=== PATIENT | female | born 1955 | race Caucasian/White ===

== ENCOUNTER 2017-03-25 14:59 | Observation (INO) | payer MEDICARE, OTHER ==
[~2017-03-25] VITALS: Ht 167.6 cm; Wt 85.8 kg
[~2017-03-25 14:59] MED LIST: AZULFIDINE500 MG PO; BACLOFEN20 MG PO; BUTORPHANO10 MG/1 ML; CHLORDIAZEPO-A1 EACH PO; GLUCOPHAGE1000 MG PO; LOVASTATIN20 MG PO; NEXIUM40 MG PO; OXYBUTYNIN CHLO10 MG PO; PRINIVIL10 MG PO; REZYST250 MG PO; ROBAXIN-750750 MG PO; SARAFEM20 MG PO
[2017-03-25 15:36] LABS: BASOPHILS % 0.3 % (0.0-1.0); BILIRUBIN,URINE 1+ (NEGATIVE); COLOR,URINE AMBER (YELLOW); EOSINOPHILS % 0.1 % (0.0-6.0); HEMATOCRIT 37.9 % (34.2-44.1); HEMOGLOBIN 12.5 g/dL (12.0-16.0); KETONES,URINE TRACE (NEGATIVE); LEUKOCYTE ESTERASE ,URINE 2+ (NEGATIVE); LYMPHOCYTES # (AUTO) 1.9 (1.0-3.2); LYMPHOCYTES % 20.1 % (18.0-39.1); MEAN CORPUSCULAR HEMOGLOBIN 28.5 pg (28-32); MEAN CORPUSCULAR VOLUME 86.3 fL (81-99); MONOCYTES # (AUTO) 0.6 (0.2-0.8); MONOCYTES % 5.9 % (4.4-11.3); NEUTROPHILS # (AUTO) 7.1 (2.1-6.9); NEUTROPHILS % 73.1 % (38.7-80.0); PLATELET COUNT 282 x10e3/uL (140-360); RED BLOOD COUNT 4.39 x10e6/uL (3.6-5.1); RED CELL DISTRIBUTION WIDTH 17.6 % (11.7-14.4); URINE UROBILINOGEN 0.2 mg/dL (0.2 - 1)
[2017-03-25 15:39] LABS: CLARITY,URINE SL CLOUDY (CLEAR); NITRITE,URINE POSITIVE (NEGATIVE); PROTEIN,URINE DIPSTICK 2+ (NEGATIVE)
[2017-03-25 15:45] LABS: BACTERIA,URINE MANY /HPF; EPITHELIAL CELLS,URINE FEW /LPF; MUCUS,URINE MODERATE (RARE); WBC,URINE (MAN) 21-50 /HPF (0-5)
--- NOTE | 2017-03-25 15:45 | Diagnostic Imaging Report ---
PROCEDURE: A single AP view of the chest. COMPARISON: None. INDICATIONS: shortness of breath, nausea FINDINGS: Lines/tubes: None. Lungs: The lungs are well inflated and clear. There is no evidence of pneumonia or pulmonary edema. Pleura: There is no pleural effusion or pneumothorax. Heart and mediastinum: The heart and the mediastinum are unremarkable. Bones: No acute bony abnormality. IMPRESSION: 1. No acute cardiopulmonary abnormalities. Renny Santiago M.D. Dictated by: Renny Santiago M.D. on 03/25/2017 at 15:52 Electronically approved by: Renny Santiago M.D. on 03/25/2017 at 15:52
[2017-03-25] MEDS ORDERED: ONDANSETRON HCL INJ 2 MG/ML VIAL IV STA (15:49)
[2017-03-25] MEDS ORDERED: MORPHINE SULFATE 2 MG/ML SYR IV STA (15:49)
[2017-03-25 15:54] LABS: ALANINE AMINOTRANSFERASE 10 IU/L (0-55); ALBUMIN 4.7 g/dL (3.5-5.0); ALBUMIN/GLOBULIN RATIO 0.9 (0.8-2.0); ALKALINE PHOSPHATASE 88 IU/L (40-150); ANION GAP 19.2 mmol/L (8-16); BLOOD UREA NITROGEN 28 mg/dL (7-26); BUN/CREATININE RATIO 32 (6-25); CALCIUM 10.9 mg/dL (8.4-10.2); CARBON DIOXIDE 28 mmol/L (22-29); CHLORIDE 93 mmol/L (98-107); CREATINE KINASE 41 IU/L (29-168); CREATININE, SERUM 0.87 mg/dL (0.57-1.11); EST GLOMERULAR FILTRATION RATE > 60 ML/MIN (60-); GLUCOSE 226 mg/dL (74-118); POTASSIUM 4.2 mmol/L (3.5-5.1); SODIUM 136 mmol/L (136-145)
[2017-03-25] MEDS ORDERED: MEROPENEM 500MG 500 MG in SODIUM CHLORIDE 0.9% 50ML 50 ML IV STA (16:20)
[2017-03-25] MEDS ORDERED: IOPAMIDOL 370 MG/ML 200 ML INFUS..BTL INJ ONE (18:41)
[2017-03-25] MEDS ORDERED: SODIUM CHLORIDE 0.9% 50ML 50 ML ONE (18:41)
--- NOTE | 2017-03-25 18:47 | Diagnostic Imaging Report ---
PROCEDURE: CT ABDOMEN AND PELVIS WITH CONTRAST TECHNIQUE: The abdomen and pelvis were scanned utilizing a multidetector helical scanner from the diaphragm to the lesser trochanter after the IV administration of 100 cc of Isovue 370 and the oral administration of water. Coronal and sagittal multiplanar reformations were obtained. COMPARISON: Patients [facility], CT, CT ABDOMEN AND PELVIS WITH CONTRAST, 08/27/2009, 10:49. INDICATIONS: VOMITTING, ABDOMINAL PAIN, CROHNS DISEASE FINDINGS: LOWER THORAX: Stable 5-6 mm nodule in the lateral right lower lobe (series 2, image 1). Stable linear scarring in the medial right middle lobe (series 2, image 1). HEPATOBILIARY: Normal hepatic size and contour. No focal hepatic lesions. Common bile duct is mildly dilated, measuring approximately 9 mm at the stevo hepatis. No radiopaque intraluminal filling defects. Cholecystectomy clips. SPLEEN: No splenomegaly. PANCREAS: No focal masses or ductal dilatation. Normal parenchymal enhancement. No surrounding inflammatory changes, free fluid or fluid collections in the neck, body, or tail. ADRENALS: No adrenal nodules. KIDNEYS/URETERS: No hydronephrosis, stones, or solid mass lesions. PELVIC ORGANS/BLADDER: Bladder is decompressed, but grossly unremarkable. Uterus is not visualized. No adnexal masses. PERITONEUM / RETROPERITONEUM: No free air or fluid. LYMPH NODES: Mildly enlarged stevo hepatis and celiac axis nodes, as well as mildly prominent left retroperitoneal and gastrohepatic ligament nodes: * Stevo hepatis nodes measure 1.2 and 1.2 cm in short axis (series 2, images 22 and 24). * Enlarged portacaval lymph node measures 1.6 cm in short axis (series 2 image 27). * Enlarged celiac axis node measures 1.2 cm in short axis (series 2 image 23). * Borderline enlarged slick-caval node, which measures 1.0 cm in short axis (series 2, image 28). * Mildly prominent gastrohepatic ligament nodes, which measures 0.8-0.9 cm in short axis. No other retroperitoneal or any pelvic or inguinal adenopathy. No intra-abdominal lymph nodes. VESSELS: The celiac trunk, superior and inferior mesenteric, and bilateral renal arteries are patent. Portal, superior mesenteric, and splenic veins are patent. Mild atherosclerotic disease of the aorta. GI TRACT: Very mild soft tissue stranding surrounding the second portion of the duodenum (for example series 2, image 31-33), with mild thickening of the adjacent anterior pararenal fascia (series 2, image 39). No bowel dilation or evidence of obstruction. Stomach is grossly unremarkable. No surrounding stranding or pericolonic inflammatory changes. BONES AND SOFT TISSUES: No acute bony abnormalities. Vertebroplasty changes at L4 and L5. Degenerative disc changes L1-L2, and L4-L5/L5-S1. No lytic lesions. IMPRESSION: 1. very mild soft tissue stranding surrounding the second portion of the duodenum. This may reflect duodenitis. Alternatively, these may be reactive changes secondary to adjacent mild pancreatitis. Correlate with serum amylase and lipase. No evidence of pancreatic necrosis, focal lesion or ductal dilation. 2. The rest of the bowel is grossly unremarkable. 3. Stevo hepatis and celiac axis adenopathy, which may be reactive. 4. Stable 5-6 mm nodule in the right lower lobe since 2009, which is presumed benign. 5. Mild dilation of the common bile duct, likely reflect post cholecystectomy status. Renny Santiago M.D. Dictated by: Renny Santiago M.D. on 03/25/2017 at 18:54 Electronically approved by: Renny Santiago M.D. on 03/25/2017 at 18:54
[2017-03-25] MEDS ORDERED: D5.45%NS/KCL 20MEQ 1,000 ML IV SCH (18:56)
[2017-03-25] MEDS ORDERED: DIPHENOXYLATE/ATROPINE TAB PO PRN (19:00)
[2017-03-25] MEDS ORDERED: ONDANSETRON HCL INJ 2 MG/ML VIAL IV PRN (19:00)
[2017-03-25] MEDS ORDERED: DEXTROSE 50% SYRINGE 50 ML IV PRN (19:00)
[2017-03-25] MEDS ORDERED: MORPHINE SULFATE 5 MG/ML VIAL IV PRN (19:15)
[2017-03-25 20:33] VITALS: BP 130/70
[2017-03-25] MEDS: INSULIN REGULAR, HUMAN 100 UNIT/1 ML 3ML VIAL SQ SCH (21:00)
[2017-03-25 21:58] VITALS: BP 130/70
[2017-03-25] MEDS ORDERED: MEROPENEM 500MG 500 MG in SODIUM CHLORIDE 0.9% 50ML 50 ML IV SCH (22:00)
[2017-03-25] MEDS: WATER STERILE 10 ML VIAL INJ SCH (22:32)
[2017-03-25] MEDS: MEROPENEM 500 MG VIAL IV SCH (22:32)
[2017-03-26 00:25] VITALS: BP 125/67
[2017-03-26 05:20] VITALS: BP 143/74
[2017-03-26] MEDS: WATER STERILE 10 ML VIAL INJ SCH ×3 (06:01→22:44)
[2017-03-26] MEDS: MEROPENEM 500 MG VIAL IV SCH ×3 (06:01→22:44)
[2017-03-26 07:25] LABS: BASOPHILS % 0.5 % (0.0-1.0); EOSINOPHILS # (AUTO) 0.1 (0.0-0.4); EOSINOPHILS % 1.1 % (0.0-6.0); HEMOGLOBIN 9.6 g/dL (12.0-16.0); LYMPHOCYTES # (AUTO) 1.6 (1.0-3.2); LYMPHOCYTES % 19.6 % (18.0-39.1); MEAN CORPUSCULAR HEMOGLOBIN 28.5 pg (28-32); MONOCYTES # (AUTO) 0.6 (0.2-0.8); MONOCYTES % 7.8 % (4.4-11.3); NEUTROPHILS # (AUTO) 5.7 (2.1-6.9); NEUTROPHILS % 70.6 % (38.7-80.0); PLATELET COUNT 220 x10e3/uL (140-360); RED BLOOD COUNT 3.37 x10e6/uL (3.6-5.1); RED CELL DISTRIBUTION WIDTH 17.3 % (11.7-14.4)
[2017-03-26] MEDS: INSULIN REGULAR, HUMAN 100 UNIT/1 ML 3ML VIAL SQ SCH ×4 (07:30→21:00)
[2017-03-26 08:00] VITALS: BP 117/58
[2017-03-26 08:03] LABS: ANION GAP 15.1 mmol/L (8-16); BLOOD UREA NITROGEN 21 mg/dL (7-26); BUN/CREATININE RATIO 31 (6-25); CALCIUM 9.4 mg/dL (8.4-10.2); CARBON DIOXIDE 26 mmol/L (22-29); CHLORIDE 98 mmol/L (98-107); CREATININE, SERUM 0.68 mg/dL (0.57-1.11); EST GLOMERULAR FILTRATION RATE > 60 ML/MIN (60-); GLUCOSE 200 mg/dL (74-118); POTASSIUM 4.1 mmol/L (3.5-5.1); SODIUM 135 mmol/L (136-145)
[2017-03-26 11:44] VITALS: BP 126/71
[2017-03-26] MEDS ORDERED: SODIUM CHLORIDE 0.9% 1000ML 1,000 ML IV SCH (11:45)
[2017-03-26 12:02] LABS: MAGNESIUM 1.3 MG/DL (1.3-2.1)
[2017-03-26 12:30] LABS: FREE T4 (FREE THYROXINE) 1.06 ng/dL (0.8-1.8); THYROID STIMULATING HORMONE 1.678 uIU/mL (0.350-4.940)
[2017-03-26 12:31] LABS: B-TYPE NATRIURETIC PEPTIDE2 < 10.0 pg/mL (0-100)
[2017-03-26] MEDS: SULFASALAZINE 500 MG TAB PO SCH ×3 (13:00→21:00)
[2017-03-26] MEDS: [UNRECOGNIZED DRUG - OTHER] PO SCH ×2 (15:00→21:00)
[2017-03-26] MEDS: CHLORDIAZEPOXIDE PO SCH ×2 (15:00→21:00)
[2017-03-26] MEDS: METHOCARBAMOL 750 MG TAB PO SCH ×2 (15:00→21:00)
[2017-03-26] MEDS: BACLOFEN 10 MG TAB PO SCH ×2 (15:00→21:00)
[2017-03-26 16:44] VITALS: BP 122/65
[2017-03-26] MEDS: METFORMIN HCL 500 MG TAB PO SCH (17:00)
[2017-03-26 18:57] LABS: WBC,FECAL (FECAL LACTOFERRIN) NEGATIVE (NEGATIVE)
[2017-03-26] MEDS ORDERED: SIMVASTATIN 20 MG TAB PO SCH (21:00)
[2017-03-26 21:15] VITALS: BP 109/58
[2017-03-27] VITALS: BP 123/63
[2017-03-27 05:08] VITALS: BP 145/66
[2017-03-27] MEDS: WATER STERILE 10 ML VIAL INJ SCH ×2 (06:44→14:00)
[2017-03-27] MEDS: MEROPENEM 500 MG VIAL IV SCH ×2 (06:44→14:50)
[2017-03-27] MEDS ORDERED: PANTOPRAZOLE SOD 40 MG TABEC PO SCH (07:30)
[2017-03-27] MEDS: INSULIN REGULAR, HUMAN 100 UNIT/1 ML 3ML VIAL SQ SCH ×2 (07:30→11:30)
[2017-03-27 08:00] VITALS: BP 147/65
[2017-03-27] MEDS: METFORMIN HCL 500 MG TAB PO SCH (08:00)
[2017-03-27 08:04] LABS: FERRITIN 105.06 ng/mL (4.63-204.00)
[2017-03-27 08:06] LABS: FOLATE 3.8 ng/mL (7.0-15.4)
[2017-03-27] MEDS ORDERED: NON-FORMULARY MEDICATION (Lovastatin 20 MG) PO SCH (09:00)
[2017-03-27] MEDS: CHLORDIAZEPOXIDE PO SCH ×2 (09:00→15:00)
[2017-03-27] MEDS: BACLOFEN 10 MG TAB PO SCH ×2 (09:00→15:00)
[2017-03-27] MEDS: [UNRECOGNIZED DRUG - OTHER] PO SCH ×2 (09:00→15:00)
[2017-03-27] MEDS ORDERED: LISINOPRIL 10 MG TAB PO SCH (09:00)
[2017-03-27] MEDS: SULFASALAZINE 500 MG TAB PO SCH ×2 (09:00→13:00)
[2017-03-27] MEDS ORDERED: OXYBUTYNIN CHLORIDE XL 5 MG TAB PO SCH (09:00)
[2017-03-27] MEDS ORDERED: FLUOXETINE HCL 20 MG CAP PO SCH (09:00)
[2017-03-27] MEDS: METHOCARBAMOL 750 MG TAB PO SCH ×2 (09:00→15:00)
[2017-03-27 09:06] LABS: BASOPHILS # (AUTO) 0.1 (0.0-0.1); BASOPHILS % 0.6 % (0.0-1.0); EOSINOPHILS # (AUTO) 0.2 (0.0-0.4); EOSINOPHILS % 1.7 % (0.0-6.0); HEMATOCRIT 30.2 % (34.2-44.1); HEMOGLOBIN 9.6 g/dL (12.0-16.0); LYMPHOCYTES # (AUTO) 1.6 (1.0-3.2); LYMPHOCYTES % 18.7 % (18.0-39.1); MEAN CORPUSCULAR HGB CONC 31.8 g/dL (31-35); MEAN CORPUSCULAR VOLUME 91.2 fL (81-99); MONOCYTES # (AUTO) 0.6 (0.2-0.8); MONOCYTES % 6.8 % (4.4-11.3); NEUTROPHILS # (AUTO) 6.3 (2.1-6.9); NEUTROPHILS % 71.7 % (38.7-80.0); PLATELET COUNT 236 x10e3/uL (140-360); RED BLOOD COUNT 3.31 x10e6/uL (3.6-5.1); RED CELL DISTRIBUTION WIDTH 17.4 % (11.7-14.4)
[2017-03-27 12:05] LABS: C DIFFICILE TOXIN A&B AMP PROB NEGATIVE (NEGATIVE)
[2017-03-27] MEDS ORDERED: FERROUS SULFAT325 MG PO (13:21)
[2017-03-27] MEDS ORDERED: BACTRIM DS TAB1 EACH PO (13:21)
[2017-03-27] MEDS ORDERED: MULTI-VITAMIN1 EACH PO (13:21)
[2017-03-27] MEDS ORDERED: CIPRO500 MG PO (13:25)
--- NOTE | 2017-03-27 13:40 | Discharge Summary ---
ADMITTING DIAGNOSES 1. Acute gastroenteritis. 2. Recalcitrant nausea, vomiting and diarrhea. 3. Urinary tract infection. 4. History of Crohn disease. 5. History of hypertension. 6. History of type 2 diabetes. DISCHARGE DIAGNOSES 1. Acute gastroenteritis. 2. Recalcitrant nausea, vomiting and diarrhea. 3. Urinary tract infection. 4. History of Crohn disease. 5. History of hypertension. 6. History of type 2 diabetes. BRIEF HISTORY: Ms. Jimenez is a 61-year-old lady who comes in presenting with 24 hours of nausea, vomiting and diarrhea. She does have a history of Crohn disease, but does not feel that this is a Crohn's flare up. Her UA showed pyuria suggesting this was all due to a urinary tract infection. The urine culture came back with greater than 100,000 Klebsiella that was pansensitive. Her lab work showed only some mild iron deficiency anemia. She was feeling much better the following day, tolerating a regular diet with no nausea, vomiting or diarrhea. She was discharged home on p.o. cefuroxime for the urinary tract infection along with p.o. iron and vitamins for the anemia with instructions to resume the rest of her home meds as before. Resume a diabetic diet and to follow up with her PCP within 2 weeks. CEM MORGAN MD Job#: [id number] [place]
== END 2017-03-27 15:39 | disposition home or self-care (01) ==
LOC: ER 15:03 → MED/SURG3 19:43
PROVIDERS: ADMIT Internal Medicine; ATTEND Internal Medicine
DX: A09 Infectious gastroenteritis and colitis, unspecified (principal); N39.0 Urinary tract infection, site not specified; K50.90 Crohn's disease, unspecified, without complications; I10 Essential (primary) hypertension; E11.9 Type 2 diabetes mellitus without complications; B96.1 Klebsiella pneumoniae [K. pneumoniae] as the cause of diseases classified elsewhere; D50.9 Iron deficiency anemia, unspecified; K21.9 Gastro-esophageal reflux disease without esophagitis; M06.9 Rheumatoid arthritis, unspecified
CPT/HCPCS: 36415 ×3; 71010; 74177; 80048; 80053; 81001; 82270; 82550; 82553; 82607; 82728; 82746; 82948 ×3; 83036; 83540; 83630; 83735; 83880; 84439; 84443; 84466; 84484; 85025 ×3; 87045; 87086; 87177; 87186; 87493; 93005; 96376; 99284; G0378 ×3; J2185 ×3; J2270; J2405; J7030; Q9967

== ENCOUNTER 2017-05-25 16:56 | Inpatient (IN) | payer MEDICARE, OTHER ==
[~2017-05-25] VITALS: Ht 167.6 cm; Wt 85.7 kg
[~2017-05-25 16:56] MED LIST changes: +BACTRIM DS TAB1 EACH PO; +CIPRO500 MG PO; +FERROUS SULFAT325 MG PO; +MULTI-VITAMIN1 EACH PO
[2017-05-25] MEDS ORDERED: SODIUM CHLORIDE 0.9% 1000ML 1,000 ML IV STA (17:42)
[2017-05-25] MEDS ORDERED: PHENAZOPYRIDINE HCL 100 MG TAB PO ONE (17:45)
[2017-05-25] MEDS ORDERED: CIPROFLOXACIN 400 MG/D5W 200ML 200 ML IV NR (18:30)
[2017-05-25 19:04] LABS: BILIRUBIN,URINE NEGATIVE (NEGATIVE); KETONES,URINE NEGATIVE (NEGATIVE); LEUKOCYTE ESTERASE ,URINE 1+ (NEGATIVE); NITRITE,URINE NEGATIVE (NEGATIVE); URINE UROBILINOGEN 0.2 mg/dL (0.2 - 1)
[2017-05-25 19:06] LABS: CLARITY,URINE SL CLOUDY (CLEAR); COLOR,URINE YELLOW (YELLOW); PROTEIN,URINE DIPSTICK TRACE (NEGATIVE)
[2017-05-25 19:19] LABS: BACTERIA,URINE MANY /HPF; EPITHELIAL CELLS,URINE MODERATE /LPF
[2017-05-25 20:51] LABS: BASOPHILS # (AUTO) 0.1 (0.0-0.1); BASOPHILS % 0.6 % (0.0-1.0); EOSINOPHILS # (AUTO) 0.1 (0.0-0.4); HEMATOCRIT 35.7 % (34.2-44.1); HEMOGLOBIN 11.1 g/dL (12.0-16.0); LYMPHOCYTES # (AUTO) 2.4 (1.0-3.2); LYMPHOCYTES % 29.1 % (18.0-39.1); MEAN CORPUSCULAR HEMOGLOBIN 25.8 pg (28-32); MEAN CORPUSCULAR HGB CONC 31.1 g/dL (31-35); MEAN CORPUSCULAR VOLUME 82.8 fL (81-99); MONOCYTES # (AUTO) 0.6 (0.2-0.8); MONOCYTES % 6.8 % (4.4-11.3); NEUTROPHILS # (AUTO) 5.2 (2.1-6.9); NEUTROPHILS % 62.3 % (38.7-80.0); PLATELET COUNT 341 x10e3/uL (140-360); RED BLOOD COUNT 4.31 x10e6/uL (3.6-5.1); RED CELL DISTRIBUTION WIDTH 15.4 % (11.7-14.4)
[2017-05-25 21:09] LABS: ALANINE AMINOTRANSFERASE 10 IU/L (0-55); ALBUMIN 4.2 g/dL (3.5-5.0); ALBUMIN/GLOBULIN RATIO 0.9 (0.8-2.0); ALKALINE PHOSPHATASE 72 IU/L (40-150); ANION GAP 16.6 mmol/L (8-16); BLOOD UREA NITROGEN 14 mg/dL (7-26); BUN/CREATININE RATIO 19 (6-25); CALCIUM 10.6 mg/dL (8.4-10.2); CARBON DIOXIDE 27 mmol/L (22-29); CHLORIDE 99 mmol/L (98-107); CREATININE, SERUM 0.74 mg/dL (0.57-1.11); EST GLOMERULAR FILTRATION RATE > 60 ML/MIN (60-); GLUCOSE 116 mg/dL (74-118); POTASSIUM 3.6 mmol/L (3.5-5.1); SODIUM 139 mmol/L (136-145)
[2017-05-25] MEDS ORDERED: ONDANSETRON HCL INJ 2 MG/ML VIAL IV PRN (21:15)
[2017-05-25] MEDS ORDERED: MEROPENEM 1GM 100 ML IV SCH (21:15)
[2017-05-25] MEDS ORDERED: ACETAMINOPHEN 325 MG TAB PO PRN (21:15)
[2017-05-25] MEDS ORDERED: SODIUM CHLORIDE FLUSH 10 ML SYR INJ PRN (21:15)
[2017-05-25] MEDS ORDERED: SODIUM CHLORIDE 0.9% 1000ML 1,000 ML ONE (22:17)
[2017-05-25] MEDS ORDERED: SODIUM CHLORIDE 0.9% 50ML 50 ML ONE (22:17)
[2017-05-25] MEDS: MEROPENEM 1 GM VIAL IV SCH (22:19)
[2017-05-25] MEDS ORDERED: BUDESONIDE EC3 MG PO (22:27)
[2017-05-25] MEDS ORDERED: NORCO 10-325 T1 EACH PO (22:27)
[2017-05-25] MEDS ORDERED: LOVASTATIN40 MG PO (22:27)
[2017-05-25] MEDS ORDERED: PANTOPRAZOLE SO40 MG PO (22:27)
[2017-05-25] MEDS ORDERED: GABAPENTIN400 MG PO (22:27)
[2017-05-25] MEDS ORDERED: PROZAC20 MG PO (22:27)
[2017-05-25] MEDS ORDERED: MS CONTIN30 MG PO (22:27)
[2017-05-25] MEDS ORDERED: TIZANIDINE HCL4 MG PO (22:27)
[2017-05-25] MEDS ORDERED: PIOGLITAZONE HC45 MG PO (22:27)
[2017-05-25] MEDS ORDERED: HYDROCODONE/APAP 10MG-325MG TAB PO PRN (22:30)
[2017-05-25] MEDS ORDERED: TIZANIDINE HCL 4 MG TAB PO PRN (22:30)
[2017-05-26] VITALS (10 sets, daily range): BP systolic 90–140; BP diastolic 49–62
[2017-05-26] MEDS: MEROPENEM 1 GM VIAL IV SCH ×3 (06:13→22:00)
[2017-05-26] MEDS: PIOGLITAZONE HCL 45 MG TAB PO SCH (09:00)
[2017-05-26] MEDS: LISINOPRIL 10 MG TAB PO SCH (09:00)
[2017-05-26] MEDS ORDERED: SIMVASTATIN 20 MG TAB PO SCH (09:00)
[2017-05-26] MEDS ORDERED: DEXTROSE 50% SYRINGE 50 ML IV PRN (09:30)
[2017-05-26] MEDS: SULFASALAZINE 500 MG TAB PO SCH ×2 (09:43→17:48)
[2017-05-26] MEDS: MORPHINE SULFATE 30 MG TAB ER PO SCH ×2 (09:43→17:00)
[2017-05-26] MEDS: PANTOPRAZOLE SOD 40 MG TABEC PO SCH (09:43)
[2017-05-26] MEDS: BUDESONIDE 3 MG CAPCR PO SCH (09:43)
[2017-05-26] MEDS: FLUOXETINE HCL 20 MG CAP PO SCH (09:44)
[2017-05-26] MEDS ORDERED: DIATRIZOATE MEGL/DIATRIZOA SOD 30 ML BTL PO ONE (10:06)
--- NOTE | 2017-05-26 10:10 | History and Physical ---
PRIMARY CARE PROVIDER: Dr. Vanessa Mathis. AIRPORT RAMP ATTENDANT: Dr. Bg Easley. CHIEF COMPLAINT: Recurrent urinary tract infection with ESBL. HISTORY OF PRESENT ILLNESS: A 61-year-old female was told by Dr. Vanessa Mathis that the patient needed to go to emergency room for an ESBL E. coli infection with multiple resistant antibiotics. The patient is now on meropenem. She is stable otherwise. PAST MEDICAL HISTORY: Recurrent urinary tract infection, hypertension, hyperlipidemia, diabetes type 2, depression, and chronic pain. PAST SURGICAL HISTORY: Hysterectomy, knee surgery, urinary bladder suspension, and cholecystectomy. SOCIAL HISTORY: Patient does not smoke or use alcohol. No recreational drugs. ALLERGIES: BENADRYL, RANITIDINE, KEFLEX, CARBAMAZEPINE, AND PENICILLIN. HOME MEDICATIONS: List is reviewed. REVIEW OF SYSTEMS: Dysuria. Urinary increasing frequency. Odorous urine. No focal deficit. PHYSICAL EXAMINATION VITAL SIGNS: Temperature is 98, blood pressure 190/51, pulse rate 86, and respirations 18. GENERAL: The patient is not in acute distress. He is awake. HEENT: Normocephalic, atraumatic. NECK: Supple grossly. PULMONARY: Diminished breath sounds. CARDIOVASCULAR: S1 and S2. Regular rate and rhythm. ABDOMEN: Soft, unremarkable. EXTREMITIES: No gross cyanosis or edema. NEUROLOGIC: There is no gross focal deficit. LABORATORY: Sodium is 139, potassium 3.6, chloride 99, bicarb 27, BUN 14, creatinine 0.7, and glucose 160. WBC is 8.3, hemoglobin 11.1, hematocrit 35.7, and platelets is 341,000. Urinalysis with WBCs 6 to 10, many bacteria, 1+ leukocyte esterase. Microbiology is still pending. IMPRESSIONS 1. Recurrent urinary tract infection with multiresistant bacteria. 2. Multiple chronic baseline problems. PLAN: Continue with home medications with adjustment. Meropenem. Consultation with Dr. Bg Easley. Job#: [id number]
[2017-05-26] MEDS ORDERED: SODIUM CHLORIDE 0.9% 50ML 0 ML ONE (11:06)
[2017-05-26] MEDS ORDERED: IOPAMIDOL 370 MG/ML 200 ML INFUS..BTL INJ ONE (11:06)
[2017-05-26] MEDS: INSULIN LISPRO 100 UNIT/1 ML 3ML VIAL SQ SCH ×3 (11:30→20:41)
--- NOTE | 2017-05-26 15:11 | Consultation ---
DATE OF CONSULTATION: May 26, 2017 UROLOGY CONSULTATION REASON FOR CONSULTATION: Complicated urinary tract infections. HISTORY OF PRESENT ILLNESS: Alpa Jimenez is a 61-year-old woman with long-standing refractory urge and stress incontinence. The patient has had recurrent urinary tract infections. She was evaluated with a culture by her primary care physician and was found to have an E. coli that was resistant to most oral antibiotics. The patient subsequently reported to the emergency room with fevers, dysuria, and was admitted to the hospital for intravenous antibiotics. The patient has had at least 2 bladder suspensions in the past. She does not recall how they were done and if they were done by a urologist or a casing puller. The patient was being worked up before [place] by Dr. Kerr, urogynecologist in the region. The patient has improved since she has been hospitalized and on IV antibiotics. PAST MEDICAL AND SURGICAL HISTORY 1. Recurrent urinary tract infections. 2. Hypertension. 3. Hyperlipidemia. 4. Type 2 diabetes mellitus. 5. Depression. 6. Chronic pain. 7. Status post total abdominal hysterectomy/bilateral salpingo-oophorectomy. 8. Status post bilateral total knee arthroplasty. 9. Status post cholecystectomy. 10. Status post left elbow surgery. 11. Status post left thumb reconstruction. 12. Total of 7 knee surgeries. 13. Status post removal of neuromas from feet. ALLERGIES: BENADRYL, RANITIDINE, KEFLEX, CARBAMAZEPINE, AND PENICILLIN. CURRENT MEDICATIONS: Please refer to the MAR. SOCIAL HISTORY: The patient denies smoking, ethanol or drug use. 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 FAMILY HISTORY: Noncontributory to the urological problems. REVIEW OF SYSTEMS: As consistent with above history of present illness and past medical history, is otherwise negative for all other systems. PHYSICAL EXAMINATION GENERAL: A very pleasant 61-year-old woman lying in the bed in no apparent distress. VITAL SIGNS: She is currently afebrile. Her vital signs are currently stable. ABDOMEN: Soft, nondistended, nontender without costovertebral angle tenderness. Kidneys are not palpable, without hepatosplenomegaly. The patient is obese. For the remaining physical examination and systems, please refer to the admission history and physical on the chart. LABORATORY STUDIES: The patient's urine culture preliminarily is showing gram-negative bacilli. White blood cell count is 8260, hemoglobin 11.1, platelets 341,000. Patient's creatinine is normal at 0.74. Calcium is elevated at 10.6. Urinalysis is significant for pyuria and microhematuria with many bacteria and moderate epithelial cells consistent with a [id number] urinary specimen. CT scan of the abdomen and pelvis was attempted to be performed, but the patient got claustrophobic. It showed soft-tissue stranding around the 2nd portion of the duodenum which I defer to the primary care physician and dilatation of the common bile duct. The kidneys were unremarkable. ASSESSMENT 1. Recurrent complicated urinary tract infections. 2. Mixed-type urinary incontinence. 3. Obesity. 4. Anemia. 5. Hypercalcemia. 6. Microhematuria. PLAN 1. Defer the electrolyte and hematologic abnormalities to the primary physician. Will await the final urine culture and sensitivity. 2. The patient will need a urological evaluation including urodynamic studies, cystoscopic examinations, et cetera. 3. Suppression antibiotics will be considered. This may be difficult with the patient's multitude of antibiotic allergies. Thank you very much for involving us in the care of your patient. We will be happy to follow her along with you as well as an outpatient. Job#: [id number] EV cc:JOHNATHAN MORENO MD
[2017-05-26] MEDS: HYDROCODONE/APAP 10MG-325MG TAB PO PRN (17:35)
[2017-05-26] MEDS: GABAPENTIN 400 MG CAP PO SCH (20:41)
[2017-05-27] VITALS (7 sets, daily range): BP systolic 115–138; BP diastolic 57–66
[2017-05-27] MEDS: HYDROCODONE/APAP 10MG-325MG TAB PO PRN ×3 (00:09→15:50)
[2017-05-27] MEDS: MEROPENEM 1 GM VIAL IV SCH ×3 (05:21→21:34)
[2017-05-27] MEDS: INSULIN LISPRO 100 UNIT/1 ML 3ML VIAL SQ SCH ×4 (07:30→21:00)
[2017-05-27 07:36] LABS: BASOPHILS % 0.4 % (0.0-1.0); EOSINOPHILS # (AUTO) 0.1 (0.0-0.4); EOSINOPHILS % 1.5 % (0.0-6.0); HEMATOCRIT 29.1 % (34.2-44.1); LYMPHOCYTES # (AUTO) 1.4 (1.0-3.2); LYMPHOCYTES % 25.7 % (18.0-39.1); MEAN CORPUSCULAR HEMOGLOBIN 25.2 pg (28-32); MEAN CORPUSCULAR HGB CONC 30.9 g/dL (31-35); MEAN CORPUSCULAR VOLUME 81.5 fL (81-99); MONOCYTES # (AUTO) 0.5 (0.2-0.8); MONOCYTES % 8.4 % (4.4-11.3); NEUTROPHILS # (AUTO) 3.4 (2.1-6.9); NEUTROPHILS % 63.6 % (38.7-80.0); PLATELET COUNT 239 x10e3/uL (140-360); RED BLOOD COUNT 3.57 x10e6/uL (3.6-5.1); RED CELL DISTRIBUTION WIDTH 15.3 % (11.7-14.4)
[2017-05-27 07:48] LABS: ANION GAP 13.5 mmol/L (8-16); BLOOD UREA NITROGEN 11 mg/dL (7-26); BUN/CREATININE RATIO 20 (6-25); CALCIUM 9.7 mg/dL (8.4-10.2); CARBON DIOXIDE 31 mmol/L (22-29); CHLORIDE 100 mmol/L (98-107); CREATININE, SERUM 0.56 mg/dL (0.57-1.11); EST GLOMERULAR FILTRATION RATE > 60 ML/MIN (60-); GLUCOSE 156 mg/dL (74-118); POTASSIUM 3.5 mmol/L (3.5-5.1); SODIUM 141 mmol/L (136-145)
[2017-05-27] MEDS: PIOGLITAZONE HCL 45 MG TAB PO SCH (08:00)
[2017-05-27] MEDS: MORPHINE SULFATE 30 MG TAB ER PO SCH ×2 (09:00→17:00)
[2017-05-27] MEDS: BUDESONIDE 3 MG CAPCR PO SCH (09:30)
[2017-05-27] MEDS: FLUOXETINE HCL 20 MG CAP PO SCH (09:30)
[2017-05-27] MEDS: LISINOPRIL 10 MG TAB PO SCH (09:30)
[2017-05-27] MEDS: SULFASALAZINE 500 MG TAB PO SCH ×2 (09:30→17:25)
[2017-05-27] MEDS: PANTOPRAZOLE SOD 40 MG TABEC PO SCH (09:30)
[2017-05-27] MEDS: METFORMIN HCL 500 MG TAB PO SCH ×2 (09:48→17:25)
--- NOTE | 2017-05-27 13:55 | Diagnostic Imaging Report ---
PROCEDURE: CHEST XRAY LINE PLACEMENT COMPARISON: 03/25/2017. INDICATIONS: PICC LINE PLACEMENT FINDINGS: The lungs are well-inflated. No focal airspace consolidation, pleural effusion, or pneumothorax. Stable cardiomediastinal contour. No pulmonary edema. No acute osseous abnormalities. Interval placement of a left upper extremity PICC. The tip projects over the expected region of the low superior vena cava. CONCLUSION: Tip of left upper extremity PICC projects over the expected region of the low superior vena cava. Dictated by: Hemanth Goetz M.D. on 05/27/2017 at 14:05 Electronically approved by: Hemanth Goetz M.D. on 05/27/2017 at 14:05
[2017-05-27] MEDS ORDERED: METFORMIN HCL 500 MG TAB PO SCH (17:00)
[2017-05-27] MEDS: GABAPENTIN 400 MG CAP PO SCH (20:31)
[2017-05-27] MEDS ORDERED: SIMVASTATIN 40 MG TAB PO SCH (21:00)
[2017-05-28] VITALS: BP 139/68
[2017-05-28] MEDS: MEROPENEM 1 GM VIAL IV SCH (05:28)
[2017-05-28] MEDS: INSULIN LISPRO 100 UNIT/1 ML 3ML VIAL SQ SCH (07:30)
[2017-05-28] MEDS: SULFASALAZINE 500 MG TAB PO SCH (08:32)
[2017-05-28] MEDS: BUDESONIDE 3 MG CAPCR PO SCH (08:32)
[2017-05-28] MEDS: PIOGLITAZONE HCL 45 MG TAB PO SCH (08:32)
[2017-05-28] MEDS: MORPHINE SULFATE 30 MG TAB ER PO SCH (08:32)
[2017-05-28] MEDS: METFORMIN HCL 500 MG TAB PO SCH (08:32)
[2017-05-28] MEDS: LISINOPRIL 10 MG TAB PO SCH (08:33)
[2017-05-28] MEDS: PANTOPRAZOLE SOD 40 MG TABEC PO SCH (08:33)
[2017-05-28] MEDS: FLUOXETINE HCL 20 MG CAP PO SCH (08:33)
[2017-05-28 08:37] VITALS: BP 146/78
--- NOTE | 2017-05-28 11:53 | Discharge Summary ---
PRIMARY CARE PHYSICIAN: Dr. Vanessa Mathis. HOTEL MAINTENANCE TECHNICIAN: Dr. Bg Easley. FINAL DIAGNOSIS: Outpatient urine culture with multidrug-resistant Escherichia coli. Inpatient culture is Escherichia coli resistant to ampicillin, Bactrim, Levaquin, gentamicin, and Cipro along with multiple other medications, but sensitive to cephalosporin. HOSPITAL COURSE: Patient is a 62-year-old female with recurrent urinary tract infection, failed outpatient treatment. The patient basically on multiple medications in the past. She is allergic to CEPHALOSPORIN and PENICILLIN, now she is on meropenem. Arrangement has been made for the patient to receive meropenem. She had a left upper extremity PICC line in place. The patient will follow up with Dr. Bg Easley. She is stable. She will get meropenem 1 gram IV q.12 hours. The patient is otherwise stable. She will go home today, follow up with her family doctor within a week. The patient is otherwise stable. Job#: [id number] [facility]
[2017-05-28] MEDS ORDERED: MEROPENEM 1 GM VIAL IV SCH (21:00)
== END 2017-05-28 10:26 | disposition home health service (06) | DRG 690 ==
LOC: ER 16:56 → ERHOLD 22:35 → MED/SURG3 05-26 00:03
PROVIDERS: ADMIT Internal Medicine; ATTEND Internal Medicine
PROC: 02HV33Z Insertion of Infusion Device into Superior Vena Cava, Percutaneous Approach (ICD-10-PCS; principal; 2017-05-27)
DX: N39.0 Urinary tract infection, site not specified (principal); E83.52 Hypercalcemia; I10 Essential (primary) hypertension; B96.20 Unspecified Escherichia coli [E. coli] as the cause of diseases classified elsewhere; E11.9 Type 2 diabetes mellitus without complications; F32.9 Major depressive disorder, single episode, unspecified; Z16.24 Resistance to multiple antibiotics; Z16.12 Extended spectrum beta lactamase (ESBL) resistance; E66.9 Obesity, unspecified; Z68.30 Body mass index [BMI] 30.0-30.9, adult; D64.9 Anemia, unspecified; E78.5 Hyperlipidemia, unspecified; N39.46 Mixed incontinence; G89.29 Other chronic pain; Z88.1 Allergy status to other antibiotic agents; Z88.0 Allergy status to penicillin; Z88.8 Allergy status to other drugs, medicaments and biological substances
CPT/HCPCS: 36415; 36569; 71010; 80048; 80053; 81001; 82948; 83970; 84550; 85025; 87086; 87186; 99284; J2185; J7030; Q9967

== ENCOUNTER → 2017-07-01 | Day surgery (SDC) | payer MEDICARE, OTHER ==
[2017-06-29 15:50] LABS: ANION GAP 16.8 mmol/L (8-16); BLOOD UREA NITROGEN 12 mg/dL (7-26); BUN/CREATININE RATIO 17 (6-25); CALCIUM 9.9 mg/dL (8.4-10.2); CARBON DIOXIDE 29 mmol/L (22-29); CHLORIDE 97 mmol/L (98-107); CREATININE, SERUM 0.69 mg/dL (0.57-1.11); EST GLOMERULAR FILTRATION RATE > 60 ML/MIN (60-); GLUCOSE 130 mg/dL (74-118); POTASSIUM 3.8 mmol/L (3.5-5.1); SODIUM 139 mmol/L (136-145)
[~2017-07-01] MED LIST changes: +BUDESONIDE EC3 MG PO; +BUPIVACAINE HCL 0.5% 10ML MPF VIAL INJ ONE; +CLINDAMYCIN PHOS 900MG/ D5W 50 50 ML IV ONE; +DEXAMETHASONE SOD PHOS INJ 4 MG/ML VIAL ONE; +FENTANYL CITRATE/PF 100MCG/2 ML INJ ONE; +GABAPENTIN400 MG PO; +LEVOFLOXACIN 500MG/D5W 100ML 100 ML IV ONE; +LIDOCAINE 2% /EPINEPHRINE 20 ML SDV INJ ONE; +LIDOCAINE HCL 2% LOCAL INJ 5 ML SDV VIAL INJ ONE; +LISINOPRIL10 MG PO; +LOVASTATIN40 MG PO; +MIDAZOLAM HCL 2 MG/2 ML VIAL ONE; +MS CONTIN30 MG PO; +NORCO 10-325 T1 EACH PO; +ONDANSETRON HCL INJ 2 MG/ML VIAL ONE; +PANTOPRAZOLE SO40 MG PO; +PIOGLITAZONE HC45 MG PO; +PROPOFOL IV EMULSION 10 MG/ML 20 ML VIAL ONE; +PROZAC20 MG PO; +ROCURONIUM BROMIDE 10 MG/ML 5ML VIAL ONE; +SEVOFLURANE INHAL SOLN 250 ML PEN BTL ONE; +SUCCINYLCHOLINE 200 MG/10 ML SYR ONE; +TIZANIDINE HCL4 MG PO
--- OUTSIDE RECORDS SUMMARY | 2017-07-01 06:34 | XMS REPORT ---
Author Author [facility] Address Unknown Phone Unavailable Care Team Providers Care Circus Supervisor Name Role Phone JOHANNY RAJAN Unavailable Unavailable CLAIR BRYANT Unavailable Unavailable Problems This patient has no known problems. Allergies, Adverse Reactions, Alerts This patient has no known allergies or adverse reactions. Medications This patient has no known medications. Results Test Description Test Time Test Comments Text Results Atomic Results Result Comments CHEST XRAY LINE PLACEMENT [place] [address] Patient Name: MANPREET MADDOX MR #: [id number] : 1955 Age/Sex: 61/F Req #: [id number] [facility] Physician: JOHANNY RAJAN MD Ordered by: KAREN CHOUDHARY MD Report #: [id number] Location: [facility] Room/Bed: [facility] __ Procedure: [id number] DX/CHEST XRAY LINE PLACEMENT Exam Date: 05/27/17 Exam Time: 1335 REPORT STATUS: Signed PROCEDURE: CHEST XRAY LINE PLACEMENT COMPARISON: 03/25/2017. INDICATIONS: PICC LINE PLACEMENT FINDINGS: The lungs are well- inflated. No focal airspace consolidation, pleural effusion, or pneumothorax. Stable cardiomediastinal contour. No pulmonary edema. No acute osseous abnormalities. Interval placement of a left upper extremity PICC. The tip projects over the expected region of the low superior vena cava. CONCLUSION: Tip of left upper extremity PICC projects over the expected region of the low superior vena cava. Dictated by: Francesca Payne M.D. on 05/27/2017 at 14:05 Electronically approved by: Francesca Payne M.D. on 05/27/2017 at 14:05 Dictated By: FRANCESCA PAYNE MD 04 Transcribed By: OSCAR on 05/27/171404 COPY TO: KAREN CHOUDHARY MD CT ABDOMEN/PELVIS W [place] [address] Patient Name: MANPREET MADDOX MR #: [id number] : 1955 Age/Sex: 61/F Req #: [id number] Adm Physician: Ordered by: CLAIR BRYANT MD Report #: [id number] Location: ER Room/Bed: Procedure: [id number] CT/CT ABDOMEN/PELVIS W Exam Date: 03/25/17 Exam Time: 1730 REPORT STATUS: Signed PROCEDURE: CT ABDOMEN AND PELVIS WITH CONTRAST TECHNIQUE: The abdomen and pelvis were scanned utilizing a multidetector helical scanner from the diaphragm to the lesser trochanter after the IV administration of 100 cc of Isovue 370 and the oral administration of water. Coronal and sagittal multiplanar reformations were obtained. COMPARISON: [facility], CT, CT ABDOMEN AND PELVIS WITH CONTRAST, 08/27/2009, 10:49. INDICATIONS: VOMITTING, ABDOMINAL PAIN, CROHNS DISEASE FINDINGS: LOWER THORAX: Stable 5-6 mm nodule in the lateral right lower lobe (series 2, image 1). Stable linear scarring in the medial right middle lobe (series 2, image 1). HEPATOBILIARY: Normal hepatic size and contour. No focal hepatic lesions. Common bile duct is mildly dilated, measuring approximately 9 mm at the aide hepatis. No radiopaque intraluminal filling defects. Cholecystectomy clips. SPLEEN: No splenomegaly. PANCREAS: No focal masses or ductal dilatation. Normal parenchymal enhancement. No surrounding inflammatory changes, free fluid or fluid collections in the neck, body, or tail. ADRENALS: No adrenal nodules. KIDNEYS/URETERS: No hydronephrosis, stones, or solid mass lesions. PELVIC ORGANS/BLADDER: Bladder is decompressed, but grossly unremarkable. Uterus is not visualized. No adnexal masses. PERITONEUM / RETROPERITONEUM : No free air or fluid. LYMPH NODES: Mildly enlarged iade hepatis and celiac axis nodes, as well as mildly prominent left retroperitoneal and gastrohepatic ligament nodes: * Aide hepatis nodes measure 1.2 and 1.2 cm in short axis (series 2, images 22 and 24). * Enlarged portacaval lymph node measures 1.6 cm in short axis (series 2 image 27). * Enlarged celiac axis node measures 1.2 cm in short axis (series 2 image 23). * Borderline enlarged slick-caval node, which measures 1.0 cm in short axis (series 2, image 28). * Mildly prominent gastrohepatic ligament nodes, which measures 0.8 -0.9 cm in short axis. No other retroperitoneal or any pelvic or inguinal adenopathy. No intra-abdominal lymph nodes. VESSELS: The celiac trunk, superior and inferior mesenteric, and bilateral renal arteries are patent. Portal, superior mesenteric, and splenic veins are patent. Mild atherosclerotic disease of the aorta. GI TRACT: Very mild soft tissue stranding surrounding the second portion of the duodenum (for example series 2, image 31-33), with mild thickening of the adjacent anterior pararenal fascia (series 2, image 39). No bowel dilation or evidence of obstruction. Stomach is grossly unremarkable. No surrounding stranding or pericolonic inflammatory changes. BONES AND SOFT TISSUES: No acute bony abnormalities. Vertebroplasty changes at L4 and L5. Degenerative disc changes L1-L2, and L4- L5/L5-S1. No lytic lesions. IMPRESSION: 1. very mild soft tissue stranding surrounding the second portion of the duodenum. This may reflect duodenitis. Alternatively, these may be reactive changes secondary to adjacent mild pancreatitis. Correlate with serum amylase and lipase. No evidence of pancreatic necrosis, focal lesion or ductal dilation. 2. The rest of the bowel is grossly unremarkable. 3. Aide hepatis and celiac axis adenopathy, which may be reactive. 4. Stable 5-6 mm nodule in the right lower lobe since 2009, which is presumed benign. 5. Mild dilation of the common bile duct, likely reflect post cholecystectomy status. Ramez Santiago M.D. Dictated by: Ramez Santiago M.D. on 03/25/2017 at 18: 54 Electronically approved by: Ramez Santiago M.D. on 03/25/2017 at 18:54 Dictated By: RAMEZ SANTIAGO MD 53 Transcribed By: OSCAR on 03/25/171853 COPY TO: CLAIR BRYANT MD CHEST SINGLE (PORTABLE) [place] [address] Patient Name: MANPREET MADDOX MR #: [id number] : 1955 Age/Sex: 61/F Req #: [id number] Adm Physician: Ordered by: CLAIR BRYANT MD Report #: [id number] Location: ER Room/Bed: Procedure: [id number] DX/CHEST SINGLE (PORTABLE) Exam Date: 03/25/17 Exam Time: 1515 REPORT STATUS: Signed PROCEDURE: A single AP view of the chest. COMPARISON: None. INDICATIONS: shortness of breath, nausea FINDINGS: Lines/tubes: None. Lungs: The lungs are well inflated and clear. There is no evidence of pneumonia or pulmonary edema. Pleura: There is no pleural effusion or pneumothorax. Heart and mediastinum: The heart and the mediastinum are unremarkable. Bones: No acute bony abnormality. IMPRESSION: 1. No acute cardiopulmonary abnormalities. Ramez Santiago M.D. Dictated by: Ramez Santiago M.D. on 03/25/2017 at 15:52 Electronically approved by: Ramez Santiago M.D. on 03/25/2017 at 15:52 Dictated By: RAMEZ SANTIAGO MD 51 Transcribed By: OSCAR on 03/25/171551 COPY TO: CLAIR BRYANT MD
--- NOTE | 2017-08-23 06:23 | Operative Report ---
DATE OF PROCEDURE: July 01, 2017 PREOPERATIVE DIAGNOSIS: Refractory urge incontinence. POSTOPERATIVE DIAGNOSIS: Refractory urge incontinence. OPERATIONS PERFORMED 1. Complete InterStim system implantation with incision and implantation of tined quadripolar lead electrodes into the left foramen S3. 2. Fluoroscopic guidance for needle placement. 3. Subcutaneous implantation of sacral nerve neurostimulator. 4. Electronic analysis and complex programming. ANESTHESIA: General. COMPLICATIONS: None. CLINICAL SUMMARY: Alpa Jimenez is a 62-year-old woman with refractory urge incontinence. She has failed medications and behavioral therapy. She underwent percutaneous testing in the office with excellent response. She elected to proceed with InterStim complete system implantation. She understands the risks of bleeding, infection, injury to adjacent structures, need for additional procedures, and that she will not be able to undergo MRI testing. She understood all these risks and elected to proceed. OPERATIVE PROCEDURE IN DETAIL: Informed consent was verified. Alpa Jimenez was properly identified, and taken to the operating room and placed on the operating table in the prone position with all pressure points carefully well-padded. Pillows were placed on the lower abdomen to flatten the sacrum and under the shins to allow the toes to dangle freely. The patient's back and buttocks were prepared and draped in the usual sterile fashion. Local anesthesia with a combination of lidocaine and Marcaine both with epinephrine was utilized. Needle was then introduced into the left foramen S3. Depth of the needle was confirmed and adjusted fluoroscopically. Proper needle position was confirmed with observation of lifting of the perineum or "bellowing" and observation of plantar flexion of the great toe utilizing a test stimulator box. The needle stylette was then removed and directional guidewire was then placed and confirmed fluoroscopically. The foramen needle was then moved. An incision was made peripherally to the directional guidewire through the fascial layer. The dilator and introducer sheath were placed over the directional guidewire and directed into the foramen until the opaque marker of the dilator was seen midway through the sacrum. The dilator and obturator was then unlocked and removed, and the lead was then placed through the introducer sheath to the 1st white line. Position was checked fluoroscopically. The lead was further advanced until 3 electrodes were visible anterior to the sacrum. Each electrode was then tested for the same result as above. After satisfactory positioning was confirmed under continuous fluoroscopy, the introducer sheath was retracted thus deploying the lead tines into the parasacral tissue. Further incision was then made into the subcutaneous tissue posterior to the iliac crest on the left hand side, and a pocket was developed. The tunneling tool with the tube was then utilized to bring the lead to the subcutaneous pocket. The lead was then thoroughly cleansed of bodily fluids and dried thoroughly. Copious irrigation was performed of both pockets and all incisions. The lead was then inserted into the pulse generator header with the bands aligned and the blue tip clearly visible in the distal portion of the pulse generator header. The single set screw was tightened with the hex wrench. Pulse generator was then placed into the subcutaneous pocket. The programming head was then placed over the implanted neurostimulator. The impedance was verified to be in appropriate parameters for all leads. The patient's incisions were then approximated with absorbable suture in 2 layers. Mastisol, Steri-Strips and bio-occlusive dressings were applied. The patient was uneventfully reversed from anesthesia, and taken to the recovery room in stable condition. There were no complications to the procedure. The patient tolerated the procedure well. Sponge, needle and instrument counts were correct at the end of the procedure. Estimated blood loss was minimal. Utilizing the clinician mainframe programmer analyst, the patient was programmed to the lead of optimum sensation and given explicit instructions on utilizing the patient programming prior to discharge. Plans will be to follow the patient up on a regular basis checking the patient's impendence, as well as reprogramming her as needed. Job#: [id number] ASTRID cc: JOHNATHAN?
== END | disposition home or self-care (01) ==
LOC: OR 06:31
PROVIDERS: ATTEND Urology
DX: N39.46 Mixed incontinence (principal); N39.0 Urinary tract infection, site not specified; N32.81 Overactive bladder; R39.14 Feeling of incomplete bladder emptying; R35.1 Nocturia; N81.89 Other female genital prolapse; N81.6 Rectocele; R80.9 Proteinuria, unspecified; I10 Essential (primary) hypertension; E11.9 Type 2 diabetes mellitus without complications; D64.9 Anemia, unspecified; G47.33 Obstructive sleep apnea (adult) (pediatric); J45.909 Unspecified asthma, uncomplicated; G89.29 Other chronic pain; E66.01 Morbid (severe) obesity due to excess calories; Z88.0 Allergy status to penicillin; Z88.8 Allergy status to other drugs, medicaments and biological substances; Z01.810 Encounter for preprocedural cardiovascular examination; Z01.812 Encounter for preprocedural laboratory examination; Z68.32 Body mass index [BMI] 32.0-32.9, adult; Z87.891 Personal history of nicotine dependence
CPT/HCPCS: 36415 ×2; 64581; 64590; 76000; 80048; 82948; 93005; 95972; C1778; C1787; C1894; J1100; J1956; J2001 ×2; J2250; J2405; L8679; L8696

== ENCOUNTER → 2018-01-20 | Outpatient (CLI) | payer MEDICARE, OTHER ==
[~2018-01-20] MED LIST changes: -BUPIVACAINE HCL 0.5% 10ML MPF VIAL INJ ONE; -CLINDAMYCIN PHOS 900MG/ D5W 50 50 ML IV ONE; -DEXAMETHASONE SOD PHOS INJ 4 MG/ML VIAL ONE; -FENTANYL CITRATE/PF 100MCG/2 ML INJ ONE; -LEVOFLOXACIN 500MG/D5W 100ML 100 ML IV ONE; -LIDOCAINE 2% /EPINEPHRINE 20 ML SDV INJ ONE; -LIDOCAINE HCL 2% LOCAL INJ 5 ML SDV VIAL INJ ONE; -MIDAZOLAM HCL 2 MG/2 ML VIAL ONE; -ONDANSETRON HCL INJ 2 MG/ML VIAL ONE; -PROPOFOL IV EMULSION 10 MG/ML 20 ML VIAL ONE; -ROCURONIUM BROMIDE 10 MG/ML 5ML VIAL ONE; -SEVOFLURANE INHAL SOLN 250 ML PEN BTL ONE; -SUCCINYLCHOLINE 200 MG/10 ML SYR ONE
--- NOTE | 2018-01-20 13:37 | Diagnostic Imaging Report ---
Exam: AP pelvis and sacrum History: Stress incontinence Comparison: None. Findings: No acute fracture. Joint spaces maintained. Vertebral augmentation to L5. Bladder stimulator with lead tip left of midline. No discontinuity. Impression: Bladder stimulator with lead tip left of midline. Signed by: Dr. Jd Jesus M.D. on 01/20/2018 1:33 PM
== END ==
LOC: RAD 12:47
PROVIDERS: ATTEND Urology
DX: N39.3 Stress incontinence (female) (male) (principal)
CPT/HCPCS: 72170; 72220

== ENCOUNTER → 2018-06-16 | Outpatient (CLI) | payer MEDICARE, OTHER ==
--- NOTE | 2018-06-16 17:53 | Diagnostic Imaging Report ---
Exam: Sacral series; 2 views dated 06/16/2018 History: Pain Comparison: None available Findings: There is vertebroplasty cement within L4 and L5. S1 is a transitional vertebrae and partially lumbarized. Pain generator and lead overlies the sacrum. Bones are osteopenic. No obvious sacral strut fracture. Ovarian vein calcification is present. Impression: No acute bony abnormality. Signed by: Dr. Anthony Vásquez DO on 06/16/2018 5:49 PM
--- NOTE | 2018-06-16 17:56 | Diagnostic Imaging Report ---
Exam: Lumbosacral spine series; 3 views dated 06/16/2018 History: Pain Comparison: None available Findings: Bones are osteopenic. Vertebroplasty cement is present within L4 and L5 and S1 is partially lumbarized. Degenerative changes of the spine are present. No new compressions are seen. Impression: No acute bony abnormality. Signed by: Dr. Anthony Vásquez DO on 06/16/2018 5:52 PM
== END ==
LOC: RAD 12:11
PROVIDERS: ATTEND Urology
DX: M54.5 Low back pain (principal); M53.3 Sacrococcygeal disorders, not elsewhere classified; E66.9 Obesity, unspecified
CPT/HCPCS: 72100; 72220

== ENCOUNTER → 2018-08-05 | Outpatient (CLI) | payer OTHER, MEDICARE ==
--- NOTE | 2018-08-05 16:45 | Diagnostic Imaging Report ---
Radiographs of the sacrum and pelvis - HISTORY: Pain COMPARISON: None available. FINDINGS: Bones: No acute displaced fracture. Radiopaque material in 2 of the lower lumbar vertebral bodies. Surgical hardware in the right proximal femur. Osseous alignment is within normal limits. Joints: Scattered degenerative change. No osseous erosion. 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 Soft tissues: Metallic stimulator device and lead over the left sacrum. IMPRESSION: Scattered degenerative change. No osseous erosion. 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 Signed by: Dr. Saurabh Harrell M.D. on 08/05/2018 4:42 PM
== END ==
LOC: RAD 13:04
PROVIDERS: ATTEND Urology
DX: N39.46 Mixed incontinence (principal)
CPT/HCPCS: 72170; 72220

== ENCOUNTER → 2018-10-08 | Day surgery (SDC) | payer MEDICARE, OTHER ==
[2018-10-07 15:40] LABS: BASOPHILS % 0.4 % (0.0-1.0); EOSINOPHILS % 0.4 % (0.0-6.0); HEMATOCRIT 33.6 % (34.2-44.1); HEMOGLOBIN 11.1 g/dL (12.0-16.0); LYMPHOCYTES # (AUTO) 0.9 (1.0-3.2); LYMPHOCYTES % 16.6 % (18.0-39.1); MEAN CORPUSCULAR HEMOGLOBIN 27.3 pg (28-32); MEAN CORPUSCULAR VOLUME 82.8 fL (81-99); MONOCYTES # (AUTO) 0.5 (0.2-0.8); MONOCYTES % 8.1 % (4.4-11.3); NEUTROPHILS # (AUTO) 4.1 (2.1-6.9); NEUTROPHILS % 74.3 % (38.7-80.0); PLATELET COUNT 278 x10e3/uL (140-360); RED BLOOD COUNT 4.06 x10e6/uL (3.6-5.1); RED CELL DISTRIBUTION WIDTH 14.6 % (11.7-14.4)
[2018-10-07 16:03] LABS: ANION GAP 16.4 mmol/L (8-16); BLOOD UREA NITROGEN 10 mg/dL (7-26); BUN/CREATININE RATIO 14 (6-25); CALCIUM 10.2 mg/dL (8.4-10.2); CARBON DIOXIDE 24 mmol/L (22-29); CHLORIDE 100 mmol/L (98-107); CREATININE, SERUM 0.69 mg/dL (0.57-1.11); EST GLOMERULAR FILTRATION RATE > 60 ML/MIN (60-); GLUCOSE 154 mg/dL (74-118); POTASSIUM 4.4 mmol/L (3.5-5.1); SODIUM 136 mmol/L (136-145)
[~2018-10-08] MED LIST changes: +ACETAMINOPHEN 1000 MG/100 ML 100 ML IV ONE; +CLINDAMYCIN 600MG / 50ML 50 ML IV ONE; +DESFLURANE 240 ML BTL INH ONE; +DEXAMETHASONE SOD PHOS INJ 4 MG/ML VIAL ONE; +FENTANYL CITRATE/PF 100MCG/2 ML INJ ONE; +GENTAMICIN 80MG/NS 100 ML 200 ML IV ONE; +KETOROLAC TROMETHAMINE 30 MG/ML VIAL ONE; +LEVOFLOXACIN 500MG/D5W 100ML 100 ML IV ONE; +MACROBID 100 M100 MG PO; +METOCLOPRAMIDE HCL 10 MG/2ML VIAL ONE; +ONDANSETRON HCL INJ 2MG/ML 2ML 2 MG/ML VIAL ONE; +PROPOFOL IV EMULSION 10 MG/ML 20 ML VIAL ONE; +SUCCINYLCHOLINE 200 MG/10 ML SYR ONE
--- NOTE | 2018-10-08 08:18 | Diagnostic Imaging Report ---
EXAM: CHEST 2 VIEWS, PA and lateral DATE: 10/07/2018 Time stamp on exam: 3:17 PM INDICATION: Preoperative COMPARISON: None FINDINGS: LINES/TUBES: None LUNGS: No consolidations or edema. Focal opacity in the medial right lower lobe likely secondary to atelectasis. PLEURA: No effusions or pneumothorax. HEART AND MEDIASTINUM: Normal size and contour. BONES AND SOFT TISSUES: Mild degenerative changes of the midthoracic spine. Metallic anchor overlies the right humeral head. IMPRESSION: No acute thoracic abnormality. Signed by: Dr. Anthony Vásquez DO on 10/08/2018 8:14 AM
--- OUTSIDE RECORDS SUMMARY | 2018-10-08 09:54 | XMS REPORT | Continuity of Care Document ---
Author Author [facility] Interface Address Unknown Phone Unavailable Problems Problem Status Onset Date Classification Date Reported Comments Source N18.1 Active 07/15/2018 [facility] DX: R04.1=NONTOXIC SINGLE THYROID NODULE Active 08/05/2017 [facility] Nontoxic goiter, unspecified 07/28/2017 10/27/2017 [facility] E04.9 - NONTOXIC GOITER, UNSPECIFIED Active 07/17/2017 [facility] Urinary tract infection Active Problem 05/07/2018 Lionel Alejandro Inflammatory arthritis Active Problem 05/07/2018 Lionel Alejandro Non-pressure chronic ulcer of other part of right foot with unspecified severity Active Problem 05/07/2018 Lionel Alejandro Rheumatoid arthritis involving multiple sites, unspecified rheumatoid factor presence Active Problem 05/07/2018 Lionel Alejandro Crohn disease Active Problem 05/07/2018 Lionel Alejandro Encounter for long-term use of other high-risk medications Active Problem 05/07/2018 Lionel Alejandro Osteopenia of right thigh Active Problem 05/07/2018 Lionel Alejandro senior care use of opiate analgesic Active Diagnosis 06/18/2017 Lionel Alejandro Left leg swelling Active Problem 05/07/2018 Lionel Alejandro Primary osteoarthritis involving multiple joints Active Problem 05/07/2018 Lionel Alejandro Inflammatory Arthritis Active Diagnosis 05/01/2015 Lionel Alejandro Cough Active Problem 06/07/2014 Lionel Alejandro Pain in joint, lower leg Active Problem 06/07/2014 Lionel Alejandro Osteopenia Active Problem 03/14/2016 Lionel Alejandro Crohn's disease Active Problem 01/31/2017 Lionel Alejandro Long-term use of other medications - High Risk Active Problem 01/31/2017 Lionel Alejandro Diabetes with unspecified complication, type II or unspecified type, uncontrolled Active Problem 03/14/2016 Lionel Alejandro Rheumatoid arthritis Active Problem 02/15/2016 Lionel Alejandro Unspecified drug dependence Active Problem 01/31/2017 Lionel Alejandro Chronic pain syndrome Active Problem 03/12/2017 Lionel Alejandro Other ad terminal makeup operator drug therapy Active Problem 03/12/2017 Lionel Flavia Other bursitis of hip, right hip Active Problem 03/12/2017 Lionel Flavia Rheumatoid arthritis involving multiple sites with positive rheumatoid factor Active Problem 03/12/2017 Lionel Flavia Lumbar facet arthropathy Active Problem 03/12/2017 Lionel Hammer Pain in left shoulder Active Problem 03/12/2017 Lionel Flavia Spondylosis without myelopathy or radiculopathy, lumbosacral region Active Problem 03/12/2017 Lionel Flavia Subacromial bursitis Active Problem 03/12/2017 Lionel Hammer Pain in right shoulder Active Problem 03/12/2017 Lionel Alejandro Sprain of right rotator cuff capsule Active Problem 03/12/2017 Lionel Flavia Bursitis, Hip Active Problem 01/31/2017 Lionel Flavia Bursitis, Ischiogluteal Active Problem 01/31/2017 Lionel Flavia Chronic pain syndrome Active Problem 01/31/2017 Lionel Flavia Lumbosacral spondylosis without myelopathy Active Problem 01/31/2017 Lionel Alejandro Other psychoactive substance dependence, uncomplicated Active Problem 03/12/2017 Lionel Flavia Degeneration of lumbar or lumbosacral intervertebral disc Active Problem 01/31/2017 Lionel Alejandro Crohn's disease, unspecified, with other complication Active Problem 03/12/2017 Lionel Alejandro Closed compression fracture of third lumbar vertebra, sequela Active Problem 03/12/2017 Lionel Alejandro Closed compression fracture of fourth lumbar vertebra, sequela Active Problem 03/12/2017 Lionel Alejandro HEMORRHAGE FROM THROAT Active [facility] NONTOXIC SINGLE THYROID NODULE Active [facility] CHRONIC KIDNEY DISEASE, STAGE 1 Active [facility] Medications Medication Details Route Status Patient Instructions Ordering Provider Order Date Source Sulfasalazine 4 tablets Orally Active 500 MG Orally twice a day Estrellita 12/09/2017 Lionel Alejandro Medrol Dose Saulo as directed Orally Active 4mg Orally as directed Cl[place] 10/05/2017 Lionel Alejandro Stelara 90mg Subcutaneous Active 90 MG/ML Subcutaneous q 8 weeks Clifton 02/18/2017 Lionel Alejandro Stelara 520 mg Intravenous Active 130 MG/26ML Intravenous at week 0 then start SQ q8 weeks Clifton 02/18/2017 Lionel Alejandro Medrol Dose Saulo as directed Orally Active 4mg Orally once a day Justine 01/14/2017 Lionel Alejandro Tizanidine HCl 1 tablet as needed Orally Active 4 MG Orally BID [facility] 11/25/2016 Lionel Alejandro Macrobid 1 capsule with food Orally Active 100 MG Orally every 12 hrs [facility] 08/28/2016 Lionel Alejandro Leflunomide 1 tablet Orally Active 10 MG Orally Once a day [facility] 06/05/2016 Lionel Alejandro Sulfasalazine 3 tablets Orally Active 500 MG Orally twice a day [facility] 10/24/2015 Lionel Alejandro Sulfasalazine 4 tablets Orally Active 500 MG Orally twice a day [place] 10/24/2015 Lionel Alejandro Lidocaine 1 application to affected area as needed Mouth/Throat Active 2.5 % Mouth/Throat Four times a day [facility] 09/19/2015 Lionel Alejandro Magic Mouthwash 5ml swish and swallow Orally Active 30ml Benadryl 12.5mg + 60ml Maalox + 4gm Carafate Orally Three times a day [facility] 09/19/2015 Lionel Alejandro PredniSONE Unknown Orally Active 5 MG Orally Once a day [facility] 06/27/2015 Lionel Alejandro Folic Acid 2 tablet Orally Active 1 MG Orally Once a day [facility] 06/27/2015 Lionel Alejandro Simponi Aria as directed IV Active 2mg/kg IV HOLD due to infection [facility] 06/27/2015 Lionel Alejandro Tizanidine HCl 1 tablet as needed Orally Active 4 MG Orally Twice a day [facility] 12/04/2014 Lionel Alejandro Methotrexate as directed Orally Active 2.5 MG Orally take all 4 tabs once weekly, not to be taken in conjunction with MTX [place] 08/17/2014 Lionel Alejandro Enbrel 1 ml Subcutaneous Active 50 MG/ML Subcutaneous 1ml qweek [place] 02/13/2014 Lionel Alejandro Butorphanol Tartrate 1 ml as needed Nasally Active 10 MG/ML Nasally every 4 hrs [place] 11/28/2013 Lionel Alejandro Enbrel SureClick 1 ml Subcutaneous Active 50 MG/ML Subcutaneous every week Danielle 07/13/2013 Lionel Alejandro Metformin HCl 1 tablet with meals Orally Active 1000 MG Orally Twice a day [place] Lionel Alejandro Lisinopril 1 tablet Orally Active 20mg Orally Once a day Orem Lionel Alejandro Arthur 2 tablets Orally Active 10-325 MG Orally three times a day Orem Lionel Alejandro Morphine Sulfate 1 tablet as needed Orally Active 30 MG Orally tid Orem Lionel Alejandro Gabapentin 1 capsule Orally Active 400mg Orally bid Orem Lionel Alejandro Chlordiazepoxide-clidinium 1 capsule orally Active 5-2.5mg orally every 6 hours Orem Lionel Alejandro Budesonide as directed Orally Active 3 MG Orally Orem Lionel Alejandro Fluoxetine HCl 1 capsule in the morning Orally Active 40 MG Orally Once a day Orem Lionel Alejandro Lovastatin 1 tablet with a meal Orally Active Orally Once a day Orem Lionel Alejandro Lovastatin 1 tablet with a meal Orally Active Orally Once a day [place] Lionel Alejandro Fluoxetine HCl 1 capsule in the morning Orally Active 20 MG Orally Once a day [facility] Lionel Alejandro Gabapentin 1 capsule Orally Active 400 MG Orally once a day [place] Lionel Alejandro Lisinopril 1 tablet Orally Active 20 MG Orally Once a day [facility] Lionel Alejandro Morphine Sulfate 1 tablet as needed Orally Active 30 MG Orally BID [facility] Lionel Alejandro Actos 1 tablet Orally Active 45 MG Orally Once a day [facility] Lionel Alejandro Arthur 1 tablet as needed Orally Active 10-325 MG Orally QID [facility] Lionel Hammer Metformin HCl 1 tablet with meals Orally Active 1000 MG Orally Twice a day [facility] Lionel Alejandro Vitamin D 1 tablet Orally Active 1000 UNIT Orally Once a day [place] Lionel Alejandro Actos 1 tablet Orally Active 15 MG Orally Once a day [place] Lionel Hammer Tizanidine HCl 1 tablet as needed Orally Active 2 MG Orally once at bed time [place] Lionel Alejandro Calcium 1 tablet with meals Orally Active 500 MG Orally Twice a day [place] Lionel Alejandro Budesonide as directed Orally Active Orally three capsules in the morning [place] Lionel Alejandro Baclofen 1 tablet with food or milk Orally Active 20 MG Orally Three times a day [place] Lionel Hammer Lyrica 1 capsule Orally Active 100 MG Orally Twice a day [place] Lionelreyna Alejandro Sulfasalazine 4 tablets Orally Active 500 MG Orally twice a day Orem Lionelreyna Alejandro Macrobid 1 capsule with food Orally Active 100 MG Orally every 12 hrs Orem Lionelreyna Alejandro Tizanidine HCl 1 tablet as needed Orally Active 4 MG Orally Twice a day Orem Lionelreyna Alejandro Chlordiazepoxide-Amitriptyline 1 tablet Orally Active 10-25 MG Orally Once a day Flavia Alejandro Humulin N as directed Subcutaneous Active 70/30 Subcutaneous Estrellita Lionel Alejandro Nexium 1 capsule Orally Active 40 MG Orally Once a day Flavia Alejandro Sulfazine 2 tablet Orally Active 500 MG Orally four times a day Flavia Alejandro Methocarbamol 1 tablet Orally Active 750 MG Orally tid Flavia Alejandro Citalopram Hydrobromide 1 tab Orally Active 40 mg Orally Once a day Danielle Lionel Alejandro Budesonide ER Unknown Orally Active 3 MG Orally Alejandro Lionel Alejandro Chlordiazepoxide-clidinium 1 capsule orally Active 5-2.5mg orally every 6 hours Estrellita Lionel Alejandro ReZyst IM Unknown Orally Active Orally Alejandro Lionel Alejandro Oxybutynin Chloride ER 1 tablet Orally Active 10 MG Orally once a day Estrellita Lionel Alejandro Cranberry Plus Vitamin C Unknown Orally Active 4200-20-3 MG-MG-UNIT Orally Flavia Alejandro Methotrexate 6 tabs once a week NA Active 2.5 Estrellita Lionel Alejandro Folic Acid 1 tablet Orally No Longer Active 325mg Orally Once a day Estrellita Lionel Alejandro Butorphanol Tartrate 1 ml as needed Nasally Active 10 MG/ML Nasally every 4 hrs Pieterpaola Alejandro Bactrim DS 1 tablet Orally Active 800-160 MG Orally Twice a day [facility] Lionel Alejandro Ranitidine 75 1 tablet as needed Orally Active 75 MG Orally Twice a day Vinod Alejandro Macrobid 1 capsule with food Orally Active 100 MG Orally every 12 hrs Estrellita Lionel Alejandro Lovastatin 1 tablet with a meal Orally Active 10 MG Orally Once a day Justine Lionel Alejandro Hydrocodone-Acetaminophen 1 tablet as needed Orally Active 7.5- 325 MG Orally TID # 60 Justine Lionel Alejandro Tizanidine HCl 1 tablet as needed Orally Active 4 MG Orally BID Justine Lionel Alejandro Gabapentin 1 capsule Orally Active 400 MG Orally at bedtime Justine Lionel Alejandro levoquin as directed NA Active Justine Lionel Alejandro Gabapentin 1 capsule Orally Active 400 MG Orally at bedtime Justine Lionel Alejandro Gabapentin TAKE ONE CAPSULE BY MOUTH EVERY NIGHT AT BEDTIME NA Active 400 Justine Lionel Alejandro Lovastatin 1 tablet with a meal Orally Active 10 MG Orally Once a day [facility] Lionel Alejandro Budesonide 3 tablets NA Active - in the morning Justine Lionel Alejandro Hydrocodone-Acetaminophen 1 tablet as needed Orally Active 7.5- 325 MG Orally TID # 60 Justinehubert Alejandro Budesonide 3 tablets NA Active - in the morning Justine Alejandro Allergies, Adverse Reactions, Alerts Substance Category Reaction Severity Reaction type Status Date Reported Comments Source penicillin Adverse Reaction hives Adverse Reaction Active 01/06/2018 Lionel Alejandro Benadryl Adverse Reaction hives Adverse Reaction Active 01/06/2018 Lionel Alejandro Cimzia Adverse Reaction infections Adverse Reaction Active 01/06/2018 Lionel Alejandro Arava Adverse Reaction mouth/tongue ulcers Adverse Reaction Active 01/06/2018 Lionel Alejandro methotrexate Adverse Reaction mouth ulcer Adverse Reaction Active 01/06/2018 Lionel Alejandro zantac Adverse Reaction Info Not Available Adverse Reaction Active 01/06/2018 Lionel Alejandro Humira Adverse Reaction Info Not Available Adverse Reaction Active 01/06/2018 Lionel Alejandro Keflex Assertion Drug allergy Active [facility] Tegretol Assertion Drug allergy Active [facility] penicillins Assertion Drug allergy Active [facility] Benadryl, Topical Assertion Drug allergy Active [facility] Zantac Assertion Drug allergy Active [facility] Immunizations Immunization Date Given Site Status Last Updated Comments Source Depomedrol 11/17/2013 completed Lionel Alejandro Toradol 11/17/2013 completed Lionel Alejandro Results Order Name Results Value Reference Range Date Interpretation Comments Source Chest wo contrast CT Chest wo contrast CT EXAM: CT CHEST WITHOUT CONTRAST DATE: 08/12/2018 13:38 CDT INDICATION: - R05 Cough COMPARISON: Chest x-ray 08/24/2007 TECHNIQUE: Volumetric CT of the chest is acquired without contrast. Axial, coronal and sagittal images are provided. MIP images are provided. IV contrast: None. DLP: 433 mGy-cm FINDINGS: Lines, tubes and hardware: The thyroid is heterogeneous, with calcification within the left lobe. Lower neck: The visible portions or the lower neck and thyroid are unremarkable. Axilla: Clear. Airway: Patent. Lungs and pleura: Centrilobular groundglass nodules are seen within the left lower lobe, measuring up to 9 mm. There is a 3 mm solid nodule (series 2 image 128 and a 2 mm solid nodule (series 2 image 112) in the right lower lobe. There is a calcified granuloma of the right upper lobe. Mediastinum, seferino and intrathoracic lymph nodes: There are a few subcentimeter mediastinal lymph nodes. No adenopathy is identified. Heart, pericardium and great vessels: Heart size is within normal limits. There is a large amount of epicardial fat. Upper abdomen: Unremarkable. Bones: No acute abnormality. Age-related degenerative findings. Soft tissues: Normal. IMPRESSION: 1. Groundglass nodules of the left lower lobe likely represent changes of infection or inflammation. Follow-up CT in 3 months is recommended following adequate treatment to exclude minimally invasive adenocarcinoma. 2. Solid pulmonary nodules in the right lower lobe measuring up to 3 mm are nonspecific, but can be followed in [address] if patient is considered high-risk for lung cancer. 08/12/2018 - - This report was dictated by a [employer]/Fellow/Physician Apartment Leasing Specialist. I have personally reviewed the images as well as the interpretation and agree with the findings. Read by: Jd Gutierres MD Resident/Fellow/Physician Apartment Leasing Specialist: Jd Gutierres MD Dictated Date/time: 08/12/18 14:14 Electronically Signed by: Ye Brooks MD 08/12/18 14:47 FINAL REPORT [facility] Retroperitoneal Complete US Retroperitoneal Complete US Clinical Indication: - ckd Comparison: None TECHNIQUE: Multiple longitudinal and transverse real time sonographic images of the kidneys and urinary bladder are obtained. FINDINGS: KIDNEY: The right kidney measures 11.9 x 4.2 x 6.1 cm. The left kidney measures 12.3 x 6.2 x 4.9 cm. The kidneys are normal in size, shape, contour, and position. The cortices are normal in thickness and the corticomedullary differentiation is maintained. There is mild pelviectasis of the right kidney. BLADDER: Scanning through the pelvis reveals the bladder to be partially distended with anechoic urine. AORTA AND IVC: The visualized portions appear unremarkable. The common iliac arteries are not well visualized due to overlying bowel gas. ASCITES: No ascites noted. IMPRESSION: 1. Mild pelviectasis of the right kidney. 2. Unremarkable left kidney. SL: [id number] 07/21/2018 - - Read by: Salas Knutson MD Dictated Date/time: 07/21/18 15:17 Electronically Signed by: Salas Knutson MD 07/21/18 15:17 FINAL REPORT [facility] Bladder US Bladder US Patient Name: MANPREET MADDOX : 1955; Age: 63 years Female MR: [id number] Study: Bladder US 07/21/2018 13:11 CDT Clinical Indication: - ckd. Incontinence COMPARISON: None FINDINGS: The prevoid bladder volume is 286 mL. The post void bladder volume is 28 mL. The bladder is filled with anechoic urine. IMPRESSION: Normal bladder ultrasound. SL: [id number] 07/21/2018 - - Read by: Saul Mckenzie MD Dictated Date/time: 07/21/18 14:44 Electronically Signed by: Saul Mckenzie MD 07/21/18 14:47 FINAL REPORT [facility] Thyroid biopsy w guidance US Thyroid biopsy w guidance US FNA of left thyroid mass CLINICAL HISTORY: 62-year-old female with partially calcified inferior left thyroid lobe mass. TECHNIQUE: After obtaining informed consent and explaining the risks and benefits of the procedure to the patient, the patient was placed on the ultrasound table in a supine position. [Patient is not on any blood thinners] Patient's questions were answered. TIME OUT was performed prior to initiating the procedure, confirming patient's name, date of and type/site of procedure. The overlying area was cleaned with Chloro-prep and anesthetized with 1% Lidocaine. Using ultrasound guidance, a 25 gauge needle was placed into the mass in the left lobe of the thyroid gland. 5 separate passes were made. The obtained material was placed on glass slides and additional material placed in Cytolyte solution and sent to cytology for further analysis. The patient tolerated procedure well and no immediate complications were noted. SL: [id number] 08/17/2017 - - Read by: Bhupendra Davidson MD Dictated Date/time: 08/17/17 10:57 Electronically Signed by: Bhupendra Davidson MD 08/17/17 10:58 FINAL REPORT [facility] Thyroid US Thyroid US EXAM: Ultrasound thyroid HISTORY: Nontoxic goiter COMPARISON: None TECHNIQUE: Sonographic evaluation of the thyroid gland is performed FINDINGS: Right thyroid lobe measures 4.8 x 1.6 x 1.8 cm and the left lobe 4.5 x 1.8 x 1.9 cm. The isthmus measures 0.4 cm. Several ill-defined heterogeneous hypoechoic nodules scattered in the right and left thyroid lobes and isthmus with the largest nodule in the right lobe measuring 1.1 cm containing several punctate echogenic foci. An ill-defined, irregular heterogeneous nodule measuring approximately 2.2 cm with internal calcifications is present in the lower left lobe. IMPRESSION: 1. 2.2 cm heterogeneous nodule lower left thyroid lobe, TI-RADS 5, highly suspicious. FNA is advised. 2. Follow-up ultrasound in 12 months for the remaining thyroid nodules. SL: [id number] 07/21/2017 - - Read by: Toño Jacobs MD Dictated Date/time: 07/21/17 12:46 Electronically Signed by: Toño Jacobs MD 07/21/17 12:57 FINAL REPORT [facility] Vital Signs Vital Sign Value Date Comments Source Weight 197.8 01/06/2018 Lionel Alejandro Height 67 01/06/2018 Lionel Alejandro Temperature Oral (F) 98.3 F 01/06/2018 Lionel Alejandro Heart Rate 82 01/06/2018 Lionel Alejandro Diastolic (mm Hg) 80 01/06/2018 Lionel Alejandro Systolic (mm Hg) 180 01/06/2018 Lionel Alejandro Weight 199.6 10/05/2017 Lionel Alejandro Height 67 10/05/2017 Lionel Alejandro Temperature Oral (F) 96.6 F 10/05/2017 Lionel Alejandro Heart Rate 88 10/05/2017 Lionel Alejandro Diastolic (mm Hg) 64 10/05/2017 Lionel Alejandro Systolic (mm Hg) 128 10/05/2017 Lionel Alejandro Weight 206 06/15/2017 Lionel Alejandro Height 67 06/15/2017 Lionel Alejandro Temperature Oral (F) 98.3 F 06/15/2017 Lionel Alejandro Heart Rate 72 06/15/2017 Lionel Alejandro Diastolic (mm Hg) 64 06/15/2017 Lionel Alejandro Systolic (mm Hg) 132 06/15/2017 Lionel Alejandro Weight 200 05/12/2017 Lionel Alejandro Height 67 05/12/2017 Lionel Alejandro Temperature Oral (F) 98.3 F 05/12/2017 Lionel Alejandro Heart Rate 82 05/12/2017 Lionel Alejandro Diastolic (mm Hg) 60 05/12/2017 Lionel Alejandro Systolic (mm Hg) 142 05/12/2017 Lionel Alejandro Weight 201.5 02/23/2017 Lionel Alejandro Height 67 02/23/2017 Lionel Alejandro Temperature Oral (F) 98.1 F 02/23/2017 Lionel Alejandro Heart Rate 96 02/23/2017 Lionel Alejandro Diastolic (mm Hg) 50 02/23/2017 Lionel Alejandro Systolic (mm Hg) 162 02/23/2017 Lionel Alejandro Weight 203 02/10/2017 Lionel Alejandro Height 67 02/10/2017 Lionel Alejandro Temperature Oral (F) 98.2 F 02/10/2017 Lionel Alejandro Heart Rate 88 02/10/2017 Lionel Alejandro Diastolic (mm Hg) 62 02/10/2017 Lionel Alejandro Systolic (mm Hg) 140 02/10/2017 Lionel Alejandro Weight 202.2 01/23/2017 Lionel Alejandro Height 67 01/23/2017 Lionel Alejandro Temperature Oral (F) 99.0 F 01/23/2017 Lionel Alejandro Heart Rate 80 01/23/2017 Lionel Alejandro Diastolic (mm Hg) 58 01/23/2017 Lionel Alejandro Systolic (mm Hg) 126 01/23/2017 Lionel Alejandro Weight 195.7 09/26/2016 Lionel Alejandro Height 67 09/26/2016 Lionel Alejandro Temperature Oral (F) 98.2 F 09/26/2016 Lionel Alejandro Heart Rate 76 09/26/2016 Lionel Alejandro Diastolic (mm Hg) 68 09/26/2016 Lionel Alejandro Systolic (mm Hg) 122 09/26/2016 Lionel Alejandro Weight 195.7 09/26/2016 Lionel Alejandro Height 67 09/26/2016 Lionel Alejandro Temperature Oral (F) 98.3 F 09/26/2016 Lionel Alejandro Heart Rate 80 09/26/2016 Lionel Alejandro Diastolic (mm Hg) 68 09/26/2016 Lionel Alejandro Systolic (mm Hg) 122 09/26/2016 Lionel Alejandro Weight 192 08/28/2016 Lionel Alejandro Height 68 08/28/2016 Lionel Alejandro Temperature Oral (F) 97.8 F 08/28/2016 Lionel Alejandro Heart Rate 100 08/28/2016 Lionel Alejandro Diastolic (mm Hg) 58 08/28/2016 Lionel Alejandro Systolic (mm Hg) 120 08/28/2016 Lionel Alejandro Weight 197.1 06/05/2016 Lionel Alejandro Height 68 06/05/2016 Lionel Alejandro Temperature Oral (F) 98.8 F 06/05/2016 Lionel Alejandro Heart Rate 96 06/05/2016 Lionel Alejandro Diastolic (mm Hg) 58 06/05/2016 Lionel Alejandro Systolic (mm Hg) 130 06/05/2016 Lionel Alejandro Weight 203.8 02/13/2016 Lionel Alejandro Height 67 02/13/2016 Lionel Alejandro Temperature Oral (F) 97.0 F 02/13/2016 Lionel Alejandro Heart Rate 70 02/13/2016 Lionel Alejandro Diastolic (mm Hg) 70 02/13/2016 Lionel Alejandro Systolic (mm Hg) 128 02/13/2016 Lionel Alejandro Weight 209 12/13/2015 Lionel Alejandro Height 67 12/13/2015 Lionel Alejandro Temperature Oral (F) 99.0 F 12/13/2015 Lionel Alejandro Heart Rate 78 12/13/2015 Lionel Alejandro Diastolic (mm Hg) 58 12/13/2015 Lionel Alejandro Systolic (mm Hg) 122 12/13/2015 Lionel Alejandro Weight 209 10/24/2015 Lionel Alejandro Height 67 10/24/2015 Lionel Alejandro Temperature Oral (F) 98.5 F 10/24/2015 Lionel Alejandro Heart Rate 80 10/24/2015 Lionel Alejandro Diastolic (mm Hg) 70 10/24/2015 Lionel Alejandro Systolic (mm Hg) 126 10/24/2015 Lionel Alejandro Weight 203 09/19/2015 Lionel Alejandro Height 67 09/19/2015 Lionel Alejandro Temperature Oral (F) 97.2 F 09/19/2015 Lionel Alejandro Heart Rate 82 09/19/2015 Lionel Alejandro Diastolic (mm Hg) 78 09/19/2015 Lionel Alejandro Systolic (mm Hg) 118 09/19/2015 Lionel Alejandro Diastolic (mm Hg) 69 08/29/2015 Lionel Alejandro Systolic (mm Hg) 128 08/29/2015 Lionel Alejandro Weight 200 08/29/2015 Lionel Alejandro Temperature Oral (F) 98.2 F 08/29/2015 Lionel Alejandro Heart Rate 92 08/29/2015 Lionel Alejandro Weight 197 06/27/2015 Lionel Alejandro Height 67 06/27/2015 Lionel Alejandro Temperature Oral (F) 98.4 F 06/27/2015 Lionel Alejandro Heart Rate 79 06/27/2015 Lionel Alejandro Diastolic (mm Hg) 74 06/27/2015 Lionel Alejandro Systolic (mm Hg) 118 06/27/2015 Lionel Alejandro Weight 196 02/21/2014 Lionel Alejandro Height 67.5 02/21/2014 Lionel Alejandro Temperature Oral (F) 98.7 F 02/21/2014 Lionel Alejandro Heart Rate 80 02/21/2014 Lionel Alejandro Diastolic (mm Hg) 72 02/21/2014 Lionel Alejandro Systolic (mm Hg) 136 02/21/2014 Lionel Alejandro Weight 207 11/17/2013 Lionel Alejandro Height 67.5 11/17/2013 Lionel Alejandro Temperature Oral (F) 98.7 F 11/17/2013 Lionel Alejandro Heart Rate 100 11/17/2013 Lionel Alejandro Diastolic (mm Hg) 60 11/17/2013 Lionel Alejandro Systolic (mm Hg) 150 11/17/2013 Lionel Alejandro Weight 210 09/12/2013 Lionel Alejandro Height 67.5 09/12/2013 Lionel Alejandro Temperature Oral (F) 97.9 F 09/12/2013 Lionel Alejandro Heart Rate 84 09/12/2013 Lionel Alejandro Diastolic (mm Hg) 64 09/12/2013 Lionel Alejandro Systolic (mm Hg) 124 09/12/2013 Lionel Alejandro Encounters Location Location Details Encounter Type Encounter Number Reason For Visit Attending Provider ADM Date DC Date Status Source Grzegorz Alejandro MD 2M F/U [id number] 09/12/2013 09/12/2013 Lionel Alejandro MD 2M F/U [id number] 09/12/2013 09/12/2013 Lionel Alejandro MD 2M F/U [id number] 09/12/2013 09/12/2013 Lionel Alejandro MD 2M F/U azf558y9-[id number]-7o69-3j6x399r709e 09/12/2013 09/12/2013 Lionel Alejandro MD 2M F/U [id number] 09/12/2013 09/12/2013 Lionel Alejandro MD 2M F/U 3z4kn5n8-s887-99c1-v3e3-qg25993r9h42 09/12/2013 09/12/2013 Lionel Alejandro MD 2M F/U [id number]-0y09-b3g5-1f8205p9qr57 09/12/2013 09/12/2013 Lionel Alejandro MD 2M F/U 2var60v6-4554-3ki9-52er-41h2cag94s7b 09/12/2013 09/12/2013 Lionel Alejandro MD 2M F/U [id number]-7846-42q2-g38013zfn925 09/12/2013 09/12/2013 Lionel Alejandro MD 2M F/U [id number]-hv5q-62pv172095qo 09/12/2013 09/12/2013 Lionel Alejandro MD 2M F/U 2gx83l49-6rcx-2885-27i6-t82y9g661d35 09/12/2013 09/12/2013 Lionel Alejandro MD 2M F/U [id number] 09/12/2013 09/12/2013 Lionel Alejandro MD 2M F/U [id number]-i1dqlo94k088 09/12/2013 09/12/2013 Lionel Alejandro MD 2M F/U bd430c5q-16d4-9bn8-0140-5438k02z4l95 09/12/2013 09/12/2013 Lionel Alejandro MD 2M F/U 37g512z6-p25r-7420-352v-d44u4uwy8y74 09/12/2013 09/12/2013 Lionel Alejandro MD 2M F/U 540xi110-6566-7837-ix32-y2817oi03zf2 09/12/2013 09/12/2013 Lionel Alejandro MD 2M F/U f3fs537w-f497-2p5p-5a45-3g4e75f54no3 09/12/2013 09/12/2013 Lionel Alejandro MD 2M F/U 6109m175-645y-581v-t869-vk2w5p52g8ca 09/12/2013 09/12/2013 Lionel Alejandro MD 2M F/U 128n04b7-3g44-843d-9u66-67444t585z81 09/12/2013 09/12/2013 Lionel Alejandro MD 2M F/U 73118y4q-33r9-4733-332n-xf2v5cid6028 09/12/2013 09/12/2013 Lionel Alejandro MD 2M F/U 57386g5u-2385-24cs-t312-gf1yn8u3jbnl 09/12/2013 09/12/2013 Lionel Alejandro MD 2M F/U 06c5i1gq-d4t4-0712-0824-3ysq3i8p5516 09/12/2013 09/12/2013 Lionel Alejandro MD 2M F/U tqv64pdm-593k-5d18-evee-i5a7rz58u82m 09/12/2013 09/12/2013 Lionel Alejandro MD 2M F/U o3c99l7s-368p-7o3t-299k-k1dyhf5d25c6 09/12/2013 09/12/2013 Lionel Alejandro MD 2M F/U 44d6uv56-10f2-87he-jw14-a4r354yle58u 09/12/2013 09/12/2013 Lionel Alejandro MD 2M F/U tk2p9657-85wf-30f7-k87a-46624347466d 09/12/2013 09/12/2013 Lionel Alejandro MD 2M F/U iae18sq0-632p-413f-c933-8643qn3556v8 09/12/2013 09/12/2013 Lionel Alejandro MD 2M F/U 5026tq4i-63e8-122a-r1cr-89fznk4ja3am 09/12/2013 09/12/2013 Lionel Alejandro MD 2M F/U 963980m3-t894-3s0p-m52d-79287708556o 09/12/2013 09/12/2013 Lionel Alejandro MD 2M F/U 1ef827m4-6qc0-68tg-bt11-9a068659115r 09/12/2013 09/12/2013 Lionel Alejandro MD enbrel teaching b72f0k82-b610-0381-ac71-48o38l19w9d4 09/29/2013 09/29/2013 Lionel Alejandro MD enbrel teaching 859fp305-600v-751q-o47r-0914d9x5i138 09/29/2013 09/29/2013 Lionel Alejandro MD enbrel teaching xjlb02z8-5763-11wg-z1t2-10007039801h 09/29/2013 09/29/2013 Lionel Alejandro MD enbrel teaching 26p04t57-131w-85o4-7x79-6ge68g6m027t 09/29/2013 09/29/2013 Lionel Alejandro MD enbrel teaching ct7a4r07-1e5e-9f99-x103-5wq6f0rv1xe0 09/29/2013 09/29/2013 Lionel Alejandro MD enb[employer] teaching [id number]-5134-5300-83l810128r3j 09/29/2013 09/29/2013 Lionel Alejandro MD enbrel teaching 8768e299-09q8-5075-774s-3wk23i9n1jt1 09/29/2013 09/29/2013 Lionel Alejandro MD enbrel teaching r1y000b9-2695-9ih4-o48f-2v3edm5wa7i0 09/29/2013 09/29/2013 Lionel Alejandro MD enbrel teaching 91e80qxw-599e-2382-c037-23hh2nc4s757 09/29/2013 09/29/2013 Lionel Alejandro MD enbrel teaching 839g1r4m-6l80-2755-1985-38ge7xo0jki6 09/29/2013 09/29/2013 Lionel Alejandro MD enbrel teaching l5n4eb2l-q755-8555-q99g-25sqc2b1wz05 09/29/2013 09/29/2013 Lionel Alejandro MD enbrel teaching 249j9o54-5162-878v-0140-771a5m1c39c7 09/29/2013 09/29/2013 Lionel Alejandro MD enbrel teaching e8ti59he-wiv6-473p-i447-uw2h4x23d100 09/29/2013 09/29/2013 Lionel Alejandro MD enbrel teaching 3bj08286-867t-2in5-ly85-7583z17k987y 09/29/2013 09/29/2013 Lionel Alejandro MD enbrel teaching 8783g8fp-555y-5hw7-8f11-zdyxv63vd824 09/29/2013 09/29/2013 Lionel Alejandro MD enbrel teaching 3jyv2041-6r0h-46e0-xy2f-303955u62g8o 09/29/2013 09/29/2013 Lionel Alejandro MD enbrel teaching qwl6z774-8re8-9i14-5865-a2r8p6tj8t7s 09/29/2013 09/29/2013 Lionel Alejandro MD enbrel teaching 87c621w2-3e54-64r3-l9h1-t9fbemr760u5 09/29/2013 09/29/2013 Lionel Alejandro MD enbrel teaching [id number] 09/29/2013 09/29/2013 Lionel Alejandro MD enbrel teaching [id number]-4syq-8zcm-t766271ms1m8 09/29/2013 09/29/2013 Lionel Alejandro MD enbrel teaching [id number]-d3n28s209go3 09/29/2013 09/29/2013 Lionel Alejandro MD enbrel teaching k76a4795-t340-6153-5aq9-5dk6ge2n1gf5 09/29/2013 09/29/2013 Lionel Alejandro MD enbrel teaching ir046d58-7a3l-4655-u3u0-62l52qa75l94 09/29/2013 09/29/2013 Lionel Alejandro MD enbrel teaching d6hac8mi-6q16-7513-rgn3-570811961l0v 09/29/2013 09/29/2013 Lionel Alejandro MD enbrel teaching hjd66536-3288-9n5v-odw4-32s313u78226 09/29/2013 09/29/2013 Lionel Alejandro MD enbrel teaching 6xqe92ss-7486-242c-06ug-63962y40db95 09/29/2013 09/29/2013 Lionel Alejandro MD enbrel teaching bz93uet3-7zn5-5937-m855-488d2u7s1d78 09/29/2013 09/29/2013 Lionel Alejandro MD enbrel teaching 2h38045t-3o9e-0d7l-6g99-914997982u07 09/29/2013 09/29/2013 Lionel Alejandro MD enbrel teaching 20c0117k-309i-6k86-1285-24pp03fsq0tv 09/29/2013 09/29/2013 Lionel Alejandro MD enbrel teaching 474kt8q4-9065-5a14-b859-35gm49x9f3ja 09/29/2013 09/29/2013 Lionel Alejandro MD ReFill request [id number]-9ewl-l241zdcklpy5 09/30/2013 09/30/2013 Lionel Alejandro MD ReFill request [id number] 09/30/2013 09/30/2013 Lionel Alejandro MD ReFill request [id number]-28s4-eyin-20hi7k678568 09/30/2013 09/30/2013 Lionel Alejandro MD ReFill request [id number]-bc8cbmp2kkf0 09/30/2013 09/30/2013 Lionel Alejandro MD ReFill request [id number] 09/30/2013 09/30/2013 Lionel Alejandro MD ReFill request [id number]-[id number]-8g6qvmz94cf4 09/30/2013 09/30/2013 Lionel Alejandro MD ReFill request [id number]-o70y-737go7y40q30 09/30/2013 09/30/2013 Lioenl Alejandro MD ReFill request [id number]-[id number] 09/30/2013 09/30/2013 Lionel Alejandro MD ReFill request [id number] 09/30/2013 09/30/2013 Lionel Alejandro MD ReFill request [id number]-5js8al12j9p5 09/30/2013 09/30/2013 Lionel Alejandro MD ReFill request [id number]-v50o-5an08ink30v3 09/30/2013 09/30/2013 Lionel Alejandro MD ReFill request [id number]-o366-4zq62w17a147 09/30/2013 09/30/2013 Lionel Alejandro MD ReFill request [id number]-q8uh-42u3-50fx-tz915ko1279t 09/30/2013 09/30/2013 Lionel Alejandro MD ReFill request [id number]-[id number]-qg88t76680xb 09/30/2013 09/30/2013 Lionel Alejandro MD ReFill request [id number] 09/30/2013 09/30/2013 Lionel Alejandro MD ReFill request [id number]-2x34-mv59g071n3fk 09/30/2013 09/30/2013 Lionel Alejandro MD ReFill request [id number] 09/30/2013 09/30/2013 Lionel Alejandro MD ReFill request [id number] 09/30/2013 09/30/2013 Lionel Alejandro MD ReFill request [id number] 09/30/2013 09/30/2013 Lionel Alejandro MD ReFill request [id number]-[id number] 09/30/2013 09/30/2013 Lionel Alejandro MD ReFill request [id number]-iom2-zbt1g7raktj2 09/30/2013 09/30/2013 Lionel Alejandro MD ReFill request [id number]-[id number] 09/30/2013 09/30/2013 Lionel Alejandro MD ReFill request [id number] 09/30/2013 09/30/2013 Lionel Alejandro MD ReFill request [id number] 09/30/2013 09/30/2013 Lionel Alejandro MD ReFill request [id number] 09/30/2013 09/30/2013 Lionel Alejandro MD ReFill request [id number] 09/30/2013 09/30/2013 Lionel Alejandro MD ReFill request [id number] 09/30/2013 09/30/2013 Lionel Alejandro MD ReFill request [id number] 09/30/2013 09/30/2013 Lionel Alejandro MD Office Visit 9t6s0z23-8c43-12v1-e2t5-1418j48u1153 11/09/2013 11/09/2013 Lionel Alejandro MD Office Visit 723m8680-54c0-2951-y9ua-n37pwi8j909y 11/09/2013 11/09/2013 Lionel Alejandro MD Office Visit [id number]-e239-5f3a-2i60-5g5oxi019j16 11/09/2013 11/09/2013 Lionel Alejandro MD Office Visit [id number]-0m29-0272-e47k-56079010ybl7 11/09/2013 11/09/2013 Lionel Alejandro MD Office Visit 55wklb58-bc12-72bm-cbwt-81196z280t9i 11/09/2013 11/09/2013 Lionel Alejandro MD Office Visit w94bzdao-8vc6-02tf-t29c-v98708q2mu71 11/09/2013 11/09/2013 Lionel Alejandro MD Office Visit [id number]-4i3k-0743-u7g9-0786e64exnp6 11/09/2013 11/09/2013 Lionel Alejandro MD Office Visit i843a2sn-q734-0g6e-g8z6-9965he3ef490 11/09/2013 11/09/2013 Lionel Alejandro MD Office Visit 9wnc3m47-vs2h-18vw-jhng-44427s9b3923 11/09/2013 11/09/2013 Lionel Alejandro MD Office Visit 95id5h4n-8u82-8bgf-67uf-2594m748c7q1 11/09/2013 11/09/2013 Lionel Alejandro MD Office Visit [id number]l01 11/09/2013 11/09/2013 Lionel Alejandro MD Office Visit [id number]-joi2-1f59-9yb8-p93prsz73b6s 11/09/2013 11/09/2013 Lionel Alejandro MD Office Visit 2xd2014i-2e06-332h-i2wv-i7q0q5cet409 11/09/2013 11/09/2013 Lionel Alejandro MD Office Visit x24w7833-x776-1t1g-9zd2-x19vw9w1f29p 11/09/2013 11/09/2013 Lionel Alejandro MD Office Visit [id number]-39ji-8k19-46r445g8h778 11/09/2013 11/09/2013 Lionel Alejandro MD Office Visit [id number]24d938e13r2 11/09/2013 11/09/2013 Lionel Alejandro MD Office Visit [id number]-60l2-91u0-83q1-31v54656vxuf 11/09/2013 11/09/2013 Lionel Alejandro MD Office Visit [id number]-4rm3-53f0-g424-1r3767ntc2c6 11/09/2013 11/09/2013 Lionel Alejandro MD Office Visit j22b6pc9-0s2b-5jd9-o930-z625nv5d2uzp 11/09/2013 11/09/2013 Lionel Alejandro MD Office Visit [id number]-1855-4i135x2a1204 11/09/2013 11/09/2013 Lionel Alejandro MD Office Visit [id number]-ge6v-6236-8840-qf499fyqf1rg 11/09/2013 11/09/2013 Lionel Alejandro MD Office Visit [id number]-604325485k09 11/09/2013 11/09/2013 Lionel Alejandro MD Office Visit 5526i52g-rl2t-95nu-5021-7twe47kca980 11/09/2013 11/09/2013 Lionel Alejandro MD Office Visit o1864r24-52xa-23g9-d688-4w9kg26l6hr1 11/09/2013 11/09/2013 Lionel Alejandro MD Office Visit [id number]-b6s9444zx3jh 11/09/2013 11/09/2013 Lionel Alejandro MD Office Visit 1p1w1wo6-zp66-8n0v-4a5o-ds29ifq89ea3 11/09/2013 11/09/2013 Lionel Alejandro MD Office Visit ybi3313h-1c2k-3x60-bnz3-f1au0y146el2 11/09/2013 11/09/2013 Lionel Alejandro MD F/U 2yzh8258-vvkq-7gm5-9576-9lj0t250711y 11/17/2013 11/17/2013 Lionel Alejandro MD F/U 9t694252-4rou-19bm-as26-z74rxva5s397 11/17/2013 11/17/2013 Lionel Alejandro MD F/U a310mx2t-2jox-7916-l879-en6a18400wbb 11/17/2013 11/17/2013 Lionel Alejandro MD F/U a67ji0a1-z98o-5lba-rlj7-62b7nt00l5t3 11/17/2013 11/17/2013 Lionel Alejandro MD F/U 2yyv3h2k-net8-6339-6f3j-kbo9216fibql 11/17/2013 11/17/2013 Lionel Alejandro MD F/U 94ak01a6-051q-44kf-24s1-f8sht11bc65g 11/17/2013 11/17/2013 Lionel Alejandro MD F/U ej8v7p40-3o22-3r77-1tdi-p933177a6j20 11/17/2013 11/17/2013 Lionel Alejandro MD F/U znx69233-28i0-2839-r23s-uqt180a60876 11/17/2013 11/17/2013 Lionel Alejandro MD F/U 5c5umehw-1394-4h78-o207-u649379zp99o 11/17/2013 11/17/2013 Lionel Alejandro MD F/U 1n6k744y-q939-8696-4584-s8d4uln8x343 11/17/2013 11/17/2013 Lionel Alejandro MD F/U j7l220cx-9u2k-9944-8811-w250s33130cz 11/17/2013 11/17/2013 Lionel Alejandro MD F/U 52dp663d-2lq4-957y-ho64-028ek980i6y0 11/17/2013 11/17/2013 Lionel Alejandro MD F/U dk8ii636-21y5-75s0-p924-0e5871419110 11/17/2013 11/17/2013 Lionel Alejandro MD F/U 5i79g2mv-nnl4-43k3-418g-5g05t3052500 11/17/2013 11/17/2013 Lionel Alejandro MD F/U g8rp3eg6-t107-334p-6826-01g3i8e301a0 11/17/2013 11/17/2013 Lionel Alejandro MD F/U 2a2x5356-765g-9215-i9y2-0xk077b91420 11/17/2013 11/17/2013 Lionel Alejandro MD F/U 14852e8s-9916-401c-rmm6-73380862ju15 11/17/2013 11/17/2013 Lionel Alejandro MD [facility] Patient Report [id number]-w0fr92x94q86 11/18/2013 11/18/2013 Lionel Alejandro MD [facility] Patient Report [id number] 11/18/2013 11/18/2013 Lionel Alejandro MD [facility] Patient Report [id number] 11/18/2013 11/18/2013 Lionel Alejandro MD [facility] Patient Report [id number] 11/18/2013 11/18/2013 Lionel Alejandro MD [facility] Patient Report [id number]-[id number]-gq38b027t27r 11/18/2013 11/18/2013 Lionel Alejandro MD [facility] Patient Report [id number]-03a5-7kji688eu4y4 11/18/2013 11/18/2013 Lionel Alejandro MD [facility] Patient Report [id number]-ve5v-9n3s-6r5m-5872452i8356 11/18/2013 11/18/2013 Lionel Alejandro MD [facility] Patient Report [id number]-v45v-08g9-17r0-2c3527f43228 11/18/2013 11/18/2013 Lionel Alejandro MD [facility] Patient Report fbq3i3d4-7w9b-9w31-5i59-96uq83em24i8 11/18/2013 11/18/2013 Lionel Alejandro MD [facility] Patient Report [id number]-e0bg-r0ls2odu7754 11/18/2013 11/18/2013 Lionel Alejandro MD [facility] Patient Report [id number] 11/18/2013 11/18/2013 Lionel Alejandro MD [facility] Patient Report [id number] 11/18/2013 11/18/2013 Lionel Alejandro MD [facility] Patient Report [id number] 11/18/2013 11/18/2013 Lionel Alejandro MD [facility] Patient Report [id number]-iw5my1rkq962 11/18/2013 11/18/2013 Lionel Alejandro MD [facility] Patient Report [id number]-701846mml72l 11/18/2013 11/18/2013 Lionel Alejandro MD [facility] Patient Report [id number] 11/18/2013 11/18/2013 Lionel Alejandro MD [facility] Patient Report [id number]-bz7529qs390c 11/18/2013 11/18/2013 Lionel Alejandro MD [facility] Patient Report [id number]-1lc1-hc66-57g9iw7h0ql1 11/18/2013 11/18/2013 Lionel Alejandro MD [facility] Patient Report [id number]-aiiext60aazz 11/18/2013 11/18/2013 Lionel Alejandro MD [facility] Patient Report [id number] 11/18/2013 11/18/2013 Lionel Alejandro MD [facility] Patient Report [id number] 11/18/2013 11/18/2013 Lionel Alejandro MD [facility] Patient Report [id number]-p5b9-66fzsubmg2to 11/18/2013 11/18/2013 Lionel Alejandro MD [facility] Patient Report [id number]-w4b5f9z0x80z 11/18/2013 11/18/2013 Lionel Alejandro MD [facility] Patient Report [id number] 11/18/2013 11/18/2013 Lionel Alejandro MD [facility] Patient Report [id number] 11/18/2013 11/18/2013 Lionel Alejandro MD [facility] Patient Report [id number] 11/18/2013 11/18/2013 Lionel Alejandro MD medication [id number]-[id number] 11/25/2013 11/25/2013 Lionel Alejandro MD medication 73a967y8-g3h1-56b7-626m-b3y18909vq96 11/25/2013 11/25/2013 Lionel Alejandro MD medication 22uyy87v-t528-390f-k620-337331570w50 11/25/2013 11/25/2013 Lionel Alejandro MD medication n07mp72y-003d-17k9-f463-rq517c020dt3 11/25/2013 11/25/2013 Lionel Alejandro MD medication [id number]-zi54-873v21k63x16 11/25/2013 11/25/2013 Lionel Alejandro MD medication [id number]-48a89zis5312 11/25/2013 11/25/2013 Lionel Alejandro MD medication new5257o-z1d8-187d-te0w-4pso8z616604 11/25/2013 11/25/2013 Lionel Alejandro MD medication [id number] 11/25/2013 11/25/2013 Lionel Alejandro MD medication [id number]-12lh-i69s-3f63rkdp416f 11/25/2013 11/25/2013 Lionel Alejandro MD medication 2c28t0t3-nim0-22s6-r90b-p5915n7c3948 11/25/2013 11/25/2013 Lionel Alejandro MD medication f63l6495-5432-92eu-l57u-40uc00oy79l7 11/25/2013 11/25/2013 Lionel Alejandro MD medication [id number]-550h6k167pte 11/25/2013 11/25/2013 Lionel Alejandro MD medication tp67yxf9-86y9-1kwk-2nbm-7614h55788e6 11/25/2013 11/25/2013 Lionel Alejandro MD medication j27m28u4-2wbl-[id number]-a1z2p37sw399 11/25/2013 11/25/2013 Lionel Alejandro MD medication 2qmft6pn-0504-5644-loe5-2sew8219j794 11/25/2013 11/25/2013 Lionel Alejandro MD medication [id number]-cc8q-e5jf1iw2m2mr 11/25/2013 11/25/2013 Lionel Alejandro MD medication 3fnezb16-mv6i-1377-7le0-59hb82l18hj8 11/25/2013 11/25/2013 Lionel Alejandro MD medication i4z29stl-29x5-5s6v-efy5-2750g2amu518 11/25/2013 11/25/2013 Lionel Alejandro MD medication [id number]-1865-6122-t0aj0wd8g932 11/25/2013 11/25/2013 Lionel Alejandro MD medication [id number]-zg80-c31k1217060b 11/25/2013 11/25/2013 Lionel Alejandro MD medication i7k9s87f-whjp-6908-4s1j-87c2l023g469 11/25/2013 11/25/2013 Lionel Alejandro MD medication gv4xuq44-m4i7-64c3-l807-r117y3p5223o 11/25/2013 11/25/2013 Lionel Alejandro MD medication [id number]-n582hb1x6es1 11/25/2013 11/25/2013 Lionel Alejandro MD medication 10jt2g98-v55u-3zyb-73xq-i9025dy7517s 11/25/2013 11/25/2013 Lionel Alejandro MD medication [id number]-szzcrp273884 11/25/2013 11/25/2013 Lionel Alejandro MD medication [id number]-738s-74o5-5949-59u1yo836l8n 11/25/2013 11/25/2013 Lionel Alejandro MD refills [id number]-[id number] 02/13/2014 02/13/2014 Lionel Alejandro MD refills [id number]-1i0k0mz0752e 02/13/2014 02/13/2014 Lionel Alejandro MD refills [id number] 02/13/2014 02/13/2014 Lionel Alejandro MD refills [id number] 02/13/2014 02/13/2014 Lionel Alejandro MD refills [id number]-79xg-n6l2-u34j8a42323y 02/13/2014 02/13/2014 Lionel Alejandro MD refills [id number]-dux3dd8281l4 02/13/2014 02/13/2014 Lionel Alejandro MD refills [id number]-72x591nh4iv6 02/13/2014 02/13/2014 Lionel Alejandro MD refills [id number]-vkkr-1h1b-s1vt-35070i0u12ag 02/13/2014 02/13/2014 Lionel Alejandro MD refills [id number]-[id number] 02/13/2014 02/13/2014 Lionel Alejandro MD refills [id number] 02/13/2014 02/13/2014 Lionel Alejandro MD refills 9ib70cqm-[id number]-cx9m-3d9h10n4bo3p 02/13/2014 02/13/2014 Lionel Alejandro MD refills [id number] 02/13/2014 02/13/2014 Lionel Alejandro MD refills [id number]-m4pp-517a-000m-8529s528ql28 02/13/2014 02/13/2014 Lionel Alejandro MD refills [id number]-78e5-xmqw-0ck219r2k3y1 02/13/2014 02/13/2014 Lionel Alejandro MD refills [id number]-a67v73tw5f44 02/13/2014 02/13/2014 Lionel Alejandro MD refills 0h78faf7-6t15-0t5d-t45z-wk524lw0pwfc 02/13/2014 02/13/2014 Lionel Alejandro MD refills [id number]-57qrkp7ctkq6 02/13/2014 02/13/2014 Lionel Alejandro MD refills vdtw7has-199p-9j6y-1x9i-h184347d54tb 02/13/2014 02/13/2014 Lionel Alejandro MD refills [id number]-t201-5519tbf95795 02/13/2014 02/13/2014 Lionel Alejandro MD refills [id number]-i7p55960n5nz 02/13/2014 02/13/2014 Lionel Alejandro MD refills [id number]-s4g3-057e-tpzo-5a35h25092m3 02/13/2014 02/13/2014 Lionel Alejandro MD refills o71s1vna-d2za-5ait-47zy-2is80ia38v0i 02/13/2014 02/13/2014 Lionel Alejandro MD refills [id number] 02/13/2014 02/13/2014 Lionel Alejandro MD refills ozerl5o9-0479-67h7-d0gm-koc769y71h5h 02/13/2014 02/13/2014 Lionel Alejandro MD [facility] f/u [id number]-[id number] 02/21/2014 02/21/2014 Lionel Alejandro MD [facility] f/u [id number]-q57f-549n-r1e8-vpzb416e0n19 02/21/2014 02/21/2014 Lionel Alejandro MD [facility] f/u [id number]-[id number]-4493e0n115h4 02/21/2014 02/21/2014 Lionel Alejandro MD [facility] f/u [id number] 02/21/2014 02/21/2014 Lionel Alejandro MD [facility] f/u [id number]-2473-1pqs-b03y-h4ldaq88u6b4 02/21/2014 02/21/2014 Lionel Alejandro MD [facility] f/u [id number]-vg9o-38ohn8g9q061 02/21/2014 02/21/2014 Lionel Alejandro MD [facility] f/u [id number]-1em9-8qy228a2g2jf 02/21/2014 02/21/2014 Lionel Alejandro MD [facility] f/u kms856fw-0d52-4115-uk39-gwl7p850n9a0 02/21/2014 02/21/2014 Lionel Alejandro MD [facility] f/u [id number]-1749-z8b3-k31v255r6jv3 02/21/2014 02/21/2014 Lionel Alejandro MD [facility] f/u t6c8t0us-[id number]-[id number] 02/21/2014 02/21/2014 Lionel Alejandro MD [facility] f/u 494ap21b-so78-94h6-a17j-q3o171n27d42 02/21/2014 02/21/2014 Lionel Alejandro MD [facility] f/u 7zm4du5i-85xy-06vr-954a-[id number] 02/21/2014 02/21/2014 Lionel Alejandro MD [facility] f/u [id number]-w948-94t63d2n5696 02/21/2014 02/21/2014 Lionel Alejandro MD [facility] f/u [id number]-22x7-17x23xmv8vjr 02/21/2014 02/21/2014 Lionel Alejandro MD [facility] f/u [id number]-[id number]-085h-q16437454s03 02/21/2014 02/21/2014 Lionel Alejandro MD [facility] f/u [id number] 02/21/2014 02/21/2014 Lionel Alejandro MD [facility] f/u [id number]-4o09-s738x93t92i8 02/21/2014 02/21/2014 Lionel Alejandro MD 2mth f/u [id number]-stf8a9g5z000 02/21/2014 02/21/2014 Lionel Alejandro MD RX Request-- Enbrel [id number]-[id number] 05/09/2014 05/09/2014 Lionel Alejandro MD RX Request-- Enbrel [id number]-vg4e-93rm-ewu5-52lgpz3jh02t 05/09/2014 05/09/2014 Linoel Alejandro MD RX Request-- Enbrel vn97t23q-go56-3r8y-h090-234974vu7dy4 05/09/2014 05/09/2014 Lionel Alejandro MD RX Request-- Enbrel [id number]-6041-m2bl-[id number] 05/09/2014 05/09/2014 Lionel Alejandro MD RX Request-- Enbrel fr78hh5j-[id number]-b9v7g55m3019 05/09/2014 05/09/2014 Lionel Alejandro MD RX Request-- Enbrel [id number]-24s7-o66t-hz6k5u23af72 05/09/2014 05/09/2014 Lionel Alejandro MD RX Request-- Enbrel 3p5r82u3-691r-4706-04gn-9aq905r5fr8z 05/09/2014 05/09/2014 Lionel Alejandro MD RX Request-- Enbrel [id number]-4767-ai45-7jy3h4339e9b 05/09/2014 05/09/2014 Lionel Alejandro MD RX Request-- Enbrel js853sol-3x35-7z7q-88al-f596wpb38f47 05/09/2014 05/09/2014 Lionel Alejandro MD RX Request-- Enbrel ab6zi7q7-61r3-194h-sl16-9k1dp71972v2 05/09/2014 05/09/2014 Lionel Alejandro MD RX Request-- Enbrel [id number]-[id number] 05/09/2014 05/09/2014 Lionel Alejandro MD RX Request-- Enbrel [id number]-33zc-649j-c66820l8n3db 05/09/2014 05/09/2014 Lionel Alejandro MD RX Request-- Enbrel [id number]-[id number] 05/09/2014 05/09/2014 Lionel Alejandro MD RX Request-- Enbrel j463xj6t-0f2q-0kd9-51ua-284w0363eljm 05/09/2014 05/09/2014 Lionel Alejandro MD RX Request-- Enbrel [id number] 05/09/2014 05/09/2014 Lionel Alejandro MD RX Request-- Enbrel c7t4loos-6k2s-2stv-[id number] 05/09/2014 05/09/2014 Lionel Alejandro MD RX Request-- Enbrel trov6c96-w0s6-8tn1-[id number] 05/09/2014 05/09/2014 Lionel Alejandro MD RX Request-- Enbrel [id number]-o83a-w9ft847d308m 05/09/2014 05/09/2014 Lionel Alejandro MD RX Request-- Enbrel [id number] 05/09/2014 05/09/2014 Lionel Alejandro MD RX Request-- Enbrel [id number]-[id number]-[id number] 05/09/2014 05/09/2014 Lionel Alejandro MD RX Request-- Enbrel [id number]-w60p-044s18o6710f 05/09/2014 05/09/2014 Lionel Alejandro MD RX Request-- Enbrel f89la6t5-8yvs-1372-h89c-9hz270ytt3k8 05/09/2014 05/09/2014 Lionel Alejandro MD RX Request-- Enbrel [id number]-ia38-ef09yvk0f37e 05/09/2014 05/09/2014 Lionel Alejandro MD Refill [id number]-[id number] 05/25/2014 05/25/2014 Lionel Alejandro MD Refill [id number]-y268-[id number] 05/25/2014 05/25/2014 Lionel Alejandro MD Refill [id number] 05/25/2014 05/25/2014 Lionel Alejandro MD Refill [id number]-[id number] 05/25/2014 05/25/2014 Lionel Alejandro MD Refill [id number]-6od9-7525-87q9as8p0u99 05/25/2014 05/25/2014 Lionel Alejandro MD Refill o2ilo4e3-1425-94n0-q8ng-x010b5l0a3t3 05/25/2014 05/25/2014 Lionel Alejandro MD Refill [id number] 05/25/2014 05/25/2014 Lionel Alejandro MD Refill [id number]-[id number] 05/25/2014 05/25/2014 Lionel Alejandro MD Refill [id number]-[id number]-[id number] 05/25/2014 05/25/2014 Lionel Alejandro MD Refill [id number]-7774-060a-226jf08ct3lx 05/25/2014 05/25/2014 Lionel Alejandro MD Refill [id number]-i56c-411l-021b-h34f893191p6 05/25/2014 05/25/2014 Lionel Alejandro MD Refill 55gt29xq-n0l9-59a6-i069-930836q905k3 05/25/2014 05/25/2014 Lionel Alejandro MD Refill [id number]-180g-rso921900m65 05/25/2014 05/25/2014 Lionel Alejandro MD Refill 0n1d4zg3-pw91-8p42-546k-q358q8q4b234 05/25/2014 05/25/2014 Lionel Alejandro MD Refill l6hz0182-7nq3-8118-s690-w49k8505n62s 05/25/2014 05/25/2014 Lionel Alejandro MD Refill 85r2q26q-y5k2-8z90-8sp6-jqi531t819y1 05/25/2014 05/25/2014 Lionel Alejandro MD Refill [id number]e36 05/25/2014 05/25/2014 Lionel Alejandro MD Refill [id number]-918p-098l-357s-i08633zex5ip 05/25/2014 05/25/2014 Lionel Alejandro MD Refill 4114z8o2-1714-7129-9q54-1zco6y0d9act 05/25/2014 05/25/2014 Lionel Alejandro MD Refill 10814ebu-o70v-0sm7-vz60-g539qo5g5cve 05/25/2014 05/25/2014 Lionel Alejandro MD Refill [id number]-911k-7m93-z5r3-ihi0t1i5x800 05/25/2014 05/25/2014 Lionel Alejandro MD Refill 9rd0q308-8z03-87vx-q632-4zn5f570kqee 05/25/2014 05/25/2014 Lionel Alejandro MD DEXA 7e1d3qvq-xe24-3482-81h6-99u33ri72286 05/25/2014 05/25/2014 Lionel Alejandro MD DEXA 3a3j5n1x-i873-48xd-a645-a160hzd6dog0 05/25/2014 05/25/2014 Lionel Alejandro MD DEXA [id number]-sb37-05xd-lif2-38343nzkmp72 05/25/2014 05/25/2014 Lionel Alejandro MD DEXA u7gc7x3c-44b8-79c5-h233-oh0m07o93bk1 05/25/2014 05/25/2014 Lionel Alejandro MD DEXA p1a038dl-t352-1368-7f1b-k8f1kkj4836k 05/25/2014 05/25/2014 Lionel Alejandro MD DEXA e3412t94-9432-3l4n-3690-3c0955389al9 05/25/2014 05/25/2014 Lionel Alejandro MD DEXA 045asgb5-5735-138z-x100-ld0y37j1f4vt 05/25/2014 05/25/2014 Lionel Alejandro MD DEXA 9p54586f-k0c2-872r-gaq8-7930ew35047h 05/25/2014 05/25/2014 Lionel Alejandro MD DEXA t54s66qs-8246-1b63-2hy9-75gcva16t93f 05/25/2014 05/25/2014 Lionel Alejandro MD DEXA o85u6mok-03q5-3668-a686-e95ax54y6941 05/25/2014 05/25/2014 Lionel Alejandro MD DEXA 5o737pt7-9no4-4773-t849-y8803dyc1303 05/25/2014 05/25/2014 Lionel Alejandro MD DEXA x56k29yv-9g57-989p-f957-3bevr4107972 05/25/2014 05/25/2014 Lionel Alejandro MD DEXA y3i46872-5jcf-9929-9m1y-11oee0299xt4 05/25/2014 05/25/2014 Lionel Alejandro MD DEXA t8kd6338-2800-72w0-as9k-982m73cv03r7 05/25/2014 05/25/2014 Lionel Alejandro MD DEXA 5058mb35-98a0-624n-93yb-b8950331856n 05/25/2014 05/25/2014 Lionel Alejandro MD DEXA 3st28395-n7k6-5939-g83g-1dg0tfo53719 05/25/2014 05/25/2014 Lionel Alejandro MD DEXA 82a2hjb6-e056-1908-4818-9h98tl7ukd94 05/25/2014 05/25/2014 Lionel Alejandro MD DEXA zm12k7i7-329q-4vwy-304f-62isb732923q 05/25/2014 05/25/2014 Lionel Alejandro MD DEXA 06u74w27-f07x-7be6-0894-p9o62q99n9k7 05/25/2014 05/25/2014 Lionel Alejandro MD DEXA zquqh302-o8qv-8i0a-0035-3597586w1t0c 05/25/2014 05/25/2014 Lionel Alejandro MD DEXA oy715hf5-27q8-0d24-k4kh-k7618vjg5pp5 05/25/2014 05/25/2014 Lionel Alejandro MD DEXA 62919468-z896-4538-f973-73ceu6r877v1 05/25/2014 05/25/2014 Lionel Alejandro MD F/U iw7nw09z-991f-23e4-yl8v-b8nz25l61x18 05/30/2014 05/30/2014 Lionel Alejandro MD F/U 59r68h85-74bq-172k-pl35-0nco9213oof6 05/30/2014 05/30/2014 Lionel Alejandro MD F/U 2ar94kp3-ha8m-498p-g116-955272195ou5 05/30/2014 05/30/2014 Lionel Alejandro MD F/U 2es2966e-j6zs-7928-5a4x-5c4790528ne3 05/30/2014 05/30/2014 Lionel Alejandro MD F/U r62n295z-8645-44eh-u91h-ovlm108t48v2 05/30/2014 05/30/2014 Lionel Alejandro MD F/U ztdf79mv-c706-549p-m524-0i863vkvhe8q 05/30/2014 05/30/2014 Lionel Alejandro MD F/U o6qoeu6k-n887-41ca-a472-bhfv1r5b0376 05/30/2014 05/30/2014 Lionel Alejandro MD F/U dr2i179f-yew1-65as-q89x-193356m9bu82 05/30/2014 05/30/2014 Lionel Alejandro MD F/U 1b744mim-j886-4f14-7m8h-w4r43600f638 05/30/2014 05/30/2014 Lionel Alejandro MD F/U lybq873d-g990-94b0-4043-3048415z98r3 05/30/2014 05/30/2014 Lionel Alejandro MD F/U 0456u503-1z1g-2r4t-w8b7-h6u67s94zh73 05/30/2014 05/30/2014 Lionel Alejandro MD F/U 69056ql7-33vo-729t-s528-116p755q5642 05/30/2014 05/30/2014 Lionel Alejandro MD F/U 713fn848-9215-507k-6774-89313329l4xi 05/30/2014 05/30/2014 Lionel Alejandro MD F/U o09h1430-xv4i-6a41-ow98-3o2q5p80d9t9 05/30/2014 05/30/2014 Lionel Alejandro MD F/U 2r5uh431-0021-9147-4258-03m9d56ih444 05/30/2014 05/30/2014 Lionel Alejandro MD F/U 487746i5-3039-013r-c52s-0r97a497zz34 05/30/2014 05/30/2014 Lionel Alejandro MD F/U ugc729u7-mn40-6s3c-bd20-u5hu60gt5nyl 05/30/2014 05/30/2014 Lionel Alejandro MD F/U 1ga75rj5-7kzs-75ji-rl9w-18g207pg290k 05/30/2014 05/30/2014 Lionel Alejandro MD F/U 36vo6cr8-c48p-8k40-t724-952m8gm4nrhn 05/30/2014 05/30/2014 Lionel Alejandro MD Switching rx 92x426f5-gl75-2010-3o2w-775s4t3j42a1 06/05/2014 06/05/2014 Lionel Alejandro MD Switching rx 65zn8usl-rw39-875g-623c-60epe2768jbz 06/05/2014 06/05/2014 Lionel Alejandro MD Switching rx 7y0y1w46-m53k-067s-u4di-805d491g7o8l 06/05/2014 06/05/2014 Lionel Alejandro MD Switching rx 5t647jq3-c9lf-7t92-ql80-9b4108u2u0uc 06/05/2014 06/05/2014 Lionel Alejandro MD Switching rx 7s050945-5li8-8222-yy8z-4154u85krbj7 06/05/2014 06/05/2014 Lionel Alejandro MD Switching rx 68090v73-zxtv-78xn-427j-9dffd169307w 06/05/2014 06/05/2014 Lionel Alejandro MD Switching rx 1u33qea6-98fm-157e-w98x-58h1l764828p 06/05/2014 06/05/2014 Lionel Alejandro MD Switching rx 2nk863gc-l3u2-3bo8-pz0c-0476x5b37743 06/05/2014 06/05/2014 Lionel Alejandro MD Switching rx 16h27n9w-hpso-0bck-q011-a405427w0990 06/05/2014 06/05/2014 Lionel Alejandro MD Switching rx 600iu8r4-eshi-5562-7e25-1445o367q146 06/05/2014 06/05/2014 Lionel Alejandro MD Switching rx 59u3ui09-k78q-8j2h-03j9-25827q991k21 06/05/2014 06/05/2014 Lionel Alejandro MD Switching rx d6ht8658-f158-15r9-1nkx-glo8n58536g2 06/05/2014 06/05/2014 Lionel Alejandro MD Switching rx 2q751l66-0xv0-2q34-nay3-0814w1sl78hx 06/05/2014 06/05/2014 Lionel Alejandro MD Switching rx 27i822g8-lk5m-3863-c330-w5m3x39p79g2 06/05/2014 06/05/2014 Lionel Alejandro MD Switching rx b130a655-5pb3-44tr-97lg-465047s201tl 06/05/2014 06/05/2014 Lionel Alejandro MD Switching rx 2c83230g-zy86-80ep-7809-aap07h2150g1 06/05/2014 06/05/2014 Lionel Alejandro MD Switching rx q06iq543-3r9d-96cq-8ind-67m16375o5k5 06/05/2014 06/05/2014 Lionel Alejandro MD Switching rx f2hrz123-7wa7-4o49-3tc4-696eef0nx132 06/05/2014 06/05/2014 Lionel Alejandro MD Switching rx 8643b51y-a6g3-1595-t710-r11xv745f7w1 06/05/2014 06/05/2014 Lionel Alejandro MD Switching rx 1x69p881-025c-842n-731n-28265kmlctf2 06/05/2014 06/05/2014 Lionel Alejandro MD RX REFILL b25x55t3-34je-880s-5395-6928q822241i 07/20/2014 07/20/2014 Lionel Alejandro MD RX REFILL b25u7t04-5d1k-3v3e-e7kp-d34ce84yf7j3 07/20/2014 07/20/2014 Lionel Alejandro MD RX REFILL 296h3t93-9yib-706y-o06k-g7w3f2l53652 07/20/2014 07/20/2014 Lionel Alejandro MD RX REFILL w358z432-184b-9622-0486-7947lc9ct051 07/20/2014 07/20/2014 Lionel Alejandro MD RX REFILL b470047w-48an-6v96-8tg8-9e5i23kq6096 07/20/2014 07/20/2014 Lionel Alejandro MD RX REFILL 80qqo32d-5i76-300f-80b1-xu32oojrj7p9 07/20/2014 07/20/2014 Lionel Alejandro MD RX REFILL 158t8js1-p9i6-9198-p1y9-975242a14x09 07/20/2014 07/20/2014 Lionel Alejandro MD RX REFILL 767l4d21-u749-7l3b-306n-5z0yq6pbigg7 07/20/2014 07/20/2014 Lionel lAejandro MD RX REFILL j1ps8ix9-rwc9-6729-b9g0-tlq5cp4i1196 07/20/2014 07/20/2014 Lionel Alejandro MD RX REFILL 8069p21x-cs44-917j-700y-4kc46594ha74 07/20/2014 07/20/2014 Lionel Alejandro MD RX REFILL 8us1nj92-517r-0274-3pji-0d04a2908qh6 07/20/2014 07/20/2014 Lionel Alejandro MD RX REFILL 64474uc4-2n88-9z89-3q12-9om8r92t6d9v 07/20/2014 07/20/2014 Lionel Alejandro MD RX REFILL 92qepk6j-1x07-10uz-4x8c-660m1331r358 07/20/2014 07/20/2014 Lionel Alejandro MD RX REFILL 74665675-5534-7097-9710-9pm8b3ge2403 07/20/2014 07/20/2014 Lionel Alejandro MD RX REFILL 9xc59p45-002a-2ar3-j76h-20c7p9hg7532 07/20/2014 07/20/2014 Lionel Alejandro MD RX REFILL 196yymvq-21m7-9o1i49j3-8r8m-zy98-872xs0919s59 07/20/2014 07/20/2014 Lionel Alejandro MD RX REFILL p39i9z47-s422-52y9-r13c-3073b2u6b6ed 07/20/2014 07/20/2014 Lionel Alejandro MD RX REFILL grh8t526-27x6-3772-6yj3-3h89jep7c4qz 07/20/2014 07/20/2014 Lionel Alejandro MD Infusion 6c5n9fps-94c0-9q83-0587-57l2f5v8258l 07/20/2014 07/20/2014 Lionel Alejandro MD Infusion 3us8x3t2-4792-4rp9-14g8-eq28n8m31593 07/20/2014 07/20/2014 Lionel Alejandro MD Infusion 2o1v2i74-b297-5q0s-6yg5-1dda965a3729 07/20/2014 07/20/2014 Lionel Alejandro MD Infusion nhv2pa6w-85uo-28q8-8736-jnv6110d7224 07/20/2014 07/20/2014 Lionel Alejandro MD Infusion 0j0pus6i-h0qp-3w3n-6s11-g287q7458r7z 07/20/2014 07/20/2014 Lionel Alejandro MD Infusion 088dcjks-91ba-9s7u4c0i-c0s6-e429d574z5hz 07/20/2014 07/20/2014 Lionel Alejandro MD Infusion 403kv5zy-n27f-9go7-9bi5-0n8y3kx7n6c5 07/20/2014 07/20/2014 Lionel Alejandro MD Infusion 45593oa1-5833-35u4-e57a-x2269b759404 07/20/2014 07/20/2014 Lionel Alejandro MD Infusion r0k25c41-9393-5215-433t-j80528rs1871 07/20/2014 07/20/2014 Lionel Alejandro MD Infusion a08c7doj-255m-1m5r-n111-k0dv2018jw5d 07/20/2014 07/20/2014 Lionel Alejandro MD Infusion xn77r7on-614u-3428-p5e5-hy3bjn41i5a7 07/20/2014 07/20/2014 Lionel Alejandro MD Infusion n85m5d14-597g-9407-ys02-72b773951151 07/20/2014 07/20/2014 Lionel Alejandro MD Infusion 08o5960c-4b0w-27x9-d4ap-6x44868dp249 07/20/2014 07/20/2014 Lionel Alejandro MD Infusion 3730x45i-9w4l-49j9-289q-lb1f28jz0643 07/20/2014 07/20/2014 Lionel Alejandro MD Infusion l9yij111-4s3f-5tm3-520m-7e1dee10712r 07/20/2014 07/20/2014 Lionel Alejandro MD Infusion uy307bnp-9709-8z33-t259-ppwb14iau45e 07/20/2014 07/20/2014 Lionel Alejandro MD Infusion jm8v9y7d-iok9-96k0-uz06-x359635l1450 07/20/2014 07/20/2014 Lionel Alejandro MD Infusion k1z6l170-978x-8l03-56x0-kq21v0683xbn 07/20/2014 07/20/2014 Lionel Alejandro MD Infusion vikn3qe1-m05k-9p4a-o3q7-9918w528u507 07/20/2014 07/20/2014 Lionel Alejandro MD RX REFILL m9519r69-91l1-61ep-im2j-d57h06450281 08/17/2014 08/17/2014 Lionel Alejandro MD RX REFILL 72t3fzy2-98d1-394o-03j8-8dw7991ml11v 08/17/2014 08/17/2014 Lionel Alejandro MD RX REFILL 3036uk2u-p505-7433-j10z-9z79e0rg2lk0 08/17/2014 08/17/2014 Lionel Alejandro MD RX REFILL t2d4249q-eln7-82z4-hi34-58r0oto26794 08/17/2014 08/17/2014 Lionel Alejandro MD RX REFILL 91k5f53y-2e48-3336-5y00-u81s829v3394 08/17/2014 08/17/2014 Lionel Alejandro MD RX REFILL 7k3jc45a-zm2v-669k-6845-r081x2r1cu77 08/17/2014 08/17/2014 Lionel Alejandro MD RX REFILL 5o223e4u-q7g5-9086-k87i-026639tny6t0 08/17/2014 08/17/2014 Lionel Alejandro MD RX REFILL 0n316516-jhj7-3tc5-519o-6p359s650236 08/17/2014 08/17/2014 Lionel Alejandro MD RX REFILL 052971n5-0949-535h-9570-m6nedy8s03dm 08/17/2014 08/17/2014 Lionel Alejandro MD RX REFILL gw44e0sq-q5x1-45z5-52ih-7t86dcdgu3uh 08/17/2014 08/17/2014 Lionel Alejandro MD RX REFILL 16c7e0u4-0a2e-0810-282d-4mg9dbu1ne5i 08/17/2014 08/17/2014 Lionel Alejandro MD RX REFILL 0k8a622h-29g8-0g22-n029-88z3pvb93323 08/17/2014 08/17/2014 Lionel Alejandro MD RX REFILL xe237q73-40sw-3r48-1n0z-te34hfb773sw 08/17/2014 08/17/2014 Lionel Alejandro MD RX REFILL n30q1793-fd22-83i2-u9t1-733q40883554 08/17/2014 08/17/2014 Lionel Alejandro MD RX REFILL i3ye86a3-8k6f-6z03-5392-49256n4711rm 08/17/2014 08/17/2014 Lionel Alejandro MD RX REFILL 7mmzb56h-p76a-423e-y16s-byvnv52g156o 08/17/2014 08/17/2014 Lionel Alejandro MD RX REFILL 0441zp71-g505-8m70-jv33-807899jh5l4w 08/17/2014 08/17/2014 Lionel Alejandro MD RX REFILL y0p395c3-9yx7-9nn2-nl9f-pe76f7281fq2 08/17/2014 08/17/2014 Lionel Alejandro MD depomedrol injection 8a5hq255-n20j-9i73-c41x-yb0410wllk78 09/14/2014 09/14/2014 Lionel Alejandro MD depomedrol injection 086fv330-283a-6cyg-4689-c667494yqq50 09/14/2014 09/14/2014 Lionel Alejandro MD depomedrol injection 94196wa0-mcu2-4r39-p646-7xuhqy884f3k 09/14/2014 09/14/2014 Lionel Alejandro MD depomedrol injection 9914p399-4n89-218f-pty9-l7085450156e 09/14/2014 09/14/2014 Lionel Alejandro MD depomedrol injection 4mgc7h6c-4s79-3zmf-25r4-503zxd6039p5 09/14/2014 09/14/2014 Lionel Alejandro MD depomedrol injection x6638979-r905-2981-l700-i805497p2y1j 09/14/2014 09/14/2014 Lionel Alejandro MD depomedrol injection 54u492fs-i88l-1424-4oi2-69q65r2z5186 09/14/2014 09/14/2014 Lionel Alejandro MD depomedrol injection dg2ifh44-ub2s-9774-398g-4u438jo6mrz8 09/14/2014 09/14/2014 Lionel Alejandro MD depomedrol injection g9423149-bt19-7i8x-nxe8-btlte988i1h0 09/14/2014 09/14/2014 Lionel Alejandro MD depomedrol injection 75wt511v-bz30-18e3-64j0-ijso75g18v48 09/14/2014 09/14/2014 Lionel Alejandro MD depomedrol injection m3a2b443-e30n-8007-u7r7-29851270y4z8 09/14/2014 09/14/2014 Lionel Alejandro MD depomedrol injection 3a497994-r4e5-95x4-wx34-4sp54j4z9265 09/14/2014 09/14/2014 Lionel Alejandro MD depomedrol injection 902p463q-v6tg-9a0z-880t-ba26fut7268x 09/14/2014 09/14/2014 Lionel Alejandro MD depomedrol injection 31e7g577-01z4-4333-4718-8tl4519n036c 09/14/2014 09/14/2014 Lionel Alejandro MD depomedrol injection 1iul4f64-2b6z-6912-6k31-v9122lp3bw04 09/14/2014 09/14/2014 Lionel Alejandro MD depomedrol injection al1ot72s-p489-5uh5-32c5-4j42o7o37m9y 09/14/2014 09/14/2014 Lionel Alejandro MD depomedrol injection 00ik8279-1x87-2498-hn50-0531772dj402 09/14/2014 09/14/2014 Lionel Alejandro MD depomedrol injection fl73b311-ro6n-6o40-afs6-8v69qibpa4x4 09/14/2014 09/14/2014 Lionel Alejandro MD depomedrol injection 24oe15l6-f351-7743-928d-o882m12552ne 09/14/2014 09/14/2014 Lionel lAejandro MD RX Request-- MTX wvdk314i-8p23-716k-gtc8-73d012k38qks 11/14/2014 11/14/2014 Lionel Alejandro MD RX Request-- MTX tb4214rt-507x-3376-4n07-690i2rurcxmk 11/14/2014 11/14/2014 Lionel Alejandro MD RX Request-- MTX x7a523z7-8972-4609-039a-jmned81hr2rl 11/14/2014 11/14/2014 Lionel Alejandro MD RX Request-- MTX i4y0261y-9fs4-877q-n646-41m6fwa1wl03 11/14/2014 11/14/2014 Lionel Alejandro MD RX Request-- MTX 84o03b70-4ags-8297-6516-bc2tt1567622 11/14/2014 11/14/2014 Lionel Alejandro MD RX Request-- MTX n10cc2cd-8z17-8687-hght-iw99s7a42h6i 11/14/2014 11/14/2014 Lionel Alejandro MD RX Request-- MTX 3sv9t39r-8c3l-9jtn-td47-b3x94b42407t 11/14/2014 11/14/2014 Lionel Alejandro MD RX Request-- MTX 1h8a49kd-357f-86ci-s54s-5kt76x8o55r6 11/14/2014 11/14/2014 Lionel Alejandro MD RX Request-- MTX y0951mh7-o833-7961-1g2m-x35v075887kz 11/14/2014 11/14/2014 Lionel Alejandro MD RX Request-- MTX 42460t5t-moj4-9m02-ql94-1h54e3910y19 11/14/2014 11/14/2014 Lionel Alejandro MD RX Request-- MTX 1401945l-zs9f-3oic-77bd-lzp5e86m6146 11/14/2014 11/14/2014 Lionel Alejandro MD RX Request-- MTX jcmk97r9-4df2-6h6t-7w7w-q1jan03vvve4 11/14/2014 11/14/2014 Lionel Alejandro MD RX Request-- MTX 802yzu30-7etk-43i7-18me-y2l24tr48ef8 11/14/2014 11/14/2014 Lionel Alejandro MD RX Request-- MTX 9a0505qx-u161-121z-leg0-8xal2x12gc6b 11/14/2014 11/14/2014 Lionel Alejandro MD RX Request-- MTX k9hym04h-rh82-8166-9l09-jfdi9c702512 11/14/2014 11/14/2014 Lionel Alejandro MD RX Request-- MTX 2t1wo52s-1slc-95lx-7ebh-5299i5r6k35u 11/14/2014 11/14/2014 Lionel Alejandro MD RX Request-- MTX p6845x96-xl17-53su-l1v5-0736dgtvy5i4 11/14/2014 11/14/2014 Lionel Alejandro MD RX Request-- MTX 8692qrqu-2w48-79o65j27-74h0-gy00-6eh5k8wmlw78 11/14/2014 11/14/2014 Lionel Alejandro MD RX Request-- MTX 15722i0m-8464-94lm-1b92-2p72zswz9k37 11/14/2014 11/14/2014 Lionel Alejandro MD RX Request-- Tizanidine 00ghd704-d5t2-8278-2472-l4bdj5ie371j 12/04/2014 12/04/2014 Lionel Alejandro MD RX Request-- Tizanidine 65d59x8b-8t51-40mr-e7a5-1ns666j23462 12/04/2014 12/04/2014 Lionel Alejandro MD RX Request-- Tizanidine a2563q85-jx81-5543-93k3-w44bx43817cc 12/04/2014 12/04/2014 Lionel Alejandro MD RX Request-- Tizanidine h131x28n-i61q-5061-6fgp-96x8312ek9i0 12/04/2014 12/04/2014 Lionel Alejandro MD RX Request-- Tizanidine s18n7606-63lb-2a23-1r15-57s83g4t439q 12/04/2014 12/04/2014 Lionel Aljeandro MD RX Request-- Tizanidine 54s94u5n-84f4-795z-7354-1808yx1xt83t 12/04/2014 12/04/2014 Lionel Alejandro MD RX Request-- Tizanidine y3943301-7825-279l-i13n-lvt62k44f3f9 12/04/2014 12/04/2014 Lionel Alejandro MD RX Request-- Tizanidine a04770c4-fx30-02ox-83l7-4gh6yc7842v3 12/04/2014 12/04/2014 Lionel Alejandro MD RX Request-- Tizanidine c0993bpv-467o-47l1-168c-y520m9252a80 12/04/2014 12/04/2014 Lionel Alejandro MD RX Request-- Tizanidine 70n5jd2i-1njk-3i89-d1m4-1610w43f48l1 12/04/2014 12/04/2014 Lionel Alejandro MD RX Request-- Tizanidine 8h30s792-amf3-72dx-d8y4-l10ejj359cro 12/04/2014 12/04/2014 Lionel Alejandro MD RX Request-- Tizanidine 0j288z8f-9ene-8601-988o-m1505075n5q9 12/04/2014 12/04/2014 Lionel Alejandro MD RX Request-- Tizanidine 9u3v234s-0413-1n5o-e5ev-r9f4810t7lt5 12/04/2014 12/04/2014 Lionel Alejandro MD RX Request-- Tizanidine [id number] 12/04/2014 12/04/2014 Lionel Alejandro MD RX Request-- Tizanidine [id number] 12/04/2014 12/04/2014 Lionel Alejandro MD RX Request-- Tizanidine [id number] 12/04/2014 12/04/2014 Lionel Alejandro MD RX Request-- Tizanidine [id number] 12/04/2014 12/04/2014 Lionel Alejandro MD RX Request-- Tizanidine [id number] 12/04/2014 12/04/2014 Lionel Alejandro MD [place] [address] DAY[address] humira [id number] 06/27/2015 06/27/2015 Lionel Alejandro MD [place] 465 DAYAN vs humira [id number] 06/27/2015 06/27/2015 Lionel Alejandro MD abb[place] 465 DAYAN vs humira [id number] 06/27/2015 06/27/2015 Lionel Alejandro MD abb[place] 465 DAYAN vs humira [id number] 06/27/2015 06/27/2015 Lionel Alejandro MD abb[place] 465 DAYAN vs humira [id number] 06/27/2015 06/27/2015 Lionel Alejandro MD abb[place] 465 DAYAN vs humira [id number] 06/27/2015 06/27/2015 Lionel Alejandro MD [place] 465 DAYAN vs humira [id number] 06/27/2015 06/27/2015 Lionel Alejandro MD abbvie 465 DAYAN vs humira [id number] 06/27/2015 06/27/2015 Lionel Alejandro MD abb[place] 465 DAYAN vs humira [id number] 06/27/2015 06/27/2015 Lionel Alejandro MD abbvie 465 DAYAN vs humira [id number] 06/27/2015 06/27/2015 Lionel Alejandro MD abbvie 465 DAYAN vs humira [id number] 06/27/2015 06/27/2015 Lionel Alejandro MD abbvie 465 DAYAN vs humira [id number] 06/27/2015 06/27/2015 Lionel Alejandro MD abbvie 465 DAYAN vs humira [id number] 06/27/2015 06/27/2015 Lionel Alejandro MD abb[place] 465 DAYAN vs humira [id number] 06/27/2015 06/27/2015 Lionel Alejandro MD abbvie 465 DAYAN vs humira [id number] 06/27/2015 06/27/2015 Lionel Alejandro MD abbvie 465 DAYAN vs humira [id number] 06/27/2015 06/27/2015 Lionel Alejandro MD follow up / labs [id number] 06/27/2015 06/27/2015 Lionel Alejandro MD follow up / labs [id number] 06/27/2015 06/27/2015 Lionel Alejandro MD follow up / labs [id number]-[id number] 06/27/2015 06/27/2015 Lionel Alejandro MD follow up / labs [id number] 06/27/2015 06/27/2015 Lionel Alejandro MD follow up / labs [id number] 06/27/2015 06/27/2015 Lionel Alejandro MD follow up / labs [id number] 06/27/2015 06/27/2015 Lionel Alejandro MD follow up / labs [id number] 06/27/2015 06/27/2015 Lionel Alejandro MD follow up / labs [id number] 06/27/2015 06/27/2015 Lionel Alejandro MD follow up / labs [id number] 06/27/2015 06/27/2015 Lionel Alejandro MD follow up / labs [id number] 06/27/2015 06/27/2015 Lionel Alejandro MD follow up / labs [id number] 06/27/2015 06/27/2015 Lionel Alejandro MD follow up / labs [id number] 06/27/2015 06/27/2015 Lionel Alejandro MD follow up / labs [id number] 06/27/2015 06/27/2015 Lionel Alejandro MD follow up / labs [id number] 06/27/2015 06/27/2015 Lionel Alejandro MD follow up / labs [id number] 06/27/2015 06/27/2015 Lionel Alejandro MD Unknown [id number] 08/29/2015 08/29/2015 Lionel Alejandro MD Unknown [id number] 08/29/2015 08/29/2015 Lionel Alejandro MD Unknown [id number] 08/29/2015 08/29/2015 Lionel Alejandro MD Unknown [id number] 08/29/2015 08/29/2015 Lionel Alejandro MD Unknown [id number] 08/29/2015 08/29/2015 Lionel Alejandro MD Unknown [id number] 08/29/2015 08/29/2015 Lionel Alejandro MD Unknown [id number] 08/29/2015 08/29/2015 Lionel Alejandro MD Unknown [id number] 08/29/2015 08/29/2015 Lionel Alejandro MD Unknown [id number] 08/29/2015 08/29/2015 Lionel Alejandro MD Unknown [id number] 08/29/2015 08/29/2015 Lionel Alejandro MD Unknown [id number] 08/29/2015 08/29/2015 Lionel Alejandro MD Unknown [id number] 08/29/2015 08/29/2015 Lionel Alejandro MD Unknown [id number] 08/29/2015 08/29/2015 Lionel Alejandro MD possible allergic reaction to simponi [id number] 09/19/2015 09/19/2015 Lionel Alejandro MD possible allergic reaction to simponi [id number] 09/19/2015 09/19/2015 Lionel Alejandro MD possible allergic reaction to simponi [id number] 09/19/2015 09/19/2015 Lionel Alejandro MD possible allergic reaction to simponi [id number]-[id number] 09/19/2015 09/19/2015 Lionel Alejandro MD possible allergic reaction to simponi [id number] 09/19/2015 09/19/2015 Lionel Alejandro MD possible allergic reaction to simponi [id number] 09/19/2015 09/19/2015 Lionel Alejandro MD possible allergic reaction to simponi [id number] 09/19/2015 09/19/2015 Lionel Alejandro MD possible allergic reaction to simponi [id number]-[id number] 09/19/2015 09/19/2015 Lionel Alejandro MD possible allergic reaction to simponi [id number]-[id number] 09/19/2015 09/19/2015 Lionel Alejandro MD possible allergic reaction to simponi 430bzs26-m7s5-91bs-[id number] 09/19/2015 09/19/2015 Lionel Alejandro MD possible allergic reaction to simponi [id number] 09/19/2015 09/19/2015 Lionel Alejandro MD LIDOCAINE [id number] 09/19/2015 09/19/2015 Lionel Alejandro MD LIDOCAINE [id number] 09/19/2015 09/19/2015 Lionel Alejandro MD LIDOCAINE [id number] 09/19/2015 09/19/2015 Lionel Alejandro MD LIDOCAINE [id number] 09/19/2015 09/19/2015 Lionel Alejandro MD LIDOCAINE [id number] 09/19/2015 09/19/2015 Lionel Alejandro MD LIDOCAINE [id number] 09/19/2015 09/19/2015 Lionel Alejandro MD LIDOCAINE [id number] 09/19/2015 09/19/2015 Lionel Alejandro MD LIDOCAINE [id number] 09/19/2015 09/19/2015 Lionel Alejandro MD LIDOCAINE [id number] 09/19/2015 09/19/2015 Lionel Alejandro MD LIDOCAINE [id number] 09/19/2015 09/19/2015 Lionel Alejandro MD LIDOCAINE [id number] 09/19/2015 09/19/2015 Lionel Alejandro MD LIDOCAINE [id number]-[id number] 09/19/2015 09/19/2015 Lionel Alejandro MD uti infection [id number] 10/04/2015 10/04/2015 Lionel Alejandro MD uti infection [id number]-[id number] 10/04/2015 10/04/2015 Lionel Alejandro MD uti infection [id number] 10/04/2015 10/04/2015 Lionel Alejandro MD uti infection [id number] 10/04/2015 10/04/2015 Lionel Alejandro MD uti infection [id number] 10/04/2015 10/04/2015 Lionel Alejandro MD uti infection [id number] 10/04/2015 10/04/2015 Lionel Alejandro MD uti infection [id number] 10/04/2015 10/04/2015 Lionel Alejandro MD uti infection [id number] 10/04/2015 10/04/2015 Lionel Alejandro MD uti infection [id number] 10/04/2015 10/04/2015 Lionel Alejandro MD uti infection [id number] 10/04/2015 10/04/2015 Lionel Alejandro MD Unknown [id number] 10/24/2015 10/24/2015 Lionel Alejandro MD Unknown [id number] 10/24/2015 10/24/2015 Lionel Alejandro MD Unknown [id number] 10/24/2015 10/24/2015 Lionel Alejandro MD Unknown [id number] 10/24/2015 10/24/2015 Lionel Alejandro MD Unknown [id number] 10/24/2015 10/24/2015 Lionel Alejandro MD Unknown [id number] 10/24/2015 10/24/2015 Lionel Alejandro MD Unknown [id number] 10/24/2015 10/24/2015 Lionel Alejandro MD Unknown [id number] 10/24/2015 10/24/2015 Lionel Alejandro MD Unknown [id number] 10/24/2015 10/24/2015 Lionel Alejandro MD Unknown [id number] 12/05/2015 12/05/2015 Lionel Alejandro MD Unknown [id number] 12/05/2015 12/05/2015 Lionel Alejandro MD Unknown [id number] 12/05/2015 12/05/2015 Lionel Alejandro MD Unknown [id number] 12/05/2015 12/05/2015 Lionel Alejandro MD Unknown [id number] 12/05/2015 12/05/2015 Lionel Alejandro MD Unknown [id number] 12/05/2015 12/05/2015 Lionel Alejandro MD Unknown [id number] 12/05/2015 12/05/2015 Lionel Alejandro MD Unknown [id number] 12/05/2015 12/05/2015 Lionel Alejandro MD 6 WK FU [id number] 12/13/2015 12/13/2015 Lionel Alejandro MD 6 WK FU [id number] 12/13/2015 12/13/2015 Lionel Alejandro MD 6 WK FU [id number] 12/13/2015 12/13/2015 Lionel Alejandro MD 6 WK FU [id number] 12/13/2015 12/13/2015 Lionel Alejandro MD 6 WK FU [id number] 12/13/2015 12/13/2015 Lionel Alejandro MD 6 WK FU [id number] 12/13/2015 12/13/2015 Lionel Alejandro MD Follow up [id number] 02/13/2016 02/13/2016 Lionel Alejandro MD Unknown [id number] 02/13/2016 02/13/2016 Lionel Alejandro MD Unknown [id number] 02/13/2016 02/13/2016 Lionel Alejandro MD Unknown [id number] 02/13/2016 02/13/2016 Lionel Alejandro MD Follow up [id number] 02/13/2016 02/13/2016 Lionel Alejandro MD Follow up [id number] 02/13/2016 02/13/2016 Lionel Alejandro MD schedule appt [id number] 02/13/2016 02/13/2016 Lionel Alejandro MD schedule appt [id number] 02/13/2016 02/13/2016 Lionel Alejandro MD schedule appt [id number] 02/13/2016 02/13/2016 Lionel Alejandro MD Unknown [id number] 02/13/2016 02/13/2016 Lionel Alejandro MD Unknown [id number] 02/13/2016 02/13/2016 Lionel Alejandro MD schedule appt [id number] 02/13/2016 02/13/2016 Lionel Alejandro MD schedule appt [id number] 02/13/2016 02/13/2016 Lionel Alejandro MD Unknown [id number] 02/21/2016 02/21/2016 Lionel Alejandro MD Unknown [id number] 02/21/2016 02/21/2016 Lionel Alejandro MD Follow up [id number] 06/05/2016 06/05/2016 Lionel Alejandro [facility] Outpatient Imaging [facility] Services [id number] Vanessa Mathis 07/21/2017 07/22/2017 [facility] Outpatient [id number] Vanessa Mathis 08/17/2017 08/18/2017 [facility] Outpatient [id number] Stiven Trejo 07/21/2018 07/22/2018 [facility] [id number] Vanessa Mathis 08/12/2018 08/13/2018 [facility] Procedures Procedure Code Date Perfomer Comments Source
--- OUTSIDE RECORDS SUMMARY | 2018-10-08 09:55 | XMS REPORT ---
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
--- OUTSIDE RECORDS SUMMARY | 2018-10-08 09:55 | XMS REPORT ---
Author Author Grzegorz Alejandro [facility] eClinicalWorks Address Unknown Phone Unavailable Care Team Providers Care Trading Floor Operator Name Role Phone Grzegorz Alejandro CP Unavailable Allergies, Adverse Reactions, Alerts Substance Reaction Event Type penicillin hives Drug Allergy Keflex hives Drug Allergy Tegretol tingling Drug Allergy Benadryl hives Drug Allergy methotrexate mouth ulcer Non Drug Allergy zantac Info Not Available Non Drug Allergy Humira Info Not Available Non Drug Allergy Arava mouth/tongue ulcers Non Drug Allergy Problems Problem Type Condition Code Onset Dates Condition Status Assessment Osteopenia of right thigh M85.851 Active Assessment Rheumatoid arthritis involving multiple sites, unspecified rheumatoid factor presence M06.9 Active Assessment Encounter for long-term (current) use of other high-risk medications Z79.899 Active Problem 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 Problem Urinary tract infection N39.0 Active Problem Osteopenia of right thigh M85.851 Active Problem Encounter for long-term (current) use of other high-risk medications Z79.899 Active Problem Rheumatoid arthritis involving multiple sites, unspecified rheumatoid factor presence M06.9 Active Problem Inflammatory arthritis M19.90 Active Problem Crohn disease K50.90 Active Medications Medication Code System Code Instructions Start Date End Date Status Dosage Morphine Sulfate [facility] [address]-44 30 MG Orally BID Active 1 tablet as needed Metformin HCl [facility] [address]-31 1000 MG Orally Twice a day Active 1 tablet with meals Vitamin D [facility] [address]-90 1000 UNIT Orally Once a day Active 1 tablet Lisinopril [facility] [address]-28 Orally Once a day Active 1 tablet [place] [facility] [address]-30 10-325 MG Orally three times a day Active 2 tablets Lovastatin [facility] [address]-00 Orally Once a day Active 1 tablet with a meal Sulfasalazine [facility] [address]-76 500 MG Orally twice a day October 24, 2015 Active 4 tablets Actos [facility] [address]-02 15 MG Orally Once a day Active 1 tablet Tizanidine HCl [facility] [address]-70 2 MG Orally once at bed time Active 1 tablet as needed Calcium [facility] [address]-77 500 MG Orally Twice a day Active 1 tablet with meals Fluoxetine HCl [facility] [address]-60 20 MG Orally Once a day Active 1 capsule in the morning Gabapentin [facility] [address]-38 400 MG Orally once a day Active 1 capsule Budesonide [facility] [address]-02 Orally three capsules in the morning Active as directed Vital Signs Date/Time: Feb 10, 2017 BMI 31.79 Index Weight 203 lbs Height 67 in Temperature 98.2 F Cardiac Monitoring Heart Rate 88 /min Blood Pressure Diastolic 62 mm Hg Blood Pressure Systolic 140 mm Hg Results No Known Results Summary Purpose eClinicalWorks Submission
--- OUTSIDE RECORDS SUMMARY | 2018-10-08 09:55 | XMS REPORT ---
Author Author Grzegorz Alejandro [facility] eClinicalWorks Address Unknown Phone Unavailable Care Team Providers Care Subeditor Name Role Phone Grzegorz Alejandro CP Unavailable Allergies, Adverse Reactions, Alerts Substance Reaction Event Type penicillin hives Drug Allergy Keflex hives Drug Allergy Tegretol tingling Drug Allergy Benadryl hives Drug Allergy Cimzia infections Non Drug Allergy Arava mouth/tongue ulcers Non Drug Allergy methotrexate mouth ulcer Non Drug Allergy zantac Info Not Available Non Drug Allergy Humira Info Not Available Non Drug Allergy Problems Problem Type Condition Code Onset Dates Condition Status Assessment Rheumatoid arthritis involving multiple sites, unspecified rheumatoid factor presence M06.9 Active Problem Crohn disease K50.90 Active Problem Rheumatoid arthritis involving multiple sites, unspecified rheumatoid factor presence M06.9 Active Assessment Encounter for long-term (current) use of other high-risk medications Z79.899 Active Assessment Primary osteoarthritis involving multiple joints M15.0 Active Problem Left leg swelling M79.89 Active Problem Osteopenia of right thigh M85.851 Active Problem Primary osteoarthritis involving multiple joints M15.0 Active Problem Encounter for long-term (current) use of other high-risk medications Z79.899 Active Problem Inflammatory arthritis M19.90 Active Problem 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 Problem Urinary tract infection N39.0 Active Medications Medication Code System Code Instructions Start Date End Date Status Dosage Chlordiazepoxide-clidinium NDC 0 5-2.5mg orally every 6 hours Active 1 capsule Sulfasalazine NDC 74436689211 500 MG Orally twice a day Active 4 tablets Metformin HCl NDC 75375162986 1000 MG Orally Twice a day Active 1 tablet with meals Medrol Dose Saulo NDC 88795714382 4mg Orally as directed October 05, 2017 October 11, 2017 Active as directed Budesonide NDC 77532405806 3 MG Orally Active as directed Fluoxetine HCl ND 82359358353 40 MG Orally Once a day Active 1 capsule in the morning Macrobid NDC 11906984453 100 MG Orally every 12 hrs Active 1 capsule with food Lisinopril [facility] 64907256162 20mg Orally Once a day Active 1 tablet Tizanidine HCl [facility] 66775484461 4 MG Orally Twice a day Active 1 tablet as needed Gabapentin [facility] 21961822425 400mg Orally bid Active 1 capsule Lovastatin [facility] 95371456017 Orally Once a day Active 1 tablet with a meal Morphine Sulfate [facility] 12221340014 30 MG Orally BID Active 1 tablet as needed [place] [facility] 24793926814 10-325 MG Orally three times a day Active 2 tablets Vital Signs Date/Time: October 05, 2017 BMI 31.26 Index Weight 199.6 lbs Height 67 in Temperature 96.6 F Cardiac Monitoring Heart Rate 88 /min Blood Pressure Diastolic 64 mm Hg Blood Pressure Systolic 128 mm Hg Results Name Result Date Reference Range Unit Abnormality Flag C-REACTIVE PROTEIN ----C-REACTIVE PROTEIN 32.9 [id number] <8.0 mg/L H CBC (INCLUDES DIFF/PLT) ----MCHC 31.4 49686417 32.0-36.0 g/dL L ----MCH 26.4 35172666 27.0-33.0 pg L ----PLATELET COUNT 300 38944046 140-400 Thousand/uL N ----RDW 15.4 73266545 11.0-15.0 % H ----BASOPHILS 0.4 92880516 % N ----ABSOLUTE NEUTROPHILS 4650 74424913 3237-8423 cells/uL N ----ABSOLUTE LYMPHOCYTES 1474 99416913 850-3900 cells/uL N ----MPV 9.9 07047405 7.5-12.5 fL N ----ABSOLUTE BASOPHILS 27 71957041 0-200 cells/uL N ----HEMATOCRIT 27.7 12718347 35.0-45.0 % L ----NEUTROPHILS 69.4 55364037 % N ----MCV 84.2 49507669 80.0-100.0 fL N ----RED BLOOD CELL COUNT 3.29 61227772 3.80-5.10 Million/uL L ----ABSOLUTE MONOCYTES 469 47987927 200-950 cells/uL N ----ABSOLUTE EOSINOPHILS 80 56943465 15-500 cells/uL N ----HEMOGLOBIN 8.7 20171005 11.7-15.5 g/dL L ----EOSINOPHILS 1.2 17331673 % N ----WHITE BLOOD CELL COUNT 6.7 20171005 3.8-10.8 Thousand/uL N ----LYMPHOCYTES 22.0 88036344 % N ----MONOCYTES 7.0 78298126 % N Summary Purpose eClinicalWorks Submission
--- OUTSIDE RECORDS SUMMARY | 2018-10-08 09:55 | XMS REPORT ---
Author Grzegorz Cochran Organization eClinicalWorks Address Unknown Phone Unavailable Care Team Providers Care Cardiology Teacher Name Role Phone Grzegorz Alejandro CP Unavailable Allergies No Known Allergies Problems Problem Type Condition Code Onset Dates Condition Status Problem Crohn disease K50.90 Active Problem Rheumatoid arthritis involving multiple sites, unspecified rheumatoid factor presence M06.9 Active Problem Left leg swelling M79.89 Active Problem Osteopenia of right thigh M85.851 Active Problem Primary osteoarthritis involving multiple joints M15.0 Active Problem Encounter for long-term (current) use of other high-risk medications Z79.899 Active Problem Inflammatory arthritis M19.90 Active Problem 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
--- OUTSIDE RECORDS SUMMARY | 2018-10-08 09:55 | XMS REPORT ---
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
--- OUTSIDE RECORDS SUMMARY | 2018-10-08 09:55 | XMS REPORT ---
Author Author Rashmi Haro [facility] eClinicalWorks Address Unknown Phone Unavailable Care Team Providers Care Research Anthropologist Name Role Phone Rashmi Haro CP Unavailable Allergies No Known Allergies Problems [...] Instructions Start Date End Date Status Dosage Sulfasalazine [facility] 23264604371 500 MG Orally twice a day Dec 09, 2017 Active 4 tablets Results No Known Results Summary Purpose eClinicalWorks Submission
--- OUTSIDE RECORDS SUMMARY | 2018-10-08 09:55 | XMS REPORT ---
Author Author Rashmi Haro [facility] eClinicalWorks Address Unknown Phone Unavailable Care Team Providers Care Freight Claim Investigator Name Role Phone Rashmi Haro Unavailable Allergies, Adverse Reactions, Alerts Substance Reaction Event Type penicillin hives Drug Allergy Keflex hives Drug Allergy Tegretol tingling Drug Allergy Benadryl hives Drug Allergy methotrexate mouth ulcer Non Drug Allergy zantac Info Not Available Non Drug Allergy Humira Info Not Available Non Drug Allergy Problems Problem Type Condition Code Onset Dates Condition Status Assessment Encounter for long-term (current) use of other high-risk medications Z79.899 Active Problem Urinary tract infection N39.0 Active Problem Inflammatory arthritis M19.90 Active Problem 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 Problem Rheumatoid arthritis involving multiple sites, unspecified rheumatoid factor presence M06.9 Active Assessment Rheumatoid arthritis involving multiple sites, unspecified rheumatoid factor presence M06.9 Active Problem Crohn disease K50.90 Active Problem Encounter for long-term (current) use of other high-risk medications Z79.899 Active Medications Medication Code System Code Instructions Start Date End Date Status Dosage Lovastatin [facility] [address]-69 Orally Once a day Active 1 tablet with a meal Fluoxetine HCl [facility] [address]-24 20 MG Orally Once a day Active 1 capsule in the morning Gabapentin [facility] [address]-12 300 MG Orally Three times a day Active 1 capsule Chlordiazepoxide-clidinium [facility] 0 5-2.5mg orally every 6 hours Active 1 capsule Sulfasalazine [facility] [address]-95 500 MG Orally twice a day October 24, 2015 Active 3 tablets Lisinopril [facility] [address]-89 Orally Once a day Active 1 tablet Morphine Sulfate [facility] [address]-20 30 MG Orally BID Active 1 tablet as needed Actos [facility] [address]-70 45 MG Orally Once a day Active 1 tablet [place] [facility] [address]-08 10-325 MG Orally three times a day Active 2 tablets Metformin HCl [facility] [address]-82 1000 MG Orally Twice a day Active 1 tablet with meals Vital Signs Date/Time: September 26, 2016 BMI 30.65 Index Weight 195.7 lbs Height 67 in Temperature 98.3 F Cardiac Monitoring Heart Rate 80 /min Blood Pressure Diastolic 68 mm Hg Blood Pressure Systolic 122 mm Hg Results Name Result Date Reference Range Unit Abnormality Flag COMPREHENSIVE METABOLIC PANEL W/EGFR ----CALCIUM 9.4 [id number] 8.6-10.4 mg/dL N ----CARBON DIOXIDE 25 20160926 20-31 mmol/L N ----ALT 8 20160926 6-29 U/L N ----CREATININE 0.53 20160926 0.50-0.99 mg/dL N ----AST 14 20160926 10-35 U/L N ----eGFR NON-AFR. MOLDOVAN 101 20160926 > OR=60 mL/min/1.73m2 N ----ALKALINE PHOSPHATASE 75 20160926 33-130 U/L N ----eGFR 117 20160926 > OR=60 mL/min/1.73m2 N ----BILIRUBIN, TOTAL 0.4 20160926 0.2-1.2 mg/dL N ----BUN/CREATININE RATIO NOT APPLICABLE 20160926 6-22 (calc) ----ALBUMIN/GLOBULIN RATIO 1.3 20160926 1.0-2.5 (calc) N ----SODIUM 138 20160926 135-146 mmol/L N ----GLOBULIN 3.1 20160926 1.9-3.7 g/dL (calc) N ----POTASSIUM 4.5 20160926 3.5-5.3 mmol/L N ----GLUCOSE 186 20160926 65-99 mg/dL H ----CHLORIDE 100 20160926 98-110 mmol/L N ----ALBUMIN 3.9 70685851 3.6-5.1 g/dL N ----UREA NITROGEN (BUN) 19 20160926 7-25 mg/dL N ----PROTEIN, TOTAL 7.0 59950343 6.1-8.1 g/dL N SED RATE BY MODIFIED WESTERGREN ----SED RATE BY LEONIDES HANSON 33 20160926 < OR=30 mm/h H C-REACTIVE PROTEIN ----C-REACTIVE PROTEIN 1.11 98358362 <0.80 mg/dL H CBC (INCLUDES DIFF/PLT) ----MCHC 32.7 20160926 32.0-36.0 g/dL N ----MCH 26.8 85496386 27.0-33.0 pg L ----PLATELET COUNT 260 20160926 140-400 Thousand/uL N ----RDW 17.1 69570751 11.0-15.0 % H ----BASOPHILS 0.2 96468681 % N ----ABSOLUTE NEUTROPHILS 6290 04373530 2373-8217 cells/uL N ----ABSOLUTE LYMPHOCYTES 1709 27653989 850-3900 cells/uL N ----MPV 8.2 79304502 7.5-12.5 fL N ----ABSOLUTE BASOPHILS 17 34951298 0-200 cells/uL N ----HEMATOCRIT 33.2 47637313 35.0-45.0 % L ----NEUTROPHILS 74.0 62449797 % N ----MCV 81.8 34701823 80.0-100.0 fL N ----RED BLOOD CELL COUNT 4.06 22700859 3.80-5.10 Million/uL N ----ABSOLUTE MONOCYTES 349 88504807 200-950 cells/uL N ----ABSOLUTE EOSINOPHILS 136 69549821 15-500 cells/uL N ----HEMOGLOBIN 10.9 63450760 11.7-15.5 g/dL L ----EOSINOPHILS 1.6 67692095 % N ----WHITE BLOOD CELL COUNT 8.5 97311830 3.8-10.8 Thousand/uL N ----LYMPHOCYTES 20.1 32382228 % N ----MONOCYTES 4.1 34702596 % N Summary Purpose eClinicalWorks Submission
--- OUTSIDE RECORDS SUMMARY | 2018-10-08 09:55 | XMS REPORT ---
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
--- OUTSIDE RECORDS SUMMARY | 2018-10-08 09:55 | XMS REPORT ---
Author Author Grzegorz Alejandro [facility] eClinicalWorks Address Unknown Phone Unavailable Care Team Providers Care Washroom Attendant Name Role Phone Grzegorz Alejandro CP Unavailable [...] Condition Code Onset Dates Condition Status Assessment Left leg swelling M79.89 Active Problem Rheumatoid arthritis involving multiple sites, unspecified rheumatoid factor presence M06.9 Active Assessment Rheumatoid arthritis involving multiple sites, unspecified rheumatoid factor presence M06.9 Active Assessment Encounter for long-term (current) use of other high-risk medications Z79.899 Active Problem Osteopenia of right thigh M85.851 Active Problem 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 Problem Left leg swelling M79.89 Active Problem Crohn disease K50.90 Active Problem Encounter for long-term (current) use of other high-risk medications Z79.899 Active Problem Urinary tract infection N39.0 Active Problem Inflammatory arthritis M19.90 Active Medications Medication Code System Code Instructions Start Date End Date Status Dosage Sulfasalazine ND 57062117351 500 MG Orally twice a day October 24, 2015 Active 3 tablets Gabapentin NDC 08957387457 300 MG Orally Three times a day Active 1 capsule Fluoxetine HCl NDC 64250421230 20 MG Orally Once a day Active 1 capsule in the morning Lovastatin NDC 45784296099 Orally Once a day Active 1 tablet with a meal Chlordiazepoxide-clidinium NDC 0 5-2.5mg orally every 6 hours Active 1 capsule Morphine Sulfate ND 89347604421 30 MG Orally BID Active 1 tablet as needed Metformin HCl ND 75108997074 1000 MG Orally Twice a day Active 1 tablet with meals Lisinopril [facility] 48851135833 Orally Once a day Active 1 tablet Tizanidine HCl [facility] 86765903126 4 MG Orally Twice a day Dec 04, 2014 Active 1 tablet as needed [place] [facility] 37601883888 10-325 MG Orally three times a day Active 2 tablets Vital Signs Date/Time: May 12, 2017 BMI 31.32 Index Weight 200 lbs Height 67 in Temperature 98.3 F Cardiac Monitoring Heart Rate 82 /min Blood Pressure Diastolic 60 mm Hg Blood Pressure Systolic 142 mm Hg Results No Known Results Summary Purpose eClinicalWorks Submission
--- OUTSIDE RECORDS SUMMARY | 2018-10-08 09:55 | XMS REPORT ---
Author Grzegorz Cochran Organization eClinicalWorks Address Unknown Phone Unavailable Care Team Providers Care Senior Research Executive Name Role Phone Grzegorz Alejandro CP Unavailable [...]
--- OUTSIDE RECORDS SUMMARY | 2018-10-08 09:55 | XMS REPORT ---
Author Author Grzegorz Alejandro Organization eClinicalWorks Address Unknown Phone Unavailable Care Team Providers Care Flight Purser Name Role Phone Grzegorz Alejandro CP Unavailable [...]
--- OUTSIDE RECORDS SUMMARY | 2018-10-08 09:55 | XMS REPORT ---
Author Author Grzegorz Alejandro Organization eClinicalWorks Address Unknown Phone Unavailable Care Team Providers Care Dye Jig Operator Name Role Phone Grzegorz Alejandro CP [...] Instructions Start Date End Date Status Dosage Stelara FORMERLY NAMED [facility] [address]-36 90 MG/ML Subcutaneous q 8 weeks Feb 18, 2017 [place] 90[place] [address]-63 130 MG/26ML Intravenous at week 0 then start SQ q8 weeks Feb 18, 2017 Mar 20, 2017 Active 520 mg Results No Known Results Summary Purpose eClinicalWorks Submission
--- OUTSIDE RECORDS SUMMARY | 2018-10-08 09:55 | XMS REPORT ---
Author Author Tamara Brock [facility] eClinicalWorks Address Unknown Phone Unavailable Care Team Providers Care Hydraulic And Plumbing Installer Name Role Phone Tamara Brock Unavailable Allergies, Adverse Reactions, Alerts Substance Reaction [...] Instructions Start Date End Date Status Dosage Fluoxetine HCl ND 98817169077 40 MG Orally Once a day Active 1 capsule in the morning Budesonide ND 32880923835 3 MG Orally Active as directed Lisinopril ND 46128642249 20mg Orally Once a day Active 1 tablet [place] ND 13789177117 10-325 MG Orally three times a day Active 2 tablets Lovastatin ND 74105746374 Orally Once a day Active 1 tablet with a meal Chlordiazepoxide-clidinium NDC 0 5-2.5mg orally every 6 hours Active 1 capsule Morphine Sulfate ND 20975654970 30 MG Orally tid Active 1 tablet as needed Sulfasalazine [facility] 89885974694 500 MG Orally twice a day Active 4 tablets Gabapentin ND 42834797422 400mg Orally bid Active 1 capsule Metformin HCl [facility] 32087133715 1000 MG Orally Twice a day Active 1 tablet with meals Ranitidine 75 NDC 0 75 MG Orally Twice a day Active 1 tablet as needed Macrobid [facility] 84730305476 100 MG Orally every 12 hrs Active 1 capsule with food Tizanidine HCl [facility] 33286490928 4 MG Orally Twice a day Active 1 tablet as needed Vital Signs Date/Time: Jan 06, 2018 BMI 30.98 Index Weight 197.8 lbs Height 67 in Temperature 98.3 F Cardiac Monitoring Heart Rate 82 /min Blood Pressure Diastolic 80 mm Hg Blood Pressure Systolic 180 mm Hg Results No Known Results Summary Purpose eClinicalWorks Submission
--- OUTSIDE RECORDS SUMMARY | 2018-10-08 09:55 | XMS REPORT ---
Author Author Ross Sahu Organization [employer] Address Unknown Phone Unavailable Care Team Providers Care Back Up Machine Operator Name Role Phone Luis Alberto Jettjanak CP Unavailable Allergies, Adverse Reactions, Alerts Substance [...] unspecified rheumatoid factor presence M06.9 Active Problem Rheumatoid arthritis involving multiple sites, unspecified rheumatoid factor presence M06.9 Active Assessment intermediate (current) use of opiate analgesic Z79.891 Active Assessment Osteopenia of right thigh M85.851 Active Assessment Encounter for long-term (current) use [...] Instructions Start Date End Date Status Dosage Metformin HCl ND 65654112367 1000 MG Orally Twice a day Active 1 tablet with meals Lisinopril ND 81348243932 Orally Once a day Active 1 tablet [place] ND 70250316064 10-325 MG Orally three times a day Active 2 tablets Morphine Sulfate ND 01191649334 30 MG Orally BID Active 1 tablet as needed Tizanidine HCl ND 67552299165 4 MG Orally Twice a day Dec 04, 2014 Active 1 tablet as needed Gabapentin ND 68895226874 300 MG Orally Three times a day Active 1 capsule Chlordiazepoxide-clidinium NDC 0 5-2.5mg orally every 6 hours Active 1 capsule Sulfasalazine [facility] 80863310299 500 MG Orally twice a day October 24, 2015 Active 3 tablets Budesonide [facility] 47079904400 3 MG Orally Active as directed Fluoxetine HCl [facility] 61519360085 40 MG Orally Once a day Active 1 capsule in the morning Lovastatin [facility] 34337550759 Orally Once a day Active 1 tablet with a meal Vital Signs Date/Time: Jun 15, 2017 BMI 32.26 Index Weight 206 lbs Height 67 in Temperature 98.3 F Cardiac Monitoring Heart Rate 72 /min Blood Pressure Diastolic 64 mm Hg Blood Pressure Systolic 132 mm Hg Results No Known Results Summary Purpose eClinicalWorks Submission
--- OUTSIDE RECORDS SUMMARY | 2018-10-08 09:55 | XMS REPORT ---
Author Author Grzegorz Alejandro Organization [employer] Address Unknown Phone Unavailable Care Team Providers Care Shelf Filler Name Role Phone Grzegorz Alejandro CP Unavailable [...]
--- OUTSIDE RECORDS SUMMARY | 2018-10-08 09:55 | XMS REPORT ---
Author Author Grzegorz Alejandro Organization [employer] Address Unknown Phone Unavailable Care Team Providers Care Land Leasing Information Clerk Name Role Phone Grzegorz Alejandro CP Unavailable [...]
--- OUTSIDE RECORDS SUMMARY | 2018-10-08 09:56 | XMS REPORT ---
Author Author Rashmi Haro [facility] eClinicalWorks Address Unknown Phone Unavailable Care Team Providers Care Oil Spot Washer Name Role Phone Rashmi Haro Unavailable Allergies, Adverse Reactions, Alerts Substance Reaction Event Type penicillin hives Drug Allergy Keflex hives Drug Allergy Tegretol tingling Drug Allergy Benadryl hives Drug Allergy zantac Info Not Available Non Drug Allergy Humira Info Not Available Non Drug Allergy Encounters Encounter Location Date Office Visit Grzegorz Alejandro MD November 09, 2013 [place] Patient Report Grzegorz Alejandro MD November 18, 2013 medication Grzegorz Alejandro MD November 25, 2013 refills Grzegorz Alejandro MD Feb 13, 2014 2M F/U Grzegorz Alejandro MD September 12, 2013 enbrel teaching Grzegorz Alejandro MD September 29, 2013 ReFill request Grzegorz Alejandro MD September 30, 2013 DEXA Grzegorz Alejandro MD May 25, 2014 abbvie 465 DAYAN vs vivi Alejandro MD Jun 27, 2015 F/U Grzegorz Alejandro MD November 17, 2013 RX Request-- Enbrel Grzegorz Alejandro MD May 09, 2014 Refill Grzegorz Alejandro MD May 25, 2014 RX REFILL Grzegorz Alejandro MD July 20, 2014 RX REFILL Grzegorz Alejandro MD August 17, 2014 RX Request-- MTX Grzegorz Alejandro MD November 14, 2014 RX Request-- Tizanidine Grzegorz Alejandro MD Dec 04, 2014 follow up / labs Grzegorz Alejandro MD Jun 27, 2015 Infusion Grzegorz Alejandro MD July 20, 2014 depomedrol injection Grzegorz Alejandro MD September 14, 2014 Switching rx Grzegorz Alejandro MD Jun 05, 2014 3M F/U Grzegorz Alejandro MD May 30, 2014 2mth f/u Grzegorz Alejandro MD Feb 21, 2014 Problems Problem Type Condition ICD-9 Code Onset Dates Condition Status Assessment Crohn disease K50.90 Active Problem Crohn's disease 555.9 Active Assessment Inflammatory arthritis M19.90 Active Assessment Encounter for long-term (current) use of other high-risk medications Z79.899 Active Problem Crohn disease K50.90 Active Problem Encounter for long-term (current) use of other high-risk medications Z79.899 Active Problem Inflammatory arthritis M19.90 Active Problem Diabetes with unspecified complication, type II or unspecified type, uncontrolled 250.92 Active Problem Osteopenia 733.90 Active Problem Rheumatoid arthritis 714.0 Active Problem Long-term (current) use of other medications - High Risk V58.69 Active Medications Medication Code System Code Instructions Start Date End Date Status Dosage Fluoxetine HCl [facility] [address]-10 20 MG Orally Once a day Active 1 capsule in the morning PredniSONE [facility] [address]-54 5 MG Orally Once a day Jun 27, 2015 October 25, 2015 Active Unknown Folic Acid [facility] [address]-86 1 MG Orally Once a day Jun 27, 2015 October 25, 2015 Active 1 tablet Simponi Aria Unknown 0 2mg/kg IV Jun 27, 2015 Active as directed Oxybutynin Chloride ER [facility] [address]-41 10 MG Orally once a day Active 1 tablet Humulin N [facility] [address]-25 70/30 Subcutaneous Active as directed Lovastatin [facility] [address]-47 Orally Once a day Active 1 tablet with a meal Methotrexate [facility] 11679272662 2.5 Active 6 tabs once a week [place] [facility] [address]-33 10-325 MG Orally three times a day Active 2 tablets Folic Acid [facility] [address]-15 325mg Orally Once a day Inactive 1 tablet Lisinopril [facility] [address]-92 Orally Once a day Active 1 tablet Chlordiazepoxide-clidinium Unknown 0 5-2.5mg orally every 6 hours Active 1 capsule Metformin HCl [facility] [address]-04 1000 MG Orally Twice a day Active 1 tablet with meals Social History Social History Element Qualifiers Date Reported Tobacco Use: . Are you a:: former smoker , How long has it been since you last smoked?: > 10 years Jun 27, 2015 Caffeine: yes. frequency:, 2 cups a day Jun 27, 2015 Exercise: no. Jun 27, 2015 Alcohol: no. Jun 27, 2015 Vital Signs Date/Time: Jun 27, 2015 Weight 197 lbs Height 67 in Temperature 98.4 F Cardiac Monitoring Heart Rate 79 /min Blood Pressure Diastolic 74 mm Hg Blood Pressure Systolic 118 mm Hg Summary Purpose eClinicalWorks Submission
--- OUTSIDE RECORDS SUMMARY | 2018-10-08 09:56 | XMS REPORT ---
Author Grzegorz Cochran [facility] eClinicalWorks Address Unknown Phone Unavailable Care Team Providers Care Automation Controls Expert Name Role Phone Grzegorz Alejandro Unavailable Encounters Encounter Location Date Office Visit Grzegorz Alejandro MD November 09, 2013 [place] Patient Report Grzegorz Alejandro MD November 18, 2013 medication Grzegorz Alejandro MD November 25, 2013 2M F/U Grzegorz Alejandro MD September 12, 2013 enbrel teaching Grzegorz Alejandro MD September 29, 2013 ReFill request Grzegorz Alejandro MD September 30, 2013 Problems Problem Type Condition ICD-9 Code Onset Dates Condition Status Problem Inflammatory Arthritis 714.0 Active Problem Cough 786.2 Active Problem Pain in joint, lower leg 719.46 Active Problem Osteopenia 733.90 Active Problem Crohn's disease 555.9 Active Problem Long-term (current) use of other medications - High Risk V58.69 Active Problem Diabetes with unspecified complication, type II or unspecified type, uncontrolled 250.92 Active Social History Social History Element Qualifiers Date Reported Tobacco Use: . Are you a:: former smoker , How long has it been since you last smoked?: > 10 years November 17, 2013 Caffeine: yes. frequency:, 1-5 November 17, 2013 Exercise: no. November 17, 2013 Alcohol: no. November 17, 2013 Summary Purpose eClinicalWorks Submission
--- OUTSIDE RECORDS SUMMARY | 2018-10-08 09:56 | XMS REPORT ---
Author Grzegorz Cochran [employer] Address Unknown Phone Unavailable Care Team Providers Care Animal Nurse Name Role Phone Grzegorz Alejandro CP Unavailable Encounters Encounter Location Date Office Visit Grzegorz Alejandro MD November 09, 2013 [place] Patient Report Grzegorz Alejandro MD November 18, 2013 medication Grzegorz Alejandro MD November 25, 2013 refills Grzegorz Alejandro MD Feb 13, 2014 2M F/U Grzegorz Alejandro MD September 12, 2013 enbrel teaching Grzegorz Alejandro MD September 29, 2013 ReFill request Grzegorz Alejandro MD September 30, 2013 DEXA Grzegorz Alejandro MD May 25, 2014 RX Request-- Enbrel Grzegorz Alejandro MD May 09, 2014 Refill Grzegorz Alejandro MD May 25, 2014 RX Request-- MTX Grzegorz Alejandro MD November 14, 2014 Infusion Grzegorz Alejandro MD July 20, 2014 depomedrol injection Grzegorz Alejandro MD September 14, 2014 Switching rx Grzegorz Alejandro MD Jun 05, 2014 3M F/U Grzegorz Alejandro MD May 30, 2014 Problems Problem Type Condition ICD-9 Code Onset Dates Condition Status Problem Long-term (current) use of other medications - High Risk V58.69 Active Problem Diabetes with unspecified complication, type II or unspecified type, uncontrolled 250.92 Active Problem Rheumatoid arthritis 714.0 Active Assessment Rheumatoid arthritis 714.0 Active Problem Osteopenia 733.90 Active Problem Crohn's disease 555.9 Active Medications Medication Code System Code Instructions Start Date End Date Status Dosage Methotrexate [facility] [address]-04 2.5 MG Orally take all 4 tabs once weekly, not to be taken in conjunction with MTX August 17, 2014 Active as directed Social History Social History Element Qualifiers Date Reported Tobacco Use: . Are you a:: former smoker , How long has it been since you last smoked?: > 10 years August 17, 2014 Caffeine: yes. frequency:, 2 cups a day August 17, 2014 Exercise: no. August 17, 2014 Alcohol: no. August 17, 2014 Summary Purpose eClinicalWorks Submission
--- OUTSIDE RECORDS SUMMARY | 2018-10-08 09:56 | XMS REPORT ---
Author Grzegorz Cochran [facility] eClinicalWorks Address Unknown Phone Unavailable Care Team Providers Care Combat Control Manager Name Role Phone Grzegorz Alejandro CP Unavailable Encounters Encounter Location Date Office Visit Grzegorz Alejandro MD November 09, 2013 [place] Patient Report Grzegorz Alejandro MD November 18, [...] II or unspecified type, uncontrolled 250.92 Active Medications Medication Code System Code Instructions Start Date End Date Status Dosage Enbrel [facility] [address]-92 50 MG/ML Subcutaneous 1ml qweek Feb 13, 2014 Mar 15, 2014 Active 1 ml Social History Social History Element Qualifiers Date Reported Tobacco Use: . Are you a:: former smoker , How long has it been since you last smoked?: > 10 years Feb 10, 2014 Caffeine: yes. frequency:, 1-5 Feb 10, 2014 Exercise: no. Feb 10, 2014 Alcohol: no. Feb 10, 2014 Summary Purpose eClinicalWorks Submission
--- OUTSIDE RECORDS SUMMARY | 2018-10-08 09:56 | XMS REPORT ---
Author Author Grzegorz Alejandro [facility] eClinicalWorks Address Unknown Phone Unavailable Care Team Providers Care Milieu Technician Name Role Phone Grzegorz Alejandro CP Unavailable Encounters Encounter Location Date Office Visit Grzegorz Alejandro MD November 09, 2013 [place] Patient Report Grzegorz Alejandro MD November 18, 2013 medication Grzegorz Alejandro MD November 25, 2013 refills Grzegorz Alejandro MD Feb 13, 2014 2M F/U Grzegorz Alejandro MD September 12, 2013 enbrel teaching Grzegorz Alejandro MD September 29, 2013 ReFill request Grzegorz Alejandro MD September 30, 2013 RX Request-- Enbrel Grzegorz Alejandro MD May 09, 2014 Problems Problem Type Condition ICD-9 Code [...] Date End Date Status Dosage Enbrel [facility] [address]-95 50 MG/ML Subcutaneous 1ml qweek Feb 13, 2014 November 05, 2014 Active 1 ml Social History Social History Element Qualifiers Date Reported Tobacco Use: . Are you a:: former smoker , How long has it been since you last smoked?: > 10 years Feb 21, 2014 Caffeine: yes. frequency:, 2 cups a day Feb 21, 2014 Exercise: no. Feb 21, 2014 Alcohol: no. Feb 21, 2014 Summary Purpose eClinicalWorks Submission
--- OUTSIDE RECORDS SUMMARY | 2018-10-08 09:56 | XMS REPORT ---
Author Author Rashmi Haro [facility] eClinicalWorks Address Unknown Phone Unavailable Care Team Providers Care Underground Roof Bolter Name Role Phone Rashmi Haro Unavailable Allergies, Adverse Reactions, Alerts Substance Reaction Event Type penicillin hives Drug Allergy Keflex hives Drug Allergy Tegretol tingling Drug Allergy Benadryl hives Drug Allergy zantac Info Not Available Non Drug Allergy Humira Info Not Available Non Drug Allergy Encounters Encounter Location Date DEXA Grzegorz Alejandro MD May 25, 2014 RX REFILL Grzegorz Alejandro MD July 20, 2014 RX REFILL Grzegorz Alejandro MD August 17, 2014 RX Request-- MTX Grzegorz Alejandro MD November 14, 2014 RX Request-- Tizanidine Grzegorz Alejandro MD Dec 04, 2014 Infusion Grzegorz Alejandro MD July 20, 2014 depomedrol injection Grzegorz Alejandro MD September 14, 2014 Switching rx Grzegorz Alejandro MD Jun 05, 2014 3M F/U Grzegorz Alejandro MD May 30, 2014 2mth f/u Grzegorz Alejandro MD Feb 21, 2014 Office Visit Grzegorz Alejandro MD November 09, 2013 [place] Patient Report Grzegorz Alejandro MD November 18, 2013 medication Grzegorz Alejandro MD November 25, 2013 refills Grzegorz Alejandro MD Feb 13, 2014 2M F/U Grzegorz Alejandro MD September 12, 2013 enbrel teaching Grzgeorz Alejandro MD September 29, 2013 ReFill request Grzegorz Alejandro MD September 30, 2013 abbvie 465 DAYAN vs vivi Aeljandro MD Jun 27, 2015 F/U Grzegorz Alejandro MD November 17, 2013 RX Request-- Enbrel Grzegorz Alejandro MD May 09, 2014 Refill Grzegorz Alejandro MD May 25, 2014 follow up / labs Grzegorz Alejandro MD Jun 27, 2015 Unknown Grzegorz Alejandro MD August 29, 2015 LIDOCAINE Grzegorz Alejandro MD September 19, 2015 possible allergic reaction to simponi Grzegorz Alejandro MD September 19, 2015 Problems Problem Type Condition ICD-9 Code Onset Dates Condition Status Assessment Encounter for long-term (current) use of other high-risk medications Z79.899 Active Problem Crohn's disease 555.9 Active Assessment Inflammatory arthritis M19.90 Active Problem Crohn disease K50.90 Active Problem [...] Date End Date Status Dosage Metformin HCl [facility] [address]-83 1000 MG Orally Twice a day Active 1 tablet with meals PredniSONE [facility] [address]-38 5 MG Orally Once a day Jun 27, 2015 October 25, 2015 Active Unknown Fluoxetine HCl [facility] [address]-29 20 MG Orally Once a day Active 1 capsule in the morning Simponi Aria Unknown 0 2mg/kg IV Jun 27, 2015 Active as directed Lovastatin [facility] [address]-36 Orally Once a day Active 1 tablet with a meal [place] [facility] [address]-68 10-325 MG Orally three times a day Active 2 tablets Methotrexate [facility] 42227730215 2.5 Active 6 tabs once a week Oxybutynin Chloride ER [facility] [address]-03 10 MG Orally once a day Active 1 tablet Folic Acid [facility] [address]-04 1 MG Orally Once a day Jun 27, 2015 Active 2 tablet Humulin N [facility] [address]-84 70/30 Subcutaneous Active as directed Lidocaine [facility] [address]-65 2.5 % Mouth/Throat Four times a day September 19, 2015 Active 1 application to affected area as needed Lisinopril [facility] [address]-18 Orally Once a day Active 1 tablet Magic Mouthwash Unknown 0 30ml Benadryl 12.5mg + 60ml Maalox + 4gm Carafate Orally Three times a day September 19, 2015 October 09, 2015 Active 5ml swish and swallow Chlordiazepoxide-clidinium Unknown 0 5-2.5mg orally every 6 hours Active 1 capsule Social History Social History Element Qualifiers Date Reported Tobacco Use: . Are you a:: former smoker , How long has it been since you last smoked?: > 10 years September 19, 2015 Caffeine: yes. frequency:, 2 cups a day September 19, 2015 Exercise: no. September 19, 2015 Alcohol: no. September 19, 2015 Vital Signs Date/Time: September 19, 2015 Weight 203 lbs Height 67 in Temperature 97.2 F Cardiac Monitoring Heart Rate 82 /min Blood Pressure Diastolic 78 mm Hg Blood Pressure Systolic 118 mm Hg Summary Purpose eClinicalWorks Submission
--- OUTSIDE RECORDS SUMMARY | 2018-10-08 09:56 | XMS REPORT ---
Author Grzegorz Cochran [facility] eClinicalWorks Address Unknown Phone Unavailable Care Team Providers Care Cooler Supervisor Name Role Phone Grzegorz Alejandro Unavailable Encounters Encounter Location Date Office Visit Grzegorz Alejandro MD November 09, 2013 [place] Patient Report Grzegorz Alejandro MD November 18, 2013 medication Grzegroz Alejandro MD November 25, 2013 2M F/U [...] Instructions Start Date End Date Status Dosage Butorphanol Tartrate [facility] [address]-74 10 MG/ML Nasally every 4 hrs November 28, 2013 Feb 26, 2014 Active 1 ml as needed Social History Social History Element Qualifiers Date Reported Tobacco Use: . Are you a:: former smoker , How long has it been since you last smoked?: > 10 years November 17, 2013 Caffeine: yes. frequency:, 1-5 November 17, 2013 Exercise: no. November 17, 2013 Alcohol: no. November 17, 2013 Summary Purpose eClinicalWorks Submission
--- OUTSIDE RECORDS SUMMARY | 2018-10-08 09:56 | XMS REPORT ---
Author Grzegorz Cochran [facility] eClinicalWorks Address Unknown Phone Unavailable Care Team Providers Care Digital Product Specialist Name Role Phone Grzegorz Alejandro Unavailable Encounters Encounter Location Date Office Visit Grzegorz Alejandro MD November 09, 2013 2M F/U Grzegorz Alejandro MD September [...] you last smoked?: > 10 years September 12, 2013 Caffeine: yes. frequency:, 1-5 September 12, 2013 Exercise: no. September 12, 2013 Alcohol: no. September 12, 2013 Summary Purpose eClinicalWorks Submission
--- OUTSIDE RECORDS SUMMARY | 2018-10-08 09:56 | XMS REPORT ---
Author Author Tova Stapleton [facility] eClinicalWorks Address Unknown Phone Unavailable Care Team Providers Care Interlacer Name Role Phone Tova Stapleton Unavailable Allergies, Adverse Reactions, Alerts Substance Reaction Event Type penicillin hives Drug Allergy Keflex hives Drug Allergy Tegretol tingling Drug Allergy Benadryl hives Drug Allergy zantac Info Not Available Non Drug Allergy Humira Info Not Available Non Drug Allergy Encounters Encounter Location Date Office Visit Grzegorz Alejandro MD November 09, 2013 [place] Patient Report Grzegorz Alejandro MD November 18, [...] ICD-9 Code Onset Dates Condition Status Assessment Unspecified drug dependence 304.90 Active Problem Diabetes with unspecified complication, type II or unspecified type, uncontrolled 250.92 Active Problem Osteopenia 733.90 Active Problem Long-term (current) use of other medications - High Risk V58.69 Active Assessment Long-term (current) use of other medications - High Risk V58.69 Active Assessment Inflammatory Arthritis 714.0 Active Problem Crohn's disease 555.9 Active Assessment Crohn's disease 555.9 Active Medications Medication Code System Code Instructions Start Date End Date Status Dosage Methocarbamol [facility] [address]-11 750 MG Orally twice a day Active 1 tablet Butorphanol Tartrate [facility] [address]-68 10 MG/ML Nasally every 4 hrs Active 1 ml as needed Sulfazine [facility] [address]-06 500 MG Orally twice a day Active 2 tablet Metformin HCl [facility] [address]-51 1000 MG Orally Twice a day Active 1 tablet with meals Oxybutynin Chloride ER [facility] [address]-51 10 MG Orally once a day Active 1 tablet Baclofen [facility] [address]-99 20 MG Orally twice a day Active 1 tablet with food or milk Enbrel [facility] [address]-98 50 MG/ML Subcutaneous 1ml qweek Feb 13, 2014 Active 1 ml Lisinopril [facility] [address]-95 Orally Once a day Active 1 tablet Lovastatin [facility] [address]-70 Orally Once a day Active 1 tablet with a meal Humulin N [facility] [address]-68 50 units Subcutaneous Active as directed Fluoxetine HCl [facility] [address]-34 20 MG Orally Once a day Active 1 capsule in the morning Chlordiazepoxide-clidinium Unknown 0 5-2.5mg orally every 6 hours Active 1 capsule Social History Social History Element Qualifiers Date Reported Tobacco Use: . Are you a:: former smoker , How long has it been since you last smoked?: > 10 years August 17, 2014 Caffeine: yes. frequency:, 2 cups a day August 17, 2014 Exercise: no. August 17, 2014 Alcohol: no. August 17, 2014 Vital Signs Date/Time: Feb 21, 2014 Weight 196 lbs Height 67.5 in Temperature 98.7 F Cardiac Monitoring Heart Rate 80 /min Blood Pressure Diastolic 72 mm Hg Blood Pressure Systolic 136 mm Hg Summary Purpose eClinicalWorks Submission
--- OUTSIDE RECORDS SUMMARY | 2018-10-08 09:56 | XMS REPORT ---
Author Author Grzegorz Alejandro eClinicalWorks Address Unknown Phone Unavailable Care Team Providers Care Wet Inspector Optical Glass Name Role Phone Grzegorz Alejandro CP Unavailable Encounters Encounter Location Date Office Visit Grzegorz Alejandro MD November 09, 2013 [place] Patient Report Grzegorz Alejandro MD November 18, 2013 medication Grzegorz Alejandro MD November 25, 2013 refills Grzegorz Alejandro MD Feb 13, 2014 2M F/U Grzegorz Alejandro MD September 12, 2013 Switching rx Grzegorz Alejandro MD Jun 05, 2014 enbrel teaching Grzegorz Alejandro MD September 29, 2013 ReFill request Grzegorz Alejandro MD September 30, 2013 DEXA Grzegorz Alejandro MD May 25, 2014 RX Request-- Enbrel Grzegorz Alejandro MD May 09, 2014 Refill Grzegorz Alejandro MD May 25, 2014 Problems Problem Type Condition ICD-9 Code [...] since you last smoked?: > 10 years May 30, 2014 Caffeine: yes. frequency:, 2 cups a day May 30, 2014 Exercise: no. May 30, 2014 Alcohol: no. May 30, 2014 Summary Purpose eClinicalWorks Submission
--- OUTSIDE RECORDS SUMMARY | 2018-10-08 09:56 | XMS REPORT ---
Author Author Rashmi Haro [facility] eClinicalWorks Address Unknown Phone Unavailable Care Team Providers Care Furniture Inspector Name Role Phone Rashmi Haro Unavailable Allergies, Adverse Reactions, Alerts Substance Reaction Event Type penicillin hives Drug Allergy Keflex hives Drug Allergy Tegretol tingling Drug Allergy Benadryl hives Drug Allergy zantac Info Not Available Non Drug Allergy Humira Info Not Available Non Drug Allergy Encounters Encounter Location Date Office Visit Grzegorz Alejandro MD November 09, 2013 [place] Patient Report Grzegorz Alejandro MD November 18, [...] Date End Date Status Dosage Fluoxetine HCl [facility] [place] [address]-76 20 MG Orally Once a day Active 1 capsule in the morning PredniSONE [facility] [place] [address]-12 5 MG Orally Once a day Jun 27, 2015 October 25, 2015 Active Unknown Folic Acid [facility] [place] [address]-25 1 MG Orally Once a day Jun 27, 2015 October 25, 2015 Active 1 tablet Simponi Aria Unknown 0 2mg/kg IV Jun 27, 2015 Active as directed Oxybutynin Chloride ER [facility] [place] [address]-85 10 MG Orally once a day Active 1 tablet Humulin N [facility] [place] [address]-52 70/30 Subcutaneous Active as directed Lovastatin [facility] [place] [address]-35 Orally Once a day Active 1 tablet with a meal Methotrexate [facility] [place] 23816963013 2.5 Active 6 tabs once a week [place] [facility] [place] [address]-21 10-325 MG Orally three times a day Active 2 tablets Folic Acid [facility] [place] [address]-17 325mg Orally Once a day Inactive 1 tablet Lisinopril [facility] [place] [address]-30 Orally Once a day Active 1 tablet Chlordiazepoxide-clidinium Unknown 0 5-2.5mg orally every 6 hours Active 1 capsule Metformin HCl [facility] [place] [address]-57 1000 MG Orally Twice a day Active [...]
--- OUTSIDE RECORDS SUMMARY | 2018-10-08 09:56 | XMS REPORT ---
Author Author Grzegorz Alejandro eClinicalWorks Address Unknown Phone Unavailable Care Team Providers Care Tire Technician Name Role Phone Grzegorz Alejandro CP Unavailable Allergies, Adverse Reactions, Alerts Substance Reaction Event Type penicillin hives Drug Allergy Keflex hives Drug Allergy Tegretol tingling Drug Allergy Benadryl hives Drug Allergy Humira Info Not Available Non Drug Allergy Encounters Encounter Location Date Office Visit Grzegorz Alejandro MD November 09, 2013 [place] Patient Report Grzegorz Alejandro MD November 18, 2013 medication Grzegozr Alejandro MD November 25, 2013 refills Grzegorz Alejandro MD Feb 13, 2014 2M F/U Grzegorz Alejandro MD September 12, 2013 enbrel teaching Grzegorz Alejandro MD September 29, 2013 ReFill request Grzegorz Alejandro MD September 30, 2013 DEXA Grzegorz Alejandro MD May 25, 2014 F/U Grzegorz Alejandro MD November 17, 2013 RX Request-- Enpradeepl Grzegorz Alejandro MD May 09, 2014 Refill [...] ICD-9 Code Onset Dates Condition Status Problem Diabetes with unspecified complication, type II [...] Start Date End Date Status Dosage Methocarbamol [facility] [address]-80 750 MG Orally tid Active 1 tablet Metformin HCl [facility] [address]-23 1000 MG Orally Twice a day Active 1 tablet with meals Baclofen [facility] [address]-78 20 MG Orally Three times a day Active 1 tablet with food or milk Lisinopril [facility] [address]-72 Orally Once a day Active 1 tablet Budesonide ER [facility] [address]-42 3 MG Orally Active Unknown Chlordiazepoxide-clidinium Unknown 0 5-2.5mg orally every 6 hours Active 1 capsule [place] [facility] [address]-27 10-325 MG Orally three times a day Active 2 tablets Lyrica [facility] [address]-49 100 MG Orally Twice a day Active 1 capsule Humulin N [facility] [address]-46 50 units Subcutaneous Active as directed Nexium [facility] [address]-53 40 MG Orally Once a day Active 1 capsule ReZyst IM [facility] [address]-70 Orally Active Unknown Fluoxetine HCl [facility] [address]-67 20 MG Orally Once a day Active 1 capsule in the morning Sulfazine [facility] [address]-67 500 MG Orally four times a day Active 2 tablet Chlordiazepoxide-Amitriptyline [facility] [address]-22 10-25 MG Orally Once a day Active 1 tablet Oxybutynin Chloride ER [facility] [address]-56 10 MG Orally Active Unknown Cranberry Plus Vitamin C [facility] [address] 4200-20-3 MG-MG-UNIT Orally Active Unknown Lovastatin [facility] [address]-06 Orally Once a day Active 1 tablet with a meal Social History Social History Element Qualifiers Date Reported Tobacco Use: . Are you a:: former smoker , How long has it been since you last smoked?: > 10 years August 17, 2014 Caffeine: yes. frequency:, 2 cups a day August 17, 2014 Exercise: no. August 17, 2014 Alcohol: no. August 17, 2014 Vital Signs Date/Time: November 17, 2013 Weight 207 lbs Height 67.5 in Temperature 98.7 F Cardiac Monitoring Heart Rate 100 /min Blood Pressure Diastolic 60 mm Hg Blood Pressure Systolic 150 mm Hg Immunizations Vaccine Administration Date Depomedrol November 17, 2013 Toradol November 17, 2013 Toradol November 17, 2013 Summary Purpose eClinicalWorks Submission
--- OUTSIDE RECORDS SUMMARY | 2018-10-08 09:56 | XMS REPORT ---
Author Author Rashmi Haro [facility] eClinicalWorks Address Unknown Phone Unavailable Care Team Providers Care Clinical Education Academic Coordinator Name Role Phone Rashmi Haro Unavailable Allergies, Adverse Reactions, Alerts Substance Reaction Event Type penicillin hives Drug Allergy Keflex hives Drug Allergy Tegretol tingling Drug Allergy Benadryl hives Drug Allergy zantac Info Not Available Non Drug Allergy Humira Info Not Available Non Drug Allergy Encounters Encounter Location Date Office Visit Grzegorz Alejandro MD November 09, 2013 [place] Patient Report Grzegorz Alejandro MD November 18, 2013 medication Grzegorz Alejandro MD November 25, 2013 refills Grzegorz Alejandro MD Feb 13, 2014 2M F/U Grzegorz Alejandro MD September 12, 2013 enbrel teaching Grzegorz Alejandro MD September 29, 2013 ReFill request Grzegorz Alejandro MD September 30, 2013 DEXA Grzegorz Alejandro MD May 25, 2014 abbvie 465 DAYAN vs leonardira Grzegorz Alejandro MD Jun 27, 2015 F/U Grzegorz [...] Infusion Grzegorz Alejandro MD July 20, 2014 Unknown Grzegorz Alejandro MD August 29, 2015 depomedrol injection Grzegorz Alejandro MD September 14, [...] Instructions Start Date End Date Status Dosage Folic Acid [facility] [address]-20 1 MG Orally Once a day Jun 27, 2015 October 25, 2015 Active 1 tablet [place] [facility] [address]-08 10-325 MG Orally three times a day Active 2 tablets Metformin HCl [facility] [address]-03 1000 MG Orally Twice a day Active 1 tablet with meals Lisinopril [facility] [address]-55 Orally Once a day Active 1 tablet Chlordiazepoxide-clidinium Unknown 0 5-2.5mg orally every 6 hours Active 1 capsule Methotrexate [facility] 92939976690 2.5 Active 6 tabs once a week Simponi Aria Unknown 0 2mg/kg IV Jun 27, 2015 Active as directed Humulin N [facility] [address]-90 70/30 Subcutaneous Active as directed Fluoxetine HCl [facility] [address]-45 20 MG Orally Once a day Active 1 capsule in the morning Lovastatin [facility] [address]-62 Orally Once a day Active 1 tablet with a meal Oxybutynin Chloride ER [facility] [address]-97 10 MG Orally once a day Active 1 tablet PredniSONE [facility] [address]-09 5 MG Orally Once a day Jun 27, 2015 October 25, 2015 Active Unknown Social History Social History Element Qualifiers Date Reported Tobacco Use: . Are you a:: former smoker , How long has it been since you last smoked?: > 10 years August 29, 2015 Caffeine: yes. frequency:, 2 cups a day August 29, 2015 Exercise: no. August 29, 2015 Alcohol: no. August 29, 2015 Vital Signs Date/Time: August 29, 2015 Blood Pressure Diastolic 69 mm Hg Blood Pressure Systolic 128 mm Hg Weight 200 lbs Temperature 98.2 F Cardiac Monitoring Heart Rate 92 /min Summary Purpose eClinicalWorks Submission
--- OUTSIDE RECORDS SUMMARY | 2018-10-08 09:56 | XMS REPORT ---
Author Grzegorz Cochran [facility] eClinicalWorks Address Unknown Phone Unavailable Care Team Providers Care Clothespin Machine Operator Name Role Phone Grzegorz Alejandro Unavailable Encounters Encounter Location Date Office Visit Grzegorz Alejandro MD November 09, 2013 [place] Patient Report Grzegorz Alejandro MD November 18, [...] Date End Date Status Dosage Enbrel [facility] [address]-52 50 MG/ML Subcutaneous 1ml qweek Feb 13, [...]
--- OUTSIDE RECORDS SUMMARY | 2018-10-08 09:56 | XMS REPORT ---
Author Grzegorz Cochran [facility] eClinicalWorks Address Unknown Phone Unavailable Care Team Providers Care Computer Networking Instructor Name Role Phone Grzegorz Alejandro Unavailable Encounters Encounter Location Date 2M F/U Grzegorz Alejandro MD September 12, [...] Instructions Start Date End Date Status Dosage [place] [facility] [address]-31 10-325 MG Orally three times a day Active 2 tablets Baclofen [facility] [address]-44 20 MG Orally Three times a day Active 1 tablet with food or milk Lyrica [facility] [address]-47 100 MG Orally Twice a day Active 1 capsule Social History Social History Element Qualifiers Date Reported Tobacco Use: . Are you a:: former smoker , How long has it been since you last smoked?: > 10 years September 12, 2013 Caffeine: yes. frequency:, 1-5 September 12, 2013 Exercise: no. September 12, 2013 Alcohol: no. September 12, 2013 Summary Purpose eClinicalWorks Submission
--- OUTSIDE RECORDS SUMMARY | 2018-10-08 09:56 | XMS REPORT ---
Author Author Chaparro Danielle [facility] eClinicalWorks Address Unknown Phone Unavailable Care Team Providers Care Maintenance Trainer Name Role Phone Chaparro Danielle Unavailable Allergies, Adverse Reactions, Alerts Substance Reaction Event Type penicillin hives Drug Allergy Keflex hives Drug Allergy Tegretol tingling Drug Allergy Benadryl hives Drug Allergy Humira Info Not Available Non Drug Allergy Encounters Encounter Location Date 2M F/U Grzegorz Alejandro MD September 12, 2013 enbrel teaching Grzegorz Alejandro MD September 29, 2013 Problems Problem Type Condition ICD-9 Code Onset Dates Condition Status Assessment Inflammatory Arthritis 714.0 Active Assessment Crohn's disease 555.9 Active Problem Inflammatory Arthritis 714.0 Active Problem Cough 786.2 Active Problem Pain in joint, lower leg 719.46 Active Problem Osteopenia 733.90 Active Problem Crohn's disease 555.9 Active Problem Long-term (current) use of other medications - High Risk V58.69 Active Problem Diabetes with unspecified complication, type II or unspecified type, uncontrolled 250.92 Active Medications Medication Code System Code Instructions Start Date End Date Status Dosage Lyrica [facility] [address]-15 100 MG Orally Twice a day Active 1 capsule [address]ast[address] [facility] [address]-09 Orally Once a day Active 1 tablet with a meal Chlordiazepoxide-Amitriptyline [facility] [address]-30 10-25 MG Orally Once a day Active 1 tablet Humulin N [facility] [address]-91 50 units Subcutaneous Active as directed Nexium [facility] [address]-01 40 MG Orally Once a day Active [address] [facility] [address]-58 500 MG Orally four times a day Active 2 tablet Lis[address]opril [facility] [address]-53 Orally Once a day Active 1 tablet Methocarbamol [facility] [address]-96 750 MG Orally every 4 hrs Active 1 tablet Enbrel SureClick [facility] [address]-29 50 MG/ML Subcutaneous every week July 13, 2013 October 11, 2013 Active 1 ml Metformin HCl [facility] [address]-88 1000 MG Orally Twice a day Active 1 tablet with meals Citalopram Hydrobromide [facility] [address]-61 40 mg Orally Once a day Active [address] tab [place] [facility] [address]-99 10-325 MG Orally three times a day Active [address]en [facility] [address]-20 20 MG Orally Three times a day Active 1/2 tablet with food or milk Budesonide ER [facility] [address]-64 3 MG Orally Active Unknown Social History Social History Element Qualifiers Date Reported Tobacco Use: . Are you a:: former smoker , How long has it been since you last smoked?: > 10 years September 12, 2013 Caffeine: yes. frequency:, 1-5 September 12, 2013 Exercise: no. September 12, 2013 Alcohol: no. September 12, 2013 Vital Signs Date/Time: September 12, 2013 Weight 210 lbs Height 67.5 in Temperature 97.9 F Cardiac Monitoring Heart Rate 84 /min Blood Pressure Diastolic 64 mm Hg Blood Pressure Systolic 124 mm Hg Summary Purpose eClinicalWorks Submission
--- OUTSIDE RECORDS SUMMARY | 2018-10-08 09:56 | XMS REPORT ---
Author Author Rashmi Haro [facility] eClinicalWorks Address Unknown Phone Unavailable Care Team Providers Care Test Fixture Assembler Name Role Phone Rashmi Haro Unavailable Encounters Encounter Location Date Office Visit Grzegorz Alejandro MD November 09, 2013 [place] Patient Report Grzegorz Alejandro MD November 18, 2013 medication Grzegorz Alejandro MD November 25, 2013 refills Grzegorz Alejandro MD Feb 13, 2014 2M F/U Grzegorz Alejandro MD September 12, 2013 enbrel teaching Grzegorz Alejandro MD September 29, 2013 ReFill request Grzegorz Alejandro MD September 30, 2013 DEXA Grzegorz Alejandro MD May 25, 2014 abbvie 465 DAYAN vs humira Grzegorz Alejandro MD Jun 27, 2015 F/U [...] injection Grzegorz Alejandro MD September 14, 2014 LIDOCAINE Grzegorz Alejandro MD September 19, 2015 Switching rx Grzegorz Alejandro MD Jun 05, 2014 3M F/U Grzegorz Alejandro MD May 30, 2014 2mth f/u Grzegorz Alejandro MD Feb 21, 2014 Problems Problem Type Condition ICD-9 Code Onset Dates Condition Status Problem Crohn's disease 555.9 Active Problem Crohn disease K50.90 Active Problem [...] Instructions Start Date End Date Status Dosage Lidocaine [facility] [address]-47 2.0 % Mouth/Throat Four times a day September 19, 2015 Active 1 application apply to mouth 4-5x a day prn Social History Social History Element Qualifiers Date Reported Tobacco Use: . Are you a:: former smoker , How long has it been since you last smoked?: > 10 years September 19, 2015 Caffeine: yes. frequency:, 2 cups a day September 19, 2015 Exercise: no. September 19, 2015 Alcohol: no. September 19, 2015 Summary Purpose eClinicalWorks Submission
--- OUTSIDE RECORDS SUMMARY | 2018-10-08 09:56 | XMS REPORT ---
Author Grzegorz Cochran eClinicalWorks Address Unknown Phone Unavailable Care Team Providers Care Skiver Heel Tap Name Role Phone Grzegorz Alejandro CP Unavailable Encounters Encounter Location Date Office Visit Grzegorz Alejandro MD November 09, 2013 [place] Patient Report Grzegorz Alejandro MD November 18, [...]
--- OUTSIDE RECORDS SUMMARY | 2018-10-08 09:56 | XMS REPORT ---
Author Author Grzegorz Alejandro eClinicalWorks Address Unknown Phone Unavailable Care Team Providers Care Industrial Machinery Mechanic Name Role Phone Grzegorz Alejandro CP Unavailable Encounters Encounter Location Date Office Visit Grzegorz Alejandro MD November 09, 2013 [place] Patient Report Grzegorz Alejandro MD November 18, [...] other medications - High Risk V58.69 Active Social History Social History Element Qualifiers Date Reported Tobacco Use: . Are you a:: former smoker , How long has it been since you last smoked?: > 10 years Jun 27, 2015 Caffeine: yes. frequency:, 2 cups a day Jun 27, 2015 Exercise: no. Jun 27, 2015 Alcohol: no. Jun 27, 2015 Summary Purpose eClinicalWorks Submission
--- OUTSIDE RECORDS SUMMARY | 2018-10-08 09:56 | XMS REPORT ---
Author Grzegorz Cochran [facility] eClinicalWorks Address Unknown Phone Unavailable Care Team Providers Care Explosive Operator Bomb Name Role Phone Grzegorz Alejandro Unavailable Encounters [...]
--- OUTSIDE RECORDS SUMMARY | 2018-10-08 09:56 | XMS REPORT ---
Author Author Grzegorz Alejandro eClinicalWorks Address Unknown Phone Unavailable Care Team Providers Care Manager Occupational Name Role Phone Grzegorz Alejandro CP Unavailable Encounters Encounter Location Date DEXA Grzegorz Alejandro [...] Visit Grzegorz Alejandro MD November 09, 2013 [place] Patient Report Grzegorz Alejandro MD November 18, 2013 medication Grzegorz Alejandro MD November 25, 2013 refills Grzegorz Alejandro MD Feb 13, 2014 2M F/U Grzegorz Alejandro MD September 12, 2013 enbrel teaching Grzegorz Alejandro MD September 29, 2013 ReFill request Grzegorz Alejandro MD September 30, 2013 abbvie 465 DAYAN vs humira Grzegorz Alejandro MD Jun 27, 2015 F/U Grzegorz Alejandro MD November 17, 2013 RX Request-- Enbrel Grzegorz Alejandro MD May 09, 2014 Refill Grzegorz Alejandro MD May 25, 2014 uti infection Grzegorz Alejandro MD October 04, 2015 follow up / labs Grzegorz Alejandro MD [...]
--- OUTSIDE RECORDS SUMMARY | 2018-10-08 09:57 | XMS REPORT | Summary of Care ---
Author Author [facility] Organization [facility] Address Unknown Phone Unavailable Encounter HQ Jamilr_nallely(FIN) [id number] Date(s): 08/17/17 - 08/17/17 [facility] [address] [place] [address]- Discharge Disposition: Home or Self Care Attending Physician: Vanessa Mathis MD Referring Physician: Vanessa Mathis MD Vital Signs No data available for this section Problem List No data available for this section Allergies, Adverse Reactions, Alerts Substance Reaction Severity Status penicillins Active Benadryl, Topical Active Keflex Active Zantac Active Tegretol Active Medications No data available for this section Results No data available for this section Immunizations No data available for this section Procedures No data available for this section Social History Social History Type Response Assessment and Plan No data available for this section
--- OUTSIDE RECORDS SUMMARY | 2018-10-08 09:57 | XMS REPORT ---
Author Author Rashmi Haro [facility] eClinicalWorks Address Unknown Phone Unavailable Care Team Providers Care Testing Consultant Name Role Phone Rashmi Haro Unavailable Allergies, Adverse Reactions, Alerts Substance Reaction Event Type penicillin hives Drug Allergy Keflex hives Drug Allergy Tegretol tingling Drug Allergy Benadryl hives Drug Allergy zantac Info Not Available Non Drug Allergy Humira Info Not Available Non Drug Allergy Encounters Encounter Location Date DEXA Grzegorz Alejandro MD May 25, 2014 Follow up Grzegorz Alejandro MD Feb 13, 2016 Unknown Grzegorz Alejandro MD Feb 13, 2016 schedule appt Grzegorz Alejandro MD Feb 13, 2016 RX REFILL Grzegorz Alejandro MD July 20, [...] Visit Grzegorz Alejandro MD November 09, 2013 [place] Patient Report Grzegorz Alejandro MD November 18, [...] infection Grzegorz Alejandro MD October 04, 2015 Unknown Grzegorz Alejandro MD Dec 05, 2015 Unknown Grzegorz Alejandro MD October 24, 2015 6 WK FU Grzegorz Alejandro MD Dec 13, 2015 follow up / labs Grzegorz Alejandro MD Jun 27, 2015 Unknown Grzegorz Alejandro MD August 29, 2015 LIDOCAINE Grzegorz Alejandro MD September 19, 2015 possible allergic reaction to simponi Grzegorz Alejandro MD September 19, 2015 Problems Problem Type Condition ICD-9 Code Onset Dates Condition Status Problem Crohn's disease 555.9 Active Problem Diabetes with unspecified complication, type II or unspecified type, uncontrolled 250.92 Active Problem Osteopenia 733.90 Active Problem Urinary tract infection N39.0 Active Problem Inflammatory arthritis M19.90 Active Problem 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 Problem Rheumatoid arthritis involving multiple sites, unspecified rheumatoid factor presence M06.9 Active Problem Long-term (current) use of other medications - High Risk V58.69 Active Problem Crohn disease K50.90 Active Problem Encounter for long-term (current) use of other high-risk medications Z79.899 Active Assessment 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 [address]-44 500 MG Orally 3 tabs bid October 24, 2015 Active Unknown [address] [facility] [address]-40 70/30 Subcutaneous Active as directed Fluoxetine HCl [facility] [address]-64 20 MG Orally Once a day Active 1 capsule in the morning Lisinopril [facility] [address]-35 Orally Once a day Active [address] [facility] [address]-58 1000 MG Orally Twice a day Active 1 tablet with meals [place] [facility] [address]-94 10-325 MG Orally three times a day Active 2 tablets Simponi Aria Unknown 0 2mg/kg IV HOLD due to infection Jun 27, 2015 Active as directed Chlordiazepoxide-clidinium Unknown 0 5-2.5mg orally every 6 hours Active [address] [facility] [address]-62 Orally Once a day Active 1 tablet with a meal Social History Social History Element Qualifiers Date Reported Tobacco Use: . Are you a:: former smoker , How long has it been since you last smoked?: > 10 years Feb 13, 2016 Caffeine: yes. frequency:, 2 cups a day Feb 13, 2016 Exercise: no. Feb 13, 2016 Alcohol: no. Feb 13, 2016 Vital Signs Date/Time: Feb 13, 2016 Weight 203.8 lbs Height 67 in Temperature 97.0 F Cardiac Monitoring Heart Rate 70 /min Blood Pressure Diastolic 70 mm Hg Blood Pressure Systolic 128 mm Hg Results COMPREHENSIVE METABOLIC PANEL W/EGFR CALCIUM(-8.6-10.4 mg/dL) 9.9 CARBON DIOXIDE(-20-31 mmol/L) 26 ALT(-6-29 U/L) 11 CREATININE(-0.50-0.99 mg/dL) 0.58 AST(-10-35 U/L) 19 eGFR NON-AFR. SERBIAN(-> OR=60 mL/min/1.73m2) 99 ALKALINE PHOSPHATASE(-33-130 U/L) 63 eGFR (-> OR=60 mL/min/1.73m2) 114 BILIRUBIN, TOTAL(-0.2-1.2 mg/dL) 0.6 BUN/CREATININE RATIO(-6-22 (calc)) NOT APPLICABLE ALBUMIN/GLOBULIN RATIO(-1.0-2.5 (calc)) 1.4 SODIUM(-135-146 mmol/L) 137 GLOBULIN(-1.9-3.7 g/dL (calc)) 3.0 POTASSIUM(-3.5-5.3 mmol/L) 4.3 GLUCOSE(-65-99 mg/dL) 167 CHLORIDE(-98-110 mmol/L) 100 ALBUMIN(-3.6-5.1 g/dL) 4.2 UREA NITROGEN (BUN)(-7-25 mg/dL) 11 PROTEIN, TOTAL(-6.1-8.1 g/dL) 7.2 SED RATE BY MODIFIED WESTERGREN SED RATE BY MODIFIED WESTERGREN(-< OR=30 mm/h) 28 C-REACTIVE PROTEIN C-REACTIVE PROTEIN(-<0.80 mg/dL) 0.76 CBC (INCLUDES DIFF/PLT) MCHC(-32.0-36.0 g/dL) 33.2 MCH(-27.0-33.0 pg) 26.1 PLATELET COUNT(-140-400 Thousand/uL) 240 RDW(-11.0-15.0 %) 17.4 BASOPHILS(- %) 0.2 ABSOLUTE NEUTROPHILS(-3763-8370 cells/uL) 5093 ABSOLUTE LYMPHOCYTES(-850-3900 cells/uL) 2018 MPV(-7.5-11.5 fL) 8.3 ABSOLUTE BASOPHILS(-0-200 cells/uL) 15 HEMATOCRIT(-35.0-45.0 %) 34.1 NEUTROPHILS(- %) 67.9 MCV(-80.0-100.0 fL) 78.7 RED BLOOD CELL COUNT(-3.80-5.10 Million/uL) 4.33 ABSOLUTE MONOCYTES(-200-950 cells/uL) 300 ABSOLUTE EOSINOPHILS(-15-500 cells/uL) 75 HEMOGLOBIN(-11.7-15.5 g/dL) 11.3 EOSINOPHILS(- %) 1.0 WHITE BLOOD CELL COUNT(-3.8-10.8 Thousand/uL) 7.5 LYMPHOCYTES(- %) 26.9 MONOCYTES(- %) 4.0 Summary Purpose eClinicalWorks Submission
--- OUTSIDE RECORDS SUMMARY | 2018-10-08 09:57 | XMS REPORT ---
Author Author Grzegorz Alejandro eClinicalWorks Address Unknown Phone Unavailable Care Team Providers Care Authorization Rep Name Role Phone Grzegorz Alejandro CP Unavailable [...] Visit Grzegorz Alejandro MD November 09, 2013 [place] Patient Report Grzegorz Alejandro MD November 18, [...] October 04, 2015 Unknown Grzegorz Alejandro MD October 24, 2015 Unknown Grzegorz Alejandro MD Dec 05, 2015 follow up / labs Grzegorz Alejandro [...] unspecified severity L97.519 Active Problem Rheumatoid arthritis 714.0 Active Problem Long-term (current) use of other medications - High Risk V58.69 Active Problem Crohn disease K50.90 Active Problem Encounter for long-term (current) use of other high-risk medications Z79.899 Active Social History Social History Element Qualifiers Date Reported Tobacco Use: . Are you a:: former smoker , How long has it been since you last smoked?: > 10 years October 24, 2015 Caffeine: yes. frequency:, 2 cups a day October 24, 2015 Exercise: no. October 24, 2015 Alcohol: no. October 24, 2015 Summary Purpose eClinicalWorks Submission
--- OUTSIDE RECORDS SUMMARY | 2018-10-08 09:57 | XMS REPORT ---
Author Author Sander Fletcher Organization eClinicalWorks Address Unknown Phone Unavailable Care Team Providers Care Biometrician Name Role Phone Sander Fletcher Unavailable Allergies, Adverse Reactions, Alerts Substance Reaction Event Type penicillin hives Drug Allergy Zantac stomach upset Drug Allergy Tegretol shaky Drug Allergy Keflex hives Drug Allergy Humira hives Drug Allergy Benadryl hives Drug Allergy Problems Problem Type Condition Code Onset Dates Condition Status Assessment Lumbar facet arthropathy M12.88 Active Assessment Pain in right shoulder M25.511 Active Assessment Subacromial bursitis M75.50 Active Problem Other psychoactive substance dependence, uncomplicated F19.20 Active Assessment Pain in left shoulder M25.512 Active Problem Crohn's disease, unspecified, with other complication K50.918 Active Assessment Other longterm (current) drug therapy Z79.899 Active Problem Chronic pain syndrome G89.4 Active Problem Other longterm (current) drug therapy Z79.899 Active Problem Other bursitis of hip, right hip M70.71 Active Problem 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 Active Problem Pain in left shoulder M25.512 Active Assessment Chronic pain syndrome G89.4 Active Assessment 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 Active Problem Lumbar facet arthropathy M12.88 Active Assessment Spondylosis without myelopathy or radiculopathy, lumbosacral region M47.817 Active Problem Subacromial bursitis M75.50 Active Problem Pain in right shoulder M25.511 Active Problem Sprain of right rotator cuff capsule S43.421A Active Problem Spondylosis without myelopathy or radiculopathy, lumbosacral region M47.817 Active Problem Bursitis, Hip 726.5 Active Problem Bursitis, Ischiogluteal 726.5 Active Problem Long-term (current) use of other medications - High Risk V58.69 Active Problem Chronic pain syndrome 338.4 Active Problem Crohn's disease 555.9 Active Problem Unspecified drug dependence 304.90 Active Problem Lumbosacral spondylosis without myelopathy 721.3 Active Problem Degeneration of lumbar or lumbosacral intervertebral disc 722.52 Active Medications Medication Code System Code Instructions Start Date End Date Status Dosage Lovastatin [facility] [address]-71 10 MG Orally Once a day Active 1 tablet with a meal Fluoxetine HCl [facility] [address]-58 20 MG Orally Once a day Active 1 capsule in the morning Tizanidine HCl [facility] [address]-64 4 MG Orally every 8 hrs Active 1 tablet as needed Morphine Sulfate [facility] [address]-74 30 MG Orally BID Active 1 tablet as needed Hydrocodone-Acetaminophen [facility] [address]-00 7.5-325 MG Orally TID # 60 Active 1 tablet as needed Metformin HCl [facility] [address]-40 1000 MG Orally Twice a day Active 1 tablet with meals Lisinopril [facility] [address]-41 20 MG Orally Once a day Active 1 tablet [place] [facility] [address]-31 10-325 MG Orally QID Active 1 tablet as needed Tizanidine HCl [facility] [address]-79 4 MG Orally BID November 25, 2016 Active 1 tablet as needed levoquin ND 0 Active as directed Gabapentin [facility] [address]-58 400 MG Orally at bedtime Active 1 capsule Chlordiazepoxide-clidinium NDC 0 5-2.5mg orally every 6 hours Active 1 capsule Vital Signs Date/Time: September 26, 2016 BMI 30.65 Index Weight 195.7 lbs Height 67 in Temperature 98.2 F Cardiac Monitoring Heart Rate 76 /min Blood Pressure Diastolic 68 mm Hg Blood Pressure Systolic 122 mm Hg Results No Known Results Summary Purpose eClinicalWorks Submission
--- OUTSIDE RECORDS SUMMARY | 2018-10-08 09:57 | XMS REPORT ---
Author Author Rashmi Haro [facility] eClinicalWorks Address Unknown Phone Unavailable Care Team Providers Care Retort Load Expediter Name Role Phone Rashmi Haro Unavailable Encounters Encounter Location Date DEXA Grzegorz Alejandro MD May 25, 2014 Unknown Grzegorz Alejandro MD Feb 13, 2016 [...] Visit Grzegorz Alejandro MD November 09, 2013 [place] Patient Report Grzegorz Alejandro MD November 18, [...] 13, 2016 Alcohol: no. Feb 13, 2016 Summary Purpose eClinicalWorks Submission
--- OUTSIDE RECORDS SUMMARY | 2018-10-08 09:57 | XMS REPORT ---
Author Author Rashmi Haro [facility] eClinicalWorks Address Unknown Phone Unavailable Care Team Providers Care Police Sergeant Name Role Phone Rashmi Haro Unavailable Allergies, [...] Visit Grzegorz Alejandro MD November 09, 2013 [place] Patient Report Grzegorz Alejandro MD November 18, [...] Unknown Grzegorz Alejandro MD October 24, 2015 follow up / labs Grzegorz Alejandro [...] Active Assessment Crohn disease K50.90 Active Assessment Urinary tract infection N39.0 Active Assessment Inflammatory arthritis M19.90 Active Medications Medication Code System Code Instructions Start Date End Date Status Dosage Lovastatin [facility] [address]-34 Orally Once a day Active 1 tablet with a meal PredniSONE [facility] [address]-99 5 MG Orally Once a day Jun 27, 2015 October 25, 2015 Active Unknown [place] [facility] [address]-24 10-325 MG Orally three times a day Active 2 tablets Lidocaine [facility] [address]-85 2.5 % Mouth/Throat Four times a day September 19, 2015 Active 1 application to affected area as needed Lisinopril [facility] [address]-30 Orally Once a day Active 1 tablet Folic Acid [facility] [address]-99 1 MG Orally Once a day Jun 27, 2015 Active 2 tablet Sulfasalazine [facility] [address]-09 500 MG Orally 1 tab tid October 24, 2015 Feb 21, 2016 Active 1 tablet Oxybutynin Chloride [facility] [address]-32 10 MG Orally once a day Active 1 tablet Chlordiazepoxide-clidinium Unknown 0 5-2.5mg orally every 6 hours Active 1 capsule Fluoxetine [facility] [address]-52 20 MG Orally Once a day Active 1 capsule in the morning Simponi Aria Unknown 0 2mg/kg IV HOLD due to infection Jun 27, 2015 Dec 13, 2015 Inactive as directed Metformin HCl [facility] [address]-03 1000 MG Orally Twice a day Active 1 tablet with meals Humulin N [facility] [address]-01 70/30 Subcutaneous Active as directed Social History Social History Element Qualifiers Date Reported Tobacco Use: . Are you a:: former smoker , How long has it been since you last smoked?: > 10 years Dec 13, 2015 Caffeine: yes. frequency:, 2 cups a day Dec 13, 2015 Exercise: no. Dec 13, 2015 Alcohol: no. Dec 13, 2015 Vital Signs Date/Time: October 24, 2015 Weight 209 lbs Height 67 in Temperature 98.5 F Cardiac Monitoring Heart Rate 80 /min Blood Pressure Diastolic 70 mm Hg Blood Pressure Systolic 126 mm Hg Summary Purpose eClinicalWorks Submission
--- OUTSIDE RECORDS SUMMARY | 2018-10-08 09:57 | XMS REPORT ---
Author Author Rashmi Haro [facility] eClinicalWorks Address Unknown Phone Unavailable Care Team Providers Care Construction Economist Name Role Phone Rashmi Haro Unavailable Allergies, [...] REFILL Grzegorz Alejandro MD August 17, 2014 Unknown Grzegorz Alejandro MD Feb 21, 2016 RX Request-- MTX Grzegorz Alejandro MD November 14, 2014 Follow up Grzegorz Alejandro MD Jun 05, 2016 RX Request-- Tizanidine Grzegorz Alejandro MD Dec 04, 2014 Infusion Grzegorz Alejandro MD July 20, 2014 depomedrol injection Grzegorz Alejandro MD September 14, 2014 Switching rx Grzegorz Alejandro MD Jun 05, 2014 3M F/U Grzegorz Alejandro MD May 30, 2014 2mth f/u Grzegorz Alejandro MD Feb 21, 2014 Office Visit Grzegorz Alejandro MD November 09, 2013 [place] Patient Report Grzegorz Alejandro MD November 18, [...] Z79.899 Active Assessment Crohn disease K50.90 Active Problem Urinary tract infection N39.0 Active Problem Inflammatory arthritis M19.90 Active Problem 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 [address]-70 30 MG Orally BID Active 1 tablet as needed Leflunomide [facility] [address]-51 10 MG Orally Once a day Jun 05, 2016 July 05, 2016 Active [address] [facility] [address]-27 Orally Once a day Active 1 tablet with a meal Lisinopril [facility] [address]-47 Orally Once a day Active 1 tablet Chlordiazepoxide-clidinium Unknown 0 5-2.5mg orally every 6 hours Active [address] [facility] [address]-11 100 MG Orally every 12 hrs Active 1 capsule with food Gabapentin [facility] [address]-22 300 MG Orally Three times a day Active [address] [facility] [address]-33 20 MG Orally Once a day Active 1 capsule in the morning Humulin N [facility] [address]-82 70/30 Subcutaneous Active as directed Metformin HCl [facility] [address]-34 1000 MG Orally Twice a day Active 1 tablet with meals [place] [facility] [address]-66 10-325 MG Orally three times a day Active [address] [facility] [address]-14 500 MG Orally twice a day October 24, 2015 Active 3 tablets Social History Social History Element Qualifiers Date Reported Tobacco Use: . Are you a:: former smoker , How long has it been since you last smoked?: > 10 years Jun 05, 2016 Caffeine: yes. frequency:, 2 cups a day Jun 05, 2016 Exercise: no. Jun 05, 2016 Alcohol: no. Jun 05, 2016 Vital Signs Date/Time: Jun 05, 2016 Weight 197.1 lbs Height 68 in Temperature 98.8 F Cardiac Monitoring Heart Rate 96 /min Blood Pressure Diastolic 58 mm Hg Blood Pressure Systolic 130 mm Hg Summary Purpose eClinicalWorks Submission
--- OUTSIDE RECORDS SUMMARY | 2018-10-08 09:57 | XMS REPORT | Summary of Care ---
Author Author [facility] Address Unknown Phone Unavailable Encounter HQ Jamilr_nallely(FIN) [id number] Date(s): 08/12/18 - 08/12/18 [facility] Outpatient [facility] [address] [facility], [address] [place] [phone] Discharge Disposition: Home or Self Care Attending [...]
--- OUTSIDE RECORDS SUMMARY | 2018-10-08 09:57 | XMS REPORT ---
Author Author Grzegorz Alejandro eClinicalWorks Address Unknown Phone Unavailable Care Team Providers Care Capacity Planner Name Role Phone Grzegorz Alejandro CP Unavailable [...] Visit Grzegorz Alejandro MD November 09, [address] [place] Patient Report Grzegorz Alejandro MD November 18, [...]
--- OUTSIDE RECORDS SUMMARY | 2018-10-08 09:57 | XMS REPORT ---
Author Author Sander Fletcher Organization eClinicalWorks Address Unknown Phone Unavailable Care Team Providers Care Industrial Truck Operator Name Role Phone Sander Fletcher CP Unavailable Allergies No Known Allergies Problems Problem Type Condition Code Onset Dates Condition Status Problem Other long term care social worker (current) drug therapy Z79.899 Active Problem Other bursitis of hip, right hip M70.71 Active Problem Subacromial bursitis M75.50 Active Problem Closed compression fracture of third lumbar vertebra, sequela S32.030S Active Problem Lumbar facet arthropathy M12.88 Active Problem Closed compression fracture of fourth lumbar vertebra, sequela S32.040S Active Problem Sprain of right rotator cuff capsule S43.421A Active Problem Spondylosis without myelopathy or radiculopathy, lumbosacral region M47.817 Active Problem 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 Active Problem Pain in left shoulder M25.512 Active Problem Pain in right shoulder M25.511 Active Problem Crohn's disease, unspecified, with other complication K50.918 Active Assessment Closed compression fracture of fourth lumbar vertebra, sequela S32.040S Active Problem Other psychoactive substance dependence, uncomplicated F19.20 Active Assessment Closed compression fracture of third lumbar vertebra, sequela S32.030S Active Problem Chronic pain syndrome G89.4 Active Medications Medication Code System Code Instructions Start Date End Date Status Dosage Lisinopril ND 81386817378 20 MG Orally Once a day Active 1 tablet Gabapentin ND 57907630712 400 MG Orally at bedtime Active 1 capsule Gabapentin [facility] 09100428379 400 Active TAKE ONE CAPSULE BY MOUTH EVERY NIGHT AT BEDTIME Morphine Sulfate ND 26291798350 30 MG Orally BID Active 1 tablet as needed Metformin HCl ND 26713383781 1000 MG Orally Twice a day Active 1 tablet with meals Tizanidine HCl ND 95874104519 4 MG Orally BID Active 1 tablet as needed [place]ant [facility] 83697931234 10-325 MG Orally QID Active 1 tablet as needed Lovastatin ND 42518656051 10 MG Orally Once a day Active 1 tablet with a meal Fluoxetine HCl ND 83255880642 20 MG Orally Once a day Active 1 capsule in the morning Tizanidine HCl ND 77377022229 4 MG Orally every 8 hrs Active 1 tablet as needed Budesonide ND 75161379017 - in the morning Active 3 tablets Hydrocodone-Acetaminophen ND 02846502522 7.5-325 MG Orally TID # 60 Active 1 tablet as needed Chlordiazepoxide-clidinium NDC 0 5-2.5mg orally every 6 hours Active 1 capsule Results No Known Results Summary Purpose eClinicalWorks Submission
--- OUTSIDE RECORDS SUMMARY | 2018-10-08 09:57 | XMS REPORT ---
Author Author Grzegorz Alejandro eClinicalWorks Address Unknown Phone Unavailable Care Team Providers Care Capacity Analyst Name Role Phone Grzegorz Alejandro CP [...] Visit Grzegorz Alejandro MD November 09, 2013 [place] Patient Report Grzegorz Alejandro MD November 18, [...] 13, 2015 follow up / labs Grzegorz lAejandro MD Jun 27, 2015 Unknown Grzegorz Alejandro [...]
--- OUTSIDE RECORDS SUMMARY | 2018-10-08 09:57 | XMS REPORT ---
Author Author Rashmi Haro [facility] eClinicalWorks Address Unknown Phone Unavailable Care Team Providers Care Receiver Name Role Phone Rashmi Haro Unavailable Allergies, [...] Visit Grzegorz Alejandro MD November 09, 2013 [place] Patient Report Grzegorz Alejandro MD November 18, [...] Start Date End Date Status Dosage Lovastatin [facility] [address]-77 Orally Once a day Active 1 tablet with a meal Folic Acid [facility] [address]-36 1 MG Orally Once a day Jun 27, 2015 Active 2 tablet [place] [facility] [address]-87 10-325 MG Orally three times a day Active 2 tablets Lidocaine [facility] [address]-15 2.5 % Mouth/Throat Four times a day September 19, 2015 Active 1 application to affected area as needed Lisinopril [facility] [address]-51 Orally Once a day Active 1 tablet Sulfasalazine [facility] [address]-70 500 MG Orally 1 tab tid October 24, 2015 Feb 21, 2016 Active 1 tablet PredniSONE [facility] [address]-48 5 MG Orally Once a day Jun 27, 2015 October 25, 2015 Active Unknown Oxybutynin Chloride ER [facility] [address]-41 10 MG Orally once a day Active 1 tablet Chlordiazepoxide-clidinium Unknown 0 5-2.5mg orally every 6 hours Active 1 capsule Fluoxetine HCl [facility] [address]-24 20 MG Orally Once a day Active 1 capsule in the morning Simponi Aria Unknown 0 2mg/kg IV HOLD due to infection Jun 27, 2015 Active as directed Metformin HCl [facility] [address]-49 1000 MG Orally Twice a day Active 1 tablet with meals Humulin N [facility] [address]-25 70/30 Subcutaneous Active as directed Social History Social History Element Qualifiers Date Reported Tobacco Use: . Are you a:: former smoker , How long has it been since you last smoked?: > 10 years October 24, 2015 Caffeine: yes. frequency:, 2 cups a day October 24, 2015 Exercise: no. October 24, 2015 Alcohol: no. October 24, 2015 Vital Signs Date/Time: October 24, 2015 Weight 209 lbs Height 67 in Temperature 98.5 F Cardiac Monitoring Heart Rate 80 /min Blood Pressure Diastolic 70 mm Hg Blood Pressure Systolic 126 mm Hg Summary Purpose eClinicalWorks Submission
--- OUTSIDE RECORDS SUMMARY | 2018-10-08 09:57 | XMS REPORT | Summary of Care ---
Author Author [facility] Organization [facility] Address Unknown Phone Unavailable Encounter HQ Encntr_nallely(FIN) [id number] Date(s): 07/21/18 - 07/21/18 [facility] [address] [place] [address] Discharge Disposition: Home or Self Care Attending Physician: Stiven Trejo MD Referring Physician: Stiven Trejo MD Vital Signs No data available for [...]
--- OUTSIDE RECORDS SUMMARY | 2018-10-08 09:57 | XMS REPORT | Summary of Care ---
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
--- OUTSIDE RECORDS SUMMARY | 2018-10-08 09:57 | XMS REPORT ---
Author Author Sander Fletcher Organization [employer] Address Unknown Phone Unavailable Care Team Providers Care Metal Off Bearer Name Role Phone Sander Fletcher CP Unavailable Allergies No Known Allergies Problems Problem Type Condition Code Onset Dates Condition Status Problem Chronic pain syndrome G89.4 Active Problem Other marine oil terminal superintendent (current) drug therapy Z79.899 Active Problem Other bursitis of hip, right hip M70.71 Active Problem 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 Active Problem Pain in left shoulder M25.512 Active Problem Lumbar facet arthropathy M12.88 Active Problem Subacromial bursitis M75.50 Active Problem [...] Lumbosacral spondylosis without myelopathy 721.3 Active Problem Other psychoactive substance dependence, uncomplicated F19.20 Active Problem Degeneration of lumbar or lumbosacral intervertebral disc 722.52 Active Problem Crohn's disease, unspecified, with other complication K50.918 Active Medications No Known Medications Results No Known Results Summary Purpose eClinicalWorks Submission
--- OUTSIDE RECORDS SUMMARY | 2018-10-08 09:57 | XMS REPORT ---
Author Author Rashmi Haro [facility] eClinicalWorks Address Unknown Phone Unavailable Care Team Providers Care Pr Internship Name Role Phone Rashmi Haro Unavailable Allergies, [...] Visit Grzegorz Alejandro MD November 09, 2013 [place] Patient Report Grzegorz Alejandro MD November 18, [...] of other high-risk medications Z79.899 Active Assessment Encounter for long-term (current) use of other high-risk medications Z79.899 Active Assessment Crohn disease K50.90 Active Assessment Inflammatory arthritis M19.90 Active Medications Medication Code System Code Instructions Start Date End Date Status Dosage Bactrim DS [facility] [address]-32 800-160 MG Orally Twice a day Active 1 tablet Lidocaine [facility] [address]-97 2.5 % Mouth/Throat Four times a day September 19, 2015 Active 1 application to affected area as needed Fluoxetine HCl [facility] [address]-86 20 MG Orally Once a day Active 1 capsule in the morning [place] [facility] [address]-55 10-325 MG Orally three times a day Active 2 tablets Sulfasalazine [facility] [address]-22 500 MG Orally 3 tabs bid October 24, 2015 Active Unknown Simponi Aria Unknown 0 2mg/kg IV HOLD due to infection Jun 27, 2015 Active as directed Folic Acid [facility] [address]-29 1 MG Orally Once a day Jun 27, 2015 Active 2 tablet Lisinopril [facility] [address]-39 Orally Once a day Active 1 tablet Lovastatin [facility] [address]-95 Orally Once a day Active 1 tablet with a meal Humulin N [facility] [address]-19 70/30 Subcutaneous Active as directed Chlordiazepoxide-clidinium Unknown 0 5-2.5mg orally every 6 hours Active 1 capsule Metformin HCl [facility] [address]-44 1000 MG Orally Twice a day Active 1 tablet with meals Oxybutynin Chloride ER [facility] [address]-07 10 MG Orally once a day Active 1 tablet Social History Social History Element Qualifiers Date Reported Tobacco Use: . Are you a:: former smoker , How long has it been since you last smoked?: > 10 years Dec 13, 2015 Caffeine: yes. frequency:, 2 cups a day Dec 13, 2015 Exercise: no. Dec 13, 2015 Alcohol: no. Dec 13, 2015 Vital Signs Date/Time: Dec 13, 2015 Weight 209 lbs Height 67 in Temperature 99.0 F Cardiac Monitoring Heart Rate 78 /min Blood Pressure Diastolic 58 mm Hg Blood Pressure Systolic 122 mm Hg Summary Purpose eClinicalWorks Submission
--- OUTSIDE RECORDS SUMMARY | 2018-10-08 09:57 | XMS REPORT ---
Author Author Sander Fletcher [facility] eClinicalWorks Address Unknown Phone Unavailable Care Team Providers Care Warehouse Sorter Name Role Phone Sander Fletcher Unavailable Allergies No Known Allergies Problems Problem Type Condition Code Onset Dates Condition Status Problem Chronic pain syndrome G89.4 Active Problem Other intermodal dispatcher (current) drug therapy Z79.899 Active Problem Other bursitis of hip, right hip M70.71 Active Problem 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 Active Assessment Lumbar facet arthropathy M12.88 Active Problem Pain in left shoulder M25.512 [...] unspecified, with other complication K50.918 Active Medications Medication Code System Code Instructions Start Date End Date Status Dosage Lisinopril [facility] [address]-06 20 MG Orally Once a day Active 1 tablet Lovastatin [facility] [address]-73 10 MG Orally Once a day Active 1 tablet with a meal [place] [facility] [address]-42 10-325 MG Orally QID Active 1 tablet as needed Tizanidine HCl [facility] [address]-48 4 MG Orally BID November 25, 2016 Active 1 tablet as needed Hydrocodone-Acetaminophen [facility] [address]-98 7.5-325 MG Orally TID # 60 Active 1 tablet as needed Tizanidine HCl [facility] [address]-22 4 MG Orally every 8 hrs Active 1 tablet as needed Fluoxetine HCl [facility] [address]-34 20 MG Orally Once a day Active 1 capsule in the morning Gabapentin [facility] [address]-79 400 MG Orally at bedtime Active 1 capsule Morphine Sulfate [facility] [address]-67 30 MG Orally BID Active 1 tablet as needed levoquin NDC 0 Active as directed Metformin HCl [facility] [address]-98 1000 MG Orally Twice a day Active 1 tablet with meals Chlordiazepoxide-clidinium NDC 0 5-2.5mg orally every 6 hours Active 1 capsule Results No Known Results Summary Purpose eClinicalWorks Submission
--- OUTSIDE RECORDS SUMMARY | 2018-10-08 09:58 | XMS REPORT ---
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 therapy Z79.899 Active Problem Chronic pain syndrome G89.4 Active Problem Other skilled nursing (current) drug therapy Z79.899 Active Problem Other [...] Instructions Start Date End Date Status Dosage Hydrocodone-Acetaminophen [facility] [address]-23 7.5-325 MG Orally TID # 60 Active 1 tablet as needed Gabapentin [facility] 54890613620 400 Active TAKE ONE CAPSULE BY MOUTH EVERY NIGHT AT BEDTIME Metformin HCl [facility] [address]-57 1000 MG Orally Twice a day Active 1 tablet with meals Tizanidine HCl [facility] [address]-61 4 MG Orally every 8 hrs Active 1 tablet as needed Gabapentin [facility] [address]-25 400 MG Orally at bedtime Active 1 capsule Morphine Sulfate [facility] [address]-16 30 MG Orally BID Active 1 tablet as needed Budesonide [facility] [address]-43 - in the morning Active 3 tablets Chlordiazepoxide-clidinium [facility] 0 5-2.5mg orally every 6 hours Active 1 capsule Fluoxetine HCl [facility] [address]-47 20 MG Orally Once a day Active 1 capsule in the morning Lisinopril [facility] [address]-33 20 MG Orally Once a day Active 1 tablet [place] [facility] [address]-21 10-325 MG Orally QID Active 1 tablet as needed Tizanidine HCl [facility] [address]-50 4 MG Orally BID Active 1 tablet as needed Lovastatin [facility] [address]-10 10 MG Orally Once a day Active 1 tablet with a meal Vital Signs Date/Time: Jan 23, 2017 BMI 31.67 Index Weight 202.2 lbs Height 67 in Temperature 99.0 F Cardiac Monitoring Heart Rate 80 /min Blood Pressure Diastolic 58 mm Hg Blood Pressure Systolic 126 mm Hg Results No Known Results Summary Purpose eClinicalWorks Submission
--- OUTSIDE RECORDS SUMMARY | 2018-10-08 09:58 | XMS REPORT ---
Author Author Sander Fletcher Organization [employer]ClinicalWorks Address Unknown Phone Unavailable Care Team Providers Care Ribbon Sweatband Operator Name Role Phone Sander Fletcher CP Unavailable Allergies No Known Allergies Problems Problem Type Condition Code Onset Dates Condition Status Problem Chronic pain syndrome G89.4 Active Problem Other manager portable (current) drug therapy Z79.899 Active Problem Other [...]
--- OUTSIDE RECORDS SUMMARY | 2018-10-08 09:58 | XMS REPORT ---
Author Author Sander Fletcher [facility] eClinicalWorks Address Unknown Phone Unavailable Care Team Providers Care General Agent Name Role Phone Sander Fletcher Unavailable Allergies No Known Allergies Problems Problem Type Condition Code Onset Dates Condition Status Assessment Other bursitis of hip, right hip M70.71 Active Assessment Chronic pain syndrome G89.4 Active Assessment Pain in right shoulder M25.511 Active Assessment Other long-term (current) drug therapy Z79.899 Active Assessment Subacromial bursitis M75.50 Active Assessment Spondylosis without myelopathy or radiculopathy, lumbosacral region M47.817 Active Assessment Crohn's disease 555.9 Active Assessment Unspecified drug dependence 304.90 Active Assessment Degeneration of lumbar or lumbosacral intervertebral disc 722.52 Active Problem Other psychoactive substance dependence, uncomplicated F19.20 Active Assessment Long-term (current) use of other medications - High Risk V58.69 Active Problem Crohn's disease, unspecified, with other complication K50.918 Active Assessment Chronic pain syndrome 338.4 Active Problem Chronic pain syndrome G89.4 Active Problem Other ferry terminal agent (current) drug therapy Z79.899 Active Problem Other bursitis of hip, right hip M70.71 Active Problem 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5 Active Assessment Crohn's disease, unspecified, with other complication K50.918 Active Problem Bursitis, Ischiogluteal 726.5 Active Assessment 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 Active Problem Long-term (current) use of other medications - High Risk V58.69 Active Assessment Sprain of right rotator cuff capsule S43.421A Active Problem Chronic pain syndrome 338.4 Active Assessment Lumbar facet arthropathy M12.88 Active Problem Crohn's disease 555.9 Active Assessment Pain in left shoulder M25.512 Active Problem Unspecified drug dependence 304.90 Active Problem Lumbosacral spondylosis without myelopathy 721.3 Active Problem Degeneration of lumbar or lumbosacral intervertebral disc 722.52 Active Medications Medication Code System Code Instructions Start Date End Date Status Dosage Medrol Dose [facility] [id number] 4mg Orally once a day Jan 14, 2017 Jan 20, 2017 Active as directed Results No Known Results Summary Purpose eClinicalWorks Submission
--- OUTSIDE RECORDS SUMMARY | 2018-10-08 09:58 | XMS REPORT ---
Author Author Sander Fletcher Organization eClinicalWorks Address Unknown Phone Unavailable Care Team Providers Care Hair Cutter Name Role Phone Sander Fletcher Unavailable Allergies, Adverse Reactions, Alerts Substance Reaction Event Type penicillin hives Drug Allergy Zantac stomach upset Drug Allergy Tegretol shaky Drug Allergy Keflex hives Drug Allergy Humira hives Drug Allergy Benadryl hives Drug Allergy Problems Problem Type Condition Code Onset Dates Condition Status Problem Other middle or intermediate school principal (current) drug therapy Z79.899 Active Problem Subacromial bursitis M75.50 Active Problem Pain in right shoulder M25.511 Active Problem Closed compression fracture of third lumbar vertebra, sequela S32.030S Active Assessment Pain in left shoulder M25.512 Active Problem Lumbar facet arthropathy M12.88 Active Assessment Subacromial bursitis M75.50 Active Assessment Pain in right shoulder M25.511 Active Problem Closed compression fracture of fourth lumbar vertebra, sequela S32.040S Active Problem Sprain of right rotator cuff capsule S43.421A Active Problem Spondylosis without myelopathy or radiculopathy, lumbosacral region M47.817 Active Problem 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 Active Problem Pain in left shoulder M25.512 Active Assessment 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 Active Assessment Chronic pain syndrome G89.4 Active Assessment Other middle or intermediate school principal (current) drug therapy Z79.899 Active Assessment Spondylosis without myelopathy or radiculopathy, lumbosacral region M47.817 Active Problem Other psychoactive substance dependence, uncomplicated F19.20 Active Problem Crohn's disease, unspecified, with other complication K50.918 Active Assessment Closed compression fracture of fourth lumbar vertebra, sequela S32.040S Active Problem Chronic pain syndrome G89.4 Active Assessment Lumbar facet arthropathy M12.88 Active Assessment Closed compression fracture of third lumbar vertebra, sequela S32.030S Active Problem Other bursitis of hip, right hip M70.71 Active Medications Medication Code System Code Instructions Start Date End Date Status Dosage Metformin HCl [facility] [address]-72 1000 MG Orally Twice a day Active 1 tablet with meals [place] [facility] [address]-62 10-325 MG Orally QID Active 1 tablet as needed Fluoxetine HCl [facility] [address]-68 20 MG Orally Once a day Active 1 capsule in the morning Budesonide [facility] [address]-91 - in the morning Active 3 tablets Hydrocodone-Acetaminophen [facility] [address]-82 7.5-325 MG Orally TID # 60 Active 1 tablet as needed Tizanidine HCl [facility] [address]-87 4 MG Orally BID Active 1 tablet as needed Morphine Sulfate [facility] [address]-10 30 MG Orally BID Active 1 tablet as needed Gabapentin [facility] 29310069159 400 Active TAKE ONE CAPSULE BY MOUTH EVERY NIGHT AT BEDTIME Tizanidine HCl [facility] [address]-09 4 MG Orally every 8 hrs Active 1 tablet as needed Chlordiazepoxide-clidinium [facility] 0 5-2.5mg orally every 6 hours Active 1 capsule Gabapentin [facility] [address]-87 400 MG Orally at bedtime Active 1 capsule [address] [facility] [address]-83 20 MG Orally Once a day Active 1 tablet Lovastatin [facility] [address]-79 10 MG Orally Once a day Active 1 tablet with a meal Vital Signs Date/Time: Feb 23, 2017 BMI 31.56 Index Weight 201.5 lbs Height 67 in Temperature 98.1 F Cardiac Monitoring Heart Rate 96 /min Blood Pressure Diastolic 50 mm Hg Blood Pressure Systolic 162 mm Hg Results No Known Results Summary Purpose eClinicalWorks Submission
--- OUTSIDE RECORDS SUMMARY | 2018-10-08 09:58 | XMS REPORT ---
Author Author Sander Fletcher Organization eClinicalWorks Address Unknown Phone Unavailable Care Team Providers Care City Controller Name Role Phone Sander Fletcher CP Unavailable Allergies No Known Allergies Problems Problem Type Condition Code Onset Dates Condition Status Problem Chronic pain syndrome G89.4 Active Problem Other intermediate card tender (current) drug therapy Z79.899 Active Problem Other bursitis of hip, right hip M70.71 Active Problem 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 Active Assessment Lumbar facet arthropathy M12.88 Active Problem Pain in left shoulder M25.512 Active Assessment Spondylosis without myelopathy or radiculopathy, lumbosacral region M47.817 Active Problem Lumbar facet arthropathy M12.88 Active [...]
--- OUTSIDE RECORDS SUMMARY | 2018-10-08 09:58 | XMS REPORT ---
Author Author Sander Fletcher Organization eClinicalWorks Address Unknown Phone Unavailable Care Team Providers Care Loading Manager Name Role Phone Sander Fletcher CP Unavailable Allergies No Known Allergies Problems Problem Type Condition Code Onset Dates Condition Status Problem Chronic pain syndrome G89.4 Active Problem Other java development manager (current) drug therapy Z79.899 Active Problem Other [...]
[2018-10-08 13:30] VITALS: BP 110/60
--- NOTE | 2018-11-15 05:38 | Operative Report ---
DATE OF PROCEDURE: 10/08/2018 SURGEON: Bg Easley MD PREOPERATIVE DIAGNOSIS: Refractory urge incontinence with migration of InterStim lead. POSTOPERATIVE DIAGNOSIS: Refractory urge incontinence with migration of InterStim lead. OPERATION PERFORMED: 1. Incision and implantation of tined quadripolar lead electrodes into the right foramen S3. 2. Removal of tined quadripolar lead electrodes from the left foramen S3. 3. Fluoroscopic guidance for needle placement. 4. Revision of InterStim neurostimulator pulse generator on the left hand side. 5. Electronic analysis and complex programming. ANESTHESIA: General. COMPLICATIONS: None. CLINICAL SUMMARY: Alpa Jimenez is a 63-year-old woman, who underwent InterStim implantation on July 01, 2017, for refractory urge incontinence. The device was working rather well; however, the patient had a fall. As a result of this fall, her generator did not seem to work properly. Films revealed that the patient's lead has migrated in an anterior fashion. The patient was brought to the operating room to revise her system. She is aware of the risks of bleeding, infection, injury to adjacent structures, need for additional procedures, and elected to proceed. OPERATIVE PROCEDURE IN DETAIL: Informed consent verified. Alpa Jimenez was properly identified, taken to the operating room, where anesthesia was uneventfully begun. She was then carefully and gently repositioned in a prone position with all pressure points carefully well padded. Pillows were placed to properly position her lower back and buttocks. The patient's back and buttocks were prepared and draped in usual sterile fashion. A needle was then placed with fluoroscopic and anatomical guidance into the right foramen S3. Needle position was verified fluoroscopically and with direct observation of the lifting of the perineum or "bellowing" and direct observation of plantar flexion of the great toe utilizing the test stimulator. Once proper positioning was determined, the needle stylet was removed and directional guidewire was then placed and confirmed fluoroscopically. The foramen needle was then removed. An incision was then made peripherally to the directional guide. The dilator and introducer sheath were then placed over the directional guide and directed into the foramen until the opaque markers of the dilator was seen midway through the sacrum. The dilator obturator was unlocked and removed and the new lead was then placed through the introducer sheath to the first white line. The position was checked fluoroscopically. The lead was then further introduced until 3 electrodes were visible anterior to the sacrum. Each electrode was then tested for the similar findings as noted above and after satisfactory positioning was confirmed under continuous fluoroscopy, the introducer sheath was retracted, thus deploying the lead tines into the parasacral tissue. An incision was then made overlying the existing lead, that it has now migrated on the left hand side. We isolated the lead and then progressively pulled on it gently as we advanced the hemostat as we grabbed closer and closer to the foramen. The lead, however, would not budge and the actual wires get loose from the contact. Therefore, the lead contacts were left in place, but the wire was removed. Further incision was then made overlying the neurostimulator. The neurostimulator was explanted. The single setscrew was opened and the old lead was thus removed. We then revised the pocket in order to better position the neurostimulator, so it was sewed in an appropriate position. It would not be mobile to the same degree. The tunneling tool was then utilized to bring the new lead to the pocket site. The lead was then cleansed of bodily fluid with sterile water and dried thoroughly. After thoroughly irrigating the newly revised pocket and verifying hemostasis, the existing generator was then attached to the new lead with the blue tip clearly visible in the distal portion of the pulse generator header. The single set screw was then tightened with a hex wrench. The pulse generator was then placed into the revised subcutaneous pocket. The programming head was then placed over the newly implanted existing neurostimulator. The impedance was verified to be in the appropriate parameters. After thoroughly irrigating both lead incisions, all 3 incisions were approximated in 2 layers utilizing absorbable suture and incorporating subcuticular closure of the skin level. Mastisol, Steri-Strips, and Bioclusive dressings were applied, and the patient was uneventfully reversed from anesthesia and taken to recovery room in stable condition. There no complications to the procedure. The patient tolerated the procedure well. Sponge and needle counts were correct x2 at the end of the case. Estimated blood loss was minimal. Utilizing the clinician business programmer, the patient was programmed to the lead of optimum sensation and given explicit instructions on utilizing her revised neurostimulator. We will of course follow the patient up in the office and on an ongoing basis. Bg MD BETH Easley /[id number]
== END | disposition home or self-care (01) ==
LOC: OR 09:06
PROVIDERS: ATTEND Urology
DX: T85.121A Displacement of implanted electronic neurostimulator of peripheral nerve electrode (lead), initial encounter (principal); Y83.8 Other surgical procedures as the cause of abnormal reaction of the patient, or of later complication, without mention of misadventure at the time of the procedure; N39.41 Urge incontinence; N39.0 Urinary tract infection, site not specified; I10 Essential (primary) hypertension; E11.9 Type 2 diabetes mellitus without complications; M06.9 Rheumatoid arthritis, unspecified; K21.9 Gastro-esophageal reflux disease without esophagitis; K58.9 Irritable bowel syndrome, unspecified; F32.9 Major depressive disorder, single episode, unspecified; Z01.810 Encounter for preprocedural cardiovascular examination; Z01.812 Encounter for preprocedural laboratory examination; Z01.818 Encounter for other preprocedural examination; Z79.84 Long term (current) use of oral hypoglycemic drugs; Z87.891 Personal history of nicotine dependence
CPT/HCPCS: 36415 ×2; 64585; 64595; 71046; 76000; 80048; 82948; 85025; 93005; 95972; C1778; C1894; J0131; J1100; J1580; J1885; J1956; J2405; J2704; J2765; J3010

== ENCOUNTER 2020-01-28 13:12 | Emergency (ER) | payer MEDICARE, OTHER ==
[~2020-01-28] VITALS: Ht 167.6 cm; Wt 85.7 kg
[~2020-01-28 13:12] MED LIST changes: -ACETAMINOPHEN 1000 MG/100 ML 100 ML IV ONE; -CLINDAMYCIN 600MG / 50ML 50 ML IV ONE; -DESFLURANE 240 ML BTL INH ONE; -DEXAMETHASONE SOD PHOS INJ 4 MG/ML VIAL ONE; -FENTANYL CITRATE/PF 100MCG/2 ML INJ ONE; -GENTAMICIN 80MG/NS 100 ML 200 ML IV ONE; -KETOROLAC TROMETHAMINE 30 MG/ML VIAL ONE; -LEVOFLOXACIN 500MG/D5W 100ML 100 ML IV ONE; -METOCLOPRAMIDE HCL 10 MG/2ML VIAL ONE; -ONDANSETRON HCL INJ 2MG/ML 2ML 2 MG/ML VIAL ONE; -PROPOFOL IV EMULSION 10 MG/ML 20 ML VIAL ONE; -SUCCINYLCHOLINE 200 MG/10 ML SYR ONE
[2020-01-28] MEDS ORDERED: ONDANSETRON HCL INJ 2MG/ML 2ML 2 MG/ML VIAL IV STA (13:33)
[2020-01-28] MEDS ORDERED: HYDROMORPHONE 1MG/1ML INJ IV STA (13:33)
[2020-01-28] MEDS ORDERED: SODIUM CHLORIDE 0.9% 1000ML 1,000 ML IV STA (13:33)
[2020-01-28 14:24] LABS: BASOPHILS % 0.4 % (0.0-1.0); EOSINOPHILS # (AUTO) 0.1 (0.0-0.4); EOSINOPHILS % 0.8 % (0.0-6.0); HEMATOCRIT 36.1 % (34.2-44.1); HEMOGLOBIN 11.4 g/dL (12.0-16.0); LYMPHOCYTES # (AUTO) 1.2 (1.0-3.2); LYMPHOCYTES % 13.9 % (18.0-39.1); MEAN CORPUSCULAR HEMOGLOBIN 25.4 pg (28-32); MEAN CORPUSCULAR HGB CONC 31.6 g/dL (31-35); MEAN CORPUSCULAR VOLUME 80.6 fL (81-99); MONOCYTES # (AUTO) 0.4 (0.2-0.8); MONOCYTES % 4.2 % (4.4-11.3); NEUTROPHILS # (AUTO) 6.7 (2.1-6.9); NEUTROPHILS % 80.2 % (38.7-80.0); PLATELET COUNT 316 x10e3/uL (140-360); RED BLOOD COUNT 4.48 x10e6/uL (3.6-5.1); RED CELL DISTRIBUTION WIDTH 15.5 % (11.7-14.4)
[2020-01-28 14:37] LABS: BILIRUBIN,URINE SMALL (NEGATIVE); CLARITY,URINE HAZY (CLEAR); COLOR,URINE YELLOW (YELLOW); KETONES,URINE 1+ (NEGATIVE); LEUKOCYTE ESTERASE ,URINE NEGATIVE (NEGATIVE); NITRITE,URINE NEGATIVE (NEGATIVE); PROTEIN,URINE DIPSTICK 1+ (NEGATIVE); URINE UROBILINOGEN 0.2 mg/dL (0.2 - 1)
[2020-01-28 14:41] LABS: INR 0.99; PROTHROMBIN TIME 13.6 seconds (11.9-14.5)
[2020-01-28 14:42] LABS: PARTIAL THROMBOPLASTIN TIME 32.7 seconds (23.8-35.5)
[2020-01-28 14:43] LABS: BACTERIA,URINE FEW /HPF; EPITHELIAL CELLS,URINE FEW /LPF
[2020-01-28 14:46] LABS: ALANINE AMINOTRANSFERASE 18 IU/L (0-55); ALBUMIN 4.4 g/dL (3.5-5.0); ALBUMIN/GLOBULIN RATIO 1.2 (0.8-2.0); ALKALINE PHOSPHATASE 95 IU/L (40-150); ANION GAP 16.4 mmol/L (8-16); BLOOD UREA NITROGEN 15 mg/dL (7-26); BUN/CREATININE RATIO 18 (6-25); CALCIUM 9.7 mg/dL (8.4-10.2); CARBON DIOXIDE 27 mmol/L (22-29); CHLORIDE 96 mmol/L (98-107); CREATINE KINASE 95 IU/L (29-168); CREATININE, SERUM 0.83 mg/dL (0.57-1.11); EST GLOMERULAR FILTRATION RATE > 60 ML/MIN (60-); GLUCOSE 301 mg/dL (74-118); POTASSIUM 4.4 mmol/L (3.5-5.1); SODIUM 135 mmol/L (136-145)
--- NOTE | 2020-01-28 14:56 | Diagnostic Imaging Report ---
EXAMINATION: CHEST SINGLE (PORTABLE) INDICATION: RIGHT FLANK PAIN COMPARISON: Chest radiograph 10/07/2018. FINDINGS: TUBES and LINES: None. LUNGS: Lungs are well inflated. There is no evidence of pneumonia or pulmonary edema. Minimal dependent bibasilar opacities, likely atelectasis. PLEURA: No pleural effusion or pneumothorax. HEART AND MEDIASTINUM: The cardiomediastinal silhouette is unremarkable. BONES AND SOFT TISSUES: No acute osseous lesion. Soft tissues are unremarkable. UPPER ABDOMEN: No free air under the diaphragm. IMPRESSION: No acute thoracic abnormality. Signed by: Dr. Brittani Marinelli MD on 01/28/2020 2:53 PM
--- NOTE | 2020-01-28 15:07 | Diagnostic Imaging Report ---
EXAM: CT Abdomen and Pelvis without contrast INDICATION: Right flank pain. COMPARISON: None. TECHNIQUE: Abdomen and pelvis were scanned utilizing a multidetector helical scanner from the lung base to the pubic symphysis without administration of IV contrast. Coronal and sagittal reformations were obtained. Renal stone protocol was performed. IV CONTRAST: None. ORAL CONTRAST: Water COMPLICATIONS: None RADIATION DOSE: Total DLP: 727 mGy*cm Estimated effective dose: (DLP x 0.015 x size factor) mSv CTDIvol has been reviewed. It is below the limits set by the Radiation Protocol Committee (RPC). FINDINGS: LOWER THORAX: Unremarkable HEPATOBILIARY: No evidence of focal lesion. There is intra- and extra- hepatic biliary dilation likely post cholecystectomy reservoir effect. GALLBLADDER: Status post cholecystectomy. SPLEEN: No splenomegaly. PANCREAS: No focal masses or ductal dilatation. ADRENALS: No adrenal nodules KIDNEYS/URETERS: No evidence of hydronephrosis, solid mass, or stone. GI TRACT: No evidence of wall thickening or distension. Appendix is normal. Scattered sigmoid colonic diverticulosis without evidence of diverticulosis. PELVIC ORGANS/BLADDER: The bladder is decompressed with mild wall thickening. Ratliff catheter within the bladder. Status post hysterectomy. LYMPH NODES: No lymphadenopathy. VESSELS: There is mild atherosclerotic disease in the aorta and major arterial branches. PERITONEUM / RETROPERITONEUM: There is stranding with trace amount of free fluid within the mesenteric fat. No free air. BONES AND SOFT TISSUES: Mild compression deformities at L4 and L5 with vertebral augmentation changes. Small amount of weeks cement into the anterior right aspect of the spinal canal at L5. No acute osseous abnormality. Partially seen right proximal femoral fixation hardware. Left flank subcutaneous stimulator with sacral stimulator leads. Fat-containing umbilical hernia without evidence of inflammatory changes. Surgical scar in the lower anterior abdomen. Small bilateral fat containing inguinal hernias. CONCLUSION: Inflammatory changes in the mesentery without bowel wall thickening. 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 No evidence of lymphadenopathy. Recommend clinical correlation. No evidence of nephrolithiasis. Vertebral augmentation changes with small amount of leak cement in the anterior right aspect of the spinal canal at L5. Signed by: Dr. Brittani Marinelli MD on 01/28/2020 3:04 PM
--- NOTE | 2020-01-28 16:14 | Emergency Department Note ---
History of Present Illnes History of Present Illness Chief Complaint: Genitourinary History of Present Illness This is a 64 year old female PATIENT IN FROM HOME WITH COMPLAINTS OF RIGHT FLANK PAIN STARTING 2 DAYS AGO, URINARY FREQ WHICH IS IMPROVING ON LEVAQUIN; STATES THAT SHE HAS BEEN ON ABX FOR A UTI SINCE THURSDAY. ALSO WITH COMPLAINTS OF A RASH ON HER BUTTOCKS AND GROIN. PATIENT ALERT AND ORIENTED, RESP EVEN AND NONLABORED, APPEARS IN NO DISTRESS, WHEELCHAIR BOUND AT HOME, RATES PAIN 5/10. Historian: Patient Arrival Mode: Car Email Marketing Coordinator Required: No Onset (how long ago): day(s) (2) Location: right flank Quality: PAIN Radiation: Reports non-radiation Severity: severe Onset quality: gradual Timing of current episode: constant Chronicity: recurrent Context: Denies recent illness Relieving factors: none Exacerbating factors: none Associated symptoms: Reports denies other symptoms Past Medical/Family History Physician Review I have reviewed the patient's past medical and family history. Any updates have been documented here. 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 VERTIGO Past Surgical History: Knee Replacement Other Surgery: KNEE REPLACEMENT BILATERAL BLADDER SUSPENSION BLADDER STIMULATOR Social History Smoking Cessation: Unknown if ever smoked Alcohol Use: None Any Illegal Drug Use: No TB Exposure/Symptoms: No Physically hurt or threatened: No Family History Family history of heart diseas: No Other Any Pre-Existing Lines (PICC,: No Review of Systems Review of Systems Constitutional: Reports no symptoms EENTM: Reports no symptoms Cardiovascular: Reports no symptoms Respiratory: Reports no symptoms Gastrointestinal: Reports no symptoms Genitourinary: Reports as per HPI, Reports frequency Musculoskeletal: Reports as per HPI Integumentary: Reports no symptoms Neurological: Reports no symptoms Psychological: Reports no symptoms Endocrine: Reports no symptoms Hematological/Lymphatic: Reports no symptoms Physical Exam Related Data Allergies: Coded Allergies: Penicillins (Verified Allergy, Mild, RED RASH, 01/28/20) carbamazepine (Verified Allergy, Mild, SHAKING, 01/28/20) cephalexin (Verified Allergy, Mild, RED RASH, 01/28/20) diphenhydramine (Verified Allergy, Mild, RED RASH, 01/28/20) ranitidine (Verified Allergy, Mild, MAKES STOMACH WORSE, 01/28/20) Triage Vital Signs Vital Signs Date Time Temp Pulse Resp B/P (MAP) Pulse Ox O2 Delivery O2 Flow Rate FiO2 01/28/20 13:19 99.0 109 20 134/65 98 Room Air Vital signs reviewed: Yes Physical Exam CONSTITUTIONAL Constitutional: Present well-developed, Present well-nourished HENT HENT: Present normocephalic, Present atraumatic, Present oropharynx clear/moist, Present nose normal HENT L/R: Present left ext ear normal, Present right ext ear normal EYES Eyes: Reports PERRL, Reports conjunctivae normal NECK Neck: Present ROM normal PULMONARY Pulmonary: Present effort normal, Present breath sounds normal CARDIOVASCULAR Cardiovascular: Present regular rhythm, Present heart sounds normal, Present capillary refill normal, Present normal rate GASTROINTESTINAL Abdominal: Present soft, Present nontender, Present bowel sounds normal, Present right CVA tenderness GENITOURINARY Genitourinary: Present exam deferred SKIN Skin: Present warm, Present dry MUSCULOSKELETAL Musculoskeletal: Present ROM normal NEUROLOGICAL Neurological: Present alert, Present oriented x 3, Present no gross motor or sensory deficits PSYCHOLOGICAL Psychological: Present mood/affect normal, Present judgement normal Results Laboratory Result Diagram: 01/28/20 1344 01/28/20 1344 Laboratory Laboratory Tests Test 01/28/20 13:44 White Blood Count 8.39 x10e3/uL (4.8-10.8) Red Blood Count 4.48 x10e6/uL (3.6-5.1) Hemoglobin 11.4 g/dL (12.0-16.0) Hematocrit 36.1 % (34.2-44.1) Mean Corpuscular Volume 80.6 fL (81-99) Mean Corpuscular Hemoglobin 25.4 pg (28-32) Mean Corpuscular Hemoglobin Concent 31.6 g/dL (31-35) Red Cell Distribution Width 15.5 % (11.7-14.4) Platelet Count 316 x10e3/uL (140-360) Neutrophils (%) (Auto) 80.2 % (38.7-80.0) Lymphocytes (%) (Auto) 13.9 % (18.0-39.1) Monocytes (%) (Auto) 4.2 % (4.4-11.3) Eosinophils (%) (Auto) 0.8 % (0.0-6.0) Basophils (%) (Auto) 0.4 % (0.0-1.0) Neutrophils # (Auto) 6.7 (2.1-6.9) Lymphocytes # (Auto) 1.2 (1.0-3.2) Monocytes # (Auto) 0.4 (0.2-0.8) Eosinophils # (Auto) 0.1 (0.0-0.4) Basophils # (Auto) 0.0 (0.0-0.1) Absolute Immature Granulocyte (auto 0.04 x10e3/uL (0-0.1) Prothrombin Time 13.6 seconds (11.9-14.5) Prothromb Time International Ratio 0.99 Activated Partial Thromboplast Time 32.7 seconds (23.8-35.5) Urine Color Yellow (YELLOW) Urine Clarity Hazy (CLEAR) Urine pH 5.5 (5 - 7) Urine Specific [place] 1.025 (1.010-1.025) Urine Protein 1+ (NEGATIVE) Urine Glucose (UA) 3+ (NEGATIVE) Urine Ketones 1+ (NEGATIVE) Urine Blood Large (NEGATIVE) Urine Nitrite Negative (NEGATIVE) Urine Bilirubin Small (NEGATIVE) Urine Urobilinogen 0.2 mg/dL (0.2 - 1) Urine Leukocyte Esterase Negative (NEGATIVE) Urine RBC 6-10 /HPF (0-5) Urine WBC 11-20 /HPF (0-5) Urine Epithelial Cells Few /LPF (NONE) Urine Bacteria Few /HPF (NONE) Sodium Level 135 mmol/L (136-145) Potassium Level 4.4 mmol/L (3.5-5.1) Chloride Level 96 mmol/L (98-107) Carbon Dioxide Level 27 mmol/L (22-29) Anion Gap 16.4 mmol/L (8-16) Blood Urea Nitrogen 15 mg/dL (7-26) Creatinine 0.83 mg/dL (0.57-1.11) Estimat Glomerular Filtration Rate > 60 ML/MIN (60-) BUN/Creatinine Ratio 18 (6-25) Glucose Level 301 mg/dL (74-118) Calcium Level 9.7 mg/dL (8.4-10.2) Total Bilirubin 0.9 mg/dL (0.2-1.2) Aspartate Amino Transf (AST/SGOT) 20 IU/L (5-34) Alanine Aminotransferase (ALT/SGPT) 18 IU/L (0-55) Alkaline Phosphatase 95 IU/L (40-150) Creatine Kinase 95 IU/L (29-168) Creatine Kinase MB 1.50 ng/mL (0-5.0) Troponin I 0.017 ng/mL (0-0.300) Total Protein 8.0 g/dL (6.5-8.1) Albumin 4.4 g/dL (3.5-5.0) Globulin 3.6 g/dL (2.3-3.5) Albumin/Globulin Ratio 1.2 (0.8-2.0) Lab results reviewed: Yes Imaging Imaging results reviewed: Yes Assessment & Plan Medical Decision Making MDM FLANK PAIN, URINARY FREQ - CBC, CHEM, UA/CX, BLOOD CX'S, CT ABD/PELVIS - EVAL UTI/PYELO, KIDNEY STONE, RENAL INSUFF, ELECTROLYTE ABNL Reassessment Reassessment DC HOME, ADD MACROBID 100 BID X 10 DAYS, CONTINUE LEVAQUIN FULL COURSE, F/U PCP AND DR CHOUDHARY Assessment & Plan Final Impression: (1) UTI (urinary tract infection) Depart Disposition: HOME, SELF-CARE Last Vital Signs Date Time Temp Pulse Resp B/P (MAP) Pulse Ox O2 Delivery O2 Flow Rate FiO2 01/28/20 15:47 98.7 107 13 116/83 99 Room Air Home Meds Reported Medications Tizanidine Hcl (TIZANIDINE HCL) 4 Mg Tablet, 4 PO BID, TAB 10/07/18 Gabapentin (GABAPENTIN) 400 Mg Capsule, 400 MG PO BID, #30 CAP 10/07/18 Sulfamethoxazole/Trimethoprim (BACTRIM DS TABLET) 1 Each Tablet, 800 MG PO BID, #60 TAB 10/07/18 Nitrofurantoin Monohyd/M-Cryst (MACROBID 100 MG CAPSULE) 100 Mg Capsule, 100 MG PO BID 10/07/18 Lisinopril (LISINOPRIL) 10 Mg Tablet, 5 MG PO DAILY, #30 TAB 06/30/17 Pioglitazone Hcl (PIOGLITAZONE HCL) 45 Mg Tablet, 45 MG PO DAILY, #30 TAB 05/25/17 Hydrocodone Bit/Acetaminophen (NORCO 10-325 TABLET) 1 Each Tablet, 1 TAB PO Q6HR PRN for PAIN 05/25/17 Morphine Sulfate (MS CONTIN) 30 Mg Tablet.er, 30 MG PO TID 05/25/17 Fluoxetine Hcl (PROZAC) 20 Mg Capsule, 40 MG PO DAILY, #30 TAB 05/25/17 Metformin Hcl (GLUCOPHAGE) 1,000 Mg Tablet, 1000 MG PO BIDAC 12/09/13 Medications in the ED Hydromorphone HCl 1 mg ONCE STAT IV Last administered on 01/28/20at 13:56; Admin Dose 1 MG; Start 01/28/20 at 13:33; Stop 01/28/20 at 13:42; Status DC Ondansetron HCl 4 mg ONCE STAT IV Last administered on 01/28/20at 13:59; Admin Dose 4 MG; Start 01/28/20 at 13:33; Stop 01/28/20 at 13:42; Status DC Sodium Chloride 1,000 ml @ 0 mls/hr Q0M STAT IV Last administered on 01/28/20at 13:59; Admin Dose 999 MLS/HR; Start 01/28/20 at 13:33; Stop 01/28/20 at 13:39; Status DC TOMAS SUTTON MD Jan 28, 2020 16:14
[2020-01-28 16:31] VITALS: BP 116/63
--- OUTSIDE RECORDS SUMMARY | 2020-01-29 16:41 | XMS REPORT | Continuity of Care Document ---
Author Author [employer] Information N[place]to Address Unknown Phone Unavailable Care Team Providers Care [employer] Press Set Up Operator Name Role Phone [employer] Unavailable Un available Problems Problem Status Onset Date Classification Date Reported Comments Source N18.1 Active 07/15/2018 [facility] DX: R04.1=NONTOXIC SINGLE THYROID NODULE Active 08/05/2017 [facility] Nontoxic goiter, unspecified 07/28/2017 10/27/2017 [facility] E04.9 - NONTOXIC GOITER, UNSPECIFIED Active 07/17/2017 [facility] Lumbar facet arthropathy Active Problem 03/12/2017 Lionel Hammer Pain in right shoulder Active Problem 03/12/2017 Lionel Alejandro Subacromial bursitis Active Problem 03/12/2017 Lionel Hammer Other psychoactive substance dependence, uncomplicated Active Problem 03/12/2017 Lionel Alejandro Pain in left shoulder Active Problem 03/12/2017 Lionel Alejandro Crohn's disease, unspecified, with other complication Active Problem 03/12/2017 Lionel Alejandro 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 Active Problem 01/2017 Lionel Alejandro Chronic pain syndrome Active Problem 03/12/2017 Lionel Hammer Other bursitis of hip, right hip Active Problem 01/2017 Lionel Alejandro Rheumatoid arthritis involving multiple sites with positive rheumatoid factor Active Problem 03/12/2017 Lionel Hammer Spondylosis without myelopathy or radicu lopathy, lumbosacral region Active Prob nishant 03/12/2017 Lionel Alejandro Sprain of right rotator cuff capsule Active Problem 01/2017 Lionel Alejandro Bursitis, Hip Active Problem 01/31/2017 Lionel Alejandro Bursitis, Ischiogluteal Active Problem 01/31/2017 Lionel Alejandro Long-term (current) use of other medicat ions - High Risk Active Prob nishant 01/31/2017 Lionel Hammer Chronic pain syndrome Active Problem 01/31/2017 Lionel Hammer Crohn's disease Active Problem 01/31/2017 Lionel Alejandro Unspecified drug dependence Ac tive Problem Lionel Alejandro Lumbosacral spondylosis without myelopathy Active Problem 01/31/2017 Lionel Alejandro Degeneration of lumbar or lumbosacral in tervertebral disc Active Prob nishant 01/31/2017 Lionel Hammer Closed compression fracture of third lum bar vertebra, sequela Active Prob nishant 03/12/2017 Lionel Hammer Closed compression fracture of fourth sharon mbar vertebra, sequela Active Prob nishant 03/12/2017 Lionel Flavia Urinary tract infection Active Problem 01/26/2019 Lionel Flavia Inflammatory arthritis Active Problem 01/26/2019 Lionel Flavia Non-pressure chronic ulcer of other part of right foot with unspecified severity Active Problem 01/26/2019 Lionel Alejandro Rheumatoid arthritis involving multiple sites, unspecified rheumatoid factor presence Active Problem 01/26/2019 Lionel Alejandro Crohn disease Active Problem 01/26/2019 Lionel Alejandro Encounter for long-term (current) use of other high-risk medications Active Prob nishant 01/26/2019 Lionel Alejandro Left leg swelling Active Problem 01/26/2019 Lionel Alejandro Osteopenia of right thigh Acti ve Problem Lionel Alejandro Primary osteoarthritis involving multiple joints Active Problem 01/26/2019 Lionel Alejandro 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 Active Diagnosis 06/18/2017 Lionel Alejandro Inflammatory Arthritis Active Diagnosis 05/01/2015 Lionel Alejandro Cough Active Problem 06/07/2014 Lionel Alejandro Pain in joint, lower leg Active Problem 06/07/2014 Lionel Alejandro Osteopenia Active Problem 03/14/2016 Lionel Alejandro Diabetes with unspecified complication, type II or unspecified type, uncontrolled Active Problem 03/14/2016 Lionel Alejandro Rheumatoid arthritis Active Problem 02/15/2016 Lionel Alejandro HEMORRHAGE FROM THROAT Active [facility] NONTOXIC SINGLE THYROID NODULE Active [facility] CHRONIC KIDNEY DISEASE, STAGE 1 Active [facility] Medications Medication Details Route Status Patient Instructions Ordering Provider Order Date Source Sulfasalazine 4 tablets Orally Active 500 MG Orally twice a d ay Brock 10/13/2018 Lionel Alejandro Sulfasalazine 4 tablets Orally Active 500 MG Orally twice a d ay Estrellita 12/09/2017 Lionel Alejandro Medrol Dose Saluo as directed Orally Active 4mg Orally as directed Flavia 10/05/2017 Lionel Alejandro Stelara 90mg Subcutaneous Active 90 MG/ML Subcutaneous q 8 weeks Colo 02/18/2017 Lionel Alejandro Stelara 520 mg Intravenous Active 130 MG/26ML Intravenous at week 0 then start SQ q8 weeks Colo 02/18/2017 Lionel Alejandro Medrol Dose Saulo as directed Orally Active 4mg Orally once a day [facility] 01/14/2017 Lionel Alejandro Tizanidine HCl 1 tablet as nee ded Orally Active 4 MG Orally BID [facility] 11/25/2016 Lionel Alejandro Macrobid 1 capsule with food Orally Active 100 MG Orally every 12 hrs [facility] 08/28/2016 Lionel Alejandro Leflunomide 1 tablet Orally Active 10 MG Orally Once a day [facility] 06/05/2016 Lionel Alejandro Sulfasalazine 4 tablets Orally Active 500 MG Orally twice a d [facility] 10/24/2015 Lionel Alejandro Sulfasalazine 3 tablets Orally Active 500 MG Orally twice a d [facility] 10/24/2015 Lionel Alejandro Lidocaine 1 application to aff ected area as needed Mouth/Throat Active 2.5 % Mouth/Throat Four times a day [facility] 09/19/2015 Lionel Alejandro Magic Mouthwash 5ml swish and swallow Orally Active 30ml Benadryl 12.5mg + 60ml Maalox + 4gm Carafate Orally Three times a day [facility] 09/19/2015 Lionel Alejandro PredniSONE Unknown Orally Active 5 MG Orally Once a day [facility] 06/27/2015 Lionel Alejandro Folic Acid 2 tablet Orally Active 1 MG Orally Once a day [facility] 06/27/2015 Lionel Alejandro Simponi Aria as directed IV Active 2mg/kg IV HOLD due to infection [facility] 06/27/2015 Lionel Alejandro Tizanidine HCl 1 tablet as nee ded Orally Active 4 MG Orally Twice a day [facility] 12/04/2014 Lionel Alejandro Methotrexate as directed Orally Active 2.5 MG Orally take all 4 tabs once weekly, not to be taken in conjunction with MTX Colo 08/17/2014 Lionel Alejandro Enbrel 1 ml Subcutaneous Active 50 MG/ML Subcutaneous 1 ml qweek [place] 02/13/2014 Lionel Alejandro Butorphanol Tartrate 1 ml as n eeded Nasally Active 10 MG/ML Nasally every 4 hrs [facility] 11/28/2013 Lionel Alejandro Enbrel SureClick 1 ml Subcutaneous Active 50 MG/ML Subcutaneous every week Danielle 07/13/2013 Lionelreyna Alejandro Lovastatin 1 tablet with a meal Orally Active 10 MG Orally Once a day [facility] Lionelreyna Alejandro Fluoxetine HCl 1 capsule in th e morning Orally Active 20 MG Orally Once a day [facility] Lionel Alejandro Tizanidine HCl 1 tablet as nee ded Orally Active 4 MG Orally BID [facility] Lionelreyna Alejandro Morphine Sulfate 1 tablet as n eeded Orally Active 30 MG Orally BID [facility] Lionel Alejandro Hydrocodone-Acetaminophen 1 ta blet as needed Orally Active 7.5- 325 MG Orally TID # 60 [facility] Lionel Alejandro Metformin HCl 1 tablet with me als Orally Active 1000 MG Orally Twice a day [facility] Lionelreyna Alejandro Lisinopril 1 tablet Orally Active 20 MG Orally Once a day [facility] Wild Alejandro [place] 1 tablet as needed Orally Active 10-325 MG Orally QID [facility] Lionel Alejandro levoquin as directed NA Active [place] Lionel Alejandro Gabapentin 1 capsule Orally Active 400 MG Orally at bedtim e [facility] Lionel Alejandro Chlordiazepoxide-clidinium 1 c apsule orally Active 5-2.5mg orally every 6 hours Brockmakenzie Alejandro Lisinopril 1 tablet Orally Active 20mg Orally Once a day [facility] martínez Alejandro Gabapentin 1 capsule Orally Active 400 MG Orally at bedtim e [facility] Lionel Alejandro Gabapentin TAKE ONE CAPSULE BY MOUTH EVERY NIGHT AT BEDTIME NA Active 400 [facility] Lionel Alejandro Morphine Sulfate 1 tablet as n eeded Orally Active 30 MG Orally tid Brock Lionel Alejandro Metformin HCl 1 tablet with me als Orally Active 1000 MG Orally Twice a day Vinod Alejandro Tizanidine HCl 1 tablet as nee ded Orally Active 4 MG Orally Twice a day Vinod Alejandro [place] 2 tablets Orally Active 10-325 MG Orally three times a day Brock Lionel Alejandro Lovastatin 1 tablet with a meal Orally Active 10 MG Orally Once a day [facility] Lionel Alejandro Fluoxetine HCl 1 capsule in th e morning Orally Active 40 MG Orally Once a day Vinod Alejandro Budesonide 3 tablets NA Active - in the morning [facility] Wild Alejandro Hydrocodone-Acetaminophen 1 ta blet as needed Orally Active 7.5- 325 MG Orally TID # 60 [facility] Lionel Alejandro Budesonide 3 tablets NA Active - in the morning Justine Wild Alejandro Vitamin D 1 tablet Orally Active 1000 UNIT Orally Once a day Flavia Alejandro Lovastatin 1 tablet with a meal Orally Active Orally Once a day Flavia Alejandro Actos 1 tablet Orally Active 15 MG Orally Once a day Flavia Alejandro Tizanidine HCl 1 tablet as nee ded Orally Active 2 MG Orally once at bed time Flavia Alejandro Calcium 1 tablet with meals Orally Active 500 MG Orally Twice a day Flavia Alejandro Gabapentin 1 capsule Orally Active 400 MG Orally once a da y Flavia Alejandro Budesonide as directed Orally Active Orally three capsules i n the morning Flavia Alejandro Actos 1 tablet Orally Active 45 MG Orally Once a day Estrellita Wild Alejandro Gabapentin 1 capsule Orally Active 400mg Orally bid Brock Ger Alejandro Budesonide as directed Orally Active 3 MG Orally Brock [facility] martínez Alejandro Lovastatin 1 tablet with a meal Orally Active Orally Once a day Vinod Alejandro Sulfasalazine 4 tablets Orally Active 500 MG Orally twice a d ay iVnod Alejandro Macrobid 1 capsule with food Orally Active 100 MG Orally every 12 hrs Vinod Alejandro Baclofen 1 tablet with food or milk Orally Active 20 MG Orally Three times a day Flavia Alejandro Lyrica 1 capsule Orally Active 100 MG Orally Twice a d ay Flavia Alejandro Ranitidine 75 1 tablet as need ed Orally Active 75 MG Orally Twice a day Vinod Alejandro Chlordiazepoxide-Amitriptyline 1 tablet Orally Active 10-25 MG Orally Once a day Flavia Alejandro Humulin N as directed Subcutaneous Active 70/30 Subcutaneous Estrellita Lionel Alejandro Nexium 1 capsule Orally Active 40 MG Orally Once a day Flavia Alejandro Sulfazine 2 tablet Orally Active 500 MG Orally four time s a day Flavia Alejandro Methocarbamol 1 tablet Orally Active 750 MG Orally tid Flavia Alejandro Citalopram Hydrobromide 1 tab Orally Active 40 mg Orally Once a day Lolis Alejandro Budesonide ER Unknown Orally Active 3 MG Orally Flavia Alejandro Butorphanol Tartrate 1 ml as n eeded Nasally Active 10 MG/ML Nasally every 4 hrs Pieter Lionelreyna Alejandro Oxybutynin Chloride ER 1 tablet Orally Active 10 MG Orally once a day Estrellita Lionel Hammer Chlordiazepoxide-clidinium 1 c apsule orally Active 5-2.5mg orally every 6 hours Estrellita Lionel Hammer Methotrexate 6 tabs once a week NA Active 2.5 Estrellita Wild Alejandro Folic Acid 1 tablet Orally No Longer Active 325mg Orally Once a day Estrellita Lionel Alejandro ReZyst IM Unknown Orally Active Orally Alejandro Lionel Alejandro Cranberry Plus Vitamin C Unkno wn Orally Active 4200-20-3 MG-MG-UNIT Orally Alejandro Lionel Alejandro Bactrim DS 1 tablet Orally Active 800-160 MG Orally Twice a day Estrellita Lionel Alejandro Macrobid 1 capsule with food Orally Active 100 MG Orally every 12 hrs Estrellita Lionel Alejandro Allergies, Adverse Reactions, Alerts Substance Category Reaction Severity Reaction type Status Date Reported Comments Source penicillin Adverse Reaction hives Adverse Reaction Active 01/06/2018 Lionel Alejandro Humira Adverse Reaction Info Not Available Adverse Reaction Active 01/06/2018 Lionel Alejandro Benadryl Adverse Reaction hives Adverse Reaction Active 01/06/2018 Lionel Hammer methotrexate Adverse Reaction mouth ulcer Adverse Reaction Active 01/06/2018 Lionel Alejandro zantac Adverse Reaction Info Not Available Adverse Reaction Active 01/06/2018 Lionel Hammer Arava Adverse Reaction mouth/tongue ulcers Adverse Reaction Active 01/06/2018 Lionel Alejandro Cimzia Adverse Reaction infections Adverse Reaction Active 01/06/2018 Lionel Alejandro Zantac Assertion Drug allergy Active [facility] Tegretol Assertion Drug allergy Active [facility] Keflex Assertion Drug allergy Active [facility] penicillins Assertion Drug allergy Active [facility] Benadryl, Topical Assertion Drug allergy Active [facility] Immunizations Immunization Date Given Site Status Last Updated Comments Source Depomedrol 11/17/2013 completed Lionel Alejandro Toradol 11/17/2013 completed Lionel Alejandro Results No Data Provided for This Section Pathology Reports No Data Provided for This Section Diagnostic Reports Report Value Date Source Chest wo contrast CT EXAM: CT CHEST [...] IMPRESSION: 1. Groundglass nodules of the left lowe r lobe likely represent changes of infection or inflammation. Follow-up CT in 3 months is recommended following adequate treatment to exclude minimally invasive adenocarcinoma. 2. Solid pulmonary nodules in the right lower lobe measuring up to 3 mm are nonspecific, but can be followed in [address] if patient is considered high-risk for lung cancer. 08/12/2018 [facility] Complete US Cl inical Indication: - ckd Comparison: None TECHNIQUE: Multiple [...] IMPRESSION: 1. Mild pelviectasis of the right kidne y. 2. Unremarkable left kidney. SL: [id number] 07/21/2018 [facility] Bladder US Patient Name: MANPREET MADDOX : 1955; Age: 63 years Female MR: [id number] Study: Bladder US 07/21/2018 13:11 CDT Clinical Indication: - ckd. Incontinence COMPARISON: None FINDINGS: The prevoid bladder volume is 286 mL. The post void bladder volume is 28 mL. The bladder is filled with anechoic urine. IMPRESSION: Normal bladder ultrasound. SL: [id number] 07/21/2018 [facility] Thyroid biopsy w guidance US F NA of left thyroid mass CLINICAL HISTORY: 62-year-old [...] and no immediate complications were noted. SL: [id number] 08/17/2017 [facility] Thyroid US EXAM: Ultrasound yroid HISTORY: Nontoxic goiter COMPARISON: None TECHNIQUE: Sonographic [...] IMPRESSION: 1. 2.2 cm heterogeneous nodule lower lef t thyroid lobe, TI-RADS 5, highly suspicious. FNA is advised. 2. Follow-up ultrasound in 12 months for the remaining thyroid nodules. SL: [id number] 07/21/2017 [facility] Consultation Notes No Data Provided for This Section Discharge Summaries No Data Provided for This Section History and Physicals No Data Provided for This Section Vital Signs Vital Sign Value Date Comments Source Weight 197.8 01/06/2018 Lionel Alejandro Height 67 0 01/06/2018 Lionel Alejandro Temperature Oral (F) 98.3 F 01/06/2018 Lionel Alejandro Heart Rate 82 01/06/2018 Lionel Alejandro Diastolic (mm Hg) 80 01/06/2018 Lionel Alejandro Systolic (mm Hg) 180 01/06/2018 Lionel Alejandro Weight 199.6 10/05/2017 Lionel Alejandro Height 67 0 10/05/2017 Lionel Alejandro Temperature Oral (F) 96.6 F 10/05/2017 Lionel Alejandro Heart Rate 88 10/05/2017 Lionel Alejandro Diastolic (mm Hg) 64 10/05/2017 Lionel Alejandro Systolic (mm Hg) 128 10/05/2017 Lionel Alejandro Weight 206 06/15/2017 Lionel Alejandro Height 67 0 06/15/2017 Lionel Alejandro Temperature Oral (F) 98.3 F 06/15/2017 Lionel Alejandro Heart Rate 72 06/15/2017 Lionel Alejandro Diastolic (mm Hg) 64 06/15/2017 Lionel Alejandro Systolic (mm Hg) 132 06/15/2017 Lionel Alejandro Weight 200 05/12/2017 Lionel Alejandro Height 67 0 05/12/2017 Lionel Alejandro Temperature Oral (F) 98.3 F 05/12/2017 Lionel Alejandro Heart Rate 82 05/12/2017 Lionel Alejandro Diastolic (mm Hg) 60 05/12/2017 Lionel Alejandro Systolic (mm Hg) 142 05/12/2017 Lionel Alejandro Weight 201.5 02/23/2017 Lionel Alejandro Height 67 1 Lionel Alejandro Temperature Oral (F) 98.1 F 02/23/2017 Lionel Alejandro Heart Rate 96 02/23/2017 Lionel Alejandro Diastolic (mm Hg) 50 02/23/2017 Lionel Alejandro Systolic (mm Hg) 162 02/23/2017 Lionel Alejandro Weight 203 02/10/2017 Lionel Alejandro Height 67 1 Lionel Alejandro Temperature Oral (F) 98.2 F 02/10/2017 Lionel Alejandro Heart Rate 88 02/10/2017 Lionel Alejandro Diastolic (mm Hg) 62 02/10/2017 Lionel Alejandro Systolic (mm Hg) 140 02/10/2017 Lionel Alejandro Weight 202.2 01/23/2017 Lionel Alejandro Height 67 0 01/23/2017 Lionel Alejandro Temperature Oral (F) 99.0 F 01/23/2017 Lionel Alejandro Heart Rate 80 01/23/2017 Lionel Alejandro Diastolic (mm Hg) 58 01/23/2017 Lionel Alejandro Systolic (mm Hg) 126 01/23/2017 Lionel Alejandro Weight 195.7 09/26/2016 Lionel Alejandro Height 67 0 09/26/2016 Lionel Alejandro Temperature Oral (F) 98.2 F 09/26/2016 Lionel Alejandro Heart Rate 76 09/26/2016 Lionel Alejandro Diastolic (mm Hg) 68 09/26/2016 Lionel Alejandro Systolic (mm Hg) 122 09/26/2016 Lionel Alejandro Weight 195.7 09/26/2016 Lionel Alejandro Height 67 0 09/26/2016 Lionel Alejandro Temperature Oral (F) 98.3 F 09/26/2016 Lionel Alejandro Heart Rate 80 09/26/2016 Lionel Alejandro Diastolic (mm Hg) 68 09/26/2016 Lionel Alejandro Systolic (mm Hg) 122 09/26/2016 Lionel Alejandro Weight 192 08/28/2016 Lionel Alejandro Height 68 0 08/28/2016 Lionel Alejandro Temperature Oral (F) 97.8 F 08/28/2016 Lionel Alejandro Heart Rate 100 08/28/2016 Lionel Alejandro Diastolic (mm Hg) 58 08/28/2016 Lionel Alejandro Systolic (mm Hg) 120 08/28/2016 Lionel Alejandro Weight 197.1 06/05/2016 Lionel Alejandro Height 68 0 06/05/2016 Lionel Alejandro Temperature Oral (F) 98.8 F 06/05/2016 Lionel Alejandro Heart Rate 96 06/05/2016 Lionel Alejandro Diastolic (mm Hg) 58 06/05/2016 Lionel Alejandro Systolic (mm Hg) 130 06/05/2016 Lionel Alejandro Weight 203.8 02/13/2016 Lionel Alejandro Height 67 1 Lionel Alejandro Temperature Oral (F) 97.0 F 02/13/2016 Lionel Alejandro Heart Rate 70 02/13/2016 Lionel Alejandro Diastolic (mm Hg) 70 02/13/2016 Lionel Alejandor Systolic (mm Hg) 128 02/13/2016 Lionel Alejandro Weight 209 12/13/2015 Lionel Alejandro Height 67 0 12/13/2015 Lionel Alejandro Temperature Oral (F) 99.0 F 12/13/2015 Lionel Alejandro Heart Rate 78 12/13/2015 Lionel Alejnadro Diastolic (mm Hg) 58 12/13/2015 Lionel Alejandro Systolic (mm Hg) 122 12/13/2015 Lionel Alejandro Weight 209 10/24/2015 Lionel Alejandro Height 67 0 10/24/2015 Lionel Alejandro Temperature Oral (F) 98.5 F 10/24/2015 Lionel Aleajndro Heart Rate 80 10/24/2015 Lionel Alejandro Diastolic (mm Hg) 70 10/24/2015 Lionel Alejandro Systolic (mm Hg) 126 10/24/2015 Lionel Alejandro Weight 203 09/19/2015 Lionel Alejandro Height 67 0 09/19/2015 Lionel Alejandro Temperature Oral (F) 97.2 [...] Weight 197 06/27/2015 Lionel Alejandro Height 67 0 06/27/2015 Lionel Alejandro Temperature Oral (F) 98.4 F 06/27/2015 Ilonel Alejandro Heart Rate 79 06/27/2015 Lionel Alejandro [...] Status Source Grzegorz Alejandro MD 2M F/U [id number] 09/13/19 14 09/12/2013 Lionel Alejandro MD 2M F/U [id number] 09/13/19 14 09/12/2013 Lionel Alejandro MD 2M F/U [id number] 09/13/19 14 09/12/2013 Lionel Alejandro MD 2M F/U [id number] 09/13/19 14 09/12/2013 Lionel Alejandro MD 2M F/U [id number] 09/13/19 14 09/12/2013 Lionel Alejandro MD 2M F/U [id number] 09/13/19 14 09/12/2013 Lionel Alejandro MD 2M F/U [id number] 09/13/19 14 09/12/2013 Lionel Alejandro MD 2M F/U [id number] 09/13/19 14 09/12/2013 Lionel Alejandro MD 2M F/U [id number] 09/13/19 14 09/12/2013 Lionel Alejandro MD 2M F/U [id number] 09/13/19 14 09/12/2013 Lionel Alejandro MD 2M F/U [id number] 09/13/19 14 09/12/2013 Lionel Alejandro MD 2M F/U [id number] 09/13/19 14 09/12/2013 Lionel Alejandro MD 2M F/U [id number] 09/13/19 14 09/12/2013 Lionel Alejandro MD 2M F/U [id number] 09/13/19 14 09/12/2013 Lionel Alejandro MD 2M F/U [id number] 09/13/19 14 09/12/2013 Lionel Alejandro MD 2M F/U [id number] 09/13/19 14 09/12/2013 Lionel Alejandro MD 2M F/U [id number] 09/13/19 14 09/12/2013 Lionel Alejandro MD 2M F/U [id number] 09/13/19 14 09/12/2013 Lionel Alejandro MD 2M F/U [id number] 09/13/19 14 09/12/2013 Lionel Alejandro MD 2M F/U [id number] 09/13/19 14 09/12/2013 Lionel Alejandro MD 2M F/U [id number] 09/13/19 14 09/12/2013 Lionel Alejandro MD 2M F/U [id number] 09/13/19 14 09/12/2013 Lionel Alejandro MD 2M F/U [id number] 09/13/19 14 09/12/2013 Lionel Alejandro MD 2M F/U [id number] 09/13/19 14 09/12/2013 Lionel Alejandro MD 2M F/U [id number] 09/13/19 14 09/12/2013 Lionel Alejandro MD 2M F/U [id number] 09/13/19 14 09/12/2013 Lionel Alejandro MD 2M F/U [id number] 09/13/19 14 09/12/2013 Lionel Alejandro MD 2M F/U [id number] 09/13/19 14 09/12/2013 Lionel Alejandro MD 2M F/U [id number] 09/13/19 14 09/12/2013 Lionel Alejandro MD 2M F/U [id number] 09/13/19 14 09/12/2013 Lionel Alejandro MD enbrel teaching [id number] 09/30/19 14 09/29/2013 Lionel Alejandro MD enbrel teaching [id number] 09/30/19 14 09/29/2013 Lionel Alejandro MD enbrel teaching [id number] 09/30/19 14 09/29/2013 Lionel Alejandro MD enbrel teaching [id number] 09/30/19 14 09/29/2013 Lionel Alejandro MD enbrel teaching [id number] 09/30/19 14 09/29/2013 Lionel Alejandro MD enbrel teaching [id number] 09/30/19 14 09/29/2013 Lionel Alejandro MD enbrel teaching [id number] 09/30/19 14 09/29/2013 Lionel Alejandro MD enbrel teaching [id number] 09/30/19 14 09/29/2013 Lionel Alejandro MD enbrel teaching [id number] 09/30/19 14 09/29/2013 Lionel Alejandro MD enbrel teaching [id number] 09/30/19 14 09/29/2013 Lionel Alejandro MD enbrel teaching [id number] 09/30/19 14 09/29/2013 Lionel Alejandro MD enbrel teaching [id number] 09/30/19 14 09/29/2013 Lionel Alejandro MD enbrel teaching [id number] 09/30/19 14 09/29/2013 Lionel Alejandro MD enbrel teaching [id number] 09/30/19 14 09/29/2013 Lionel Alejandro MD enbrel teaching [id number] 09/30/19 14 09/29/2013 Lionel Alejandro MD enbrel teaching [id number] 09/30/19 14 09/29/2013 Lionel Alejandro MD enbrel teaching [id number] 09/30/19 14 09/29/2013 Lionel Alejandro MD enbrel teaching [id number] 09/30/19 14 09/29/2013 Lionel Alejandro MD enbrel teaching [id number] 09/30/19 14 09/29/2013 Lionel Alejandro MD enbrel teaching [id number] 09/30/19 14 09/29/2013 Lionel Alejandro MD enbrel teaching [id number] 09/30/19 14 09/29/2013 Lionel Alejandro MD enbrel teaching [id number] 09/30/19 14 09/29/2013 Lionel Alejandro MD enbrel teaching [id number] 09/30/19 14 09/29/2013 Lionel Alejandro MD enbrel teaching [id number]-[id number] 09/30/19 14 09/29/2013 Lionel Alejandro MD enbrel teaching [id number] 09/30/19 14 09/29/2013 Lionel Alejandro MD enbrel teaching [id number] 09/30/19 14 09/29/2013 Lionel Alejandro MD enbrel teaching [id number] 09/30/19 14 09/29/2013 Lionel Alejandro MD enbrel teaching [id number]-[id number] 09/30/19 14 09/29/2013 Lionel Alejandro MD enbrel teaching [id number] 09/30/19 14 09/29/2013 Lionel Alejandro MD enbrel teaching [id number] 09/30/19 14 09/29/2013 Lionel Alejandro MD ReFill request [id number] 10/01/19 14 09/30/2013 Lionel Alejandro MD ReFill request [id number]-a112eyuerne1 10/01/19 14 09/30/2013 Lionel Alejandro MD ReFill request [id number] 10/01/19 14 09/30/2013 Lionel Alejandro MD ReFill request [id number] 10/01/19 14 09/30/2013 Lionel Alejandro MD ReFill request [id number]-[id number] 10/01/19 14 09/30/2013 Lionel Alejandro MD ReFill request [id number] 10/01/19 14 09/30/2013 Lionel Alejandro MD ReFill request [id number] 10/01/19 14 09/30/2013 Lionel Alejandro MD ReFill request [id number]-[id number] 10/01/19 14 09/30/2013 Lionel Alejandro MD ReFill request [id number] 10/01/19 14 09/30/2013 Lionel Alejandro MD ReFill request [id number] 10/01/19 14 09/30/2013 Lionel Alejandro MD ReFill request [id number] 10/01/19 14 09/30/2013 Lionel Alejandro MD ReFill request [id number] 10/01/19 14 09/30/2013 Lionel Alejandro MD ReFill request [id number]-t94r-156vc5g74v17 10/01/19 14 09/30/2013 Lionel Alejandro MD ReFill request [id number]-[id number] 10/01/19 14 09/30/2013 Lionel Alejandro MD ReFill request [id number]-[id number] 10/01/19 14 09/30/2013 Lionel Alejandro MD ReFill request [id number] 10/01/19 14 09/30/2013 Lionel Alejandro MD ReFill request [id number] 10/01/19 14 09/30/2013 Lionel Alejandro MD ReFill request [id number] 10/01/19 14 09/30/2013 Lionel Alejandro MD ReFill request [id number]-[id number] 10/01/19 14 09/30/2013 Lionel Alejandro MD ReFill request [id number] 10/01/19 14 09/30/2013 Lionel Alejandro MD ReFill request [id number] 10/01/19 14 09/30/2013 Lionel Alejandro MD ReFill request [id number]-[id number] 10/01/19 14 09/30/2013 Lionel Alejandro MD ReFill request [id number] 10/01/19 14 09/30/2013 Lionel Alejandro MD ReFill request [id number]-qq2o-[id number] 10/01/19 14 09/30/2013 Lionel Alejandro MD ReFill request [id number] 10/01/19 14 09/30/2013 Lionel Alejandro MD ReFill request [id number] 10/01/19 14 09/30/2013 Lionel Alejandro MD ReFill request [id number] 10/01/19 14 09/30/2013 Lionel Alejandro MD ReFill request [id number] 10/01/19 14 09/30/2013 Lionel Alejandro MD Office Visit [id number] 11/10/19 14 11/09/2013 Lionel Alejandro MD Office Visit [id number]-lfoh-20170w895i1s 11/10/19 14 11/09/2013 Lionel Alejandro MD Office Visit [id number] 11/10/19 14 11/09/2013 Lionel Alejandro MD Office Visit [id number]-w7jo-h97qxv8c015t 11/10/19 14 11/09/2013 Lionel Alejandro MD Office Visit [id number] 11/10/19 14 11/09/2013 Lionel Alejandro MD Office Visit [id number] 11/10/19 14 11/09/2013 Lionel Alejandro MD Office Visit [id number] 11/10/19 14 11/09/2013 Lionel Alejandro MD Office Visit [id number]-0xd1-w89lx6o3u97r 11/10/19 14 11/09/2013 Lionel Alejandro MD Office Visit [id number]-89nu-lmrj-[id number] 11/10/19 14 11/09/2013 Lionel Alejandro MD Office Visit 06gw2i1m-1p44-0ymn-41by-0399d053c6h8 11/10/19 14 11/09/2013 Lionel Alejandro MD Office Visit [id number]-[id number]-t4n2-0927wi4lx737 11/10/19 14 11/09/2013 Lionel Alejandro MD Office Visit q56ubwlt-9sj7-24ez-q58g-k19506z7fq17 11/10/19 14 11/09/2013 Lionel Alejandro MD Office Visit [id number]-c8xr-s5k2w0grr025 11/10/19 14 11/09/2013 Lionel Alejandro MD Office Visit [id number]-o89kkcs91r3p 11/10/19 14 11/09/2013 Lionel Alejandro MD Office Visit [id number] 11/10/19 14 11/09/2013 Lionel Alejandro MD Office Visit [id number] 11/10/19 14 11/09/2013 Lionel Alejandro MD Office Visit [id number] 11/10/19 14 11/09/2013 Lionel Alejandro MD Office Visit [id number]-8py2-o072-c242pd3k8ztc 11/10/19 14 11/09/2013 Lionel Alejandro MD Office Visit [id number]-q137-4l5162ops8i0 11/10/19 14 11/09/2013 Lionel Alejandro MD Office Visit [id number] 11/10/19 14 11/09/2013 Lionel Alejandro MD Office Visit [id number]-xd458tnpt8zj 11/10/19 14 11/09/2013 Lionel Alejandro MD Office Visit [id number] 11/10/19 14 11/09/2013 Lionel Alejandro MD Office Visit [id number]-v8h3243pz4nc 11/10/19 14 11/09/2013 Lionel Alejandro MD Office Visit [id number] 11/10/19 14 11/09/2013 Lionel Alejandro MD Office Visit [id number]-19ga-[id number] 11/10/19 14 11/09/2013 Lionel Alejandro MD Office Visit [id number]-gk96-2h4t-0h5l-up70asl61wi9 11/10/19 14 11/09/2013 Lionel Alejandro MD Office Visit [id number]-9v26-yjl4-t4ho9h620qe7 11/10/19 14 11/09/2013 Lionel Alejandro MD F/U [id number]-fh49-t13vqoq4z998 11/17/2013 11/17/2013 Lionel Alejandro MD F/U 92ua08n8-016v-76or-02x8-r2zhf35kc81y 11/17/2013 11/17/2013 Lionel Alejandro MD F/U [id number]-[id number]-a256-t500121xd95b 11/17/2013 11/17/2013 Lionel Alejandro MD F/U p60bn5y1-t34y-3sya-pvq0-23n4ri04c0j8 11/17/2013 11/17/2013 Lionel Alejandro MD F/U 1yao1h7s-isn0-3053-1o5x-kyj2524ntquo 11/17/2013 11/17/2013 Lionel Alejandro MD F/U [id number]-9224-y996-yx9e91628ddo 11/17/2013 11/17/2013 Lionel Alejandro MD F/U [id number]-fogy-2tj4-3833-4jf6j024079l 11/17/2013 11/17/2013 Lionel Alejandro MD F/U [id number]-b16z-enm469x15709 11/17/2013 11/17/2013 Lionel Alejandro MD F/U [id number]-k198048m4x43 11/17/2013 11/17/2013 Lionel Alejandro MD F/U 7z9p467s-[id number]-z9l2zuq0j504 11/17/2013 11/17/2013 Lionel Alejandro MD F/U [id number]-6k3x-3677-8454-n026h53448sy 11/17/2013 11/17/2013 Lionel Alejandro MD F/U 72qd518n-2dk4-267k-qq34-010xd837c6x1 11/17/2013 11/17/2013 Lionel Alejandro MD F/U b7bn1ly5-[id number]-5096-68l5b2l758m7 11/17/2013 11/17/2013 Lionel Alejandro MD F/U [id number]-[id number] 11/17/2013 11/17/2013 Lionel Alejandro MD F/U [id number]-[id number] 11/17/2013 11/17/2013 Lionel Alejandro MD F/U [id number]-3145-p6s2-2lm867z87906 11/17/2013 11/17/2013 Lionel Alejandro MD F/U [id number]-knz6-20363140uf95 11/17/2013 11/17/2013 Lionel Alejandro MD [facility] Report [id number] 11/18/2013 11/18/2013 Lionel Alejadnro MD [facility] Patient Report [id number] 11/18/2013 11/18/2013 Lionel Alejandro MD [facility] Patient Report [id number] 11/18/2013 11/18/2013 Lionel Alejandro MD [facility] Report [id number] 11/18/2013 11/18/2013 Lionel Alejandro MD [facility] Report [id number] 11/18/2013 11/18/2013 Lionel Alejandro MD [facility] Report [id number]-k9jl0xmg6389 11/18/2013 11/18/2013 Lionel Alejandro MD [facility] Report [id number] 11/18/2013 11/18/2013 Lionel Alejandro MD [facility] Report [id number] 11/18/2013 11/18/2013 Lionel Alejandro MD [facility] Report [id number]-[id number] 11/18/2013 11/18/2013 Lionel Alejandro MD [facility] Report [id number] 11/18/2013 11/18/2013 Lionel Alejandro MD [facility] Report [id number]-tq86q486k94g 11/18/2013 11/18/2013 Lionel Alejandro MD [facility] Patient Report [id number] 11/18/2013 11/18/2013 Lionel Alejandro MD [facility] Patient Report [id number] 11/18/2013 11/18/2013 Lionel Alejandro MD [facility] Patient Report [id number] 11/18/2013 11/18/2013 Lionel Alejandro MD [facility] Report [id number] 11/18/2013 11/18/2013 Lionel Alejandro MD [facility] Report [id number]-rmpbkq27raek 11/18/2013 11/18/2013 Lionel Alejandro MD [facility] Report [id number] 11/18/2013 11/18/2013 Lionel Alejandro MD [facility] Patient Report [id number] 11/18/2013 11/18/2013 Lionel Alejandro MD [facility] Report [id number] 11/18/2013 11/18/2013 Lionel Alejandro MD [facility] Patient Report [id number] 11/18/2013 11/18/2013 Lionel Alejandro MD [facility] Report [id number]-u2n0n5p9t93s 11/18/2013 11/18/2013 Lionel Alejandro MD [facility] Patient Report [id number] 11/18/2013 11/18/2013 Lionel Alejandro MD [facility] Patient Report [id number] 11/18/2013 11/18/2013 Lionel Alejandro MD [facility] Report [id number] 11/18/2013 11/18/2013 Lionel Alejandro MD [facility] Patient Report [id number] 11/18/2013 11/18/2013 Lionel Alejandro MD [facility] Patient Report [id number] 11/18/2013 11/18/2013 Lionel Alejandro MD medication [id number] 11/26/19 14 11/25/2013 Lionel Alejandro MD medication [id number] 11/26/19 14 11/25/2013 Lionel Alejandro MD medication [id number]-[id number] 11/26/19 14 11/25/2013 Lionel Alejandro MD medication [id number] 11/26/19 14 11/25/2013 Lionel Alejandro MD medication [id number] 11/26/19 14 11/25/2013 Lionel Alejandro MD medication [id number]-m78g-k7663b3o9568 11/26/19 14 11/25/2013 Lionel Alejandro MD medication pn31gxc1-93s2-3vjr-0lxa-3963w77962v8 11/26/19 14 11/25/2013 Lionel Alejandro MD medication [id number] 11/26/19 14 11/25/2013 Lionel Alejandro MD medication [id number]-e36s-6q89rhzc993d 11/26/19 14 11/25/2013 Lionel Alejandro MD medication [id number]-sv7w-4vpw2o800887 11/26/19 14 11/25/2013 Lionel Alejandro MD medication [id number]-bg60-769z88s23s15 11/26/19 14 11/25/2013 Lionel Alejandro MD medication [id number]-670s9t599khr 11/26/19 14 11/25/2013 Lionel Alejandro MD medication [id number]-i91u-58gm73gi02z9 11/26/19 14 11/25/2013 Lionel Alejandro MD medication [id number]-[id number]-c0c8z73xr998 11/26/19 14 11/25/2013 Lionel Alejandro MD medication [id number]-[id number]-coh8-9npz4461f225 11/26/19 14 11/25/2013 Lionel Alejandro MD medication [id number]-9415-5636-k7bi3bi2w501 11/26/19 14 11/25/2013 Lionel Alejandro MD medication [id number]-40y4-0y0q-jsw5-0396q2xrz179 11/26/19 14 11/25/2013 Lionel Alejandro MD medication 6pplyh92-nx6y-2472-8qk5-91qp35o56yd4 11/26/19 14 11/25/2013 Lionel Alejandro MD medication [id number]-dd1d-w8eg0fl3p4uj 11/26/19 14 11/25/2013 Lionel Alejandro MD medication [id number]-hf61-[id number] 11/26/19 14 11/25/2013 Lionel Alejandro MD medication [id number]-e104wl9i8jt7 11/26/19 14 11/25/2013 Lionel Alejandro MD medication 68zl6d90-h27s-2bly-97hl-n4245ny2442h 11/26/19 14 11/25/2013 Lionel Alejandro MD medication [id number]-ecgu-[id number]-08h1f115g995 11/26/19 14 11/25/2013 Lionel Alejandro MD medication rz9mze55-l3k7-60w5-n773-x793o3b7617b 11/26/19 14 11/25/2013 Lionel Alejandro MD medication [id number]-d6n0-bjcpsz510712 11/26/19 14 11/25/2013 Lionel Alejandro MD medication [id number]-[id number] 11/26/19 14 11/25/2013 Lionel Alejandro MD refills [id number]-8n8s1kt9795r 02/14/20 14 02/13/2014 Lionel Alejandro MD refills r8n53b70-f96g-6n88-t760-2vx60737ww1e 02/14/20 14 02/13/2014 Lionel Alejandro MD refills [id number]-29p0-68v5-5s9mg85h870p 02/14/20 14 02/13/2014 Lionel Alejandro MD refills [id number]-aumd-0l7b-t5ei-50730b8b87rn 02/14/20 14 02/13/2014 Lionel Alejandro MD refills 3jk36gla-2248-6d93-hc5g-6s1v04d0my9j 02/14/20 14 02/13/2014 Lionel Alejandro MD refills [id number]-o4m7-6559-1y2u-mth0za9568g6 02/14/20 14 02/13/2014 Lionel Alejandro MD refills [id number]-5635-0n4v-18k151dc9mo0 02/14/20 14 02/13/2014 Lionel Alejandro MD refills wfr3pf81-2zaw-35xf-u6m8-l61o4h34925k 02/14/20 14 02/13/2014 Lionel Alejandro MD refills [id number]-[id number]-[id number] 02/14/20 14 02/13/2014 Lionel Alejandro MD refills [id number]-0b91-[id number] 02/14/20 14 02/13/2014 Lionel Alejandro MD refills r4pyk148-17s5-9ry5-y684-529277661z36 02/14/20 14 02/13/2014 Lionel Alejandro MD refills [id number]-m600u8713qig 02/14/20 14 02/13/2014 Lionel Alejandro MD refills [id number]-o5bs-113c-297g-3789e415ap34 02/14/20 14 02/13/2014 Lionel Alejandro MD refills [id number]-02piay9bbwc6 02/14/20 14 02/13/2014 Lionel Alejandro MD refills 4w80xlq2-5t04-8e7c-e01c-sx499nl9soyg 02/14/20 14 02/13/2014 Lionel Alejandro MD refills [id number]-u73p-3422-bv51-d23a63mi1h86 02/14/20 14 02/13/2014 Lionel Alejandro MD refills h8c58c9e-8v6w-38y8-yjun-9mr336k6t7w6 02/14/20 14 02/13/2014 Lionel Alejandro MD refills upyq5hff-701a-2e3t-1e7y-i732037n61zs 02/14/20 14 02/13/2014 Lionel Alejandro MD refills [id number]-z7s2-777r-zenh-2p24n22822m2 02/14/20 14 02/13/2014 Lionel Alejandro MD refills x07o9bdz-g1lz-5dwf-49gi-4rf33cs88k6n 02/14/20 14 02/13/2014 Lionel Alejandro MD refills [id number]-u074-5561jft33779 02/14/20 14 02/13/2014 Lionel Alejandro MD refills [id number]-w8h88420a6ub 02/14/20 14 02/13/2014 Lionel Alejandro MD refills [id number]-16ox-4ms1-41l703889f26 02/14/20 14 02/13/2014 Lionel Alejandro MD refills psvcw6z2-3135-99e8-j3bi-hws231k42s1x 02/14/20 14 02/13/2014 Lionel Alejandro MD [facility] f/u 40h14g80-b55o-297f-e7g4-wjru077w5b45 02/22/20 14 02/21/2014 Lionel Alejandro MD [facility] f/u u554bwm3-2382-1149-qc9h-68zmm4p4f754 02/22/20 14 02/21/2014 Lionel Alejandro MD [facility] f/u 59s8892c-u04s-8410-e4z8-z41k893v7vi9 02/22/20 14 02/21/2014 Lionel Alejandro MD [facility] f/u [id number]-[id number] 02/22/20 14 02/21/2014 Lionel Alejandro MD [facility] f/u [id number]-[id number]-z16q-k8jxyl74n9g8 02/22/20 14 02/21/2014 Lionel Alejandro MD [facility] f/u h920d20y-bn6n-720z-2y7u-4646v8a100j9 02/22/20 14 02/21/2014 Lionel Alejandro MD [facility] f/u 0a689f1t-90g5-29d5-[id number] 02/22/20 14 02/21/2014 Lionel Alejandro MD [facility] f/u [id number]-hh56-sev6i480y6e8 02/22/20 14 02/21/2014 Lionel Alejandro MD [facility] f/u [id number]-2l35-4ezm-8fo0-6sq342g1i9hu 02/22/20 14 02/21/2014 Lionel Alejandro MD [facility] f/u j9e6d3ty-206l-728k-9522-096i5p115944 02/22/20 14 02/21/2014 Lionel Alejandro MD [facility] f/u 604nh62g-uj02-85x5-s31o-v8n951q79x06 02/22/20 14 02/21/2014 Lionel Alejandro MD [facility] f/u 0lt0kp0h-65tr-80rw-575d-41n14575ja06 02/22/20 14 02/21/2014 Lionel Alejandro MD [facility] f/u 47luww5f-9s42-6a9f-948g-[id number] 02/22/20 14 02/21/2014 Lionel Alejandro MD [facility] f/u bq0ku2t4-5o21-0na9-8m93-1259t30763n6 02/22/20 14 02/21/2014 Lionel Alejandro MD [facility] f/u [id number]-c0z8-53on-f395-61y12c9v5267 02/22/20 14 02/21/2014 Lionel Alejandro MD [facility] f/u p6ii7626-g642-063h-96e0-52u98pxw2shk 02/22/20 14 02/21/2014 Lionel Alejandro MD [facility] f/u 1da3873f-3209-36pv-7c93-e147j27s63h7 02/22/20 14 02/21/2014 Lionel Alejandro MD [facility] f/u [id number]-[id number]-wdt8v8j6n196 02/22/20 14 02/21/2014 Lionel Alejandro MD RX Request-- Enbrel 51d0lot2-2w37-2t63-354e-[id number] 05/09/2014 05/09/2014 Lionel Alejandro MD RX Request-- Enbrel [id number]-[id number]-d638-424151hy7hf0 05/09/2014 05/09/2014 Lionel Alejandro MD RX Request-- Enbrel 7y9h55n0-196d-5089-31er-6aw535v6il1n 05/09/2014 05/09/2014 Lionel Alejandro MD RX Request-- Enbrel ug3cu7s1-12s6-002c-gj70-0g0sq68382b8 05/09/2014 05/09/2014 Lionel Alejandro MD RX Request-- Enbrel no90yr5e-[id number]-l3w7a51y4326 05/09/2014 05/09/2014 Lionel Alejandro MD RX Request-- Enbrel y859khe4-90rm-57b1-r07j-gk4z2h24zm67 05/09/2014 05/09/2014 Lionel Alejandro MD RX Request-- Enbrel [id number] 05/09/2014 05/09/2014 Lionel Alejandro MD RX Request-- Enbrel [id number]-[id number] 05/09/2014 05/09/2014 Lionel Alejandro MD RX Request-- Enbrel [id number]-39wy-z667qmy47s54 05/09/2014 05/09/2014 Lionel Alejandro MD RX Request-- Enbrel [id number]-[id number] 05/09/2014 05/09/2014 Lionel Alejandro MD RX Request-- Enbrel [id number] 05/09/2014 05/09/2014 Lionel Alejandro MD RX Request-- Enbrel [id number]-[id number] 05/09/2014 05/09/2014 Lionel Alejandro MD RX Request-- Enbrel [id number]-3ekw-[id number] 05/09/2014 05/09/2014 Lionel Alejandro MD RX Request-- Enbrel [id number] 05/09/2014 05/09/2014 Lionel Alejandro MD RX Request-- Enbrel [id number]-[id number] 05/09/2014 05/09/2014 Lionel Alejandro MD RX Request-- Enbrel [id number] 05/09/2014 05/09/2014 Lionel Alejandro MD RX Request-- Enbrel [id number] 05/09/2014 05/09/2014 Lionel Alejandro MD RX Request-- Enbrel [id number] 05/09/2014 05/09/2014 Lionel Alejandro MD RX Request-- Enbrel [id number] 05/09/2014 05/09/2014 Lionel Alejandro MD RX Request-- Enbrel [id number]-s58o-g6wa787o141k 05/09/2014 05/09/2014 Lionel Alejandro MD RX Request-- Enbrel [id number] 05/09/2014 05/09/2014 Lionel Alejandro MD RX Request-- Enbrel i94rj3s6-3qef-7165-h87t-4um363qyd9q3 05/09/2014 05/09/2014 Lionel Alejandro MD RX Request-- Enbrel [id number]-pf10-eh57icv3z07c 05/09/2014 05/09/2014 Lionel Alejandro MD Refill [id number] 05/25/19 15 05/25/2014 Lionel Alejandro MD Refill [id number] 05/25/19 15 05/25/2014 Lionel Alejandro MD Refill [id number] 05/25/19 15 05/25/2014 Lionel Alejandro MD Refill [id number] 05/25/19 15 05/25/2014 Lionel Alejandro MD Refill [id number] 05/25/19 15 05/25/2014 Lionel Alejandro MD Refill [id number]-m9ik-c000e1t9j1d9 05/25/19 15 05/25/2014 Lionel Alejandro MD Refill [id number] 05/25/19 15 05/25/2014 Lionel Alejandro MD Refill [id number]-y000-l3y68q696x40 05/25/19 15 05/25/2014 Lionel Alejandro MD Refill [id number] 05/25/19 15 05/25/2014 Lionel Alejandro MD Refill [id number] 05/25/19 15 05/25/2014 Lionel Alejandro MD Refill [id number]-[id number] 05/25/19 15 05/25/2014 Lionel Alejandro MD Refill [id number]-[id number] 05/25/19 15 05/25/2014 Lionel Alejandro MD Refill [id number] 05/25/19 15 05/25/2014 Lionel Alejandro MD Refill [id number] 05/25/19 15 05/25/2014 Lionel Alejandro MD Refill [id number] 05/25/19 15 05/25/2014 Lionel Alejandro MD Refill [id number]-[id number] 05/25/19 15 05/25/2014 Lionel Alejandro MD Refill [id number] 05/25/19 15 05/25/2014 Lionel Alejandro MD Refill [id number]-fh29-j328rd8c3hfe 05/25/19 15 05/25/2014 Lionel Alejandro MD Refill [id number] 05/25/19 15 05/25/2014 Lionel Alejandro MD Refill [id number] 05/25/19 15 05/25/2014 Lionel Alejandro MD Refill [id number]-ncu1c8p0p516 05/25/19 15 05/25/2014 Lionel Alejandro MD Refill [id number]-[id number] 05/25/19 15 05/25/2014 Lionel Alejandro MD DEXA [id number] 05/25/2014 05/25/2014 Lionel Alejandro MD DEXA [id number] 05/25/2014 05/25/2014 Lionel Alejandro MD DEXA [id number] 05/25/2014 05/25/2014 Lionel Alejandro MD DEXA [id number]-h33th16n0683 05/25/2014 05/25/2014 Lionel Alejandro MD DEXA [id number]-g6k1rxr3963g 05/25/2014 05/25/2014 Lionel Alejandro MD DEXA [id number] 05/25/2014 05/25/2014 Lionel Alejandro MD DEXA [id number]-a235-sg8s25u37el0 05/25/2014 05/25/2014 Lionel Alejandro MD DEXA 0t2r7d0l-d656-05wa-m618-p855pbe9met5 05/25/2014 05/25/2014 Lionel Alejandro MD DEXA [id number] 05/25/2014 05/25/2014 Lionel Alejandro MD DEXA [id number] 05/25/2014 05/25/2014 Lionel Alejandro MD DEXA [id number] 05/25/2014 05/25/2014 Lionel Alejandro MD DEXA [id number] 05/25/2014 05/25/2014 Lionel Alejandro MD DEXA [id number] 05/25/2014 05/25/2014 Lionel Alejandro MD DEXA [id number] 05/25/2014 05/25/2014 Lionel Alejandro MD DEXA [id number]-[id number] 05/25/2014 05/25/2014 Lionel Alejandro MD DEXA [id number] 05/25/2014 05/25/2014 Lionel Alejandro MD DEXA [id number]-q5t48w96v5n1 05/25/2014 05/25/2014 Lionel Alejandro MD DEXA [id number] 05/25/2014 05/25/2014 Lionel Alejandro MD DEXA [id number] 05/25/2014 05/25/2014 Lionel Alejandro MD DEXA [id number] 05/25/2014 05/25/2014 Lionel Alejandro MD DEXA [id number]-e0pf-r2397vfr9se2 05/25/2014 05/25/2014 Lionel Alejandro MD DEXA [id number] 05/25/2014 05/25/2014 Lionel Alejandro MD F/U [id number]-[id number]-a8bq66v87d03 05/30/1905/30/2014 Lionel Alejandro MD F/U [id number] 05/30/19 15 05/30/2014 Lionel Alejandro MD F/U g6eqtq3b-[id number]-t640-mblq9e6m3722 05/30/19 15 05/30/2014 Lionel Alejandro MD F/U [id number] 05/30/19 15 05/30/2014 Lionel Alejandro MD F/U [id number]-kfgs709r46b2 05/30/19 15 05/30/2014 Lionel Alejandro MD F/U hmax71wr-[id number]-z129-3k544trfzv7g 05/30/19 15 05/30/2014 Lionel Alejandro MD [facility]/U [id number] 05/30/19 15 05/30/2014 Lionel Alejandro MD [facility]/U [id number]-938f-ur26-2bdh1680wsy0 05/30/19 15 05/30/2014 Lionel Alejandro MD [facility]/U [id number] 05/30/19 15 05/30/2014 Lionel Alejandro MD [facility]/U [id number] 05/30/19 15 05/30/2014 Lionel Alejandro MD [facility]/U [id number] 05/30/19 15 05/30/2014 Lionel Alejandro MD [facility]/U [id number] 05/30/19 15 05/30/2014 Lionel Alejandro MD [facility]/U [id number] 05/30/19 15 05/30/2014 Lionel Alejandro MD F/U [id number] 05/30/19 15 05/30/2014 Lionel Alejandro MD F/U [id number]-i7pa23oc8jzo 05/30/19 15 05/30/2014 Lionel Alejandro MD F/U [id number] 05/30/19 15 05/30/2014 Lionel Alejandro MD F/U 4t0av535-3286-4428-0299-34h0u20rx155 05/30/19 15 05/30/2014 Lionel Alejandro MD F/U 2uo15ik8-3uez-52sf-dh6b-57y043rm648p 05/30/19 15 05/30/2014 Lionel Alejandro MD F/U 21en6iz3-u73j-9s48-q342-988w5pz5ifwb 05/30/19 15 05/30/2014 Lionel Alejandro MD Switching rx 10i866p1-qw44-4138-4a4r-807v3v9z70a9 06/05/19 15 06/05/2014 Lionel Alejandro MD Switching rx 5h2c0g52-w92z-845x-h6vl-562b461i1m8f 06/05/19 15 06/05/2014 Lionel Alejandro MD Switching rx 0v41lah8-14uk-085h-a30v-54j3n575027y 06/05/19 15 06/05/2014 Lionel Alejandro MD Switching rx 680hk0q5-rsjb-2505-7c06-1290u501b324 06/05/19 15 06/05/2014 Lionel Alejandro MD Switching rx 3u409175-5ca3-4803-np4f-7044o14etum4 06/05/19 15 06/05/2014 Lionel Alejandro MD Switching rx 69281x02-ouvu-25kt-979g-2otnv493404b 06/05/19 15 06/05/2014 Lionel Alejandro MD Switching rx 9x418wu0-h4yd-5z58-vh38-0i3809m9y6pw 06/05/19 15 06/05/2014 Lionel Alejandro MD Switching rx 66ab0wyk-fg58-561i-990r-29jhk1138kbz 06/05/19 15 06/05/2014 Lionel Alejandro MD Switching rx 35f47f5w-rokm-9alq-p843-r383580m7362 06/05/19 15 06/05/2014 Lionel Alejandro MD Switching rx 4bj744wy-m4h3-4ik1-hb6b-3172h6z01367 06/05/19 15 06/05/2014 Lionel Alejandro MD Switching rx 62s2jy14-g98k-5c2q-10m1-87612d728j62 06/05/19 15 06/05/2014 Lionel Alejandro MD Switching rx f5ds3219-l168-80m1-5cri-mcm4n94286d4 06/05/19 15 06/05/2014 Lionel Alejandro MD Switching rx 7q610m22-4gd1-7r93-qvl2-0148t1jc61zi 06/05/19 15 06/05/2014 Lionel Alejandro MD Switching rx 78q900b3-ea8m-1246-z562-g2l0h16o07n2 06/05/19 15 06/05/2014 Lionel Alejandro MD Switching rx q47lq503-0s6d-25ha-4cpf-26g68336u5c5 06/05/19 15 06/05/2014 Lionel Alejandro MD Switching rx b5dfm234-2ww5-1x38-6co6-749pft9eq939 06/05/19 15 06/05/2014 Lionel Alejandro MD Switching rx p333m604-9vc8-86zu-21mf-496586y686ly 06/05/19 15 06/05/2014 Lionel Alejandro MD Switching rx 7b40611q-as53-76ho-6084-pwv50e1883n0 06/05/19 15 06/05/2014 Lionel Alejandro MD Switching rx 5836s05u-w6t0-4997-b445-b03nk993e6e3 06/05/19 15 06/05/2014 Lionel Alejandro MD Switching rx 6z02s575-784z-888t-036m-67013oeljzf0 06/05/19 15 06/05/2014 Lionel Alejandro MD RX REFILL g86c9t37-7c6a-1t0w-j1uc-u09kl56zf0s0 07/21/19 15 07/20/2014 Lionel Alejandro MD RX REFILL 38dsz32c-6r71-609p-29y6-uz21xbqyi5l8 07/21/19 15 07/20/2014 Lionel Alejandro MD RX REFILL e2oc1fn8-paf4-1971-p7v3-viw4ki6x7381 07/21/19 15 07/20/2014 Lionel Alejandro MD RX REFILL e452w377-087r-4218-6767-3066sb4xb599 07/21/19 15 07/20/2014 Lionel Alejandro MD RX REFILL h556418s-38bg-0w71-5yr2-0z9u83ja1411 07/21/19 15 07/20/2014 Lionel Alejandro MD RX REFILL 557z1f00-0rrw-687f-l25x-o8r7u7u91533 07/21/19 15 07/20/2014 Lionel Alejandro MD RX REFILL g49v60q0-03ap-808e-6516-1340f062672k 07/21/19 15 07/20/2014 Lionel Alejandro MD RX REFILL 344b5r79-v126-6i9m-360l-5r1xa5wserz4 07/21/19 15 07/20/2014 Lionel Alejandro MD RX REFILL 380j1in5-w9e7-3740-y6h2-484324v09w84 07/21/19 15 07/20/2014 Lionel Alejandro MD RX REFILL 3179u49p-lc48-584w-876z-2bb49661ke78 07/21/19 15 07/20/2014 Lionel Alejandro MD RX REFILL 4vi9uh77-235z-3712-4dvy-7n36n6222jn7 07/21/19 15 07/20/2014 Lionel Alejandro MD RX REFILL 28876oj8-3u17-9f76-4p63-5jv4a53w6t4x 07/21/19 15 07/20/2014 Lionel Alejandro MD RX REFILL 4yp44p38-588w-2qy4-e02t-53o8v6be9591 07/21/19 15 07/20/2014 Lionel Alejandro MD RX REFILL 696womkt-28p4-8s7p54n8-7n0g-ih81-185fe9263e77 07/21/19 15 07/20/2014 Lionel Alejandro MD RX REFILL 56jwkr4f-6f86-62fa-2l8w-845k6841p884 07/21/19 15 07/20/2014 Lionel Alejandro MD RX REFILL 59923049-8672-8962-6615-2wd1j6ok9872 07/21/19 15 07/20/2014 Lionel Alejandro MD RX REFILL r87l5e61-e675-40d1-s58a-7978i6w3w0fl 07/21/19 15 07/20/2014 Lionel Alejandro MD RX REFILL ynp4e930-13u5-3056-4ht8-6q82mzd3r7bn 07/21/19 15 07/20/2014 Lionel Alejandro MD Infusion 0l7c5aoi-46k6-3f29-3358-62t9i1o1169e 07/21/19 15 07/20/2014 Lionel Alejandro MD Infusion 1d0d1g40-q908-6q0l-0pr5-0bbe770w4043 07/21/19 15 07/20/2014 Lionel Alejandro MD Infusion 662mx9ju-b30a-7ij9-1mc2-3j4h2cf7x5e8 07/21/19 15 07/20/2014 Lionel Alejandro MD Infusion k09m4pnp-838v-0s3q-c420-s2gl6687un3u 07/21/19 15 07/20/2014 Lionel Alejandro MD Infusion 2w6feo4h-m0wv-0q9x-0k92-s217g3854q8q 07/21/19 15 07/20/2014 Lionel Alejandro MD Infusion 078dqjph-16jp-6x6i9f6j-g3x8-z096m550r2bz 07/21/19 15 07/20/2014 Lionel Alejandro MD Infusion vyx1fx1v-19jg-41w1-5400-kfu8767k5505 07/21/19 15 07/20/2014 Lionel Alejandro MD Infusion 9be3c0v7-7749-0qx7-18t4-bm93j5w85877 07/21/19 15 07/20/2014 Lionel Alejandro MD Infusion l3k21f36-1720-5425-119p-a87176yh7467 07/21/19 15 07/20/2014 Lionel Alejandro MD Infusion 35883el8-3256-33t7-q85q-s1452u503295 07/21/19 15 07/20/2014 Lionel Alejandro MD Infusion ab63b3yz-616b-5121-e0q2-oo5vmm30o3s9 07/21/19 15 07/20/2014 Lionel Alejandro MD Infusion p85j7q03-996o-9143-ny80-42x440327169 07/21/19 15 07/20/2014 Lionel Alejandro MD Infusion 69q8500k-2p1p-20c3-b9bh-9h94392fl811 07/21/19 15 07/20/2014 Lionel Alejandro MD Infusion bj201urj-1035-0m32-r182-wonk42lep11p 07/21/19 15 07/20/2014 Lionel Alejandro MD Infusion wm6q3v9n-sdm9-12w4-px27-i607493f9135 07/21/19 15 07/20/2014 Lionel Alejandro MD Infusion 8402w23s-1n8n-81h9-236f-ax4a04ye4184 07/21/19 15 07/20/2014 Lionel Alejandro MD Infusion u1hau235-6h6e-7vq2-861p-1e4jsk98483v 07/21/19 15 07/20/2014 Lionel Alejandro MD Infusion a3f3d327-224i-7y74-71e1-zp39v3453inw 07/21/19 15 07/20/2014 Lionel Alejandro MD Infusion auva1wk5-t43g-6r2c-l2i2-5828e363r707 07/21/19 15 07/20/2014 Lionel Alejandro MD RX REFILL 68c1qih9-86i5-613o-32v0-4rm4967fr34x 08/18/19 15 08/17/2014 Lionel Alejandro MD RX REFILL 3i1yg75g-ns2f-961q-7010-s488f4v1nx42 08/18/19 15 08/17/2014 Lionel Alejandro MD RX REFILL 743784l9-0633-008l-9947-y7jsmv4p35xj 08/18/19 15 08/17/2014 Lionel Alejandro MD RX REFILL n4z4189s-tun6-02k6-nd76-77p2mre01288 08/18/19 15 08/17/2014 Lionel Alejandro MD RX REFILL 27n7e73z-8o99-0468-7y32-o28x920e4747 08/18/19 15 08/17/2014 Lionel Alejandro MD RX REFILL 7286me5p-a784-1064-p07g-2v40b2is2xp4 08/18/19 15 08/17/2014 Lionel Alejandro MD RX REFILL q1731m44-32n4-83jq-rw2w-w69y97971684 08/18/19 15 08/17/2014 Lionel Alejandro MD RX REFILL 7b278217-wqa4-5bw7-370f-7t239a507935 08/18/19 15 08/17/2014 Lionel Alejandro MD RX REFILL 8p927n9l-g5e2-0204-w19n-632226lpq0h2 08/18/19 15 08/17/2014 Lionel Alejandro MD RX REFILL ps98o1bz-j4t2-69k1-63iv-7z50nfkub1vb 08/18/19 15 08/17/2014 Lionel Alejandro MD RX REFILL 17l8b7z5-0q6w-4934-375a-8wp2lvm9rh2o 08/18/19 15 08/17/2014 Lionel Alejandro MD RX REFILL 0a9z319y-85r1-4z10-c512-98t6gds72477 08/18/19 15 08/17/2014 Lionel Alejandro MD RX REFILL t8rf96t5-1m6o-9k74-7718-67303i8062pz 08/18/19 15 08/17/2014 Lionel Alejandro MD RX REFILL 3fxui79o-y35s-937y-s50x-oqnnn51r827l 08/18/19 15 08/17/2014 Lionel Alejandro MD RX REFILL jx320p02-01mw-4v89-9k1v-sr15esg385jb 08/18/19 15 08/17/2014 Lionel Alejandro MD RX REFILL n43a3397-kn53-31g5-b4s0-460y22650250 08/18/19 15 08/17/2014 Lionel Alejandro MD RX REFILL 0576su26-w790-6m54-qg53-387108bc6t0h 08/18/19 15 08/17/2014 Lionel Alejandro MD RX REFILL i8g159s7-2hy5-1sl7-mq9e-fs03f3981mh6 08/18/19 15 08/17/2014 Lionel Alejandro MD depomedrol injection 9c8ae858-l16q-5k87-n37t-cj7222biom60 09/15/19 15 09/14/2014 Lionel Alejandro MD depomedrol injection 01443vp0-fco6-1d04-k692-2fdxxh753t2n 09/15/19 15 09/14/2014 Lionel Alejandro MD depomedrol injection 97v389uk-o79y-6660-9qd9-43o77a3i6439 09/15/19 15 09/14/2014 Lionel Alejandro MD depomedrol injection 78yi876u-hi95-80k3-41m2-hnqa61l63d77 09/15/19 15 09/14/2014 Lionel Alejandro MD depomedrol injection 4ntx0b1w-1c26-5kqz-11h0-823bwx1284f1 09/15/19 15 09/14/2014 Lionel Alejandro MD depomedrol injection h5256012-m125-2784-v145-w281485e3l3z 09/15/19 15 09/14/2014 Lionel Alejandro MD depomedrol injection 0011j102-2x73-324o-ljn3-f8697869842e 09/15/19 15 09/14/2014 Lionel Alejandro MD depomedrol injection 644sz416-465d-1bpq-9845-p094006gip56 09/15/19 15 09/14/2014 Lionel Alejandro MD depomedrol injection a8956485-dy79-9o7p-ahi7-nilpc870z9o1 09/15/19 15 09/14/2014 Lionel Alejandro MD depomedrol injection wg7vpe05-yb6f-4291-692b-7n758yd2acf6 09/15/19 15 09/14/2014 Lionel Alejandro MD depomedrol injection z4k8t070-d36z-0713-c7b6-14986076k0g0 09/15/19 15 09/14/2014 Lionel Alejandro MD depomedrol injection 4o817237-z2g4-80w6-rn02-8ad61j3k1535 09/15/19 15 09/14/2014 Lionel Alejandro MD depomedrol injection 443y704t-n7kv-0u5t-386b-ao92who0796g 09/15/19 15 09/14/2014 Lionel Alejandro MD depomedrol injection gj3pr08y-j920-3ag0-81k4-3a87w8k44u8d 09/15/19 15 09/14/2014 Lionel Alejandro MD depomedrol injection 85tk1554-9o13-6728-qz73-9590393ii851 09/15/19 15 09/14/2014 Lionel Alejandro MD depomedrol injection 71f8x655-66s9-7092-3307-5cd0103o452t 09/15/19 15 09/14/2014 Lionel Alejandro MD depomedrol injection 6irf3u20-5c1f-8352-6u91-l4468pw0mz69 09/15/19 15 09/14/2014 Lionel Alejandro MD depomedrol injection zb54z092-jl6c-7k49-uyo1-7f44xiykx4z6 09/15/19 15 09/14/2014 Lionel Alejandro MD depomedrol injection 72yc98x5-a916-1396-955r-n176u48254dw 09/15/19 15 09/14/2014 Lionel Alejandro MD RX Request-- MTX zasx336u-2t53-703l-hme8-98b081t86zov 11/15/19 15 11/14/2014 Lionel Alejandro MD RX Request-- MTX y1k955f6-9335-6058-866e-zojwe42rl0ty 11/15/19 15 11/14/2014 Lionel Alejandro MD RX Request-- MTX 9oz9v72p-7k3s-8zpc-xl66-d7i91e98724a 11/15/19 15 11/14/2014 Lionel Alejandro MD RX Request-- MTX 82819z3m-xof5-6i28-nc98-6g42t8079c78 11/15/19 15 11/14/2014 Lionel Alejandro MD RX Request-- MTX 38w53k21-7gpw-5065-3813-bf4eh3782502 11/15/19 15 11/14/2014 Lionel Alejandro MD RX Request-- MTX q24kd1dm-6u17-9785-gnhd-gz95u4b98a1i 11/15/19 15 11/14/2014 Lionel Alejandro MD RX Request-- MTX d3j6530j-7ah7-521x-k345-68k6qtu7di44 11/15/19 15 11/14/2014 Lionel Alejandor MD RX Request-- MTX rv6854wi-019z-1815-9i68-955v3hlxwqew 11/15/19 15 11/14/2014 Lionel Alejandro MD RX Request-- MTX u7465fm2-k101-8861-1g4m-t43d203342ya 11/15/19 15 11/14/2014 Lionel Alejandro MD RX Request-- MTX 9f7o56jp-605v-60zr-d05j-7tq27l2c66u2 11/15/19 15 11/14/2014 Lionel Alejandro MD RX Request-- MTX 2253795k-su5f-1sos-11oe-eja7l55o8238 11/15/19 15 11/14/2014 Lionel Alejandro MD RX Request-- MTX npan95p5-9hy4-7g0p-2b3f-r4nao85yeft1 11/15/19 15 11/14/2014 Lionel Alejandro MD RX Request-- MTX 829gmg28-2yjn-54l7-26gk-x4g19mi74mz0 11/15/19 15 11/14/2014 Lionel Alejandro MD RX Request-- MTX 9k1vi24v-6tlt-54fj-5tml-7320u2t7d04m 11/15/19 15 11/14/2014 Lionel Alejandro MD RX Request-- MTX b6222d51-gj77-31rv-z0t4-4829uljmr1n8 11/15/19 15 11/14/2014 Lionel Alejandro MD RX Request-- MTX 3z6795lw-r769-482w-giy3-7hex8d12pi0h 11/15/19 15 11/14/2014 Lionel Alejandro MD RX Request-- MTX g6aae81c-md91-5894-7x77-upal9a947258 11/15/19 15 11/14/2014 Lionel Alejandro MD RX Request-- MTX 1750hkha-2c64-18y33z61-42s6-ne84-9pc6x2wlbm66 11/15/19 15 11/14/2014 Lionel Alejandro MD RX Request-- MTX 80648n7s-0331-49ox-4y74-5g22wnme9q18 11/15/19 15 11/14/2014 Lionel Alejandro MD RX Request-- Tizanidine 98i87y9b-8p15-52ep-w4b3-1vo296r83774 12/04/2014 12/04/2014 Lionel Alejandro MD RX Request-- Tizanidine 41m82z0h-16z8-914b-0860-8672kh1og58s 12/04/2014 12/04/2014 Lionel Alejandro MD RX Request-- Tizanidine c5491aql-001x-02o8-728e-e733y5287s53 12/04/2014 12/04/2014 Lionel Alejandro MD RX Request-- Tizanidine d085q59k-d24p-2901-7pnk-21f3167iu2b8 12/04/2014 12/04/2014 Lionel Alejandro MD RX Request-- Tizanidine f39b0185-41ul-8x19-0r96-55z52k9i453p 12/04/2014 12/04/2014 Lionel Alejandro MD RX Request-- Tizanidine t3245y68-hv74-9746-29r6-o55ec57028kh 12/04/2014 12/04/2014 Lionel Alejandro MD RX Request-- Tizanidine 96ceb416-b7y7-5519-0996-m1qxs8zh351l 12/04/2014 12/04/2014 Lionel Alejandro MD RX Request-- Tizanidine i73828f9-zd61-73nz-28j1-7ax3lv7509k5 12/04/2014 12/04/2014 Lionel Alejandro MD RX Request-- Tizanidine i3686067-2742-129z-h38h-cdc91s04f1h7 12/04/2014 12/04/2014 Lionel Alejandro MD RX Request-- Tizanidine 91d9sr0p-5jis-4w41-r3h7-1795z77o49n3 12/04/2014 12/04/2014 Lionel Alejandro MD RX Request-- Tizanidine 5h05d364-sqt6-26xq-b6l1-h20mjq828shb 12/04/2014 12/04/2014 Lionel Alejandro MD RX Request-- Tizanidine 0i862e0r-8jbn-8558-174f-i7534666w6t4 12/04/2014 12/04/2014 Lionel Alejandro MD RX Request-- Tizanidine 01838l41-i35l-300f-724k-7985515d157g 12/04/2014 12/04/2014 Lionel Alejandro MD RX Request-- Tizanidine 7b654fn1-2x89-703i-dg06-32ic88463d90 12/04/2014 12/04/2014 Lionel Alejandro MD RX Request-- Tizanidine 8y5t589q-9513-8o7m-e0wp-b0f4480m6mz0 12/04/2014 12/04/2014 Lionel Alejandro MD RX Request-- Tizanidine y1958961-b157-4ci0-78ix-m63y792u9x15 12/04/2014 12/04/2014 Lionel Alejandro MD RX Request-- Tizanidine 4608e33d-3yx3-39v4-24c8-55f0d4iz1x6v 12/04/2014 12/04/2014 Lionel Alejandro MD RX Request-- Tizanidine 3525jbrg-nd14-652ntp44-807k-r064-hm920998z57r 12/04/2014 12/04/2014 Lionel Alejandro MD abbvie 465 DAYAN vs humira 3714491k-8s43-3mxt-8114-3aw1m1rc36w0 06/27/19 16 06/27/2015 Lionel Alejandro MD abbvie 465 DAYAN vs humira k7gzzahl-512l-49ay-d1km-ao659089159r 06/27/19 16 06/27/2015 Lionel Alejandro MD abbvie 465 DAYAN vs humira 368479l6-8201-3311-y3tz-067ea7555loh 06/27/19 16 06/27/2015 Lionel Alejandro MD abbvie 465 DAYAN vs humira ol609g9x-5y6k-9o59-x9c8-2waygkui4710 06/27/19 16 06/27/2015 Lionel Alejandro MD abbvie 465 DAYAN vs humira 8hkp1643-26od-6283-v01x-6c1lz02154i5 06/27/19 16 06/27/2015 Lionel Alejandro MD abbvie 465 DAYAN vs humira kpcu13fq-9gj5-584x-5l1w-9699m8n1e8g3 06/27/19 16 06/27/2015 Lionel Alejandro MD abbvie 465 DAYAN vs humira n630ye9n-24wm-9wfw-dh25-7422s7u84993 06/27/19 16 06/27/2015 Lionel Alejandro MD abbvie 465 DAYAN vs humira 051170v0-30i8-4560-8y2r-14s676l8esfn 06/27/19 16 06/27/2015 Lionel Alejandro MD abbvie 465 DAYAN vs humira 66945981-y2j4-08l7-s4vx-c34858r0g01x 06/27/19 16 06/27/2015 Lionel Alejandro MD abbvie 465 DAYAN vs humira 2v22b28a-240w-8205-jpbr-297f6900oqvx 06/27/19 16 06/27/2015 Lionel Alejandro MD abbvie 465 DAYAN vs humira zaucn48w-3al2-13i3-g8g3-2185555d2rx3 06/27/19 16 06/27/2015 Lionel Alejandro MD abbvie 465 DAYAN vs humira p910f9d2-1v2k-2lpz-cbc8-495e94577qq8 06/27/19 16 06/27/2015 Lionel Alejandro MD abbvie 465 DAYAN vs humira 40524458-2vco-1489-9122-8526de278y2g 06/27/19 16 06/27/2015 Lionel Alejandro MD abbvie 465 DAYAN vs humira 0i15h87v-7775-3778-9f60-p1dl3x96761v 06/27/19 16 06/27/2015 Lionel Alejandro MD abbvie 465 DAYAN vs humira 7p381396-9g63-4950-8738-0a05uc2ny497 06/27/19 16 06/27/2015 Lionel Alejandro MD abbvie 465 DAYAN vs humira 26k1o371-z19u-416r-xf98-9740h8ftu0qb 06/27/19 16 06/27/2015 Lionel Alejandro MD follow up / labs jkz6f0x2-814e-82p3-3126-8tn05r604mt6 06/27/19 16 06/27/2015 Lionel Alejandro MD follow up / labs [id number] 06/27/19 16 06/27/2015 Lionel Alejandro MD follow up / labs [id number]-h3f9-u33263234hm4 06/27/19 16 06/27/2015 Lionel Alejandro MD follow up / labs 5pz1002m-v9zv-079v-316d-lf556u97677f 06/27/19 16 06/27/2015 Lionel Alejandro MD follow up / labs mui2v55c-0l47-3ovq-1qkl-88b6xw686tbf 06/27/19 16 06/27/2015 Lionel Alejandro MD follow up / labs 971xo5z2-f625-8nun-o8i9-kuzkrq2f624f 06/27/19 16 06/27/2015 Lionel Alejandro MD follow up / labs cvha1l89-6398-34ut-cr55-18a0z3z07760 06/27/19 16 06/27/2015 Lionel Alejandro MD follow up / labs 04q317pe-l8qp-7703-c1tl-v34w28y8o01h 06/27/19 16 06/27/2015 Lionel Alejandro MD follow up / labs 4iie0o3t-810i-07gf-7c71-013qe9596168 06/27/19 16 06/27/2015 Lionel Alejandro MD follow up / labs [id number]-r40f-z5807wf77sb6 06/27/19 16 06/27/2015 Lionel Alejandro MD follow up / labs [id number]-i444-lf5zp9u5261f 06/27/19 16 06/27/2015 Lionel Alejandro MD follow up / labs [id number]-n8uk3ee6653n 06/27/19 16 06/27/2015 Lionel Alejandro MD follow up / labs [id number]-p547310d788u 06/27/19 16 06/27/2015 Lionel Alejandro MD follow up / labs [id number] 06/27/19 16 06/27/2015 Lionel Alejandro MD follow up / labs [id number]-99sy-2l8u-i1446ejqoxz9 06/27/19 16 06/27/2015 Lionel Alejandro MD Unknown [id number] 08/29/19 16 08/29/2015 Lionel Alejandro MD Unknown [id number] 08/29/19 16 08/29/2015 Lionel Alejandro MD Unknown [id number] 08/29/19 16 08/29/2015 Lionel Alejandro MD Unknown [id number] 08/29/19 16 08/29/2015 Lionel Alejandro MD Unknown [id number] 08/29/19 16 08/29/2015 Lionel Alejandro MD Unknown [id number] 08/29/19 16 08/29/2015 Lionel Alejandro MD Unknown [id number] 08/29/19 16 08/29/2015 Lionel Alejandro MD Unknown [id number] 08/29/19 16 08/29/2015 Lionel Alejandro MD Unknown [id number] 08/29/19 16 08/29/2015 Lionel Alejandro MD Unknown [id number] 08/29/19 16 08/29/2015 Lionel Alejandro MD Unknown [id number] 08/29/19 16 08/29/2015 Lionel Alejandro MD Unknown [id number] 08/29/19 16 08/29/2015 Lionel Alejandro MD Unknown [id number] 08/29/19 16 08/29/2015 Lionel Alejandro MD possible allergic reaction to simponi [id number] 09/19/2015 09/19/2015 Lionel Alejandro MD possible allergic reaction to simponi [id number] 09/19/2015 09/19/2015 Lionel Alejandro MD possible allergic reaction to simponi [id number]-[id number] 09/19/2015 09/19/2015 Lionel Alejandro MD possible allergic reaction to simponi [id number]-u80z-501i6m80c9p1 09/19/2015 09/19/2015 Lionel Alejandro MD possible allergic reaction to simponi [id number]-b6f8-0w3kw6s43kv9 09/19/2015 09/19/2015 Lionel Alejandro MD possible allergic reaction to simponi [id number]-[id number] 09/19/2015 09/19/2015 Lionel Alejandro MD possible allergic reaction to simponi [id number] 09/19/2015 09/19/2015 Lionel Alejandro MD possible allergic reaction to simponi [id number]-ulo9-8ivg-p403-c6m6439m7i69 09/19/2015 09/19/2015 Lionel Alejandro MD possible allergic reaction to simponi [id number]-[id number] 09/19/2015 09/19/2015 Lionel Alejandro MD possible allergic reaction to simponi [id number]-f8j0-71wv-ub45-l8s286m244g4 09/19/2015 09/19/2015 Lionel Alejandro MD possible allergic reaction to simponi [id number] 09/19/2015 09/19/2015 Lionel Alejandro MD LIDOCAINE [id number]-q8hs8tv2b4az 09/19/19 16 09/19/2015 Lionel Alejandro MD LIDOCAINE [id number]-a140-vphw97q7m342 09/19/19 16 09/19/2015 Lionel Alejandro MD LIDOCAINE [id number]-i0d295utc636 09/19/19 16 09/19/2015 Lionel Alejandro MD LIDOCAINE [id number] 09/19/19 16 09/19/2015 Lionel Alejandro MD LIDOCAINE [id number]-376g0f7mj1l1 09/19/19 16 09/19/2015 Lionel Alejandro MD LIDOCAINE [id number] 09/19/19 16 09/19/2015 Lionel Alejandro MD LIDOCAINE 5spo978s-em24-2115-j142-82xw52v0u21e 09/19/19 16 09/19/2015 Lionel Alejandro MD LIDOCAINE [id number]-09il-[id number] 09/19/19 16 09/19/2015 Lionel Alejandro MD LIDOCAINE q95pvt0e-y626-7ggl-x6vf-7oi7u7bkd19z 09/19/19 16 09/19/2015 Lionel Alejandro MD LIDOCAINE [id number] 09/19/19 16 09/19/2015 Lionel Alejandro MD LIDOCAINE [id number]-[id number] 09/19/19 16 09/19/2015 Lionel Alejandro MD LIDOCAINE [id number]-3xat-a467-kq6s0601k835 09/19/19 16 09/19/2015 Lionel Alejandro MD uti infection [id number]-y1h58ngon798 10/04/19 16 10/04/2015 Lionel Alejandro MD uti infection [id number]-s82l-[id number] 10/04/19 16 10/04/2015 Lionel Alejandro MD uti infection [id number] 10/04/19 16 10/04/2015 Lionel Alejandro MD uti infection [id number]-[id number] 10/04/19 16 10/04/2015 Lionel Alejandro MD uti infection [id number]-82f6-9246k2grr662 10/04/19 16 10/04/2015 Lionel Alejandro MD uti infection 569dqa3k-3k1b-89zi-8052-3fk6z31fodcc 10/04/19 16 10/04/2015 Lionel Alejandro MD uti infection u431tda0-96h1-37x0-8868-rckdcsp950t4 10/04/19 16 10/04/2015 Lionel Alejandro MD uti infection [id number]-n7s8-1j87-4i69-q05z8zh9r738 10/04/19 16 10/04/2015 Lionel Alejandro MD uti infection [id number]-f96l-5298-e99m-p256v526lfw2 10/04/19 16 10/04/2015 Lionel Alejandro MD uti infection [id number]-vg11-58gl-v22i-486cw407s525 10/04/19 16 10/04/2015 Lionel Alejandro MD Unknown [id number] 10/24/19 16 10/24/2015 Lionel Alejandro MD Unknown [id number] 10/24/19 16 10/24/2015 Lionel Alejandro MD Unknown [id number] 10/24/19 16 10/24/2015 Lionel Alejandro MD Unknown [id number] 10/24/19 16 10/24/2015 Lionel Alejandro MD Unknown [id number] 10/24/19 16 10/24/2015 Lionel Alejandro MD Unknown [id number] 10/24/19 16 10/24/2015 Lionel Alejandro MD Unknown [id number] 10/24/19 16 10/24/2015 Lionel Alejandro MD Unknown [id number] 10/24/19 16 10/24/2015 Lionel Alejandro MD Unknown [id number] 10/24/19 16 10/24/2015 Lionel Alejandro MD Unknown [id number] 12/05/19 16 12/05/2015 Lionel Alejandro MD Unknown [id number] 12/05/19 16 12/05/2015 Lionel Alejandro MD Unknown [id number] 12/05/19 16 12/05/2015 Lionel Alejandro MD Unknown [id number] 12/05/19 16 12/05/2015 Lionel Alejandro MD Unknown [id number] 12/05/19 16 12/05/2015 Lionel Alejandro MD Unknown [id number] 12/05/19 16 12/05/2015 Lionel Alejandro MD Unknown [id number] 12/05/19 16 12/05/2015 Lionel Alejandro MD Unknown [id number] 12/05/19 16 12/05/2015 Lionel Alejandro MD 6 WK FU [id number] 12/13/19 16 12/13/2015 Lionel Alejandro MD 6 WK FU [id number]-[id number] 12/13/19 16 12/13/2015 Lionel Alejandro MD 6 WK FU [id number]-[id number] 12/13/19 16 12/13/2015 Lionel Alejandro MD 6 WK FU [id number]-8v64-[id number] 12/13/19 16 12/13/2015 Lionel Alejadnro MD 6 WK FU [id number]-[id number] 12/13/19 16 12/13/2015 Lionel Alejandro MD 6 WK FU [id number] 12/13/19 16 12/13/2015 Lionel Alejandro MD Follow up [id number] 02/13/20 16 02/13/2016 Lionel Alejandro MD Unknown [id number] 02/13/20 16 02/13/2016 Lionel Alejandro MD Unknown [id number] 02/13/20 16 02/13/2016 Lionel Alejandro MD Unknown [id number] 02/13/20 16 02/13/2016 Lionel Alejandro MD Follow up [id number] 02/13/20 16 02/13/2016 Lionel Alejandro MD Follow up [id number] 02/13/20 16 02/13/2016 Lionel Alejandro MD schedule appt [id number] 02/13/20 16 02/13/2016 Lionel Alejandro MD schedule appt [id number] 02/13/20 16 02/13/2016 Lionel Alejandro MD schedule appt [id number]-[id number] 02/13/20 16 02/13/2016 Lionel Alejandro MD Unknown [id number] 02/13/20 16 02/13/2016 Lionel Alejandro MD Unknown [id number] 02/13/20 16 02/13/2016 Lionel Alejandro MD schedule appt [id number] 02/13/20 16 02/13/2016 Lionel Alejandro MD schedule appt [id number] 02/13/20 16 02/13/2016 Lionel Alejandro MD Unknown [id number] 02/21/20 16 02/21/2016 Lionel Alejandro MD Unknown [id number] 02/21/20 16 02/21/2016 Lionel Alejandro MD Follow up [id number] 06/05/19 17 06/05/2016 Lionel Alejandro [facility] [id number] Vanessa Prakash-Dipesh 07/21/2017 07/22/2017 [facility] Outpatient [id number] Vanessa Prakash-Daphnis 018 08/18/2017 [facility] [place] [facility] [id number] Stiven Trejo 07/21/2018 07/22/2018 [facility] [id number] Vanessa Prakash-Daphnis 08/12/2018 08/13/2018 [facility] Procedures No Data Provided for This Section Assessment and Plan No Data Provided for This Section Plan of Care No Data Provided for This Section Social History Social History Date Source Social History TypeResponse 08/13/2018 [facility] Social History TypeResponse 07/22/2018 [facility] Social History TypeResponse 07/22/2017 [facility] Social History ElementQualifiersDate Rep orted Tobacco Use: . Are you a:: former smoker , How long has it been since you last smoked?: > 10 years Jun 05, 2016 Caffeine: yes. frequency:, 2 cups a day Jun 05, 2016 Exercise: no. Jun 05, 2016 Alcohol: no. Jun 05, 2016 06/05/2016 Lionel Flavia Family History No Data Provided for This Section Advance Directives No Data Provided for This Section Functional Status No Data Provided for This Section
--- OUTSIDE RECORDS SUMMARY | 2020-01-29 16:42 | XMS REPORT | Continuity of Care Document ---
Author Author [facility] Organization [facility] Address [address] [place] [address] Phone Unavailable Care Team Providers Care Vehicle Insurance Agent Name Role Phone NONSTAFF PCP Unavailable Akanksha SUTTON Attphys Unavailable LEEANNPEAgustin KAREN Attphys Unavailable Nhi Mathis Attphys Stiven Trejo Attphys JOHANNY RAJAN Attphys Unavailable Rich BRYANT Attphys Unavailable JOHANNY RAJAN Admphys Unavailable Payers Payer Name Policy Type Policy Number Effective Date Expiration Date [facility] A & B [id number] 2012 00:00:00 [facility] [id number] 1989 00:00:00 [facility] Problems Condition Name Condition Details Condition Category Status Onset Date Resolution Date Last Treatment Date Treating Clinician Comments Source N18.1 N18. 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, UNSPECIFIED Active 07/17/2017 [facility] [place] [facility] Active 2017-07-17 00:01:00 2017-07-21 10:57:00 Leonardo Blakelyann Urinary tract infection Problem Active [facility] Failure of outpatient treatment Problem Active [facility] Lumbar facet arthropathy Lumb ar facet arthropathy Active Problem 03/12/2017 Lionel Alejandro Problem Active 2017-03-12 03 :47:54 [facility] Pain in right shoulder Pain in right shoulder Active Problem 03/12/2017 Lionel Hammer Problem Active 2017-03-12 03 :47:54 [facility] Subacromial bursitis Suba cromial bursitis Active Problem 03/12/2017 Lionel Alejandro Problem Active 2017-03-12 03:47:54 [facility] Other psychoactive substance dependence, uncomplicated Other psychoactive substance dependence, uncomplicated Active Problem 03/12/2017 Lionel Alejandro Problem Active 2017-03-12 03:47:54 [facility] Pain in left shoulder Pain in left shoulder Active Problem 03/12/2017 Lionel Alejandro Problem Active 2017-03-12 03:47:54 [facility] Crohn's disease, unspecified, with other complication Crohn's disease, unspecified, with other complication Active Problem 03/12/2017 Lionel Alejandro Problem Active 2017-03-12 03:47:54 [facility] Chronic 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 syndrome 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 Active Problem 03/12/2017 Lionel Alejandro Problem Active 2017-03-12 03:47:54 [facility] Other bursitis of hip, right hip Other bursitis of hip, right hip Active Problem 03/12/2017 Lionel Alejandro Problem Active 2017-03-12 03:47:54 [facility] Rheumatoid arthritis involving multiple sites with pos itive rheumatoid factor Rheumatoid arthritis involving multiple sites with positive rheumatoid factor Active Problem 03/12/2017 Lionel Alejandro Problem Active 2017-03-12 03:47:54 [facility] Spondylosis without myelopathy or radiculopathy, lumbo sacral region Spondylosis without myelopathy or radiculopathy, lumbosacral region Active Problem 03/12/2017 Lionel Alejandro Problem Active 2017-03-12 03:47:54 [facility] Sprain of right rotator cuff capsule Sprain of right rotator cuff capsule Active Problem 03/12/2017 Lionel Alejandro Problem Active 2017-03-12 03:47:54 Leonardo Obregon Bursitis, Hip Burs itis, Hip Active Problem 01/31/2017 Lionel Alejandro Problem Active 2017-01-31 02:46:31 Leonardo Obregon Long-term (current) use of other medications - High Ri sk Long-term (current) use of other medications - High Risk Active Problem 01/31/2017 Lionel Alejandro Problem Active 2017-01-31 02:46:31 Leonardo Obregon Chronic pain syndrome 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 Active Problem 01/31/2017 Lionel Alejandro Problem Active 2017-01-31 02:46:31 Leonardo Obregon Crohn's disease Croh n's disease Active Problem 01/31/2017 Lionel Alejandro Problem Active 2017-01-31 02:46:31 Leonardo Obregon Unspecified drug dependence Un specified drug dependence Active Problem 01/31/2017 Lionel Alejandro Problem Active 2017-01-31 02:46:31 Leonardo Obregon Lumbosacral spondylosis without myelopathy Lumbosacral spondylosis without myelopathy Active Problem 01/31/2017 Lionel Alejandro Problem Active 2017-01-31 02:46:31 [facility] Degeneration of lumbar or lumbosacral intervertebral d isc Degeneration of lumbar or lumbosacral intervertebral disc Active Problem 01/31/2017 Lionel Alejandro Problem Active 2017-01-31 02:46:31 Leonardo Obregon Closed compression fracture of third lumbar vertebra, sequela Closed compression fracture of third lumbar vertebra, sequela Active Problem 03/12/2017 Lionel Alejandro Problem Active 2017-03-12 03:47:54 [facility] [address] Closed compression fracture of fourth lumbar vertebra, sequela Closed compression fracture of fourth lumbar vertebra, sequela Active Problem 03/12/2017 Lionel Alejandro Problem Active 2017-03-12 03:47:54 Leonardo Obregon Urinary tract infection Urin mary jo tract infection Active Problem 01/26/2019 Lionel Alejandro Problem Active 2019-01-26 02 :52:25 Leonardo Obregon Inflammatory arthritis Infl ammatory arthritis Active Problem 01/26/2019 Lionel Alejandro Problem Active 2019-01-26 02 :52:25 Leonardo Obregon Non-pressure chronic ulcer of other part of right foot with unspecified severity Non-pressure chr onic ulcer of other part of right foot with unspecified severity Active Problem 01/26/2019 Lionel Hammer Problem Active 2019-01-26 02:52:25 Leonardo Obregon Rheumatoid arthritis involving multiple sites, unspecified rheumatoid factor presence Rheumatoid arthr itis involving multiple sites, unspecified rheumatoid factor presence Active Problem 01/26/2019 Lionel Hammer Problem Active 2019-01-26 02:52:25 Leonardo Obregon Crohn disease Croh n disease Active Problem 01/26/2019 Lionel Alejandro Problem Active 2019-01-26 02:52:25 Leonardo Obregon Encounter for long-term (current) use of other high-ri sk medications Encounter for long-term (current) use of other high-risk medications Active Problem 01/26/2019 Lionel Hammer Problem Active 2019-01-26 02:52:25 Leonardo Obregon Left leg swelling Left leg swelling Active Problem 01/26/2019 Lionel Hammer Problem Active 2019-01-26 02:52:25 Leonardo Obregon Osteopenia of right thigh Oste openia of right thigh Active Problem 01/26/2019 Lionel Hammer Problem Active 2019-01-26 02 :52:25 Leonardo Obregon Primary osteoarthritis involving multiple joints Primary osteoarthritis involving multiple joints Active Problem 01/26/2019 Lionel Hammer Problem Active 2019-01-26 02:52:25 Leonardo Obregon [employer] (current) use of 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 analgesic nursing 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 (current) use of opiate analgesic Active Diagnosis 06/18/2017 Lionel Alejandro Diagnosis Active 2017-06-18 03:47:25 Leonardo Obregon Cough Coug h Active Problem 06/07/2014 Lionel Alejandro Problem Active 2014-06-07 04:02:24 Leonardo Obregon Pain in joint, lower leg Pain in joint, lower leg Active Problem 06/07/2014 Lionel Alejandro Problem Active 2014-06-07 04 :02:24 Leonardo Obregon Osteopenia Oste openia Active Problem 03/14/2016 Lionel Alejandro Problem Active 2016-03-14 03:48:49 Leonardo Obregon Diabetes with unspecified complication, type II or unspecified type, uncontrolled Diabetes with un specified complication, type II or unspecified type, uncontrolled Active Problem 03/14/2016 Lionel Hammer Problem Active 2016-03-14 03:48:49 Jevon Obregon Rheumatoid arthritis Rheu matoid arthritis Active Problem 02/15/2016 Lionel Hmamer Problem Active 2016-02-15 02:51:55 Leonardo Obregon HEMORRHAGE FROM THROAT HEMO RRHAGE FROM THROAT Active [facility] Active 2017-08-12 10:31:00 M oswaldo Obregon NONTOXIC SINGLE THYROID NODULE NONTOXIC SINGLE THYROID NODULE Active [facility] Active 2017-08-17 09:27 :00 Leonardo Obregon CHRONIC KIDNEY DISEASE, STAGE 1 CHRONIC KIDNEY DISEASE, STAGE 1 Active [facility] Active 2018-07-21 13:05 :00 Leonardo Obregon Nontoxic goiter, unspecified N ontoxic goiter, unspecified 07/28/2017 10/27/2017 [facility] [place] Problem 2017-07-28 03:59:04 2017-10-27 13:58:06 2017-10-27 13:58:06 M oswaldo Obregon Allergies, Adverse Reactions, Alerts Allergy Name Allergy Type Status Severity Reaction(s) Onset Date Inacti ve Date Treating Clinician Comments Source Penicillin Allergy to substance Active Mild RED RASH 2020-01-28 00:00:0 0 [facility] diphenhydramine HCl DA Active U 2019-02-26 00:00:00 [facility] ranitidine HCl DA Active PR 2019-02-26 00:00:00 [facility] Cephalexin Monohydrate DA Active U 2019-02-26 00:00:00 [facility] Penicillins DA Active U 2019-02-26 00:00:00 [facility] carbamazepine DA Active PR 2019-02-26 00:00:00 [facility] diphenhydramine HCl DA Active U 2019-02-15 00:00:00 [facility] ranitidine HCl DA Active PR 2019-02-15 00:00:00 [facility] Cephalexin Monohydrate DA Active U 2019-02-15 00:00:00 [facility] Penicillins DA Active U 2019-02-15 00:00:00 [facility] carbamazepine DA Active PR 2019-02-15 00:00:00 [facility] diphenhydramine HCl DA Active U 2018-08-01 00:00:00 [facility] ranitidine HCl DA Active PR 2018-08-01 00:00:00 [facility] Cephalexin Monohydrate DA Active U 2018-08-01 00:00:00 [facility] Penicillins DA Active U 2018-08-01 00:00:00 [facility] carbamazepine DA Active PR 2018-08-01 00:00:00 [facility] aloe vera DA Active U 2018-06-05 00:00:00 [facility] strawberry DA Active U 2018-06-05 00:00:00 [facility] diphenhydramine HCl DA Active U 2018-05-27 00:00:00 [facility] ranitidine HCl DA Active PR 2018-05-27 00:00:00 [facility] Cephalexin Monohydrate DA Active U 2018-05-27 00:00:00 [facility] Penicillins DA Active U 2018-05-27 00:00:00 [facility] carbamazepine DA Active PR 2018-05-27 00:00:00 [facility] Benadryl Benadryl Active hives 2018-01-06 00:00:00 Leonardo Obregon Cimzia Cimzia Active infections 2018-01-06 00:00:00 Leonardo Obregon diphenhydramine HCl DA Active U 2015-10-04 00:00:00 [facility] ranitidine HCl DA Active PR 2015-10-04 00:00:00 [facility] Cephalexin Monohydrate DA Active U 2015-10-04 00:00:00 [facility] Penicillins DA Active U 2015-10-04 00:00:00 [facility] carbamazepine DA Active PR 2015-10-04 00:00:00 [facility] Zantac Zantac Active [facility] tracy Tegretol Tegretol Active Memori tara [facility]regon Keflex Keflex Active [facility] ermjose penicillins penicillins Active [facility] Benadryl, Topical Benadryl, Topical Active Leonardo Obregon Social History Social Habit Start Date Stop Date Quantity Comments Source TobaccoUse: 2016-06-05 00:00:00 2016-06-05 00:00:00 Leonardo Obregon Sex [birth year] At 1955 00:00:00 1955 00:00:00 Female [facility] Medications Ordered Medication Name Filled Medication Name Start Date Stop Da te Current Medication? Ordering Clinician Indication Dosage Frequency Signature (SIG) Comments Components Source Sulfasalazine 2018-10-13 00:00:00 Yes Tamara Brock 4 tablets [facility] Chlordiazepoxide-clidinium 2018-01-27 02:48:41 Yes Mayra a Brock 1 capsule [facility] Lisinopril 2018-01-27 02:48:41 Yes Tamara Brock 1 tablet [facility] Morphine Sulfate 2018-01-27 02:48:41 Yes Tamara Brock 1 tablet as needed [facility] Metformin HCl 2018-01-27 02:48:41 Yes Tamara Brock 1 tablet with meals [facility] Tizanidine HCl 2018-01-27 02:48:41 Yes Tamara Brock 1 tablet as needed [facility] [place] 2018-01-27 02:48:41 Yes Tamara Brock 2 ta blets [facility] Fluoxetine HCl 2018-01-27 02:48:41 Yes Tamara Brock 1 capsule in the morning [facility] Gabapentin 2018-01-27 02:48:41 Yes Tamara Brock 1 capsule [facility] Budesonide 2018-01-27 02:48:41 Yes Tamara Brock as directed [facility] Lovastatin 2018-01-27 02:48:41 Yes Tamara Brock 1 tablet with a meal [facility] Sulfasalazine 2018-01-27 02:48:41 Yes Tamara Brock 4 tablets [facility] Macrobid 2018-01-27 02:48:41 Yes Tamara Brock 1 capsule with food [facility] Ranitidine 75 2018-01-27 02:48:41 Yes Tamara Brock 1 tablet as needed [facility] Sulfasalazine 2017-12-09 00:00:00 Yes Wajeeha Estrellita 4 tablets [facility] Medrol Dose Saulo 2017-10-05 00:00:00 Yes Grzegorz Alejandro as directed [facility] Gabapentin 2017-03-12 03:47:54 Yes Sander Justine 1 capsule [facility] Gabapentin 2017-03-12 03:47:54 Yes Sander Justine TAKE ONE CAPSULE BY MOUTH EVERY NIGHT AT BEDTIME [facility] Lovastatin 2017-03-12 03:47:54 Yes [place] Justine 1 tablet with a meal [facility] Budesonide 2017-03-12 03:47:54 Yes Sander Justine 3 tablets [facility] Hydrocodone-Acetaminophen 2017-03-12 03:47:54 Yes [place] M unshi 1 tablet as needed [facility] Lovastatin 2017-02-25 02:45:55 Yes [place] Justine 1 tablet with a meal [facility] Fluoxetine HCl 2017-02-25 02:45:55 Yes [place] Justine 1 capsule in the morning [facility] Tizanidine HCl 2017-02-25 02:45:55 Yes Sander Justine 1 tablet as needed [facility] Morphine Sulfate 2017-02-25 02:45:55 Yes Sander Justine 1 tablet as needed [facility] Hydrocodone-Acetaminophen 2017-02-25 02:45:55 Yes [place] M unshi 1 tablet as needed [facility] Metformin HCl 2017-02-25 02:45:55 Yes Sander Justine 1 tablet with meals [facility] Lisinopril 2017-02-25 02:45:55 Yes Sander Justine 1 tablet [facility] [place] 2017-02-25 02:45:55 Yes [place] Justine 1 table t as needed [facility] Gabapentin 2017-02-25 02:45:55 Yes [place] Justine 1 capsule [facility] Budesonide 2017-02-25 02:45:55 Yes [place] Justine 3 tablets [facility] Stelara 2017-02-18 00:00:00 Yes Grzegorz Alejandro 90m g [facility] Stelara 2017-02-18 00:00:00 Yes Grzegorz Alejandro 520 mg [facility] Vitamin D 2017-02-13 02:46:39 Yes Grzegorz Alejandro 1 tablet [facility] Lovastatin 2017-02-13 02:46:39 Yes Grzegorz Alejandro 1 tablet with a meal [facility] Actos 2017-02-13 02:46:39 Yes Grzegorz Alejandro 1 tab let [facility] Tizanidine HCl 2017-02-13 02:46:39 Yes Grzegorz Alejandro 1 tablet as needed [facility] Calcium 2017-02-13 02:46:39 Yes Grzegorz Alejandro 1 t ablet with meals [facility] Gabapentin 2017-02-13 02:46:39 Yes Grzegorz Alejandro 1 capsule [facility] Budesonide 2017-02-13 02:46:39 Yes Grzegorzreyna Hammer as directed [facility] Medrol Dose Saulo 2017-01-14 00:00:00 Yes [place] Justine as directed [facility] Tizanidine HCl 2016-11-25 00:00:00 Yes [place] Justine 1 tablet as needed [facility] levoquin 2016-10-29 02:46:14 Yes [place] Justine as d irected [facility] Actos 2016-10-15 02:46:30 Yes Wajeeha Estrellita 1 ta blet [facility] Macrobid 2016-08-28 00:00:00 Yes [place] Justine 1 ca psule with food [facility] Humulin N 2016-06-19 03:58:01 Yes Wacalistaeha Estrellita as directed [facility] Chlordiazepoxide-clidinium 2016-06-19 03:58:01 Yes Wacalistae mendiola Estrellita 1 capsule [facility] Macrobid 2016-06-19 03:58:01 Yes Wajeeha Estrellita 1 capsule with food [facility] Leflunomide 2016-06-05 00:00:00 Yes Wajeeha Estrellita 1 tablet [facility] Oxybutynin Chloride ER 2015-12-29 02:56:17 Yes Marisoleha Y ousaf 1 tablet [facility] Bactrim DS 2015-12-29 02:56:17 Yes Wajeeha Estrellita 1 tablet [facility] Sulfasalazine 2015-10-24 00:00:00 Yes Grzegorz Alejandro 4 tablets [facility] Sulfasalazine 2015-10-24 00:00:00 Yes Latifa Fakoya 3 tablets [facility] Methotrexate 2015-09-22 03:00:26 Yes Wacalistaeha Estrellita 6 tabs once a week [facility] Lidocaine 2015-09-19 00:00:00 Yes Wajeeha Estrellita 1 application to affected area as needed [facility] Magic Mouthwash 2015-09-19 00:00:00 Yes Marisoleha Estrellita 5ml swish and swallow [facility] Folic Acid 2015-07-07 03:54:22 No Sandrajeeha Estrellita 1 tablet [facility] PredniSONE 2015-06-27 00:00:00 Yes Wacalistaeha Estrellita Unknown [facility] Folic Acid 2015-06-27 00:00:00 Yes Wacalistaeha Estrellita 2 tablet [facility] Simponi Aria 2015-06-27 00:00:00 Yes Wajeeha Estrellita as directed [facility] Baclofen 2015-05-01 04:00:27 Yes Grzegorz Alejandro 1 tablet with food or milk [facility] Lyrica 2015-05-01 04:00:27 Yes Grzegorz Alejandro 1 ca psule [facility] Chlordiazepoxide-Amitriptyline 2015-05-01 04:00:27 Yes P [facility]ilip [facility] Nexium 2015-05-01 04:00:27 Yes Grzegorz Alejandro 1 ca psule [facility] Sulfazine 2015-05-01 04:00:27 Yes Grzegorz Alejandro 2 tablet [facility] Methocarbamol 2015-05-01 04:00:27 Yes Grzegorz Alejandro 1 tablet [facility] Budesonide ER 2015-05-01 04:00:27 Yes Grzegorz Alejandro Unknown [facility] ReZyst IM 2015-05-01 04:00:27 Yes Grzegorz Alejandro U nknown [facility] Cranberry Plus Vitamin C 2015-05-01 04:00:27 Yes Grzegorz Alejandro Unknown [facility] Butorphanol Tartrate 2015-03-07 03:55:50 Yes Tova Prich katy 1 ml as needed [facility] Tizanidine HCl 2014-12-04 00:00:00 Yes Latifa Fakoya 1 tablet as [facility] Methotrexate 2014-08-17 00:00:00 Yes Grzegorz Alejandro as directed [facility] Enbrel 2014-02-13 00:00:00 Yes Tova Pieter 1 m l [facility] Butorphanol Tartrate 2013-11-28 00:00:00 Yes Grzegorz Wall er 1 ml as needed [facility] Citalopram Hydrobromide 2013-09-30 02:48:13 Yes Chaparro Danielle 1 tab [facility] Enbrel SureClick 2013-07-13 00:00:00 Yes Chaparro Danielle 1 ml [facility] Fluoxetine Hcl (Prozac) 20 Mg CAPSULE Fluoxetine Hcl (Prozac) 20 Mg CAPSULE Yes [address] [facility] Gabapentin Gabapentin Yes 400 Twice A Day [facility] Hydrocodone Bit/Acetaminophen ([place] 10-325 Tablet) 1 Each TABLET Hydrocodone Bit/Acetaminophen ([place] 10-325 Tablet) 1 Each TABLET Yes 1 Every 6 Hours as needed for Pain [facility] Lisinopril Lisinopril Yes 5 Daily [facility] Metformin Hcl (Glucophage) 1,000 Mg TABLET Metformin H cl (Glucophage) 1,000 Mg TABLET Yes 1000 Twice Daily Before Meals [facility] Morphine Sulfate (Ms Contin) 30 Mg TABLET.ER Morphine Sulfate (Ms Contin) 30 Mg TABLET.ER Yes 30 Three Times A Day [facility] Nitrofurantoin Monohyd/M-Cryst (Macrobid 100 Mg Capsul e) 100 Mg CAPSULE Nitrofurantoin Monohyd/M-Cryst (Macrobid 100 Mg Capsule) 100 Mg CAPSULE Yes 100 Twice A Day [facility] Pioglitazone Hcl Pioglitazone Hcl Yes 45 Daily [facility] Sulfamethoxazole/Trimethoprim (Bactrim Ds Tablet) 1 Ea ch TABLET Sulfamethoxazole/Trimethoprim (Bactrim Ds Tablet) 1 Each TABLET Yes 800 Twice A Day [facility] Tizanidine Hcl Tizanidine Hcl Yes 4 Twice A Da y [facility] Budesonide (Budesonide Ec) 3 Mg CAPDR...ER Budesonide (Budesonide Ec) 3 Mg CAPDR...ER 2018-10-07 00:00:00 No 9 Daily [facility] Lovastatin Lovastatin 2018-10-07 00:00:00 No 40 Lexii ly [facility] Sulfasalazine (Azulfidine) 500 Mg TABLET Sulfasalazine (Azulfidine) 500 Mg TABLET 2018-10-07 00:00:00 No 2000 Twice A Day [facility] Gabapentin Gabapentin 2017-06-30 00:00:00 No 400 Bed time [facility] Lisinopril (Prinivil) 10 Mg TABLET Lisinopril (Prinivil) 10 Mg T ABLET 2017-06-30 00:00:00 No 10 Daily [facility] Pantoprazole Sodium (Protonix) 40 Mg TABLET. Pantopr azole Sodium (Protonix) 40 Mg TABLET. 2017-06-30 00:00:00 No 40 Daily [facility] Tizanidine Hcl Tizanidine Hcl 2017-06-30 00:00:00 No 4 Twice A Day as needed for Pain [facility] Vital Signs Vital Name Observation Time Observation Value Comments Source Body Temperature 2020-01-28 16:31:00 98.2 [degF] [facility] Weight 2020-01-28 13:19:00 189 [lb_av] [facility] BMI (Body Mass Index) 2020-01-28 13:19:00 30.5 kg/m2 [facility] Weight 2018-01-06 15:45:00 [facility] Height 2018-01-06 15:45:00 [facility] Temperature Oral (F) 2018-01-06 15:45:00 98.3 F [facility] Heart Rate 2018-01-06 15:45:00 [facility] Diastolic (mm Hg) 2018-01-06 15:45:00 [facility] Systolic (mm Hg) 2018-01-06 15:45:00 Jevon zebl [facility] Weight 2017-10-05 21:00:00 [facility] Height 2017-10-05 21:00:00 [facility] Temperature Oral (F) 2017-10-05 21:00:00 96.6 F [facility] Heart Rate 2017-10-05 21:00:00 [facility] Diastolic (mm Hg) 2017-10-05 21:00:00 [facility] Systolic (mm Hg) 2017-10-05 21:00:00 Jevon [place] Weight 2017-06-15 16:00:00 [facility] Height 2017-06-15 16:00:00 [facility] Temperature Oral (F) 2017-06-15 16:00:00 98.3 F [facility] Heart Rate 2017-06-15 16:00:00 [facility] Diastolic (mm Hg) 2017-06-15 16:00:00 [facility] Systolic (mm Hg) 2017-06-15 16:00:00 Jevon rial [facility] Weight 2017-05-12 19:45:00 [facility] Height 2017-05-12 19:45:00 [facility] Temperature Oral (F) 2017-05-12 19:45:00 98.3 F [facility] Heart Rate 2017-05-12 19:45:00 [facility] Diastolic (mm Hg) 2017-05-12 19:45:00 [facility] Systolic (mm Hg) 2017-05-12 19:45:00 Jevon rial [facility] Weight 2017-02-23 20:15:00 [facility] Height 2017-02-23 20:15:00 [facility] Temperature Oral (F) 2017-02-23 20:15:00 98.1 F [facility] Heart Rate 2017-02-23 20:15:00 [facility] Diastolic (mm Hg) 2017-02-23 20:15:00 [facility] [place] Systolic (mm Hg) 2017-02-23 20:15:00 Jevon [facility] [place] Weight 2017-02-10 15:30:00 [facility] Height 2017-02-10 15:30:00 [facility] Temperature Oral (F) 2017-02-10 15:30:00 98.2 F [facility] Heart Rate 2017-02-10 15:30:00 [facility] Diastolic (mm Hg) 2017-02-10 15:30:00 [facility] Systolic (mm Hg) 2017-02-10 15:30:00 Jevon rial [facility] Weight 2017-01-23 20:00:00 [facility] Height 2017-01-23 20:00:00 [facility] Temperature Oral (F) 2017-01-23 20:00:00 99.0 F [facility] Heart Rate 2017-01-23 20:00:00 [facility] Diastolic (mm Hg) 2017-01-23 20:00:00 [facility] Systolic (mm Hg) 2017-01-23 20:00:[address] Jev[address] ze[place] Weight 2016-09-26 15:45:00 [facility] Height 2016-09-26 15:45:00 [facility] [facility] Temperature Oral (F) 2016-09-26 15:45:00 98.2 F [facility] Heart Rate 2016-09-26 15:45:00 [facility] Diastolic (mm Hg) 2016-09-26 15:45:00 [facility] Systolic (mm Hg) 2016-09-26 15:45:00 [facility] Weight 2016-09-26 15:00:00 [facility] Height 2016-09-26 15:00:00 [facility] Temperature Oral (F) 2016-09-26 15:00:00 98.3 F [facility] Heart Rate 2016-09-26 15:00:00 [facility] [place] Diastolic (mm Hg) 2016-09-26 15:00:00 [facility] [place] Systolic (mm Hg) 2016-09-26 15:00:00 [facility] [place] Weight 2016-08-28 15:15:00 [facility] Height 2016-08-28 15:15:00 [facility] Temperature Oral (F) 2016-08-28 15:15:00 97.8 F [facility] Heart Rate 2016-08-28 15:15:00 [facility] [place] Diastolic (mm Hg) 2016-08-28 15:15:00 [facility] [place] Systolic (mm Hg) 2016-08-28 15:15:00 [facility] [place] Weight 2016-06-05 20:15:00 [facility] [place] [facility] Height 2016-06-05 20:15:00 [facility] Temperature Oral (F) 2016-06-05 20:15:00 98.8 F [facility] Heart Rate 2016-06-05 20:15:00 [facility] Diastolic (mm Hg) 2016-06-05 20:15:00 [facility] [place] Systolic (mm Hg) 2016-06-05 20:15:00 [facility] [place] Weight 2016-02-13 19:45:00 [facility] Height 2016-02-13 19:45:00 [facility] Temperature Oral (F) 2016-02-13 19:45:00 97.0 F [facility] Rate 2016-02-13 19:45:00 [facility] Diastolic (mm Hg) 2016-02-13 19:45:00 [facility] Systolic (mm Hg) 2016-02-13 19:45:00 [facility] Weight 2015-12-13 18:15:00 [facility] Height 2015-12-13 18:15:00 [facility] Temperature Oral (F) 2015-12-13 18:15:00 99.0 F [facility] Heart Rate 2015-12-13 18:15:00 [facility] Diastolic (mm Hg) 2015-12-13 18:15:00 [facility] Systolic (mm Hg) 2015-12-13 18:15:00 [facility] [place] Weight 2015-10-24 18:15:00 [facility] Height 2015-10-24 18:15:00 [facility] Temperature Oral (F) 2015-10-24 18:15:00 98.5 F [facility] Heart Rate 2015-10-24 18:15:00 [facility] Diastolic (mm Hg) 2015-10-24 18:15:00 [facility] [place] Systolic (mm Hg) 2015-10-24 18:15:00 [facility] [place] Weight 2015-09-19 20:30:00 [facility] Height 2015-09-19 20:30:00 [facility] Temperature Oral (F) 2015-09-19 20:30:00 97.2 F [facility] Heart Rate 2015-09-19 20:30:00 [facility] Diastolic (mm Hg) 2015-09-19 20:30:00 [facility] Systolic (mm Hg) 2015-09-19 20:30:00 [facility] Diastolic (mm Hg) 2015-08-29 19:00:00 [facility] Systolic (mm Hg) 2015-08-29 19:00:00 [facility] [place] Weight 2015-08-29 19:00:00 [facility] Temperature Oral (F) 2015-08-29 19:00:00 98.2 F [facility] Heart Rate 2015-08-29 19:00:00 [facility] Weight 2015-06-27 20:15:00 [facility] Height 2015-06-27 20:15:00 [facility] Temperature Oral (F) 2015-06-27 20:15:00 98.4 F [facility] Heart Rate 2015-06-27 20:15:00 [facility] Diastolic (mm Hg) 2015-06-27 20:15:00 [facility] [place] Systolic (mm Hg) 2015-06-27 20:15:00 [facility] [place] Weight 2014-02-21 16:45:00 [facility] Height 2014-02-21 16:45:00 [facility] Temperature Oral (F) 2014-02-21 16:45:00 98.7 F [facility] Heart Rate 2014-02-21 16:45:00 [facility] Diastolic (mm Hg) 2014-02-21 16:45:00 [facility] [place] Systolic (mm Hg) 2014-02-21 16:45:00 [facility] [place] Weight 2013-11-17 20:15:00 [facility] Height 2013-11-17 20:15:00 [facility] Temperature Oral (F) 2013-11-17 20:15:00 98.7 F [facility] Heart Rate 2013-11-17 20:15:00 [facility] Diastolic (mm Hg) 2013-11-17 20:15:00 [facility] [place] Systolic (mm Hg) 2013-11-17 20:15:00 [facility] [place] Weight 2013-09-12 13:30:00 [facility] Height 2013-09-12 13:30:00 [facility] Temperature Oral (F) 2013-09-12 13:30:00 97.9 F [facility] Heart Rate 2013-09-12 13:30:00 [facility] Diastolic (mm Hg) 2013-09-12 13:30:00 [facility] Systolic (mm Hg) 2013-09-12 13:30:00 [facility] Procedures Procedure Date / Time Performed Performing Clinician [facility] e CT of abdomen and pelvis without contrast 2020-01-28 00:00:00 [facility] Plan of Care Planned Activity Planned Date Details Comments Source Instructions Urinary Tract Infection - Women [facility] Instructions Yeast Infection [facility] Encounters Start Date/Time End Date/Time Encounter Type Admission Type [facility] Facility Care Department Encounter ID Source 2020-01-28 13:54:00 2020-01-28 17:40:00 Departed Emergency Room 1 [facility] [id number] [facility] 2018-11-23 10:39:00 2018-11-23 10:39:00 Outpatient Grzegorz Alejandro MD PA Grzegorz Alejandro MD [place] [id number] Lionel Alejandro MD 2018-10-13 12:31:00 2018-10-13 12:31:00 Outpatient Grzegorz Alejandro MD PA [id number] Lionel Alejandro MD 2018-10-13 12:28:00 2018-10-13 12:28:00 Outpatient Grzegorz Alejandro MD [place] [id number] Lionel Alejandro MD 2018-08-12 13:34:00 2018-08-12 23:59:00 Outpatient Vanessa Hobson MHOIB MHOIB [id number] 2018-07-21 13:03:00 2018-07-21 23:59:00 Outpatient Dixie Trejo MHSE MHSE [id number] 2018-05-06 12:52:00 2018-05-06 12:52:00 Outpatient Grzegorz Alejandro MD PA [id number] Lionel Alejandro MD 2018-04-07 12:40:00 2018-04-07 12:40:00 Outpatient Grzegorz Alejandro MD PA [id number] Lionel Alejandro MD 2018-01-06 10:45:00 2018-01-06 10:45:00 Outpatient Grzegorz Alejandro MD PA [id number] Lionel Alejandro MD 2017-12-09 14:33:00 2017-12-09 14:33:00 Outpatient Grzegorz Alejandro MD PA [id number] Lionel Alejandro MD 2017-10-05 16:00:00 2017-10-05 16:00:00 Outpatient Grzegorz Alejandro MD PA [id number] Lionel Alejandro MD 2017-08-17 09:20:00 2017-08-17 23:59:00 Outpatient Vanessa Hobson MHSE MHSE [id number] 2017-07-21 10:48:00 2017-07-21 23:59:00 Outpatient Vanessa Hobson [id number] 2017-06-15 10:00:00 2017-06-15 10:00:00 Outpatient Grzegorz CANELA [id number] Lionel Alejandro MD 2017-06-12 11:36:00 2017-06-12 11:36:00 Outpatient Grzegorz CANELA [id number] Lionel Alejandro MD 2017-05-13 19:29:00 2017-05-13 19:29:00 Outpatient Grzegorz CANELA [id number] Lionel Alejandro MD 2017-05-12 13:45:00 2017-05-12 13:45:00 Outpatient Grzegorz Alejandro MD PA [id number] Lionel Alejandro MD 2017-03-10 12:30:00 2017-03-10 12:30:00 Outpatient [facility] Outpatient [id number] Lionel Alejandro MD 2017-03-02 12:52:00 2017-03-02 12:52:00 Outpatient Grzegorz Alejandro MD PA [id number] Lionel Alejandro MD 2017-02-23 15:15:00 2017-02-23 15:15:00 Outpatient [facility] [id number] Lionel Alejandro MD 2017-02-18 19:42:00 2017-02-18 19:42:00 Outpatient Grzegorz Alejandro MD PA [id number] Lionel Alejandro MD 2017-02-10 10:30:00 2017-02-10 10:30:00 Outpatient Grzegorz Alejandro MD PA [id number] RAY Alejandro MD 2017-01-28 13:05:00 2017-01-28 13:05:00 Outpatient [facility] [id number] Lionel Alejandro MD 2017-01-23 15:00:00 2017-01-23 15:00:00 Outpatient [facility] [id number] Lionel Alejandro MD 2017-01-16 15:38:00 2017-01-16 15:38:00 Outpatient Grzegorz Alejandro MD PA [id number] Lionel Alejandro MD 2017-01-14 17:24:00 2017-01-14 17:24:00 Outpatient [facility] [id number] Lionel Alejandro MD 2017-01-12 13:22:00 2017-01-12 13:22:00 Outpatient [facility] [id number] Lionel Alejandro MD 2016-10-28 11:00:00 2016-10-28 11:00:00 Outpatient [facility] Outpatient [facility] Outpatient [id number] M H Lionel Alejandro MD 2016-10-14 10:00:00 2016-10-14 10:00:00 Outpatient [facility] Outpatient [facility] Outpatient [id number] M H Lionel Alejandro MD 2016-10-13 10:33:00 2016-10-13 10:33:00 Outpatient [facility] [id number] Lionel Alejandro MD 2016-09-26 10:45:00 2016-09-26 10:45:00 Outpatient [facility] [id number] Lionel Alejandro MD 2016-09-26 10:00:00 2016-09-26 10:00:00 Outpatient Grzegorz Alejandro MD PA [id number] Lionel Alejandro MD 2016-09-01 15:52:00 2016-09-01 15:52:00 Outpatient Grzegorz Alejandro MD PA [id number] Lionel Alejandro MD 2016-08-28 10:15:00 2016-08-28 10:15:00 Outpatient [facility] [id number] Lionel Alejandro MD 2016-07-24 12:59:00 2016-07-24 12:59:00 Outpatient [facility] [id number] Lionel Alejandro MD 2016-07-23 15:13:00 2016-07-23 15:13:00 Outpatient [facility] [id number] Lionel Alejandro MD 2016-06-05 14:15:00 2016-06-05 14:15:00 Outpatient MD Grzegorz Cao MD [id number] Lionel Alejandro MD 2016-02-21 15:52:00 2016-02-21 15:52:00 Outpatient MD Grzegorz Cao MD [id number] Lionel Alejandro MD 2016-02-13 15:47:00 2016-02-13 15:47:00 Outpatient MD Grzegorz Cao MD [id number] Lionel Alejandro MD 2016-02-13 15:18:00 2016-02-13 15:18:00 Outpatient MD Grzegorz Cao MD [id number] Lionel Alejandro MD 2016-02-13 14:45:00 2016-02-13 14:45:00 Outpatient MD Grzegorz Cao MD [id number] Lionel Alejandro MD 2015-12-13 13:15:00 2015-12-13 13:15:00 Outpatient MD Grzegorz Cao MD [id number] RAY Alejandro MD 2015-12-05 10:17:00 2015-12-05 10:17:00 Outpatient MD Grzegorz Cao MD [id number] RAY Alejandro MD 2015-10-24 15:58:00 2015-10-24 15:58:00 Outpatient Grzegorz Alejandro MD PA [id number] Lionel Alejandro MD 2015-10-24 13:15:00 2015-10-24 13:15:00 Outpatient MD Grzegorz Cao MD [id number] Lionel Alejandro MD 2015-10-24 13:15:00 2015-10-24 13:15:00 Outpatient MD Grzegorz Cao MD [id number] RAY Alejandro MD 2015-10-04 09:08:00 2015-10-04 09:08:00 Outpatient MD Grzegorz Cao MD [id number] RAY Alejandro MD 2015-09-19 16:50:00 2015-09-19 16:50:00 Outpatient MD Grzegorz Cao MD [id number] Lionel Alejandro MD 2015-09-19 15:30:00 2015-09-19 15:30:00 Outpatient MD Grzegorz Cao MD [id number] RAY Alejandro MD 2015-08-29 14:00:00 2015-08-29 14:00:00 Outpatient MD Grzegorz Cao MD [id number] RAY Alejandro MD 2015-06-27 14:15:00 2015-06-27 14:15:00 Outpatient MD Grzegorz Cao MD [id number] RAY Alejandro MD 2015-06-27 14:15:00 2015-06-27 14:15:00 Outpatient MD Grzegorz Cao MD [id number] RAY Alejandro MD 2015-06-27 08:14:00 2015-06-27 08:14:00 Outpatient MD Grzegorz Cao MD [id number] RAY Alejandro MD 2014-11-14 12:42:00 2014-11-14 12:42:00 Outpatient MD Grzegorz Cao MD [id number] RAY Alejandro MD 2014-06-05 15:16:00 2014-06-05 15:16:00 Outpatient MD Grzegorz Cao MD [id number] RAY Alejandro MD 2014-05-25 10:13:00 2014-05-25 10:13:00 Outpatient MD Grzegorz Cao MD [id number] Lionel Alejandro MD 2014-05-25 08:24:00 2014-05-25 08:24:00 Outpatient MD Grzegorz Cao MD [id number] RAY Alejandro MD 2014-05-09 10:05:00 2014-05-09 10:05:00 Outpatient MD Grzegorz Cao MD [id number] RAY Alejandro MD 2014-02-21 10:45:00 2014-02-21 10:45:00 Outpatient MD Grzegorz Cao MD [id number] Lionel Alejandro MD 2014-02-13 14:48:00 2014-02-13 14:48:00 Outpatient MD Grzegorz Cao MD [id number] Lionel Alejandro MD 2013-11-25 13:03:00 2013-11-25 13:03:00 Outpatient MD Grzegorz Cao MD [id number] RAY Alejandro MD 2013-11-18 08:48:00 2013-11-18 08:48:00 Outpatient MD Grzegorz Cao MD [id number] Lionel Alejandro MD 2013-11-17 14:15:00 2013-11-17 14:15:00 Outpatient MD Grzegorz Cao MD [id number] RAY Alejandro MD 2013-11-09 11:33:00 2013-11-09 11:33:00 Outpatient MD Grzegorz Cao MD [id number] RAY Alejandro MD 2013-09-30 08:55:00 2013-09-30 08:55:00 Outpatient MD Grzegorz Cao MD [id number] RAY Alejandro MD 2013-09-29 14:40:00 2013-09-29 14:40:00 Outpatient MD Grzegorz Cao MD [id number] Lionel Alejandro MD 2013-09-12 08:30:00 2013-09-12 08:30:00 Outpatient MD Grzegorz Cao MD [id number] Lionel Alejandro MD Results Test Description Test Time Test Comments Results Result Comments Source CT ABDOMEN/PELVIS WO 2020-01-28 14:53:00 [place] [address] Patient Name: MANPREET MADDOX MR #: [id number] : 1955 Age/Sex: 64/F Req #: [id number] Adm Physician: Ordered by: TOMAS SUTTON MD Report #: [id number] Location: ER Room/Bed: Procedure: CT/CT ABDOMEN/PELVIS WO Exam Date: Exam Time: REPORT STATUS: Signed EXAM: CT Abdomen and Pelvis without contrast INDICATION: Right flank pain. COMPARISON: None. TECHNIQUE: Abdomen and pelvis were scanned utilizing a multidetector helical scanner from the lung base to the pubic symphysis without administration of IV contrast. Coronal and sagittal reformations were obtained. Renal stone protocol was performed. IV CONTRAST: None. ORAL CONTRAST: Water COMPLICATIONS: None RADIATION DOSE: Total DLP: 727 mGy*cm Estimated effective dose: (DLP x 0.015 x size factor) mSv CTDIvol has been reviewed. It is below the limits set by the Radiation Protocol Committee (RPC). FINDINGS: LOWER THORAX: Unremarkable HEPATOBILIARY: No evidence of focal lesion. There is intra- and extra- hepatic biliary dilation likely post cholecystectomy reservoir effect. GALLBLADDER: Status post cholecystectomy. SPLEEN: No splenomegaly. PANCREAS: No focal masses or ductal dilatation. ADRENALS: No adrenal nodules KIDNEYS/URETERS: No evidence of hydronephrosis, solid mass, or stone. GI TRACT: No evidence of wall thickening or distension. Appendix is normal. Scattered sigmoid colonic diverticulosis without evidence of diverticulosis. PELVIC ORGANS/BLADDER: The bladder is decompressed with mild wall thickening. Ratliff catheter within the bladder. Status post hysterectomy. LYMPH NODES: No lymphadenopathy. VESSELS: There is mild atherosclerotic disease in the aorta and major arterial branches. PERITONEUM / RETROPERITONEUM: There is stranding with trace amount of free fluid within the mesenteric fat. No free air. BONES AND SOFT TISSUES: Mild compression deformities at L4 and L5 with vertebral augmentation changes. Small amount of weeks cement into the anterior right aspect of the spinal canal at L5. No acute osseous abnormality. Partially seen right proximal femoral fixation hardware. Left flank subcutaneous stimulator with sacral stimulator leads. Fat-containing umbilical hernia without evidence of inflammatory changes. Surgical scar in the lower anterior abdomen. Small bilateral fat containing inguinal hernias. CONCLUSION: Inflammatory changes in the mesentery without bowel wall thickeni ng. 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 No evidence of lymphadenopathy. Recommend clinical correlation. No evidence of nephrolithiasis. Vertebral augmentation changes with small amount of leak cement in the anterior right aspect of the spinal canal at L5. Signed by: Dr. Brenda Durand MD on 01/28/2020 3:04 PM Dictated By: BRENDA DURAND MD [id number] Transcribed By: SERGEI on 01/28/20 1504 COPY TO: TOMAS SUTTON MD CHEST SINGLE (PORTABLE) 2020-01-28 14:51:00 [place] [id number] Patient Name: MANPREET MADDOX MR #: [id number] : 1955 Age/Sex: 64/F Req #: [id number] Adm Physician: Ordered by: TOMAS SUTTON MD Report #: [id number] Location: ER Room/Bed: Procedure: [id number] DX/CHEST SINGLE (PORTABLE) Exam Date: Exam Time: REPORT STATUS: Signed EXAMINATION: CHEST SINGLE (PORTABLE) INDICATION: RIGHT FLANK PAIN COMPARISON: Chest radiograph 10/07/2018. FINDINGS: TUBES and LINES: None. LUNGS: Lungs are well inflated. There is no evidence of pneumonia or pulmonary edema. Minimal depen dent bibasilar opacities, likely atelectasis. PLEURA: No pleural effusion or pneumothorax. HEART AND MEDIASTINUM: The cardiomediastinal silhouette is unremarkable. BONES AND SOFT TISSUES: No acute osseous lesion. Soft tissues are unremarkable. UPPER ABDOMEN: No free air under the diaphragm. IMPRESSION: No acute thoracic abnormality. Signed by: Dr. Brenda Durand MD on 01/28/2020 2:53 PM Dictated By: BRENDA DURAND MD 52 Transcribed By: SERGEI on 01/28/201452 COPY TO: TOMAS SUTTON MD Blood leukocytes automated count (number/volume) 2020-01-28 13:44:00 Test Item White Blood Count (test code = 6690-2) 8.39 4.8-10.8 [facility] (number/volume)2020-01-28 13:44:00* Test Item Value Reference Range Interpretation Comments Red Blood Count (test code = 789-8) 4.48 3.6-5.1 [facility] hemoglobin measurement (moles/volume)2020-01-28 13:44:00* Test Item Value Reference Range Interpretation Comments Hemoglobin (test code = 16379-9) 11.4 12.0-16.0 [facility] CenterAutomated blood hematocrit (volume fraction)2020-01-28 13:44:00* Test Item Value Reference Range Interpretation Comments Hematocrit (test code = 4544-3) 36.1 34.2-44.1 [facility] CenterAutomated erythrocyte mean corpuscular lgggpc8845-03-92 13:44:00* Test Item Value Reference Range Interpretation Comments Mean Corpuscular Volume (test code = 787-2) 80.6 81-99 [facility] CenterAutomated erythrocyte mean corpuscular hemoglobin (mass per erythrocyte)2020-01-28 13:44:00* Test Item Value Reference Range Interpretation Comments Mean Corpuscular Hemoglobin (test code = 785-6) 25.4 28-32 [facility] CenterAutomated erythrocyte mean corpuscular hemoglobin concentration measurement (mass/volume)2020-01-28 13:44:00* Test Item Value Reference Range Interpretation Comments Mean Corpuscular Hemoglobin Concent (test code = 786-4) 31.6 31-35 [facility] CenterRDW ZtcOw-Umf4808-84-26 13:44:00* Test Item Value Reference Range Interpretation Comments Red Cell Distribution Width (test code = 33988-5) 15.5 11.7 -14.4 [facility] CenterAutomated blood platelet count (count/volume)2020-01-28 13:44:00* Test Item Value Reference Range Interpretation Comments Platelet Count (test code = 777-3) 316 140-360 [facility] CenterAut[facility] blood segmented neutrophil count as percentage of total qtojorylnc8877-25-80 13:44:00* Test Item Value Reference Range Interpretation Comments Neutrophils (%) (Auto) (test code = 23558-1) 80.2 38.7-80.0 [facility] CenterAutomated blood lymphocyte count as percentage ot total obfymunksx2738-40-12 13:44:00* Test Item Value Reference Range Interpretation Comments Lymphocytes (%) (Auto) (test code = 736-9) 13.9 18.0-39.1 [facility] CenterAutomated blood monocyte count as percentage of total skozbxmaje6977-55-54 13:44:00* Test Item Value Reference Range Interpretation Comments Monocytes (%) (Auto) (test code = 5905-5) 4.2 4.4-11.3 [facility] CenterAutomated blood eosinophil count as percentage of total vdbbryzyge0210-16-96 13:44:00* Test Item Value Reference Range Interpretation Comments Eosinophils (%) (Auto) (test code = 713-8) 0.8 0.0-6.0 [facility] CenterAutomated blood basophil count as percentage of total hcnulyowkn0318-95-55 13:44:00* Test Item Value Reference Range Interpretation Comments Basophils (%) (Auto) (test code = 706-2) 0.4 0.0-1.0 [facility] CenterFluoroscopic procedure less than one hour dgaytcml9170-58-40 13:44:00* Test Item Value Reference Range Interpretation Comments IM GRANULOCYTES % (test code = IM GRANULOCYTES %) 0.5 0.0- 1.0 [facility] CenterAutomated blood neutrophil count 2020-01-28 13:44:00* Test Item Value Reference Range Interpretation Comments Neutrophils # (Auto) (test code = 751-8) 6.7 2.1-6.9 [facility] CenterBlood lymphocytes count (number/volume) 2020-01-28 13:44:00* Test Item Value Reference Range Interpretation Comments Lymphocytes # (Auto) (test code = 49342-1) 1.2 1.0-3.2 [facility] CenterBl[facility] monocytes automated count (number/volume)2020-01-28 13:44:00* Test Item Value Reference Range Interpretation Comments Monocytes # (Auto) (test code = 742-7) 0.4 0.2-0.8 [facility] CenterAutomated blood eosinophil count 2020-01-28 13:44:00* Test Item Value Reference Range Interpretation Comments Eosinophils # (Auto) (test code = 711-2) 0.1 0.0-0.4 [facility] CenterAutomated blood basophil count (count/volume)2020-01-28 13:44:00* Test Item Value Reference Range Interpretation Comments Basophils # (Auto) (test code = 704-7) 0.0 0.0-0.1 [facility] CenterFluoroscopic procedure less than one hour ddourimo9402-79-59 13:44:00* Test Item Value Reference Range Interpretation Comments Absolute Immature Granulocyte (auto (rae t code = Absolute Immature Granulocyte (auto) 0.04 0-0.1 [facility] CenterProthrombin time (PT) in platelet poor plasma by coagulation hjrsn0822-88-61 13:44:00* Test Item Value Reference Range Interpretation Comments Prothrombin Time (test code = 5902-2) 13.6 11.9-14.5 [facility] CenterINR in Platelet poor plasma by Coagulation abrwc7781-50-19 13:44:00* Test Item Value Reference Range Interpretation Comments Prothromb Time International Ratio (test code = 6301-6) 0.99 Oral Anticoagulant Therapy INR Values:1. Low Intensity Therapy 1.5 - 2.02 . Moderate Intensity Therapy 2.0 - 3.03. High Intensity Therapy(1) 2.5 - 3. 54. High Intensity Therapy(2) 3.0 - 4.05. Panic Value INR > 5.0 [facility] CenterActivated partial thromboplastin time (aPTT) in platelet poor plasma by coagulation ohzav3749-80-25 13:44:00* Test Item Value Reference Range Interpretation Comments Activated Partial Thromboplast Time (test code = 61152-7) 32.7 23.8-35.5 [facility] CenterUrine color aurgpdkwfvmol6130-24-44 13:44:00* Test Item Value Reference Range Interpretation Comments Urine Color (test code = 5778-6) YELLOW YELLOW [facility] CenterUrine uvdizjg1530-23-76 13:44:00* Test Item Value Reference Range Interpretation Comments Urine Clarity (test code = 33800-3) HAZY CLEAR [facility]resspecific gravity of Urine by Test strip 2020-01-28 13:44:00* Test Item Value Reference Range Interpretation Comments Urine Specific [place] (test code = 5811-5) 1.025 1.010-1.02 5 [facility] CenterUrine pH measurement by automated test qkbmh2763-24-70 13:44:00* Test Item Value Reference Range Interpretation Comments Urine pH (test code = 20469-1) 5.5 5-7 [facility] CenterUrine leukocyte esterase detection by wvbgbnkl4440-23-62 13:44:00* Test Item Value Reference Range Interpretation Comments Urine Leukocyte Esterase (test code = 5799-2) NEGATIVE NEGATIVE [facility] CenterUrine nitrite damfabaar3043-28-57 13:44:00* Test Item Value Reference Range Interpretation Comments Urine Nitrite (test code = 98091-4) NEGATIVE NEGATIVE [facility] CenterUrine protein measurement by test strip (mass/volume)2020-01-28 13:44:00* Test Item Value Reference Range Interpretation Comments Urine Protein (test code = 5804-0) 1+ NEGATIVE [facility] CenterUrine glucose djmzjqice5431-47-73 13:44:00* Test Item Value Reference Range Interpretation Comments Urine Glucose (UA) (test code = 2349-9) 3+ NEGATIVE [facility] CenterUrine ketones detection by automated test akcnj4176-17-83 13:44:00* Test Item Value Reference Range Interpretation Comments Urine Ketones (test code = 60071-7) 1+ NEGATIVE [facility] CenterUrine urobilinogen measurement by test strip (mass/volume)2020-01-28 13:44:00* Test Item Value Reference Range Interpretation Comments Urine Urobilinogen (test code = 45144-8) 0.2 0.2-1 [facility] CenterUrine total bilirubin measurement (mass/volume)2020-01-28 13:44:00* Test Item Value Reference Range Interpretation Comments Urine Bilirubin (test code = 1978-6) SMALL NEGATIVE [facility] CenterUrine erythrocytes bnlafimae2563-21-61 13:44:00* Test Item Value Reference Range Interpretation Comments Urine Blood (test code = 88493-8) LARGE NEGATIVE [facility] CenterAutomated urine sediment leukocyte count by microscopy (number/high power field)2020-01-28 13:44:00* Test Item Value Reference Range Interpretation Comments Urine WBC (test code = 5821-4) 11-20 0-5 [facility] CenterErythrocytes detection in urine sediment by light fccqkyzlyd8971-43-90 13:44:00* Test Item Value Reference Range Interpretation Comments Urine RBC (test code = 94438-5) 6-10 0-5 [facility] CenterBacteria detection in urine sediment by light nqycijyjgx0046-03-13 13:44:00* Test Item Value Reference Range Interpretation Comments Urine Bacteria (test code = 07598-5) FEW NONE [facility] CenterEpithelial cells detection in urine sediment by light [id number] 13:44:00* Test Item Value Reference Range Interpretation Comments Urine Epithelial Cells (test code = 30704-3) FEW NONE [facility] plasma sodium measurement (moles/volume)2020-01-28 13:44:00* Test Item Value Reference Range Interpretation Comments Sodium Level (test code = 2951-2) 135 136-145 [facility] or plasma potassium measurement (moles/volume)2020-01-28 13:44:00* Test Item Value Reference Range Interpretation Comments Potassium Level (test code = 2823-3) 4.4 3.5-5.1 [facility] or plasma chloride measurement (moles/volume)2020-01-28 13:44:00* Test Item Value Reference Range Interpretation Comments Chloride Level (test code = 2075-0) 96 98-107 [facility]um or plasma carbon dioxide, total measurement (moles/volume)2020-01-28 13:44:00* Test Item Value Reference Range Interpretation Comments Carbon Dioxide Level (test code = 2028-9) 27 22-29 [facility] or plasma anion [id number] 13:44:00* Test Item Value Reference Range Interpretation Comments Anion Gap (test code = 70702-4) 16.4 8-16 [facility] or plasma urea nitrogen measurement (mass/volume)2020-01-28 13:44:00* Test Item Value Reference Range Interpretation Comments Blood Urea Nitrogen (test code = 3094-0) 15 7-26 [facility] or plasma creatinine measurement (mass/volume)2020-01-28 13:44:00* Test Item Value Reference Range Interpretation Comments Creatinine (test code = 2160-0) 0.83 0.57-1.11 [facility] or plasma urea nitrogen/creatinine mass [id number] 13:44:00* Test Item Value Reference Range Interpretation Comments BUN/Creatinine Ratio (test code = 3097-3) 18 6-25 [facility] CenterEstimated glomerular filtration rate (GFR) vdvwsypzxzyne8574-73-59 13:44:00* Test Item Value Reference Range Interpretation Comments Estimat Glomerular Filtration Rate (test code = 567836061) > 60 >60 Ranges were taken from the National Kidney Disease Education Program and the [facility] literature.Reference ranges:60 or greater: Yhqjqe81-56 ( for 3 consecutive months): Chronic kidney disease 15 or less: Kidney failureSaint Mark's Medical CenterGlucose cfesrhsmdbg6205-87-39 13:44:00* Test Item Value Reference Range Interpretation Comments Glucose Level (test code = XNP9517) 301 74-118 [facility] or plasma calcium measurement (mass/volume)2020-01-28 13:44:00* Test Item Value Reference Range Interpretation Comments Calcium Level (test code = 84639-3) 9.7 8.4-10.2 [facility] or plasma total bilirubin measurement (mass/volume)2020-01-28 13:44:00* Test Item Value Reference Range Interpretation Comments Total Bilirubin (test code = 1975-2) 0.9 0.2-1.2 [facility] CenterFluoroscopic procedure less than one hour nupidfcs8856-57-61 13:44:00* Test Item Value Reference Range Interpretation Comments Aspartate Amino Transf (AST/SGOT) (test code = Aspartate Amino Transf (AST/SGOT)) 20 5-34 [facility]ress[facility]um or plasma alanine aminotransferase measurement (enzymatic activity/volume)2020-01-28 13:44:00* Test Item Value Reference Range Interpretation Comments Alanine Aminotransferase (ALT/SGPT) (test code = 1742-6) 18 0-55 [facility] or plasma protein measurement (mass/volume)2020-01-28 13:44:00* Test Item Value Reference Range Interpretation Comments Total Protein (test code = 2885-2) 8.0 6.5-8.1 [facility]um or plasma albumin measurement (mass/volume)2020-01-28 13:44:00* Test Item Value Reference Range Interpretation Comments Albumin (test code = 1751-7) 4.4 3.5-5.0 [facility] CenterPlasma globulin measurement (mass/volume) 2020-01-28 13:44:00* Test Item Value Reference Range Interpretation Comments Globulin (test code = 94391-2) 3.6 2.3-3.5 [facility]um or plasma albumin/globulin mass [id number] 13:44:00* Test Item Value Reference Range Interpretation Comments Albumin/Globulin Ratio (test code = 1759-0) 1.2 0.8-2.0 [facility] or plasma alkaline phosphatase measurement (enzymatic activity/volume)2020-01-28 13:44:00* Test Item Value Reference Range Interpretation Comments Alkaline Phosphatase (test code = 6768-6) 95 40-150 [facility]um or plasma creatine kinase measurement (enzymatic activity/volume)2020-01-28 13:44:00* Test Item Value Reference Range Interpretation Comments Creatine Kinase (test code = 2157-6) 95 29-168 [facility]ress[facility]um or plasma creatine kinase MB measurement (mass/volume)2020-01-28 13:44:00* Test Item Value Reference Range Interpretation Comments Creatine Kinase MB (test code = 19075-0) 1.50 0-5.0 [facility] CenterTroponin I measurement by highly sensitive enzyme zeknfynzpft4404-44-48 13:44:00* Test Item Value Reference Range Interpretation Comments Troponin I (test code = 53099-5) 0.017 0-0.300 [facility]- XR FEMUR MIN 2 VWS [id number] 17:50:00 FAX: Annamaria Marin MD [phone] [place]: B St: [facility] FAX: Miguel Angel Calles DO Name: MANPREET MADDOX [facility] : 1955 Age/S: 63/F [address] Unit #: [id number] Loc: [place] [address] Phys: Miguel Angel Calles DO Acct: [id number] Dis Date: Status: REG ER PHONE #: [phone] Exam Date: 02/26/2019 1736 FAX #: [phone] Reason: pain EXAMS: CPT CODE: [id number] XR FEMUR MIN 2 [place] [address] CLINICAL HISTORY: pain TECHNIQUE: AP and lateral views of the right femur COMPARISON: 04/19/18 FINDINGS: No acute fracture. Intramedullary nail and hip screw. No cortical destruction or periosteal reaction. Osteopenia. Mild right hip de generative arthrosis. Right total knee arthroplasty. Heterotopic ossificat ion near the greater trochanter. Regional soft tissues are otherwise unrem arkable. IMPRESSION: No acute fracture or dislocation of the right femur. LOCATI ON: LP Electronically Signed by Omayra King D.O. on 019 at 1750 Reported and signed by: Omayra King D.O. CC: Annamaria Solis MD; Miguel Angel Calles DO Technologi st: DASHAWN MALHOTRA RT(R) Trnscrd Date/Time/By: 02/26/2019 (175) : By: [email or web address] Orig Print D/T: S: 02/26/2019 (3883 ) PAGE 1 Signed Report - XR HIP W/PEL UNI 2+V [id number] 17:48:00 FAX: Annamaria Marin MD [phone] [place]: B St: REG FAX: Miguel Angel Calles DO Name: MANPREET MADDOX [facility] : 1955 Age/S: 63/F [address] Unit #: [id number] Loc: [place] [address] Phys: Miguel Angel Calles DO Acct: [id number] Dis Date: Status: REG ER PHONE #: [phone] Exam Date: 02/26/2019 1727 FAX #: [phone] Reason: pain EXAMS: CPT CODE: [id number] XR HIP W/PEL UNI 2+[place] [address] CLINICAL HISTORY: Hip pain TECHNIQUE: Neutral and frog leg AP views of the right hip COMPARISON: 08/01/18 FINDINGS: No acute fracture or dislocation. Previous hip fixati on with intramedullary nail and screw. Mild bilateral hip degenerative arthrosis. Visualized bony pelvis is intact. Osteopenia. Mild degenerat desiree changes of the sacroiliac joints. Bilateral sacral nerve stimulator. H eterotopic ossification adjacent to the right greater trochanter. Regional soft tissues are otherwise unremarkable. IMPRESSION: No right hip fracture or dislocation. Mild degenerative changes of the bilateral hips and sacroiliac joints. LOCATION: LP at 1748 Reported and sign ed by: Omayra King D.O. CC: Annamaria Solis MD; Miguel Angel Calles DO Technologist: DASHAWN MALHOTRA RT(R) Trnscrd Date/Time/By: 02/26/2019 (9920) : By: [email or web address] Orig Print D/T: S: 02/26/2019 (6896) PAGE 1 Signed Report - XR CHEST 1 [id number] 16:25:00 FAX: Raysa Denney NP [place]: B St: REG FAX: Annamaria Marin MD [phone] Name: MANPREET MADDOX [facility] : 1955 Age/S: 63/F [address] Unit #: [id number] Loc: [place] [address] Phys: Raysa Denney NP Acct: [id number] Dis Date: Status: REG ER PHONE #: [phone] Exam Date: 02/15/2019 1605 FAX #: [phone] Reason: chest wall tenderness EXAMS: CPT CODE: [id number] XR CHEST 1 V 25067 HISTORY: Paraspinal tenderness. Lumbar spine serie s, 5 views. COMPARISON: X-ray from August 25, 2014. C ompression fracture deformities with vertebroplasty cement within the L5 a nd L4 vertebral bodies which is new from previous exam. Rest of the verteb ral body heights are maintained. Disc calcification at L1-L2 level. Anteri or bridging marginal osteophytes extending laterally. No spondylolysis is noted. No spondylolisthesis is noted either. Battery pack noted within the buttock soft tissues on the left side with lead extending into the sacrum on either side. SI joint appear unremarkable. IMPRESSION: No acute fracture or dislocation. Vertebroplasty cement withi n the L4 and L5 vertebral bodies. Rest of the vertebral body heights are maintained. Single view chest: No acute infiltrates, effusion or congestion. Lung scarring. Mild cardiomegaly. IMPRESSION: No acute infiltrat es, effusion or congestion. at 7623 Reported and signed by: Deni cheung M.D. CC: Raysa Denney NP; Annamaria Solis MD Technologist: Jackie Pena RT(R) Trnscrd Kyler e/Time/By: 02/15/2019 (5055) : By: [email or web address] Orig Print D/T: S: 2018 (1977) PAGE 1 Signed Report - XR L-SPINE 4 + [id number] 16:25:00 FAX: Raysa Denney NP [place]: B St: REG FAX: Annamaria Marin MD [phone] Name: MANPREET MADDOX [facility] : 1955 Age/S: 63/F [address] Unit #: [id number] Loc: [place] [address] Phys: Raysa Denney NP Acct: [id number] Dis Date: Status: REG ER PHONE #: [phone] Exam Date: 02/15/2019 1615 FAX #: [phone] Reason: paraspinal tenderness EXAMS: CPT CODE: [id number] XR L-SPINE 4 + VIEWS 52649 HISTORY: Paraspinal tenderness. Lumbar spine serie s, 5 views. COMPARISON: X-ray from August 25, 2014. C ompression fracture deformities with vertebroplasty cement within the L5 a nd L4 vertebral bodies which is new from previous exam. Rest of the verteb ral body heights are maintained. Disc calcification at L1-L2 level. Anteri or bridging marginal osteophytes extending laterally. No spondylolysis is noted. No spondylolisthesis is noted either. Battery pack noted within the buttock soft tissues on the left side with lead extending into the sacrum on either side. SI joint appear unremarkable. IMPRESSION: No acute fracture or dislocation. Vertebroplasty cement withi n the L4 and L5 vertebral bodies. Rest of the vertebral body heights are maintained. Single view chest: No acute infiltrates, effusion or congestion. Lung scarring. Mild cardiomegaly. IMPRESSION: No acute infiltrat es, effusion or congestion. at 4984 Reported and signed by: Deni cheung M.D. CC: Raysa Denney NP; Annamaria Solis MD Technologist: Jackie Pena RT(R) Trnscrd Kyler e/Time/By: 02/15/2019 (2296) : By: [email or web address] Orig Print D/T: S: 2018 (1423) PAGE 1 Signed Report - CT CHEST W/O [id number] 12:48:00 Name: MANPREET MADDOX [facility] [place] : 1955 Age/S: 63 / F [address] [place] [address] Unit #: [id number] Loc: [place] [address] Phys: Jacky Maria MD Acct: [id number] Di s Date: Status: REG CLI PHONE #: Exam Date: 01/20/2019 1011 FAX #: [phone] Reason: R91.1, SOLITARY PULMONARY NODULE. EXAMS: CPT CODE: [id number] CT CHEST W/O CONTRAST 59035 PROCEDURE: CT CHEST WITHO UT CONTRAST 01/20/2019 INDICATION: Solitary pulmonary nodule. COMPARISON: Chest one view 08/23/[address] angiogram 11/17/2013. TECHNIQUE: Noncontrasted helical imaging performed apices through the lung bases with axial and coronal reformations. CT imaging performed at this location utilizes radiation dose optimization techniques which include one or more of the following: -Automated exposure control -Adjustment of the mA and/or kV according to patient size -Use of iterativ e reconstruction technique ADMINISTERED CONTRAST: None. DLP: 321.1 m Gy-cm FINDINGS: LUNGS: The lungs are clear with mild right middle lobe platelike atelectasis and or scarring. A lentiform 6 mm nodul ar lesion along the horizontal fissure (series 3, image 145), stable datin g back to 2013 and regarded as benign. Favor benign intrapulmonary lymph node. No pleural abnormality. MEDIASTINUM: Moderate aortic and multivessel coronary calcification. No pericardial thickening or effu william. No adenopathy. Chronic partially calcified thyroid nodules with do minant hypodense left thyroid nodule measuring up to 17 mm in maximal diam eter. UPPER ABDOMEN: No acute upper abdominal findings along the v isualized segments. Prior cholecystectomy without biliary dilatation. Mo derate abdominal aortic calcification. MUSCULOSKELETAL: Mode rate thoracic spondylosis without destructive bone lesions. IMPRESSION: 1. Clear lungs with chronically stable 6 mm fissural nodul e along the horizontal fissure stable back to 2013 and regarded as benig n. Likely intrapulmonary lymph node. 2. Multinodular goiter. 3. Atherosclerosis. 4. No acute upper abdominal findings. 5 . Cholecystectomy. PAGE 1 Signed Report (CONTINUED) Name: MANPREET MADDOX [facility] : 1955 Age/S: 63 / F [address] [place] [address] Blvd Unit #: [id number] Loc: [place] [address] Phys: Janine Maria MD Acct : [id number] Dis Date: Status: REG CLI PHONE #: [phone] Exam Date: 01/20/2019 1011 FAX #: [phone] Reason: R91.1, SOLITARY PULMONARY NODULE. EXAMS: CPT CODE: [id number] CHEST W/O CONTRAST 55404 <Continued> The [employer] (ACR) consensus guidelines for incidental thyroid nodules detected on CT or MRI recommended: Age < 35 years < 1 cm: No further evaluation. >= 1 cm: Evaluate with thyroid ultrasound. Age >= 35 years < 1.5 cm: No further evaluation. >= 1.5 cm: Evaluate with thyroid ultrasound. SL: ER-H at 1248 Reported and signed by: Mohit Corona M.D. CC: Annamaria Solis M.D.; Janine Maria MD Technologist:RT Deon(R)(CT) CTDI: DLP: Trnscb Date/Time: 01/20/2019 (1248) [email or web address] Orig Print D/T: S: 01/20/2019 (6297) PAGE 2 Signed Report CHEST 2 [id number] 08:12:00 [place] [address] Patient Name: MANPREET MADDOX MR #: [id number] : 1955 Age/Sex: 63/F Req #: [id number] Adm Physician: Ordered by: KAREN CHOUDHARY MD Report #: [id number] Location: OR Room/Bed: Procedure: [id number] DX/CHEST 2 VIEWS Exam Date: 10/07/18 Exam Time: 1517 REPORT STATUS: Signed EXAM: CHEST 2 VIEWS , PA and lateral DATE: 10/07/2018 Time stamp on exam: 3:17 PM INDICATION: Preo perative COMPARISON: None FINDINGS: LINES/TUBES: None LUNGS: No co nsolidations or edema. Focal opacity in the medial right lower lobe likely sec ondary to atelectasis. PLEURA: No effusions or pneumothorax. HEART AND MEDIASTINUM: Normal size and contour. BONES AND SOFT TISSUES: Mild degener ative changes of the midthoracic spine. Metallic anchor overlies the right hum eral head. IMPRESSION: No acute thoracic abnormality. S igned by: Dr. Desiree Chau DO on 10/08/2018 8:14 AM Dictated By: DESIREE OBREGON DO 3 Transcrib ed By: SERGEI on 10/08/18813 COPY TO: KAREN CHOUDHARY MD - SP FLUORO GUID CTRL ACC [id number] 17:09:00 Name: MANPREET MADDOX [facility] : 1955 Age/S: 63 / F [address] Unit #: [id number] Loc: [place] [address] Phys: Skip Romano MD Acct: [id number] Dis Date: [id number] Status: DIS IN PHONE #: [phone] Exam Date: 08/24/2018 1459 FAX #: [phone] Reason: EXAMS: CPT CODE: [id number] SP FLUORO GUID CTRL ACC DEV 62787 Fluoro Time: 6 DAP (Gy m2): 2101 Air Kerma (mGy): 4.72 EXAM: PICC with sonographic and fluoroscopic guidance; CPT: 69204, 26857, 94055; CLINICAL INFORMATION: UTI; PROCEDURE AND FINDINGS: After obtaining informed consent the patient was placed supine on the procedure table and the right arm was prepped and draped in the usual sterile fashion, applying all elements of maximal sterile barrier technique. Ultrasound of the right arm demonstrated a patent and compressible basilic vein. Sonographic images were stored in PACS. Xylocaine was administered and the right basilic vein was accessed with a micropuncture system, using sonographic guidance, followed by insertion of an 018 guidewire and a 5 Bruneian peel-away sheath. Under fluoroscopic guidance the guidewire was advanced into the right atrium. A dual-lumen PICC line was inserted and positioned with its tip at the SVC/right atrial junction. Good blood return was noticed; the PICC line was sutured to the skin and was flushed with heparinized saline. No complications. IMPRESSION: Successful insertion of a right arm PICC line, using sonographic and fluoroscopic guidance. Fluoroscopy Time: 6 sec CAK : 4.72 mGy D AP : 2101 mGy sq cm at 1709 Reported and signed by: Heydi Valencia C: Linda Marin MD; Annamaria Solis MD Technologist: [place] [facility] Date/Time: 08/27/2018 (17 09) [place] Orig Print D/T: S: 08/27/2018 (2266) ROLA PATTERSON 1 Signed Report - US GUIDANCE VAS [id number] 17:09:00 Name: MANPREET MADDOX [facility] : 1955 Age/S: 63 / F [address] Unit #: [id number] Loc: [place] [address] Phys: Skip Romano MD Acct: [id number] Dis Date: [id number] Status: DIS IN PHONE #: [phone] Exam Date: 08/24/2018 1459 FAX #: [phone] Reason: EXAMS: CPT CODE: [id number] US GUIDANCE VASC ACCESS 07228 Fluoro Time: DAP (Gy m2): Air Kerma (mGy): EXAM: PICC with sonographic and fluoroscopic guidance; CPT: 87765, 26953, 35293; CLINICAL INFORMATION: UTI; PROCEDURE AND FINDINGS: After obtaining informed consent the patient was placed supine on the procedure table and the right arm was prepped and draped in the usual sterile fashion, applying all elements of maximal sterile barrier technique. Ultrasound of the right arm demonstrated a patent and compressible basilic vein. Sonographic images were stored in PACS. Xylocaine was administered and the right basilic vein was accessed with a micropuncture system, using sonographic guidance, followed by insertion of an 018 guidewire and a 5 [place]une[place] peel-away sheath. Under fluoroscopic guidance the guidewire was advanced into the right atrium. A dual-lumen PICC line was inserted and positioned with its tip at the SVC/right atrial junction. Good blood return was noticed; the PICC line was sutured to the skin and was flushed with heparinized saline. No complications. IMPRESSION: Successful insertion of a right arm PICC line, using sonographic and fluoroscopic guidance. Fluoroscopy Time: 6 sec CAK : 4.72 mGy D AP : 2101 mGy sq cm at 1704 Reported and signed by: Heydi Valencia C: Linda Marin MD; Annamaria Solis MD Technologist: [place] [facility] Date/Time: 08/27/2018 (17 ) Destine[place] Orig Print D/T: S: 08/27/2018 (515) ROLA PATTERSON 1 Signed Report GLUBED 2018-08-25 20:49:00* Test Item Value Reference Range Interpretation Comments GLUBED (test code = GLUBED) 198 mg/dL 74-106 H Performed by certified flocculator operator at [facility] [id number] 16:17:00* Test Item Value Reference Range Interpretation Comments GLUBED (test code = GLUBED) 211 mg/dL 74-106 H Performed by certified flocculator operator at [facility] [id number] 11:02:00* Test Item Value Reference Range Interpretation Comments GLUBED (test code = GLUBED) 273 mg/dL 74-106 H Performed by certified flocculator operator at [facility] URINALYSIS [id number] 09:14:00* Test Item Value Reference Range Interpretation Comments UA COLOR (test code = COLU) YELLOW YELLOW UA APPEARANCE (test code = APPU) CLEAR CLEAR UA GLUCOSE DIPSTICK (test code = DGLUU) 150 (1+) mg/dL NEGATIVE A UA BILIRUBIN DIPSTICK (test code = BILU) NEGATIVE mg/dL NEGATIVE UA KETONE DIPSTICK (test code = KETU) NEGATIVE mg/dL NEGATIVE UA SPECIFIC GRAVITY (test code = SGU) 1.014 1.001-1.035 UA BLOOD DIPSTICK (test code = DUSTIN) 1+ (Small) mg/dL NEGATIVE A UA PH DIPSTICK (test code = ZOHAIB) 5.0 5.0-8.0 UA PROTEIN DIPSTICK (test code = PROU) NEGATIVE mg/dL NEGATIVE UA UROBILINIOGEN DIPSTICK (test code = URO) NEGATIVE mg/dL NEGATIVE UA NITRITE DIPSTICK (test code = MIMI) NEGATIVE NEGATIVE UA LEUKOCYTE ESTERASE W REFLEX (test code = LEUUR) TRACE Araseli/uL NEG ATIVE A UA WBC (test code = WBCU) 21-50 per HPF 0-5 A UA RBC (test code = RBCU) 0-2 #/HPF 0-5 UA EPITHELIAL CELLS (test code = EPIU) FEW per HPF FEW UA BACTERIA (test code = BACU) NONE SEEN #/HPF NONE UA MUCUS (test code = MUCU) FEW #/LPF FEW URINALYSIS [id number] 09:12:00* Test Item Value Reference Range Interpretation Comments UA COLOR (test code = COLU) YELLOW YELLOW UA APPEARANCE (test code = APPU) CLEAR CLEAR UA GLUCOSE DIPSTICK (test code = DGLUU) 150 (1+) mg/dL NEGATIVE A UA BILIRUBIN DIPSTICK (test code = BILU) NEGATIVE mg/dL NEGATIVE UA KETONE DIPSTICK (test code = KETU) NEGATIVE mg/dL NEGATIVE UA SPECIFIC GRAVITY (test code = SGU) 1.014 1.001-1.035 UA BLOOD DIPSTICK (test code = DUSTIN) 1+ (Small) mg/dL NEGATIVE A UA PH DIPSTICK (test code = ZOHAIB) 5.0 5.0-8.0 UA PROTEIN DIPSTICK (test code = PROU) NEGATIVE mg/dL NEGATIVE UA UROBILINIOGEN DIPSTICK (test code = URO) NEGATIVE mg/dL NEGATIVE UA NITRITE DIPSTICK (test code = MIMI) NEGATIVE NEGATIVE UA LEUKOCYTE ESTERASE W REFLEX (test code = LEUUR) TRACE Araseli/uL NEG ATIVE A UA WBC (test code = WBCU) per HPF 0-5 UA RBC (test code = RBCU) per HPF 0-5 UA EPITHELIAL CELLS (test code = EPIU) per HPF Few UA BACTERIA (test code = BACU) per HPF NONE URINALYSIS [id number] 09:12:00* Test Item Value Reference Range Interpretation Comments UA COLOR (test code = COLU) YELLOW YELLOW UA APPEARANCE (test code = APPU) CLEAR CLEAR UA GLUCOSE DIPSTICK (test code = DGLUU) 150 (1+) mg/dL NEGATIVE A UA BILIRUBIN DIPSTICK (test code = BILU) NEGATIVE mg/dL NEGATIVE UA KETONE DIPSTICK (test code = KETU) NEGATIVE mg/dL NEGATIVE UA SPECIFIC GRAVITY (test code = SGU) 1.014 1.001-1.035 UA BLOOD DIPSTICK (test code = DUSTIN) 1+ (Small) mg/dL NEGATIVE A UA PH DIPSTICK (test code = ZOHAIB) 5.0 5.0-8.0 UA PROTEIN DIPSTICK (test code = PROU) NEGATIVE mg/dL NEGATIVE UA UROBILINIOGEN DIPSTICK (test code = URO) NEGATIVE mg/dL NEGATIVE UA NITRITE DIPSTICK (test code = MIMI) NEGATIVE NEGATIVE UA LEUKOCYTE ESTERASE W REFLEX (test code = LEUUR) TRACE Araseli/uL NEG ATIVE A UA WBC (test code = WBCU) per HPF 0-5 UA RBC (test code = RBCU) per HPF 0-5 UA EPITHELIAL CELLS (test code = EPIU) per HPF Few UA BACTERIA (test code = BACU) per HPF NONE [id number] 08:25:00* Test Item Value Reference Range Interpretation Comments GLUBED (test code = GLUBED) 207 mg/dL 74-106 H Performed by certified flocculator operator at [facility] [id number] 21:03:00* Test Item Value Reference Range Interpretation Comments GLUBED (test code = GLUBED) 217 mg/dL 74-106 H Performed by certified flocculator operator at [facility] [id number] 16:41:00* Test Item Value Reference Range Interpretation Comments GLUBED (test code = GLUBED) 211 mg/dL 74-106 H Performed by certified flocculator operator at [facility] [id number] 12:47:00* Test Item Value Reference Range Interpretation Comments GLUBED (test code = GLUBED) 267 mg/dL 74-106 H Performed by certified flocculator operator at [facility] [id number] 11:13:00* Test Item Value Reference Range Interpretation Comments GLUBED (test code = GLUBED) 265 mg/dL 74-106 H Performed by certified flocculator operator at [facility] RHEUMATOID FACTOR [id number] 08:40:00* Test Item Value Reference Range Interpretation Comments RHEUMATOID FACTOR SCREEN (test code = RA) NEGATIVE NEGATIVE [id number] 00:14:00* Test Item Value Reference Range Interpretation Comments GLUBED (test code = GLUBED) 163 mg/dL 74-106 H Performed by certified flocculator operator at [facility] PROCALCITONIN (PCT)2018-08-23 22:01:00* Test Item Value Reference Range Interpretation Comments PROCALCITONIN (PCT) (test code = PROCAL) < 0.05 ng/ml Concentration Interpretation (ng/mL) <0.51 Sepsis is not likely. Local bacterial infection is possible. (LOW RISK for progression to Sepsis) 0.51 - 2.00 Sepsis is possible, but other conditions are known to elevate PCT as well. (MODERATE RISK for progression to Sepsis) > 2.00 Sepsis is likely, unless other causes are known. (HIGH RISK for progression to Severe Sepsis or Septic Shock) 10.00 High likelihood of Severe Sepsis or Septic or higher Shock. *Increased PCT levels may not always be related to systemic bacterial infection.*Low PCT levels do not automatically exclude the presence of bacterial infection.*All results should be interpreted taking into account the patients history. URINALYSIS [id number] 21:55:00* Test Item Value Reference Range Interpretation Comments UA COLOR (test code = COLU) LIGHT YELLOW YELLOW UA APPEARANCE (test code = APPU) SLIGHTLY CLOUDY CLEAR A UA GLUCOSE DIPSTICK (test code = DGLUU) NEGATIVE mg/dL NEGATIVE UA BILIRUBIN DIPSTICK (test code = BILU) NEGATIVE mg/dL NEGATIVE UA KETONE DIPSTICK (test code = KETU) NEGATIVE mg/dL NEGATIVE UA SPECIFIC GRAVITY (test code = SGU) 1.009 1.001-1.035 UA BLOOD DIPSTICK (test code = DUSTIN) 1+ (Small) mg/dL NEGATIVE A UA PH DIPSTICK (test code = ZOHAIB) 5.0 5.0-8.0 UA PROTEIN DIPSTICK (test code = PROU) NEGATIVE mg/dL NEGATIVE UA UROBILINIOGEN DIPSTICK (test code = URO) NEGATIVE mg/dL NEGATIVE UA NITRITE DIPSTICK (test code = MIMI) NEGATIVE NEGATIVE UA LEUKOCYTE ESTERASE W REFLEX (test code = LEUUR) 1+ Araseli/uL NEG ATIVE A UA WBC (test code = WBCU) 11-20 per HPF 0-5 A UA RBC (test code = RBCU) 0-2 #/HPF 0-5 UA EPITHELIAL CELLS (test code = EPIU) FEW per HPF FEW UA BACTERIA (test code = BACU) MANY #/HPF NONE A UA HYALINE CAST (test code = HYALU) 0-2 #/LPF 0-5 UA MUCUS (test code = MUCU) FEW #/LPF FEW Urine Source? Clean CatchURINALYSIS [id number] 21:49:00* Test Item Value Reference Range Interpretation Comments UA COLOR (test code = COLU) YELLOW UA APPEARANCE (test code = APPU) CLEAR UA BILIRUBIN DIPSTICK (test code = BILU) NEGATIVE UA SPECIFIC GRAVITY (test code = SGU) 1.001-1.035 UA PH DIPSTICK (test code = ZOHAIB) 5.0-8.0 UA UROBILINIOGEN DIPSTICK (test code = URO) mg/dL 0.0-0.2 UA NITRITE DIPSTICK (test code = MIMI) NEGATIVE UA LEUKOCYTE ESTERASE W REFLEX (test code = LEUUR) NEG ATIVE UA WBC (test code = WBCU) 11-20 per HPF 0-5 A UA RBC (test code = RBCU) 0-2 #/HPF 0-5 UA EPITHELIAL CELLS (test code = EPIU) FEW per HPF FEW UA BACTERIA (test code = BACU) MANY #/HPF NONE A UA HYALINE CAST (test code = HYALU) 0-2 #/LPF 0-5 UA MUCUS (test code = MUCU) FEW #/LPF FEW Urine Source? Clean CatchLACTIC [id number] 21:45:00* Test Item Value Reference Range Interpretation Comments LACTIC ACID (test code = LACT) 1.8 mmol/L 0.4-1.9 N BASIC METABOLIC [id number] 21:45:00* Test Item Value Reference Range Interpretation Comments SODIUM (test code = NA) 137 mmol/L 136-145 N POTASSIUM (test code = K) 3.9 mmol/L 3.5-5.1 N CHLORIDE (test code = CL) 100.0 mmol/L 98-107 N CARBON DIOXIDE (test code = CO2) 27.0 mmol/L 21-32 N ANION GAP (test code = GAP) 13.9 10-20 N GLUCOSE (test code = GLU) 140 mg/dL 74-106 H BLOOD UREA NITROGEN (test code = BUN) 20 mg/dL 7-18 H GLOMERULAR FILTRATION RATE (test code = GFR) > 60 mL/min >=60 Estimated GFR by using Modified MDRD formula.Chronic kidney disease is defined as either kidney damageor GFR <60 mL/min/1.73 m2 for >3 months. CREATININE (test code = CREAT) 0.60 mg/dL 0.55-1.02 N Note change in reference range due to change in reagent. BUN/CREATININE RATIO (test code = BUN/CREA) 33.3 10-20 H CALCIUM (test code = CA) 9.1 mg/dL 8.5-10.1 N HEPATIC FUNCTION [id number] 21:45:00* Test Item Value Reference Range Interpretation Comments TOTAL PROTEIN (test code = PROT) 7.6 gram/dL 6.4-8.2 N ALBUMIN (test code = ALB) 3.8 g/dL 3.4-5.0 N GLOBULIN (test code = GLOB) 3.8 gram/dL 2.7-4.2 N ALBUMIN/GLOBULIN RATIO (test code = A/G) 1.0 0.75-1.50 N BILIRUBIN TOTAL (test code = BILT) 0.40 mg/dL 0.0-1.0 N BILIRUBIN DIRECT (test code = BILD) 0.09 mg/dL 0.0-0.20 N SGOT/AST (test code = AST) 14 IUnit/L 15-37 L SGPT/ALT (test code = ALT) 21 IUnit/L 12-78 N ALKALINE PHOSPHATASE TOTAL (test code = ALKP) 99 IUnit/L 45-117 N Note change in reference range due to change in reagent. [id number] 21:45:00* Test Item Value Reference Range Interpretation Comments TROPONIN-I (test code = TROPI) <0.015 ng/mL 0-0.045 N BASIC METABOLIC [id number] 21:34:00* Test Item Value Reference Range Interpretation Comments SODIUM (test code = NA) 137 mmol/L 136-145 N POTASSIUM (test code = K) 3.9 mmol/L 3.5-5.1 N CHLORIDE (test code = CL) 100.0 mmol/L 98-107 N CARBON DIOXIDE (test code = CO2) mmol/L 21-32 ANION GAP (test code = GAP) 10-20 GLUCOSE (test code = GLU) mg/dL 74-106 BLOOD UREA NITROGEN (test code = BUN) mg/dL 7-18 GLOMERULAR FILTRATION RATE (test code = GFR) mL/min >=60 CREATININE (test code = CREAT) mg/dL 0.55-1.02 BUN/CREATININE RATIO (test code = BUN/CREA) 10-20 CALCIUM (test code = CA) mg/dL 8.5-10.1 HEPATIC FUNCTION [id number] 21:34:00* Test Item Value Reference Range Interpretation Comments TOTAL PROTEIN (test code = PROT) gram/dL 6.4-8.2 ALBUMIN (test code = ALB) g/dL 3.4-5.0 GLOBULIN (test code = GLOB) gram/dL 2.7-4.2 ALBUMIN/GLOBULIN RATIO (test code = A/G) 0.75-1.50 BILIRUBIN TOTAL (test code = BILT) mg/dL 0.0-1.0 BILIRUBIN DIRECT (test code = BILD) mg/dL 0.0-0.20 SGOT/AST (test code = AST) IUnit/L 15-37 SGPT/ALT (test code = ALT) IUnit/L 12-78 ALKALINE PHOSPHATASE TOTAL (test code = ALKP) IUnit/L 45-117 [id number] 21:34:00* Test Item Value Reference Range Interpretation Comments TROPONIN-I (test code = TROPI) ng/mL 0-0.045 - XR CHEST 1 [id number] 21:28:00 FAX: Kermit Michelle MD [phone] [place]: St: REG FAX: Annamaria Marin MD [phone] Name: MANPREET MADDOX [facility] : 1955 Age/S: 63/F [address] [facility] Unit #: [id number] Loc: [place] [address] Phys: Kermit Michelle MD Acct: [id number] Dis Date: Status: REG ER PHONE #: [phone] Exam Date: 08/23/20182119 FAX #: [phone] Reason: CODE SEPSIS EXAMS: CPT CODE: [id number] XR CHEST 1 V 01237 REASON FOR EXAM: CODE SEPSIS EXAM ORDER DATE: 08/23/2018 9:14 PM Ordering M.Vicente: Kermit Michelle MD PROCEDURE: - XR CHEST 1 V COMPARISON: 06/04/2018 FINDINGS: Portable AP frontal view of the chest obtained at 9:21 PM shows clear lungs without evidence of consolidation. There is no evidence of effusion. The heart size is within normal limits. Pulmonary vasculatures are unremarkable. IMPRESSION: No active disease. Elect ronically Signed by Heydi Valencia on 08/23/2018 at 8 R eported and signed by: Caesar Valencia M.D. CC: Kermit Michelle MD; Annamaria Solis MD Technologist: DASHAWN MALHOTRA RT(R) Trnscrd Date/Time/By: 08/23/2018 (2127) : By: Jeancarlos TL Orig Print D/T: S: 08/23/2018 (2130) PAGE 1 Signed Report CBC W/AUTO [id number] 21:22:00* Test Item Value Reference Range Interpretation Comments WHITE BLOOD CELL (test code = WBC) 9.3 K/mm3 4.5-12.5 N RED BLOOD CELL (test code = RBC) 4.54 mill/mm3 3.7-5.2 N HEMOGLOBIN (test code = HGB) 12.4 gram/dL 11.5-15.5 N HEMATOCRIT (test code = HCT) 39.2 % 36.0-46.0 N MEAN CELL VOLUME (test code = MCV) 86.3 fL 80-98 N MEAN CELL HGB (test code = MCH) 27.3 picogram 27.0-33.0 N MEAN CELL HGB CONCETRATION (test code = MCHC) 31.6 gram/dL 33.0-36. 0 L RED CELL DISTRIBUTION WIDTH (test code = RDW) 14.4 % 11.6-16. 2 N RED CELL DISTRIBUTION WIDTH SD (test code = RDW-SD) 45.6 fL 37 .0-51.0 N PLATELET COUNT (test code = PLT) 255 K/mm3 150-450 N MEAN PLATELET VOLUME (test code = MPV) 9.4 fL 6.7-11.0 N NEUTROPHIL % (test code = NT%) 67.6 % 39.0-69.0 N IMMATURE GRANULOCYTE % (test code = IG%) 0.3 % 0.0-5.0 N LYMPHOCYTE % (test code = LY%) 23.7 % 25.0-55.0 L MONOCYTE % (test code = MO%) 5.8 % 0.0-10.0 N EOSINOPHIL % (test code = EO%) 1.7 % 0.0-5.0 N BASOPHIL % (test code = BA%) 0.9 % 0.0-1.0 N NUCLEATED RBC % (test code = NRBC%) 0.0 % 0-0 N NEUTROPHIL # (test code = NT#) 6.30 K/mm3 1.8-7.7 N IMMATURE GRANULOCYTE # (test code = IG#) 0.03 x10 3/uL 0-0.03 N LYMPHOCYTE # (test code = LY#) 2.21 K/mm3 1.0-5.0 N MONOCYTE # (test code = MO#) 0.54 K/mm3 0-0.8 N EOSINOPHIL # (test code = EO#) 0.16 K/mm3 0.0-0.5 N BASOPHIL # (test code = BA#) 0.08 K/mm3 0.0-0.2 N NUCLEATED RBC # (test code = NRBC#) 0.00 K/mm3 0.0-0.1 N CBC W/AUTO [id number] 21:21:00* Test Item Value Reference Range Interpretation Comments WHITE BLOOD CELL (test code = WBC) K/mm3 4.5-12.5 RED BLOOD CELL (test code = RBC) mill/mm3 3.7-5.2 HEMOGLOBIN (test code = HGB) 12.4 gram/dL 11.5-15.5 N HEMATOCRIT (test code = HCT) 39.2 % 36.0-46.0 N MEAN CELL VOLUME (test code = MCV) fL 80-98 MEAN CELL HGB (test code = MCH) picogram 27.0-33.0 MEAN CELL HGB CONCETRATION (test code = MCHC) gram/dL 33.0-36. 0 RED CELL DISTRIBUTION WIDTH (test code = RDW) % 11.6-16. 2 RED CELL DISTRIBUTION WIDTH SD (test code = RDW-SD) fL 37 .0-51.0 PLATELET COUNT (test code = PLT) K/mm3 150-450 MEAN PLATELET VOLUME (test code = MPV) fL 6.7-11.0 NEUTROPHIL % (test code = NT%) % 39.0-69.0 IMMATURE GRANULOCYTE % (test code = IG%) % 0.0-5.0 LYMPHOCYTE % (test code = LY%) % 25.0-55.0 MONOCYTE % (test code = MO%) % 0.0-10.0 EOSINOPHIL % (test code = EO%) % 0.0-5.0 BASOPHIL % (test code = BA%) % 0.0-1.0 NEUTROPHIL # (test code = NT#) K/mm3 1.8-7.7 LYMPHOCYTE # (test code = LY#) K/mm3 1.0-5.0 MONOCYTE # (test code = MO#) K/mm3 0-0.8 EOSINOPHIL # (test code = EO#) K/mm3 0.0-0.5 BASOPHIL # (test code = BA#) K/mm3 0.0-0.2 PELVIS AP 1-2 [id number] 16:41:00 [place] [address] Patient Name: JAUN MADDOX MR #: [id number] : 1955 Age/Sex: 63/F Req #: [id number] Adm Physician: Ordered by: KAREN CHOUDHARY MD Report #: [id number] Location: [facility] Room/Bed: Procedure: [id number] DX/PELVIS AP 1-2 VIEWS Exam Date: 08/05/18 Exam Time: 1245 REPORT STATUS: Signed Radiographs of the sacrum and pelvis - HISTORY: Pain COMPARISON: None available. FINDINGS: Bones: No acute displaced fracture. Radiopaque materi al in 2 of the lower lumbar vertebral bodies. Surgical hardware in the right p roximal femur. Osseous alignment is within normal limits. Joints: Scatt ered degenerative change. No osseous erosion. Pseudoarthroses at the lumbosacr al junction. Soft tissues: Metallic stimulator device and lead over the l eft sacrum. IMPRESSION: Scattered degenerative change. No osseous ero william. 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 Signed by: Dr. Denis Harrell M.D. on 08/05/2018 4:42 PM Dictated By: DENIS HARRELL MD, MD [facility] Signed By: DENIS HARRELL MD, MD on 08/05/181641 Transcribed By: SERGEI on 08/05/181641 COPY TO: KAREN CHOUDHARY MD SACRUM [id number] 16:41:00 [place] [address] Patient Name: JAUN MADDOX MR #: [id number] : 1955 Age/Sex: 63/F Req #: [id number] Adm Physician: Ordered by: KAREN CHOUDHARY MD Report #: [id number] Location: [facility] Room/Bed: Procedure: [id number] DX/SACRUM X-RAY Exam Date: 08/05/18 Exam Time: 1245 REPORT STATUS: Signed Radiographs of the sacrum and pelvis - HISTORY: Pain COMPARISON: None available. FINDINGS: Bones: No acute displaced fracture. Radiopaque material in 2 of the lower lumbar vertebral bodies. Surgical hardware in the right proximal femur. Osseous alignment is within normal limits. Joints: Scattered de generative change. No osseous erosion. Pseudoarthroses at the lumbosacral junc tion. Soft tissues: Metallic stimulator device and lead over the left sac rum. IMPRESSION: Scattered degenerative change. No osseous erosion. 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 Signed by: Chang Osuna on 08/05/2018 4:42 PM Dictated By: DENIS HARRELL MD, MD 41 Transcribed By: SERGEI on 08/20 COPY TO: KAREN CHOUDHARY MD - CT UP EXTREM W/O CONT LT 2018-08-02 00:27:00 Name: MANPREET MADDOX [facility] : 1955 Age/S: 63 / F [address] [facility] Unit #: [id number] Loc: [place] [address] Phys: Rosanna English DO Acct: [id number] Dis Date: Status: REG ER PHONE #: [phone] Exam Date: 08/01/2018 6586 FAX #: [phone] Reason: scapular fracture EXAMS: CPT CODE: [id number] [place] EXTREM W/[place] [address] EXAM: - CT UP EXTREM W/O CONT LT HISTORY: Evaluate for scapular fracture. TECHNIQUE: Axial tomograms through the left shoulder/scapula were obtained without intravenous contrast. This exam was performed according to our departmental dose-optimization program, which includes automated exposure control, adjustment of the mA and/or kV according to patient size and/or use of iterative reconstruction technique. FINDINGS: There is no evidence of acute fracture in left scapula. Mild degenerative changes are present in left shoulder. There is no dislocation. A cystic nodule 1.8 cm with calcifications is present in the left lobe of the thyroid gland included in this exam. Further evaluation with ultrasound suggested. Groundglass nonspecific opacities are present in lungs. IMPRESSION: No acute osseous abnormality. Other findings as above. at 0027 Reported and signed by: Yuriy Cole MD CC: Vanessa Giron MD; Rosanna English DO Technologist:JOHANNY WISE CT CTDI: DLP: Trnscb Date/Time: 08/02/2018 (002) [email or web address] Orig Print D/T: S: 08/02/2018 (0030) CTDI: DLP: PAGE 1 Signed Report - XR SACRUM/COCCYX 2 + V 2018-08-01 22:01:00 FAX: Citlaly Snyder [phone] [place]: B St: REG FAX: AmadorRosanna DO Name: MANPREET MADDOX [facility] : 1955 Age/S: 63/F [address] Unit #: [id number] Loc: [place] [address] Phys: Rosanna English DO Acct: [id number] Dis Date: Status: REG ER PHONE #: [phone] Exam Date: 08/01/20182144 FAX #: [phone] Reason: fall, pain EXAMS: CPT CODE: [id number] XR SACRUM/COCCYX 2 + V 31945 EXAM: Sacrum/coccyx, 3 views; INFORMATION: Pain after fall; FINDINGS: Imaged bones are intact; no evidence of fracture. Status post kyphoplasty of L3 and L4 and extensive spondylosis. Sacral pain pump in place. IMPRESSION: No evidence of acute osseous trauma. at 220 Reported and signed by: Skip Romano M.D. CC: Vanessa Giron MD; Rosanna English DO Technologist: DASHAWN HOROWITZ(R) Trnscrd Date/Time/By: 08/01/2018 (2200) : By: FranciscoGRW Orig Print D/T: S: 08/01/2018 (2203) PAGE 1 Signed Report - XR HIP W/PEL UNI 2+V [id number] 21:59:00 FAX: Citlaly Snyder [phone] [place]: B St: REG FAX: Rosanna English DO Name: MANPREET MADDOX [facility] : 1955 Age/S: 63/F [address] Unit #: [id number] Loc: [place] [address] Phys: Rosanna English DO Acct: [id number] Dis Date: Status: REG ER PHONE #: [phone] Exam Date: 08/01/20182144 FAX #: [phone] Reason: HIP PAIN EXAMS: CPT CODE: [id number] XR HIP W/PEL UNI 2+[place] [address] EXAM: Right femur, 4 views; INFORMATION: Pain afte r fall; FINDINGS: There is diffuse osteoporosis. Otherwise, imaged bones are intact; no evidence of acute fracture or dislocation. Extensive orthopedic hardware after insertion of a long gamma nail whi ch is secured proximally with a dynamic compression screw. No distal fixa tion screws are seen. There is also evidence of right knee arthroplasty. No abnormal radiopaque foreign bodies. IMPRESSION: 1. No evidence of acute osseous trauma. 2. Diffuse osteoporosis. 3. Orthopedic hardware as described. Electronically Sig rosalio by Heydi Romano on 08/01/2018 at 215 Reported and signed by: Skip Romano M.D. CC: Vanessa Giron MD; Rosanna English DO Technologist: DASHAWN MALHOTRA RT(R) Trnscrd Kyler e/Time/By: 08/01/2018 (2158) : By: FranciscoGRW Orig Print D/T: S: 2018 (6) PAGE 1 Signed Report - XR SHOULDER 2 + V [id number] 21:58:00 FAX: Citlaly Snyder [phone] [place]: B St: REG FAX: Rosanna English DO Name: MANPREET MADDOX [facility] : 1955 Age/S: 63/F [address] Unit #: [id number] Loc: [place] [address] Phys: Rosanna English DO Acct: [id number] Dis Date: Status: REG ER PHONE #: [phone] Exam Date: 08/01/20182144 FAX #: [phone] Reason: SHOULDER PAIN EXAMS: CPT CODE: [id number] XR SHOULDER 2 + V LT [address]83 EXAM: Left shoulder, 3 views; INFORMATION: Shoulde r pain after fall; IMPRESSION: The AP views show no obvi ous fracture or dislocation. The scapular Y-view shows an unusual config uration of the cranial aspect of the scapula. I recommend clinic al correlation. If there is suspicion of a scapular fracture, I would r ecommend referral for a CT scan of the left shoulder. at 2158 Reported and signed by: Nidia Romano M.D. CC: Vanessa Giron MD; Rosanna English DO Technologist: DASHAWN HOROWITZ(R) Trnscrd Date/Time/By: 08/01/2018 (2157) : By: FranciscoGRW Orig Print D/T: S: 08/01/2018 () PAGE 1 Signed Report - CT HEAD/BRAIN W/O [id number] 21:40:00 Name: MANPREET MADDOX [facility] : 1955 Age/S: 63 / F [address] Unit #: [id number] Loc: [place] [address] Phys: Rosanna English DO Acct: [id number] Dis Date: Status: REG ER PHONE #: [phone] Exam Date: 08/01/20182128 FAX #: [phone] Reason: fall, pain EXAMS: CPT CODE: [id number] CT HEAD/BRAIN W/O CONT 14488 EXAM: CT of the head without contrast; INFORMATION: Headache; TECHNIQUE AND FINDINGS: CT dose reduction protocol; 2.5 mm axial scans without contrast. There is no evidence of intra or extra- axial hemorrhage, mass lesions or midline shift. There are mild periventricular and deep white matter hypodensities; otherwise, unremarkable felix/white matter differentiation. Ventricles are symmetric. There are slightly prominent; sulci and basilar cisterns are intact. The calvarium is intact. Mucoid retention cyst in the left maxillary sinus. IMPRESSION: 1. No evidence of intracranial hemorrhage or acute territorial infarction. 2. Mild chronic ischemic white matter changes and minimal atrophy. 3. Left maxillary retention cyst. at 0 Reported and signed by: Skip Romano M.D. CC: Vanessa Giron MD; Rosanna English DO Technologist:JOHANNY WISE CT CTDI: DLP: Trnscb Date/Time: 08/01/2018 (2139) [email or web address] Orig Print D/T: S: 08/01/2018 (2142) CTDI: DLP: PAGE 1 Signed Report BASIC METABOLIC [id number] 21:40:00* Test Item Value Reference Range Interpretation Comments SODIUM (test code = NA) 135 mEq/L 134-147 N POTASSIUM (test code = K) 4.1 mEq/L 3.4-5.0 N CHLORIDE (test code = CL) 99 mEq/L 100-108 L CARBON DIOXIDE (test code = CO2) 31 mEq/L 21-33 N ANION GAP (test code = GAP) 9 0-20 N GLUCOSE (test code = GLU) 106 mg/dL 70-110 N BLOOD UREA NITROGEN (test code = BUN) 17 mg/dL 7-18 N GLOMERULAR FILTRATION RATE (test code = GFR) 100.3 80-90 H Units of measure = ml/min/1.73 m2 CREATININE (test code = CREAT) 0.6 mg/dL 0.6-1.3 N CALCIUM (test code = CA) 10.2 mg/dL 8.0-10.5 N URINALYSIS [id number] 21:35:00* Test Item Value Reference Range Interpretation Comments UA COLOR (test code = COLU) KIERA YEL/STRAW A UA APPEARANCE (test code = APPU) CLEAR CLEAR UA GLUCOSE DIPSTICK (test code = DGLUU) NEGATIVE NEGATIVE UA BILIRUBIN DIPSTICK (test code = BILU) NEGATIVE NEGATIVE UA KETONE DIPSTICK (test code = KETU) NEGATIVE NEGATIVE UA SPECIFIC GRAVITY (test code = SGU) 1.006 1.005-1.030 N UA BLOOD DIPSTICK (test code = DUSTIN) NEGATIVE NEGATIVE UA PH DIPSTICK (test code = ZOHAIB) 6.0 5.0-7.0 N UA PROTEIN DIPSTICK (test code = PROU) NEGATIVE NEGATIVE UA UROBILINIOGEN DIPSTICK (test code = URO) 0.2 mg/dL 0.2-1.0 UA NITRITE DIPSTICK (test code = MIMI) NEGATIVE NEGATIVE UA LEUKOCYTE ESTERASE DIPSTICK (test code = LEUU) 1+ NEGA TIVE A UA WBC (test code = WBCU) 21-50 WBC/HPF 0-3 A UA RBC (test code = RBCU) 4-10 RBC/HPF 0-3 UA BACTERIA (test code = BACU) 4+ /HPF NONE SEEN A UA SQUAMOUS CELLS (test code = SQU) 0-5 /HPF NONE SEEN UA MUCUS (test code = MUCU) TRACE /LPF NONE SEEN COMMENTS: Clean CatchCBC W/AUTO [id number] 21:20:00* Test Item Value Reference Range Interpretation Comments WHITE BLOOD CELL (test code = WBC) 8.35 x10 3/uL 4.5-11.0 RED BLOOD CELL (test code = RBC) 3.65 x10 6/uL 3.54-5.02 N HEMOGLOBIN (test code = HGB) 10.5 g/dL 11.0-15.0 L HEMATOCRIT (test code = HCT) 33.6 % 33.0-45.0 N MEAN CELL VOLUME (test code = MCV) 92.1 fL 81.0-99.0 N MEAN CELL HGB (test code = MCH) 28.8 pg 27.0-33.0 N MEAN CELL HGB CONCETRATION (test code = MCHC) 31.3 g/dL 33.0-37. 0 L RED CELL DISTRIBUTION WIDTH CV (test code = RDW) 15.0 % 11.5- 14.5 H RED CELL DISTRIBUTION WIDTH SD (test code = RDW-SD) 50.9 fL 37 .0-54.0 N PLATELET COUNT (test code = PLT) 297 x10 3/uL 150-400 N MEAN PLATELET VOLUME (test code = MPV) 10.1 fL 7.0-9.0 H NEUTROPHIL % (test code = NT%) 75.4 % 56.0-77.0 N IMMATURE GRANULOCYTE % (test code = IG%) 0.4 % 0.0-2.0 N LYMPHOCYTE % (test code = LY%) 17.7 % 14.0-32.0 N MONOCYTE % (test code = MO%) 5.1 % 4.8-9.0 N EOSINOPHIL % (test code = EO%) 0.8 % 0.3-3.7 N BASOPHIL % (test code = BA%) 0.6 % 0.0-2.0 N NUCLEATED RBC % (test code = NRBC%) 0.0 % 0-0 N NEUTROPHIL # (test code = NT#) 6.29 x10 3/uL 2.0-7.6 N IMMATURE GRANULOCYTE # (test code = IG#) 0.03 x10 3/uL 0.00-0.03 N LYMPHOCYTE # (test code = LY#) 1.48 x10 3/uL 1.0-3.8 N MONOCYTE # (test code = MO#) 0.43 x10 3/uL 0.1-0.8 N EOSINOPHIL # (test code = EO#) 0.07 x10 3/uL 0.0-0.2 N BASOPHIL # (test code = BA#) 0.05 x10 3/uL 0.0-0.2 N NUCLEATED RBC # (test code = NRBC#) 0.00 x10 3/uL 0.0-0.1 N MANUAL DIFF REQUIRED (test code = MDIFF) NO - DUP VEIN [id number] 14:24:00 Name: MANPREET MADDOX [facility] : 1955 Age/S: 63 / F [address] [place] [address] Unit #: [id number] [place] [address] Phys: Keven Garcia III, MD Acct: [id number] Dis Date: Status: REG CLI PHONE #: [phone] Exam Date: 06/30/2018 1423 FAX #: [phone] Reason: I82.499, ACUTE EMBOLISM AND THROMBOSIS OF OTHER EXAMS: CPT CODE: [id number] DUP VEIN UNI/LTD [id number] EXAM: US RIGHT LOWER EXTREMITY VENOUS DOPPLER DATE: 06/30/2018 1:44 PM : 1955; Age: 63 years y/o Female INDICATION: Right calf pain I82.499, ACUTE EMBOLISM AND THROMBOSIS OF OTHER SPECIFIED ADDITIONAL INFORMATION: None. COMPARISON: None. TECHNIQUE: Multiplanar grayscale, color Doppler and spectral Doppler ultrasound of the right lower extremity veins. FINDINGS: Right lower extremity: The common femoral vein, femoral vein, popliteal vein and visualized posterior tibial/calf veins are patent. There is no echogenic debris to suggest deep venous thrombosis. IMPRESSION: No deep venous thrombosis (DVT). SL: [id number] at 1424 Reported and signed by: Edgar Marr D.O. CC: Keven Garcia III, MD Technologist: Gabriela Singh RDMS(Akanksha)(BR) Trnscb Date/Time: 06/30/2018 (142) t.[email or web address] Orig Print D/T: S: 06/30/2018 (1422) Probe: PAGE 1 Signed Report SP LUMBAR AP LATERAL [id number] 17:49:00 [place] [address] Patient Name: JAUN MADDOX MR #: [id number] : 1955 Age/Sex: 63/F Req #: [id number] Adm Physician: Ordered by: KAREN CHOUDHARY MD Report #: [id number] Location: [facility] Room/Bed: Procedure: [id number] DX/SP LUM BAR AP LATERAL 2-3VWS Exam Date: 06/16/18 Exam Noe e: 1300 REPORT STATUS: Signed Ex am: Lumbosacral spine series; 3 views dated 06/16/2018 History: Pain Co mparison: None available Findings: Bones are osteopenic. Vertebroplasty nolan ent is present within L4 and L5 and S1 is partially lumbarized. Degenerative c hanges of the spine are present. No new compressions are seen. Impress ion: No acute bony abnormality. Signed by: Dr. Desiree Chau DO on 5:52 PM Dictated By: DESIREE CHAU DO 51 Transcribed By: SERGEI on 06/16/181751 COPY TO: KAREN CHOUDHARY MD SACRUM [id number] 17:47:00 [place] [address] Patient Name: JANU MADDOX MR #: [id number] : 1955 Age/Sex: 63/F Req #: [id number] Adm Physician: Ordered by: KAREN CHOUDHARY MD Report #: [id number] Location: [facility] brady/Bed: Procedure: DX/SACRUM X-RAY Exam Date: 06/16/18 Exam Time: 1300 REPORT STATUS: Signed Exam: Sacral series ; 2 views dated 06/16/2018 History: Pain Comparison: None available Findings: There is vertebroplasty cement within L4 and L5. S1 is a transitiona l vertebrae and partially lumbarized. Pain generator and lead overlies the sacrum. Bones are osteopenic. No obvious sacral strut fracture. Ovarian vein c alcification is present. Impression: No acute bony abnormality. Signed by: Dr. Desiree Chau DO on 06/16/2018 5:49 PM Dictated By: ANALI CHAU DO 46 Trans cribed By: SERGEI on 06/16/181748 COPY TO: KAREN CHOUDHARY MD [id number] 11:14:00* Test Item Value Reference Range Interpretation Comments GLUBED (test code = GLUBED) 178 MG/DL 70-110 H Performed by certified flocculator operator at [facility] [id number] 07:46:00* Test Item Value Reference Range Interpretation Comments GLUBED (test code = GLUBED) 161 MG/DL 70-110 H Performed by certified flocculator operator at [facility] [id number] 16:46:00* Test Item Value Reference Range Interpretation Comments GLUBED (test code = GLUBED) 85 MG/DL 70-110 N Performed by certified flocculator operator at [facility] [id number] 08:38:00* Test Item Value Reference Range Interpretation Comments GLUBED (test code = GLUBED) 176 MG/DL 70-110 H Performed by certified flocculator operator at [facility] CBC W/AUTO [id number] 07:29:00* Test Item Value Reference Range Interpretation Comments WHITE BLOOD CELL (test code = WBC) 5.96 x10 3/uL 4.5-11.0 N RED BLOOD CELL (test code = RBC) 3.31 x10 6/uL 3.54-5.02 L HEMOGLOBIN (test code = HGB) 9.3 g/dL 11.0-15.0 L HEMATOCRIT (test code = HCT) 31.1 % 33.0-45.0 L MEAN CELL VOLUME (test code = MCV) 94.0 fL 81.0-99.0 N MEAN CELL HGB (test code = MCH) 28.1 pg 27.0-33.0 N MEAN CELL HGB CONCETRATION (test code = MCHC) 29.9 g/dL 33.0-37. 0 L RED CELL DISTRIBUTION WIDTH CV (test code = RDW) 15.4 % 11.5- 14.5 H RED CELL DISTRIBUTION WIDTH SD (test code = RDW-SD) 52.9 fL 37 .0-54.0 N PLATELET COUNT (test code = PLT) 286 x10 3/uL 150-400 N MEAN PLATELET VOLUME (test code = MPV) 9.7 fL 7.0-9.0 H NEUTROPHIL % (test code = NT%) 62.0 % 56.0-77.0 N IMMATURE GRANULOCYTE % (test code = IG%) 0.3 % 0.0-2.0 N LYMPHOCYTE % (test code = LY%) 26.7 % 14.0-32.0 N MONOCYTE % (test code = MO%) 8.2 % 4.8-9.0 N EOSINOPHIL % (test code = EO%) 2.3 % 0.3-3.7 N BASOPHIL % (test code = BA%) 0.5 % 0.0-2.0 N NUCLEATED RBC % (test code = NRBC%) 0.0 % 0-0 N NEUTROPHIL # (test code = NT#) 3.69 x10 3/uL 2.0-7.6 N IMMATURE GRANULOCYTE # (test code = IG#) 0.02 x10 3/uL 0.00-0.03 N LYMPHOCYTE # (test code = LY#) 1.59 x10 3/uL 1.0-3.8 N MONOCYTE # (test code = MO#) 0.49 x10 3/uL 0.1-0.8 N EOSINOPHIL # (test code = EO#) 0.14 x10 3/uL 0.0-0.2 N BASOPHIL # (test code = BA#) 0.03 x10 3/uL 0.0-0.2 N NUCLEATED RBC # (test code = NRBC#) 0.00 x10 3/uL 0.0-0.1 N MANUAL DIFF REQUIRED (test code = MDIFF) NO COMPREHENSIVE METABOLIC [id number] 07:20:00* Test Item Value Reference Range Interpretation Comments SODIUM (test code = NA) 138 mEq/L 134-147 N POTASSIUM (test code = K) 4.1 mEq/L 3.4-5.0 N CHLORIDE (test code = CL) 100 mEq/L 100-108 N CARBON DIOXIDE (test code = CO2) 32 mEq/L 21-33 N ANION GAP (test code = GAP) 10 0-20 N GLUCOSE (test code = GLU) 141 mg/dL 70-110 H BLOOD UREA NITROGEN (test code = BUN) 14 mg/dL 7-18 N GLOMERULAR FILTRATION RATE (test code = GFR) 123.8 80-90 H Units of measure = ml/min/1.73 m2 CREATININE (test code = CREAT) 0.5 mg/dL 0.6-1.3 L TOTAL PROTEIN (test code = PROT) 7.7 g/dL 6.4-8.2 N ALBUMIN (test code = ALB) 3.40 g/dL 3.4-5.0 N CALCIUM (test code = CA) 9.1 mg/dL 8.0-10.5 N BILIRUBIN TOTAL (test code = BILT) 0.30 mg/dL 0.0-1.0 N SGOT/AST (test code = AST) 34 IUnit/L 15-37 SGPT/ALT (test code = ALT) 29 IUnit/L 15-65 ALKALINE PHOSPHATASE TOTAL (test code = ALKP) 99 IUnit/L 20-125 N [id number] 22:38:00* Test Item Value Reference Range Interpretation Comments GLUBED (test code = GLUBED) 184 MG/DL 70-110 H Performed by certified flocculator operator at [facility] [id number] 17:33:00* Test Item Value Reference Range Interpretation Comments GLUBED (test code = GLUBED) 166 MG/DL 70-110 H Performed by certified flocculator operator at [facility] [id number] 11:58:00* Test Item Value Reference Range Interpretation Comments GLUBED (test code = GLUBED) 228 MG/DL 70-110 H Performed by certified flocculator operator at [facility] [id number] 08:02:00* Test Item Value Reference Range Interpretation Comments GLUBED (test code = GLUBED) 183 MG/DL 70-110 H Performed by certified flocculator operator at [facility] [id number] 05:32:00* Test Item Value Reference Range Interpretation Comments GLUBED (test code = GLUBED) 141 MG/DL 70-110 H Performed by certified flocculator operator at [facility] URINALYSIS [id number] 23:03:00* Test Item Value Reference Range Interpretation Comments UA COLOR (test code = COLU) YELLOW YEL/STRAW UA APPEARANCE (test code = APPU) SL CLOUDY CLEAR UA GLUCOSE DIPSTICK (test code = DGLUU) NEGATIVE NEGATIVE UA BILIRUBIN DIPSTICK (test code = BILU) NEGATIVE NEGATIVE UA KETONE DIPSTICK (test code = KETU) NEGATIVE NEGATIVE UA SPECIFIC GRAVITY (test code = SGU) 1.013 1.005-1.030 N UA BLOOD DIPSTICK (test code = DUSTIN) NEGATIVE NEGATIVE UA PH DIPSTICK (test code = ZOHAIB) 5.0 5.0-7.0 N UA PROTEIN DIPSTICK (test code = PROU) NEGATIVE NEGATIVE UA UROBILINIOGEN DIPSTICK (test code = URO) 0.2 mg/dL 0.2-1.0 UA NITRITE DIPSTICK (test code = MIMI) NEGATIVE NEGATIVE UA LEUKOCYTE ESTERASE DIPSTICK (test code = LEUU) 3+ NEGA TIVE A UA WBC (test code = WBCU) >50 WBC/HPF 0-3 A UA RBC (test code = RBCU) 0-3 RBC/HPF 0-3 UA BACTERIA (test code = BACU) 2+ /HPF NONE SEEN A UA SQUAMOUS CELLS (test code = SQU) 0-5 /HPF NONE SEEN COMPREHENSIVE METABOLIC [id number] 20:36:00* Test Item Value Reference Range Interpretation Comments SODIUM (test code = NA) 135 mEq/L 134-147 N POTASSIUM (test code = K) 4.0 mEq/L 3.4-5.0 N CHLORIDE (test code = CL) 99 mEq/L 100-108 L CARBON DIOXIDE (test code = CO2) 30 mEq/L 21-33 N ANION GAP (test code = GAP) 10 0-20 N GLUCOSE (test code = GLU) 136 mg/dL 70-110 H BLOOD UREA NITROGEN (test code = BUN) 17 mg/dL 7-18 N GLOMERULAR FILTRATION RATE (test code = GFR) 123.8 80-90 H Units of measure = ml/min/1.73 m2 CREATININE (test code = CREAT) 0.5 mg/dL 0.6-1.3 L TOTAL PROTEIN (test code = PROT) 8.1 g/dL 6.4-8.2 N ALBUMIN (test code = ALB) 3.50 g/dL 3.4-5.0 N CALCIUM (test code = CA) 9.2 mg/dL 8.0-10.5 N BILIRUBIN TOTAL (test code = BILT) 0.40 mg/dL 0.0-1.0 N SGOT/AST (test code = AST) 12 IUnit/L 15-37 L SGPT/ALT (test code = ALT) 13 IUnit/L 15-65 L ALKALINE PHOSPHATASE TOTAL (test code = ALKP) 97 IUnit/L 20-125 N COMPREHENSIVE METABOLIC [id number] 20:34:00* Test Item Value Reference Range Interpretation Comments SODIUM (test code = NA) 135 mEq/L 134-147 N POTASSIUM (test code = K) 4.0 mEq/L 3.4-5.0 N CHLORIDE (test code = CL) 99 mEq/L 100-108 L CARBON DIOXIDE (test code = CO2) 30 mEq/L 21-33 N ANION GAP (test code = GAP) 10 0-20 N GLUCOSE (test code = GLU) 136 mg/dL 70-110 H BLOOD UREA NITROGEN (test code = BUN) 17 mg/dL 7-18 N GLOMERULAR FILTRATION RATE (test code = GFR) 123.8 80-90 H Units of measure = ml/min/1.73 m2 CREATININE (test code = CREAT) 0.5 mg/dL 0.6-1.3 L TOTAL PROTEIN (test code = PROT) g/dL 6.4-8.2 ALBUMIN (test code = ALB) 3.50 g/dL 3.4-5.0 N CALCIUM (test code = CA) 9.2 mg/dL 8.0-10.5 N BILIRUBIN TOTAL (test code = BILT) mg/dL 0.0-1.0 SGOT/AST (test code = AST) 12 IUnit/L 15-37 L SGPT/ALT (test code = ALT) 13 IUnit/L 15-65 L ALKALINE PHOSPHATASE TOTAL (test code = ALKP) IUnit/L 20-125 CBC W/AUTO [id number] 20:24:00* Test Item Value Reference Range Interpretation Comments WHITE BLOOD CELL (test code = WBC) 8.36 x10 3/uL 4.5-11.0 N RED BLOOD CELL (test code = RBC) 3.48 x10 6/uL 3.54-5.02 L HEMOGLOBIN (test code = HGB) 9.8 g/dL 11.0-15.0 L HEMATOCRIT (test code = HCT) 32.3 % 33.0-45.0 L MEAN CELL VOLUME (test code = MCV) 92.8 fL 81.0-99.0 N MEAN CELL HGB (test code = MCH) 28.2 pg 27.0-33.0 N MEAN CELL HGB CONCETRATION (test code = MCHC) 30.3 g/dL 33.0-37. 0 L RED CELL DISTRIBUTION WIDTH CV (test code = RDW) 15.3 % 11.5- 14.5 H RED CELL DISTRIBUTION WIDTH SD (test code = RDW-SD) 51.9 fL 37 .0-54.0 N PLATELET COUNT (test code = PLT) 279 x10 3/uL 150-400 N MEAN PLATELET VOLUME (test code = MPV) 9.4 fL 7.0-9.0 H NEUTROPHIL % (test code = NT%) 71.6 % 56.0-77.0 N IMMATURE GRANULOCYTE % (test code = IG%) 0.4 % 0.0-2.0 N LYMPHOCYTE % (test code = LY%) 19.9 % 14.0-32.0 N MONOCYTE % (test code = MO%) 6.1 % 4.8-9.0 N EOSINOPHIL % (test code = EO%) 1.6 % 0.3-3.7 N BASOPHIL % (test code = BA%) 0.4 % 0.0-2.0 N NUCLEATED RBC % (test code = NRBC%) 0.0 % 0-0 N NEUTROPHIL # (test code = NT#) 6.00 x10 3/uL 2.0-7.6 N IMMATURE GRANULOCYTE # (test code = IG#) 0.03 x10 3/uL 0.00-0.03 N LYMPHOCYTE # (test code = LY#) 1.66 x10 3/uL 1.0-3.8 N MONOCYTE # (test code = MO#) 0.51 x10 3/uL 0.1-0.8 N EOSINOPHIL # (test code = EO#) 0.13 x10 3/uL 0.0-0.2 N BASOPHIL # (test code = BA#) 0.03 x10 3/uL 0.0-0.2 N NUCLEATED RBC # (test code = NRBC#) 0.00 x10 3/uL 0.0-0.1 N MANUAL DIFF REQUIRED (test code = MDIFF) NO - XR CHEST 1 [id number] 20:22:00 FAX: Aravind Taylor DO [phone] [place]: St: REG Name: Nidia CORREAMANPREET [facility] : [birth year] Age/S: 63/F [address] [place] [address] Unit #: [id number] Loc: [place] [address] Phys: Aravind Kat DO Acct: [id number] Dis Date: Status: REG ER PHONE #: [phone] Exam Date: 06/04/20182016 FAX #: [phone] Reason: DIZZINESS/ HYPOTENSION EXAMS: CPT CODE: [id number] XR CHEST 1 V 00547 PROCEDURE: - XR CHEST 1 V INDICATION: 63 years Female, DIZZINESS/ HYPOTENSION. ALISE RISON: Chest x-ray 05/27/2018 FINDINGS: The cardiac silhouette and pulmonary vasculature are normal for projection and degree of inspiration . No lobar consolidation, effusion, or pneumothorax. No pleural abnormalit ies are seen. No acute bony abnormalities. IMPRESSION: N o acute intrathoracic abnormalities. SL: CRISTIAN Elec tronically Signed by Heydi Hanson on 06/04/2018 at 2021 Reported and signed by: Keven Hanson M.D. CC: Aravind Kat DO Technologist: Fabiola Cordon(Fabiola) Trnscrd Date/Time/By: 06/04/2018 (2021) : By : [email or web address] Orig Print D/T: S: 06/04/2018 (2025) PAGE 1 Signed Report [id number] 12:39:00* Test Item Value Reference Range Interpretation Comments GLUBED (test code = GLUBED) 127 MG/DL 70-110 H Performed by certified flocculator operator at [facility] [id number] 09:35:00* Test Item Value Reference Range Interpretation Comments GLUBED (test code = GLUBED) 127 MG/DL 70-110 H Performed by certified flocculator operator at [facility] BASIC METABOLIC [id number] 07:30:00* Test Item Value Reference Range Interpretation Comments SODIUM (test code = NA) 142 mEq/L 134-147 N POTASSIUM (test code = K) 3.5 mEq/L 3.4-5.0 N CHLORIDE (test code = CL) 106 mEq/L 100-108 N CARBON DIOXIDE (test code = CO2) 27 mEq/L 21-33 N ANION GAP (test code = GAP) 13 0-20 N GLUCOSE (test code = GLU) 101 mg/dL 70-110 N BLOOD UREA NITROGEN (test code = BUN) 10 mg/dL 7-18 N GLOMERULAR FILTRATION RATE (test code = GFR) 160.2 80-90 H Units of measure = ml/min/1.73 m2 CREATININE (test code = CREAT) 0.4 mg/dL 0.6-1.3 L CALCIUM (test code = CA) 8.3 mg/dL 8.0-10.5 N CBC W/AUTO [id number] 06:58:00* Test Item Value Reference Range Interpretation Comments WHITE BLOOD CELL (test code = WBC) 7.43 x10 3/uL 4.5-11.0 N RED BLOOD CELL (test code = RBC) 3.17 x10 6/uL 3.54-5.02 L HEMOGLOBIN (test code = HGB) 8.9 g/dL 11.0-15.0 L HEMATOCRIT (test code = HCT) 29.2 % 33.0-45.0 L MEAN CELL VOLUME (test code = MCV) 92.1 fL 81.0-99.0 N MEAN CELL HGB (test code = MCH) 28.1 pg 27.0-33.0 N MEAN CELL HGB CONCETRATION (test code = MCHC) 30.5 g/dL 33.0-37. 0 L RED CELL DISTRIBUTION WIDTH CV (test code = RDW) 15.1 % 11.5- 14.5 H RED CELL DISTRIBUTION WIDTH SD (test code = RDW-SD) 50.7 fL 37 .0-54.0 N PLATELET COUNT (test code = PLT) 228 x10 3/uL 150-400 N MEAN PLATELET VOLUME (test code = MPV) 9.9 fL 7.0-9.0 H NEUTROPHIL % (test code = NT%) 58.9 % 56.0-77.0 N IMMATURE GRANULOCYTE % (test code = IG%) 0.4 % 0.0-2.0 N LYMPHOCYTE % (test code = LY%) 30.0 % 14.0-32.0 N MONOCYTE % (test code = MO%) 7.9 % 4.8-9.0 N EOSINOPHIL % (test code = EO%) 2.3 % 0.3-3.7 N BASOPHIL % (test code = BA%) 0.5 % 0.0-2.0 N NUCLEATED RBC % (test code = NRBC%) 0.0 % 0-0 N NEUTROPHIL # (test code = NT#) 4.37 x10 3/uL 2.0-7.6 N IMMATURE GRANULOCYTE # (test code = IG#) 0.03 x10 3/uL 0.00-0.03 N LYMPHOCYTE # (test code = LY#) 2.23 x10 3/uL 1.0-3.8 N MONOCYTE # (test code = MO#) 0.59 x10 3/uL 0.1-0.8 N EOSINOPHIL # (test code = EO#) 0.17 x10 3/uL 0.0-0.2 N BASOPHIL # (test code = BA#) 0.04 x10 3/uL 0.0-0.2 N NUCLEATED RBC # (test code = NRBC#) 0.00 x10 3/uL 0.0-0.1 N MANUAL DIFF REQUIRED (test code = MDIFF) NO [id number] 20:45:00* Test Item Value Reference Range Interpretation Comments GLUBED (test code = GLUBED) 169 MG/DL 70-110 H Performed by certified flocculator operator at [facility] [id number] 16:50:00* Test Item Value Reference Range Interpretation Comments GLUBED (test code = GLUBED) 130 MG/DL 70-110 H Performed by certified flocculator operator at [facility] [id number] 12:19:00* Test Item Value Reference Range Interpretation Comments GLUBED (test code = GLUBED) 100 MG/DL 70-110 N Performed by certified flocculator operator at [facility] [id number] 07:32:00* Test Item Value Reference Range Interpretation Comments GLUBED (test code = GLUBED) 139 MG/DL 70-110 H Performed by certified flocculator operator at [facility] [id number] 21:26:00* Test Item Value Reference Range Interpretation Comments GLUBED (test code = GLUBED) 126 MG/DL 70-110 H Performed by certified flocculator operator at [facility] [id number] 17:10:00* Test Item Value Reference Range Interpretation Comments GLUBED (test code = GLUBED) 81 MG/DL 70-110 N Performed by certified flocculator operator at [facility] [id number] 16:16:00* Test Item Value Reference Range Interpretation Comments GLUBED (test code = GLUBED) 115 MG/DL 70-110 H Performed by certified flocculator operator at [facility] CBC W/AUTO [id number] 08:38:00* Test Item Value Reference Range Interpretation Comments WHITE BLOOD CELL (test code = WBC) 6.63 x10 3/uL 4.5-11.0 N RED BLOOD CELL (test code = RBC) 3.35 x10 6/uL 3.54-5.02 L HEMOGLOBIN (test code = HGB) 9.3 g/dL 11.0-15.0 L HEMATOCRIT (test code = HCT) 31.1 % 33.0-45.0 L MEAN CELL VOLUME (test code = MCV) 92.8 fL 81.0-99.0 N MEAN CELL HGB (test code = MCH) 27.8 pg 27.0-33.0 N MEAN CELL HGB CONCETRATION (test code = MCHC) 29.9 g/dL 33.0-37. 0 L RED CELL DISTRIBUTION WIDTH CV (test code = RDW) 15.5 % 11.5- 14.5 H RED CELL DISTRIBUTION WIDTH SD (test code = RDW-SD) 53.1 fL 37 .0-54.0 N PLATELET COUNT (test code = PLT) 235 x10 3/uL 150-400 N MEAN PLATELET VOLUME (test code = MPV) 10.1 fL 7.0-9.0 H NEUTROPHIL % (test code = NT%) 64.0 % 56.0-77.0 N IMMATURE GRANULOCYTE % (test code = IG%) 0.5 % 0.0-2.0 N LYMPHOCYTE % (test code = LY%) 25.0 % 14.0-32.0 N MONOCYTE % (test code = MO%) 8.0 % 4.8-9.0 N EOSINOPHIL % (test code = EO%) 1.7 % 0.3-3.7 N BASOPHIL % (test code = BA%) 0.8 % 0.0-2.0 N NUCLEATED RBC % (test code = NRBC%) 0.0 % 0-0 N NEUTROPHIL # (test code = NT#) 4.25 x10 3/uL 2.0-7.6 N IMMATURE GRANULOCYTE # (test code = IG#) 0.03 x10 3/uL 0.00-0.03 N LYMPHOCYTE # (test code = LY#) 1.66 x10 3/uL 1.0-3.8 N MONOCYTE # (test code = MO#) 0.53 x10 3/uL 0.1-0.8 N EOSINOPHIL # (test code = EO#) 0.11 x10 3/uL 0.0-0.2 N BASOPHIL # (test code = BA#) 0.05 x10 3/uL 0.0-0.2 N NUCLEATED RBC # (test code = NRBC#) 0.00 x10 3/uL 0.0-0.1 N MANUAL DIFF REQUIRED (test code = MDIFF) NO [id number] 08:30:00* Test Item Value Reference Range Interpretation Comments GLUBED (test code = GLUBED) 127 MG/DL 70-110 H Performed by certified flocculator operator at [facility] BASIC METABOLIC [id number] 07:58:00* Test Item Value Reference Range Interpretation Comments SODIUM (test code = NA) 144 mEq/L 134-147 N POTASSIUM (test code = K) 3.7 mEq/L 3.4-5.0 N CHLORIDE (test code = CL) 106 mEq/L 100-108 N CARBON DIOXIDE (test code = CO2) 28 mEq/L 21-33 N ANION GAP (test code = GAP) 14 0-20 N GLUCOSE (test code = GLU) 125 mg/dL 70-110 H BLOOD UREA NITROGEN (test code = BUN) 12 mg/dL 7-18 N GLOMERULAR FILTRATION RATE (test code = GFR) 100.3 80-90 H Units of measure = ml/min/1.73 m2 CREATININE (test code = CREAT) 0.6 mg/dL 0.6-1.3 N CALCIUM (test code = CA) 8.9 mg/dL 8.0-10.5 N PROTHROMBIN [id number] 06:51:00* Test Item Value Reference Range Interpretation Comments PROTHROMBIN TIME PATIENT (test code = PTP) 20.7 SECONDS 9.3-12.9 H INTERNATIONAL NORMAL RATIO (test code = INR) 1.8 0.8-1.2 H TARGET INR BY INDICATION Indication INR1. Prophylaxis of venous thrombosis 2.0 - 3.0 (orthopedic surgery), Prophylaxis of venous thrombosis (other than high-risk surgery), Treatment of Deep Vein Thrombosis/Pulmonary Embolism, Prevention of systemic embolism - Tissue heart valves, Acute Myocardial Infarction (to prevent systemic embolism), Valvular heart disease, Atrial Fibrillation, Bileaflet mechanical valve in aortic position.2. Mechanical prosthetic valves (high risk), 2.5 - 3.5 Presence of Lupus Anticoagulant or Antiphospholipid Antibodies, Prevention of systemic embolism - Acute Myocardial Infarction (to prevent recurrent infarct). [id number] 21:18:00* Test Item Value Reference Range Interpretation Comments GLUBED (test code = GLUBED) 119 MG/DL 70-110 H Performed by certified flocculator operator at [facility] [id number] 21:18:00* Test Item Value Reference Range Interpretation Comments GLUBED (test code = GLUBED) 119 MG/DL 70-110 H Performed by certified flocculator operator at [facility] [id number] 18:32:00* Test Item Value Reference Range Interpretation Comments GLUBED (test code = GLUBED) 179 MG/DL 70-110 H Performed by certified flocculator operator at [facility] TOTAL IRON BINDING [id number] 15:09:00* Test Item Value Reference Range Interpretation Comments SERUM IRON (test code = IRON) 65 mcg/dL 35-150 N TOTAL IRON BINDING CAPACITY (test code = TIBC) 210 mcg/dL 260-445 L UIBC (test code = UIBC) 145 mcg/dL IRON SATURATION (test code = FESAT) 31.0 % 14-34 N VITAMIN [id number] 15:09:00* Test Item Value Reference Range Interpretation Comments VITAMIN B12 (test code = VITB12) 933 pg/mL 193-986 N [id number] 15:09:00* Test Item Value Reference Range Interpretation Comments FERRITIN (test code = HUYEN) 380.9 ng/mL 11.0-306.8 H RETIC COUNT (AUTOMATED)2018 14:22:00* Test Item Value Reference Range Interpretation Comments RETIC COUNT (AUTOMATED) (test code = RETICA) 3.5 % 0.3-2.3 H - DUP VEIN [id number] 13:57:00 Name: MANPREET MADDOX [facility] : 1955 Age/S: 63 / F [address] [place] [address] Blvd Unit #: [id number] Loc: [place] [address] Phys: Sammie Ratliff DO Acct: [id number] Dis Date: Status: ADM IN PHONE #: [phone] Exam Date: 2018 1333 FAX #: [phone] Reason: Previous DVT, unknown leg EXAMS: CPT CODE: [id number] DUP VEIN GINETTE [id number] EXAM: US BILATERAL LOWER EXTREMITY VENOUS DOPPLER : 1955; Age: 63 years y/o Female INDICATION: Previous DVT, unknown leg COMPARISON: None. TECHNIQUE: Multiplanar grayscale, color Doppler and spectral Doppler ultrasound of the bilateral lower extremity veins. FINDINGS: Right lower extremity: The common femoral vein, femoral vein, popliteal vein and visualized posterior tibial/calf veins are patent. There is no echogenic debris to suggest deep venous thrombosis. Left lower extremity: The common femoral vein, superficial femoral vein, popliteal vein and visualized posterior tibial/calf veins are patent. There is no echogenic debris to suggest deep venous thrombosis. IMPRESSION: No Deep Venous Thrombosis of the lower extremities. SL: [id number] at 1357 Reported and signed by: Edgar Marr D.O. CC: Smooth Chen MD; Sammie Ratliff DO Technologist: Delores Stallings RDMS (AB) (OB) Trnscb Date/Time: 2018 (0847) [email or web address] Orig Print D/T: S: 2018 (1400) Probe: PAGE 1 Signed Report [id number] 12:05:00* Test Item Value Reference Range Interpretation Comments GLUBED (test code = GLUBED) 186 MG/DL 70-110 H Performed by certified flocculator operator at [facility] [id number] 08:19:00* Test Item Value Reference Range Interpretation Comments GLUBED (test code = GLUBED) 150 MG/DL 70-110 H Performed by certified flocculator operator at [facility] [id number] 02:23:00* Test Item Value Reference Range Interpretation Comments GLUBED (test code = GLUBED) 145 MG/DL 70-110 H Performed by certified flocculator operator at [facility] LACTIC ACID [id number] 22:40:00* Test Item Value Reference Range Interpretation Comments LACTIC ACID REPEAT (test code = LACTR) 3.4 mmol/L 0.4-1.9 H PROCALCITONIN (PCT)2018-05-27 20:25:00* Test Item Value Reference Range Interpretation Comments PROCALCITONIN (PCT) (test code = PROCAL) < 0.05 ng/mL 0.00-0.05 N PROCALCITONIN (PCT) NORMAL RANGE (ADULT): <0.05 NG/ML. * a concentration <0.5 ng/mL represents a low risk of severe sepsis and/or septic shock.* a concentration >2 ng/mL represents a high risk of severe sepsis and/or septic shock.Nevertheless, concentrations <0.5 ng/mL do not exclude aninfection, on account of localized infections (withoutsystemic signs) which can be associated with such lowconcentrations, or a systemic infection in its initialstages (< 6 hours). Furthermore, increased procalcitonincan occur without infection. PCT concentrations between 0.5and 2.0 ng/mL should be interpreted taking into account thepatient's history. It is recommended to retest PCT within6-24 hours if any concentrations <2 ng/mL are obtained. URINALYSIS [id number] 16:29:00* Test Item Value Reference Range Interpretation Comments UA COLOR (test code = COLU) KIERA YEL/STRAW A UA APPEARANCE (test code = APPU) CLOUDY CLEAR A UA GLUCOSE DIPSTICK (test code = DGLUU) NEGATIVE NEGATIVE UA BILIRUBIN DIPSTICK (test code = BILU) NEGATIVE NEGATIVE UA KETONE DIPSTICK (test code = KETU) NEGATIVE NEGATIVE UA SPECIFIC GRAVITY (test code = SGU) 1.019 1.005-1.030 N UA BLOOD DIPSTICK (test code = DUSTIN) NEGATIVE NEGATIVE UA PH DIPSTICK (test code = ZOHAIB) 5.0 5.0-7.0 N UA PROTEIN DIPSTICK (test code = PROU) 2+ NEGATIVE A UA UROBILINIOGEN DIPSTICK (test code = URO) 0.2 mg/dL 0.2-1.0 UA NITRITE DIPSTICK (test code = MIMI) NEGATIVE NEGATIVE UA LEUKOCYTE ESTERASE DIPSTICK (test code = LEUU) 2+ NEGA TIVE A UA WBC (test code = WBCU) >50 WBC/HPF 0-3 A UA RBC (test code = RBCU) 4-10 RBC/HPF 0-3 UA BACTERIA (test code = BACU) 4+ /HPF NONE SEEN A UA SQUAMOUS CELLS (test code = SQU) 6-10 /HPF NONE SEEN A UA HYALINE CAST (test code = HYALU) >20 /LPF NONE SEEN UA MUCUS (test code = MUCU) 1+ /LPF NONE SEEN COMMENTS: Clean CatchUA CULT [id number] 16:29:00* Test Item Value Reference Range Interpretation Comments UA CULTURE NEEDED? (test code = UACULT) YES,WBC>10 & EPI<=25 Criteria Culture Chk Criteria met, Urine Culture in-process. COMMENTS: Clean CatchPROTHROMBIN [id number] 16:11:00* Test Item Value Reference Range Interpretation Comments PROTHROMBIN TIME PATIENT (test code = PTP) 74.4 SECONDS 9.3-12.9 H INTERNATIONAL NORMAL RATIO (test code = INR) 6.5 0.8-1.2 HH TARGET INR BY INDICATION Indication INR1. Prophylaxis of venous thrombosis 2.0 - 3.0 (orthopedic surgery), Prophylaxis of venous thrombosis (other than high-risk surgery), Treatment of Deep Vein Thrombosis/Pulmonary Embolism, Prevention of systemic embolism - Tissue heart valves, Acute Myocardial Infarction (to prevent systemic embolism), Valvular heart disease, Atrial Fibrillation, Bileaflet mechanical valve in aortic position.2. Mechanical prosthetic valves (high risk), 2.5 - 3.5 Presence of Lupus Anticoagulant or Antiphospholipid Antibodies, Prevention of systemic embolism - Acute Myocardial Infarction (to prevent recurrent infarct). THROMBOPLASTIN TIME [id number] 16:11:00* Test Item Value Reference Range Interpretation Comments THROMBOPLASTIN TIME PARTIAL (test code = PTT) 62.4 Seconds 25.0-39. 5 H Therapeutic Range: 61.8-83.8 Sec Effective 06/01/2013 HEPATIC FUNCTION [id number] 16:09:00* Test Item Value Reference Range Interpretation Comments TOTAL PROTEIN (test code = PROT) 8.5 g/dL 6.4-8.2 H ALBUMIN (test code = ALB) 3.70 g/dL 3.4-5.0 N BILIRUBIN TOTAL (test code = BILT) 0.30 mg/dL 0.0-1.0 N BILIRUBIN DIRECT (test code = BILD) 0.10 MG/DL 0.0-0.30 N BILIRUBIN INDIRECT (test code = BILIND) 0.20 MG/DL SGOT/AST (test code = AST) 19 IUnit/L 15-37 N SGPT/ALT (test code = ALT) 15 IUnit/L 15-65 N ALKALINE PHOSPHATASE TOTAL (test code = ALKP) 119 IUnit/L 20-125 N [id number] 16:09:00* Test Item Value Reference Range Interpretation Comments LIPASE (test code = LIP) 41 IUnit/L 73-393 L TROPONIN-I [id number] 15:54:00* Test Item Value Reference Range Interpretation Comments TROPONIN-I RAPID (test code = TROPIRAP) 0.00 ng/mL 0.00-0.08 N Performed by certified flocculator operator [facility] Global Task Force with joint leadership from the EuropeanSociety of Cardiology (ESC), the [place] [employer] (ACCF), the [place] [employer] Association(AHA) and the World Heart Federation (WHF) refined past criteria of myocardial infarction (PR) with a universal definition of myocardial infarction that supports the use of cTnI as a preferred biomarker for myocardial injury. The universal definition of PR, according to this taskforce, is defined as a typical rise and gradual fall ofcardiac biomarkers (preferably troponin) with at least onevalue above the 99th percentile of the upper reference limit (URL) together with evidence of myocardial ischemia with at least one of the following:* ischemic symptoms,* pathological Q waves on electrocardiogram (ECG),* ischemic ECG changes,* or imaging evidence of new loss of viable myocardium or new regional wall motion abnormality. An elevated troponin value alone is not sufficient todiagnose a myocardial infarction. Rather, the patient sclinical presentation (history, physical exam) and ECGshould be used in conjunction with troponin in thediagnostic evaluation of suspected myocardial infarction. Aserial sampling protocol is recommended to facilitate the identification of temporal changes in troponin levels characteristic of PR. CBC W/AUTO [id number] 15:49:00* Test Item Value Reference Range Interpretation Comments WHITE BLOOD CELL (test code = WBC) 7.59 x10 3/uL 4.5-11.0 N RED BLOOD CELL (test code = RBC) 3.88 x10 6/uL 3.54-5.02 N HEMOGLOBIN (test code = HGB) 10.9 g/dL 11.0-15.0 L HEMATOCRIT (test code = HCT) 35.3 % 33.0-45.0 N MEAN CELL VOLUME (test code = MCV) 91.0 fL 81.0-99.0 N MEAN CELL HGB (test code = MCH) 28.1 pg 27.0-33.0 N MEAN CELL HGB CONCETRATION (test code = MCHC) 30.9 g/dL 33.0-37. 0 L RED CELL DISTRIBUTION WIDTH CV (test code = RDW) 15.6 % 11.5- 14.5 H RED CELL DISTRIBUTION WIDTH SD (test code = RDW-SD) 52.2 fL 37 .0-54.0 N PLATELET COUNT (test code = PLT) 256 x10 3/uL 150-400 N MEAN PLATELET VOLUME (test code = MPV) 9.5 fL 7.0-9.0 H NEUTROPHIL % (test code = NT%) 71.3 % 56.0-77.0 N IMMATURE GRANULOCYTE % (test code = IG%) 0.4 % 0.0-2.0 N LYMPHOCYTE % (test code = LY%) 20.2 % 14.0-32.0 N MONOCYTE % (test code = MO%) 6.1 % 4.8-9.0 N EOSINOPHIL % (test code = EO%) 1.6 % 0.3-3.7 N BASOPHIL % (test code = BA%) 0.4 % 0.0-2.0 N NUCLEATED RBC % (test code = NRBC%) 0.0 % 0-0 N NEUTROPHIL # (test code = NT#) 5.42 x10 3/uL 2.0-7.6 N IMMATURE GRANULOCYTE # (test code = IG#) 0.03 x10 3/uL 0.00-0.03 N LYMPHOCYTE # (test code = LY#) 1.53 x10 3/uL 1.0-3.8 N MONOCYTE # (test code = MO#) 0.46 x10 3/uL 0.1-0.8 N EOSINOPHIL # (test code = EO#) 0.12 x10 3/uL 0.0-0.2 N BASOPHIL # (test code = BA#) 0.03 x10 3/uL 0.0-0.2 N NUCLEATED RBC # (test code = NRBC#) 0.00 x10 3/uL 0.0-0.1 N MANUAL DIFF REQUIRED (test code = MDIFF) NO LACTIC ACID [id number] 15:37:00* Test Item Value Reference Range Interpretation Comments LACTIC ACID POC (test code = LACTP) 3.7 MMOL/L 0.90-1.70 H Performed by certified flocculator operator at [facility] CHEMISTRY 8 [id number] 15:37:00* Test Item Value Reference Range Interpretation Comments ISTAT-SODIUM (test code = NAP) MMOL/L 134-147 ISTAT-POTASSIUM (test code = KP) MMOL/L 3.4-5.0 ISTAT-CHLORIDE (test code = CLP) MMOL/L 100-108 ISTAT CARBON DIOXIDE (test code = ISTAT-CO2) mmol/L 21-33 N ISTAT CALCIUM IONIZED (test code = ISTAT-WADE) MG/DL 1.12-1.3 2 ISTAT-GLUCOSE (test code = GLUP) MG/DL 70-110 H ISTAT-BUN (test code = BUNP) MG/DL 7-18 N BEDSIDE CREATININE (test code = CREATBED) MG/DL 0.6-1.3 N GLOMERULAR FILTRATION RATE POC (test code = GFRBED) 107 ML/MIN CHEMISTRY 8 [id number] 15:37:00* Test Item Value Reference Range Interpretation Comments ISTAT-SODIUM (test code = NAP) 137 MMOL/L 134-147 N ISTAT-POTASSIUM (test code = KP) 4.3 MMOL/L 3.4-5.0 N ISTAT-CHLORIDE (test code = CLP) 97 MMOL/L 100-108 L Performed by certified flocculator operator at [facility] ISTAT CARBON DIOXIDE (test code = ISTAT-CO2) 27.0 mmol/L 21-33 N ISTAT CALCIUM IONIZED (test code = ISTAT-WADE) 1.11 MG/DL 1.12-1.3 2 L ISTAT-GLUCOSE (test code = GLUP) 118 MG/DL 70-110 H ISTAT-BUN (test code = BUNP) 12 MG/DL 7-18 N BEDSIDE CREATININE (test code = CREATBED) 0.6 MG/DL 0.6-1.3 N GLOMERULAR FILTRATION RATE POC (test code = GFRBED) 107 ML/MIN - XR CHEST 1 [id number] 15:01:00 FAX: Dakota Brito DO [place]: St: REG Name: MANPREET ROSS [facility] : 05/28/18 52 Age/S: 62/F [address] [place] [address] Unit #: [id number] Loc: [place] [address] Phys: Dakota Mendez DO Acct: [id number] Dis Date: Status: REG ER PHONE #: [phone] Exam Date: 05/27/2018 8210 FAX #: [phone] Reason: hypotension EXAMS: CPT CODE: [id number] XR CHEST 1 V 03230 CHEST 1 VIEW: 05/27/2018 COMPARISON: March 09, 2018 CLINICAL HISTORY: hypotension FINDINGS: The cardiovascular silhouette is normal in size. No infiltrates or pulmonary edema is present. No pleural eff usions are seen. IMPRESSION: No acute pulmona ry disease. at 1501 Reported and signed by: Joseph Mane M.D. CC: Dakota Mendez DO Technologist: RT Tolbert (R) Trnscrd Kyler e/Time/By: 05/27/2018 (1505) : By: [email or web address] Orig Print D/T: S: 2018 (3446) PAGE 1 Signed Report [facility]UM [id number] 13:31:00 [place] [address] Patient Name: MANPREET MADDOX MR #: [id number] : 1955 Age/Sex: 62/F Req #: [id number] Adm Physician: Ordered by: KAREN CHOUDHARY MD Report #: [id number] Location: [facility] Room/Bed: Procedure: [id number] DX/SACRUM X-RAY Exam Date: Exam Time: REPORT STATUS: Signed Exam: AP pe lvis and sacrum History: Stress incontinence Comparison: None. F indings: No acute fracture. Joint spaces maintained. Vertebral augmentation to L5. Bladder stimulator with lead tip left of midline. No discontinuity. Im pression: Bladder stimulator with lead tip left of midline. Signed by: Dr. Kaylee Navarro M.D. on 01/20/2018 1:33 PM Dictated By: KAYLEE ARDON MD 32 Trans cribed By: SERGEI on 01/20/181332 COPY TO: KAREN CHOUDHARY MD PELVIS AP 1-2 [id number] 13:31:00 [place] [address] Patient Name: MANPREET MADDOX MR #: [id number] : 1955 Age/Sex: 62/F Req #: [id number] Adm Physician: Ordered by: KAREN CHOUDHARY MD Report #: [id number] Location: [facility] Room/Bed: Procedure: [id number] DX/PELVIS AP 1-2 VIEWS Exam Date: Exam Time: REPORT STATUS: Signed Exam: AP pelvis and sacrum History: Stress incontinence Comparison: None. Findings: No acute fracture. Joint spaces maintained. Vertebral augmentati on to L5. Bladder stimulator with lead tip left of midline. No discontinuity. Impression: Bladder stimulator with lead tip left of midline. Signed by: Dr. Kaylee Navarro M.D. on 01/20/2018 1:33 PM Dictated By: FARIHA NAVARRO MD 32 Transcribed By: SERGEI on 01/20/181332 COPY TO: KAREN CHODUHARY MD CHEST XRAY LINE PLACEMENT [place] [address] Patient Name: MANPREET MADDOX MR #: [id number] : 1955 Age/Sex: 61/F Req #: [id number] Adm Physician: JOHANNY RAJAN MD Ordered by: KAREN CHODUHARY MD Report #: [id number] Location: MED/SURG3 Room/Bed: 291-1 Procedure: [id number] DX/CHEST X RAY LINE PLACEMENT Exam Date: 05/27/17 Exam Time: 13 35 REPORT STATUS: Signed PROCEDURE: CHEST XRAY LINE PLACEMENT COMPARI SON: 03/25/2017. INDICATIONS: PICC LINE PLACEMENT FINDINGS: The lungs are well-inflated. No focal airspace consolidation, pleural effusion, o r pneumothorax. Stable cardiomediastinal contour. No pulmonary edema. N o acute osseous abnormalities. Interval placement of a left upper extremit y PICC. The tip projects over the expected region of the low superior vena ca va. CONCLUSION: Tip of left upper extremity PICC projects over the ex pected region of the low superior vena cava. Dictated by: Francesca Payne M.D. on 05/27/2017 at 14:05 Electronically approved by: Francesca Payne M.D. on 05/27/2017 at 14:05 Dictated By: FRANCESCA PAYNE MD Electronica lly Signed By: FRANCESCA PAYNE MD on 05/27/17 1405 Transcribed By: OSCAR on 05/27 1405 COPY TO: KAREN CHOUDHARY MD CT ABDOMEN/PELVIS W [place] [address] Patient Name: MANPREET MADDOX MR #: [id number] : 1955 Age/Sex: 61/F Req #: [id number] Adm Physician: Ordered by: CLAIR BRYANT MD Report #: [id number] Location: ER Room/Bed: Procedure: [id number] CT/CT ABDOMEN/PELVIS W Exam D ate: 03/25/17 Exam Time: 1730 REPORT STATUS: Si gned PROCEDURE: CT ABDOMEN AND PELVIS WITH CONTRAST TECHNIQUE: The a bdomen and pelvis were scanned utilizing a multidetector helical scanner from the diaphragm to the lesser trochanter after the IV administration of 100 cc of Isovue 370 and the oral administration of water. Coronal and sagittal mu ltiplanar reformations were obtained. COMPARISON: [facility], CT, CT ABDOMEN AND PELVIS WITH CONTRAST, 08/27/2009, 10:49. INDICATIONS : VOMITTING, ABDOMINAL PAIN, CROHNS DISEASE FINDINGS: LOWER THORAX: St able 5-6 mm nodule in the lateral right lower lobe (series 2, image 1). Stabl e linear scarring in the medial right middle lobe (series 2, image 1). HEPATOBILIARY: Normal hepatic size and contour. No focal hepatic lesions. Com mon bile duct is mildly dilated, measuring approximately 9 mm at the aide he patis. No radiopaque intraluminal filling defects. Cholecystectomy clips. S PLEEN: No splenomegaly. PANCREAS: No focal masses or ductal dilatation. Normal parenchymal enhancement. No surrounding inflammatory changes, free fluid or fluid collections in the neck, body, or tail. ADRENALS: No adrenal nodu les. KIDNEYS/URETERS: No hydronephrosis, stones, or solid mass lesions. PELV IC ORGANS/BLADDER: Bladder is decompressed, but grossly unremarkable. Uterus is not visualized. No adnexal masses. PERITONEUM / RETROPERITONEUM: No shoaib e air or fluid. LYMPH NODES: Mildly enlarged aide hepatis and celiac axis nod es, as well as mildly prominent left retroperitoneal and gastrohepatic lig ament nodes: * Aide hepatis nodes measure 1.2 and 1.2 cm in short axis (serie s 2, images 22 and 24). * Enlarged portacaval lymph node measures 1.6 cm in short axis (series 2 image 27). * Enlarged celiac axis node measures 1.2 c m in short axis (series 2 image 23). * Borderline enlarged slick-caval nod e, which measures 1.0 cm in short axis (series 2, image 28). * Mildly promi nent gastrohepatic ligament nodes, which measures 0.8-0.9 cm in short axis. No other retroperitoneal or any pelvic or inguinal adenopathy. No intra-abdo ashely lymph nodes. VESSELS: The celiac trunk, superior and inferior mesenteric , and bilateral renal arteries are patent. Portal, superior mesenteric, and splenic veins are patent. Mild atherosclerotic disease of the aorta. GI TRACT: Very mild soft tissue stranding surrounding the second portion of the duodenum (for example series 2, image 31-33), with mild thickening of the adj acent anterior pararenal fascia (series 2, image 39). No bowel dilation or ev idence of obstruction. Stomach is grossly unremarkable. No surrounding strand ing or pericolonic inflammatory changes. BONES AND SOFT TISSUES: No acute b dena abnormalities. Vertebroplasty changes at L4 and L5. Degenerative disc kaykay nges L1-L2, and L4-L5/L5-S1. No lytic lesions. IMPRESSION: 1. shane y mild soft tissue stranding surrounding the second portion of the duodenum. This may reflect duodenitis. Alternatively, these may be reactive changes sec ondary to adjacent mild pancreatitis. Correlate with serum amylase and lipase . No evidence of pancreatic necrosis, focal lesion or ductal dilation. 2. T he rest of the bowel is grossly unremarkable. 3. Aide hepatis and celiac axis adenopathy, which may be reactive. 4. Stable 5-6 mm nodule in the right lower lobe since 2009, which is presumed benign. 5. Mild dilation of the common bile duct, likely reflect post cholecystectomy status. Renny Mcqueen M.D. Dictated by: Renny Mcqueen M.D. on 03/25/2017 at 18:54 Electronically approved by: Renny Mcqueen M.D. on 03/25/2017 at 18:54 Dictated By: RENNY MCQUEEN MD 53 Transcribed By: OSCAR on 03/25/171853 COPY TO: CLAIR BRYANT MD CHEST [facility] (PORTABLE) [facility] [address] [place] [address] Patient Name: MANPREET MADDOX MR #: [id number] : 1955 Age/Sex: 61/F Req #: [id number] Adm Physician: Ordered by: CLAIR BRYANT MD Report #: [id number] Location: ER Room/Bed: Procedure: [id number] DX/CHEST SINGLE (PORTABLE) Ex am Date: 03/25/17 Exam Time: 1515 REPORT STATUS : Signed PROCEDURE: A single AP view of the chest. COMPARISON: None. INDICATIONS: shortness of breath, nausea FINDINGS: Lines/tub es: None. Lungs: The lungs are well inflated and clear. There is no evid ence of pneumonia or pulmonary edema. Pleura: There is no pleural effu william or pneumothorax. Heart and mediastinum: The heart and the mediastinu m are unremarkable. Bones: No acute bony abnormality. IMPRESSION: 1. No acute cardiopulmonary abnormalities. Chang Krishna Dictated by: Renny Mcqueen M.D. on 03/25/2017 at 15:52 Elec tronically approved by: Renny Mcqueen M.D. on 03/25/2017 at 15:52 Dictated By: RENNY MCQUEEN MD 51 Transcribed By: OSCAR on 03/25/171551 COPY TO: CLAIR BRYANT MD
== END 2020-01-28 17:40 | disposition home or self-care (01) ==
LOC: ER 13:54
DX: N39.0 Urinary tract infection, site not specified (principal); M54.5 Low back pain; I10 Essential (primary) hypertension; E11.9 Type 2 diabetes mellitus without complications; E78.5 Hyperlipidemia, unspecified; K21.9 Gastro-esophageal reflux disease without esophagitis; K50.90 Crohn's disease, unspecified, without complications; M06.9 Rheumatoid arthritis, unspecified; Z96.653 Presence of artificial knee joint, bilateral
CPT/HCPCS: 36415; 51700; 71045; 74176; 80053; 81001; 82550; 82553; 84484; 85025; 85610; 85730; 87086; 99285; J1170; J2405; J7030

== ENCOUNTER 2020-09-27 11:23 | Inpatient (IN) | payer MEDICARE, OTHER ==
[~2020-09-27] VITALS: Ht 170.2 cm; Wt 93.0 kg
[2020-09-27] MEDS ORDERED: SODIUM CHLORIDE 0.9% 1000ML 1,000 ML IV STA (11:34)
[2020-09-27] MEDS ORDERED: FLUOXETINE HCL20 MG PO (11:43)
[2020-09-27] MEDS ORDERED: METHOCARBAMOL750 MG PO (11:43)
[2020-09-27] MEDS ORDERED: ATORVASTATIN CA40 MG PO (11:43)
[2020-09-27] MEDS ORDERED: SULFASALAZINE500 MG PO (11:43)
[2020-09-27] MEDS ORDERED: BUDESONIDE EC3 MG PO (11:43)
[2020-09-27] MEDS ORDERED: GABAPENTIN800 MG PO (11:43)
[2020-09-27] MEDS ORDERED: LISINOPRIL5 MG PO (11:44)
[2020-09-27 11:52] LABS: BASOPHILS % 0.3 % (0.0-1.0); EOSINOPHILS % 0.1 % (0.0-6.0); HEMATOCRIT 33.4 % (34.2-44.1); HEMOGLOBIN 10.7 g/dL (12.0-16.0); LYMPHOCYTES % 8.1 % (18.0-39.1); MEAN CORPUSCULAR HEMOGLOBIN 27.5 pg (28-32); MEAN CORPUSCULAR VOLUME 85.9 fL (81-99); MONOCYTES # (AUTO) 0.8 (0.2-0.8); NEUTROPHILS # (AUTO) 10.9 (2.1-6.9); NEUTROPHILS % 85.1 % (38.7-80.0); PLATELET COUNT 342 x10e3/uL (140-360); RED BLOOD COUNT 3.89 x10e6/uL (3.6-5.1); RED CELL DISTRIBUTION WIDTH 14.6 % (11.7-14.4)
[2020-09-27 12:15] LABS: CLARITY,URINE TURBID (CLEAR); COLOR,URINE YELLOW (YELLOW); KETONES,URINE 1+ (NEGATIVE); LEUKOCYTE ESTERASE ,URINE SMALL (NEGATIVE); NITRITE,URINE POSITIVE (NEGATIVE); PROTEIN,URINE DIPSTICK 2+ (NEGATIVE); URINE UROBILINOGEN 0.2 mg/dL (0.2 - 1)
[2020-09-27 12:22] LABS: BACTERIA,URINE MANY /HPF; EPITHELIAL CELLS,URINE FEW /LPF; WBC,URINE (MAN) >50 /HPF (0-5)
[2020-09-27 12:24] LABS: ALANINE AMINOTRANSFERASE 12 IU/L (0-55); ALBUMIN 3.3 g/dL (3.5-5.0); ALBUMIN/GLOBULIN RATIO 0.8 (0.8-2.0); ALKALINE PHOSPHATASE 67 IU/L (40-150); ANION GAP 15.3 mmol/L (8-16); BLOOD UREA NITROGEN 13 mg/dL (7-26); BUN/CREATININE RATIO 17 (6-25); CALCIUM 8.7 mg/dL (8.4-10.2); CARBON DIOXIDE 26 mmol/L (22-29); CHLORIDE 97 mmol/L (98-107); CREATINE KINASE 245 IU/L (29-168); CREATININE, SERUM 0.75 mg/dL (0.57-1.11); EST GLOMERULAR FILTRATION RATE > 60 ML/MIN (60-); GLUCOSE 304 mg/dL (74-118); POTASSIUM 4.3 mmol/L (3.5-5.1); SODIUM 134 mmol/L (136-145)
[2020-09-27] MEDS ORDERED: MORPHINE SULFATE INJ 2 MG/ML SYR IV PRN (13:15)
[2020-09-27] MEDS: SODIUM CHLORIDE 0.9% 1000ML 1,000 ML IV SCH ×2 (13:20→22:02)
[2020-09-27] MEDS: MORPHINE SULFATE INJ 4 MG/ML INJ 1ML IV PRN (15:14)
[2020-09-27] MEDS: ONDANSETRON HCL INJ 2MG/ML 2ML 2 MG/ML VIAL IV PRN (15:14)
[2020-09-27] MEDS ORDERED: CIPROFLOXACIN 400 MG/D5W 200ML 200 ML IV SCH (17:00)
[2020-09-27] MEDS ORDERED: DEXTROSE 50% SYRINGE 50 ML IV PRN (19:15)
[2020-09-27] MEDS ORDERED: ACETAMINOPHEN 325 MG TAB ONE (20:07)
[2020-09-27] MEDS ORDERED: ACETAMINOPHEN 325 MG TAB PO ONE (20:15)
[2020-09-27] MEDS ORDERED: NON-FORMULARY MEDICATION (Gabapentin 800 MG) PO SCH (21:00)
[2020-09-27 21:46] VITALS: BP 113/53
[2020-09-27 22:00] VITALS: BP 113/53
[2020-09-27] MEDS ORDERED: MEROPENEM 1GRAM 1 GM in SODIUM CHLORIDE 0.9% 100 ML 100 ML IV SCH (22:00)
[2020-09-27] MEDS: HOME MEDICATION--PATIENTS OWN PO SCH (22:00)
[2020-09-27] MEDS ORDERED: SULFASALAZINE 500 MG TAB PO SCH (22:00)
[2020-09-27] MEDS: GABAPENTIN 400 MG CAP PO SCH (22:02)
[2020-09-27] MEDS: FLUOXETINE HCL 20 MG CAP PO SCH (22:02)
[2020-09-27] MEDS: INSULIN LISPRO 100 UNIT/1 ML 3ML VIAL SQ SCH (22:02)
[2020-09-27] MEDS: METHOCARBAMOL 750 MG TAB PO SCH (22:02)
[2020-09-27] MEDS: SODIUM CHLORIDE 0.9% IV SCH (22:06)
[2020-09-27] MEDS: MEROPENEM IV SCH (22:06)
[2020-09-28] VITALS (11 sets, daily range): BP systolic 97–154; BP diastolic 44–62
[2020-09-28] MEDS: HOME MEDICATION--PATIENTS OWN PO SCH ×6 (02:00→22:00)
[2020-09-28] MEDS: SODIUM CHLORIDE 0.9% 1000ML 1,000 ML IV SCH ×2 (05:03→14:20)
[2020-09-28] MEDS: ACETAMINOPHEN 325 MG TAB PO PRN ×2 (05:04→20:17)
[2020-09-28 05:39] LABS: BASOPHILS % 0.3 % (0.0-1.0); EOSINOPHILS % 0.2 % (0.0-6.0); HEMATOCRIT 30.9 % (34.2-44.1); HEMOGLOBIN 9.6 g/dL (12.0-16.0); LYMPHOCYTES # (AUTO) 0.6 (1.0-3.2); LYMPHOCYTES % 7.1 % (18.0-39.1); MEAN CORPUSCULAR HGB CONC 31.1 g/dL (31-35); MONOCYTES # (AUTO) 0.6 (0.2-0.8); NEUTROPHILS # (AUTO) 7.3 (2.1-6.9); NEUTROPHILS % 85.1 % (38.7-80.0); PLATELET COUNT 222 x10e3/uL (140-360); RED BLOOD COUNT 3.55 x10e6/uL (3.6-5.1); RED CELL DISTRIBUTION WIDTH 14.6 % (11.7-14.4)
[2020-09-28] MEDS: SODIUM CHLORIDE 0.9% IV SCH ×3 (05:57→22:00)
[2020-09-28] MEDS: MEROPENEM IV SCH ×3 (05:57→22:00)
[2020-09-28 06:03] LABS: ALANINE AMINOTRANSFERASE 10 IU/L (0-55); ALBUMIN/GLOBULIN RATIO 0.8 (0.8-2.0); ALKALINE PHOSPHATASE 60 IU/L (40-150); ANION GAP 15.1 mmol/L (8-16); BLOOD UREA NITROGEN 8 mg/dL (7-26); BUN/CREATININE RATIO 12 (6-25); CALCIUM 8.3 mg/dL (8.4-10.2); CARBON DIOXIDE 25 mmol/L (22-29); CHLORIDE 101 mmol/L (98-107); CREATININE, SERUM 0.67 mg/dL (0.57-1.11); EST GLOMERULAR FILTRATION RATE > 60 ML/MIN (60-); GLUCOSE 209 mg/dL (74-118); POTASSIUM 4.1 mmol/L (3.5-5.1); SODIUM 137 mmol/L (136-145)
[2020-09-28 06:14] LABS: CREATINE KINASE 228 IU/L (29-168)
[2020-09-28] MEDS: MORPHINE SULFATE INJ 4 MG/ML INJ 1ML IV PRN ×3 (06:24→17:35)
[2020-09-28] MEDS: INSULIN LISPRO 100 UNIT/1 ML 3ML VIAL SQ SCH ×4 (07:30→21:00)
[2020-09-28] MEDS: LISINOPRIL 2.5 MG TAB PO SCH (09:00)
[2020-09-28] MEDS ORDERED: NON-FORMULARY MEDICATION (Atorvastatin Calcium 40 MG) PO SCH (09:00)
[2020-09-28] MEDS ORDERED: ATORVASTATIN 40 MG TAB PO SCH (09:00)
[2020-09-28] MEDS ORDERED: ASPIRIN 325 MG TAB PO ONE (09:10)
[2020-09-28] MEDS ORDERED: METOPROLOL TARTRATE INJ 1 MG/ML VIAL IV ONE (09:10)
[2020-09-28] MEDS ORDERED: DIGOXIN INJ 0.25 MG/ML 2 ML AMP IV ONE (09:10)
[2020-09-28] MEDS: GABAPENTIN 400 MG CAP PO SCH ×3 (09:13→20:16)
[2020-09-28] MEDS: FLUOXETINE HCL 20 MG CAP PO SCH ×3 (09:14→20:16)
[2020-09-28] MEDS: METHOCARBAMOL 750 MG TAB PO SCH ×3 (09:14→20:16)
[2020-09-28 14:03] LABS: CREATINE KINASE 204 IU/L (29-168)
[2020-09-28] MEDS: ATORVASTATIN 40 MG TAB PO SCH (20:05)
[2020-09-28] MEDS: ENOXAPARIN SODIUM INJ 100 MG/ML SYR SC SCH (21:45)
[2020-09-29] VITALS (8 sets, daily range): BP systolic 104–128; BP diastolic 46–67
[2020-09-29] MEDS: HOME MEDICATION--PATIENTS OWN PO SCH ×6 (02:00→22:00)
[2020-09-29] MEDS: SODIUM CHLORIDE 0.9% IV SCH ×2 (02:38→06:11)
[2020-09-29] MEDS: MEROPENEM IV SCH ×2 (02:38→06:11)
[2020-09-29] MEDS: SODIUM CHLORIDE 0.9% 1000ML 1,000 ML IV SCH ×4 (02:44→22:16)
[2020-09-29] MEDS: MORPHINE SULFATE INJ 4 MG/ML INJ 1ML IV PRN ×4 (03:27→23:20)
[2020-09-29] MEDS ORDERED: SODIUM CHLORIDE 0.9% 100 ML ONE (06:00)
[2020-09-29 06:10] LABS: BASOPHILS % 0.4 % (0.0-1.0); EOSINOPHILS % 0.6 % (0.0-6.0); HEMATOCRIT 30.2 % (34.2-44.1); HEMOGLOBIN 9.5 g/dL (12.0-16.0); LYMPHOCYTES # (AUTO) 0.9 (1.0-3.2); LYMPHOCYTES % 16.7 % (18.0-39.1); MEAN CORPUSCULAR HEMOGLOBIN 27.2 pg (28-32); MEAN CORPUSCULAR HGB CONC 31.5 g/dL (31-35); MEAN CORPUSCULAR VOLUME 86.5 fL (81-99); MONOCYTES # (AUTO) 0.6 (0.2-0.8); NEUTROPHILS # (AUTO) 3.7 (2.1-6.9); NEUTROPHILS % 70.9 % (38.7-80.0); PLATELET COUNT 238 x10e3/uL (140-360); RED BLOOD COUNT 3.49 x10e6/uL (3.6-5.1); RED CELL DISTRIBUTION WIDTH 14.4 % (11.7-14.4)
[2020-09-29 06:29] LABS: ALANINE AMINOTRANSFERASE 12 IU/L (0-55); ALBUMIN 2.6 g/dL (3.5-5.0); ALBUMIN/GLOBULIN RATIO 0.8 (0.8-2.0); ALKALINE PHOSPHATASE 55 IU/L (40-150); ANION GAP 13.6 mmol/L (8-16); BLOOD UREA NITROGEN 7 mg/dL (7-26); BUN/CREATININE RATIO 12 (6-25); CARBON DIOXIDE 24 mmol/L (22-29); CHLORIDE 105 mmol/L (98-107); CREATININE, SERUM 0.59 mg/dL (0.57-1.11); EST GLOMERULAR FILTRATION RATE > 60 ML/MIN (60-); GLUCOSE 169 mg/dL (74-118); POTASSIUM 3.6 mmol/L (3.5-5.1); SODIUM 139 mmol/L (136-145)
[2020-09-29] MEDS: INSULIN LISPRO 100 UNIT/1 ML 3ML VIAL SQ SCH ×4 (07:30→21:00)
[2020-09-29] MEDS: LISINOPRIL 2.5 MG TAB PO SCH (09:00)
[2020-09-29] MEDS: GABAPENTIN 400 MG CAP PO SCH ×3 (09:35→21:30)
[2020-09-29] MEDS: FLUOXETINE HCL 20 MG CAP PO SCH ×3 (09:35→21:30)
[2020-09-29] MEDS: METHOCARBAMOL 750 MG TAB PO SCH ×3 (09:35→21:30)
[2020-09-29] MEDS: METOPROLOL TARTRATE 25 MG TAB PO SCH ×2 (09:35→17:00)
[2020-09-29] MEDS: AMIODARONE HCL 200 MG TAB PO SCH ×2 (09:35→17:14)
[2020-09-29] MEDS: ENOXAPARIN SODIUM INJ 100 MG/ML SYR SC SCH ×2 (10:03→21:32)
[2020-09-29] MEDS: MEROPENEM 1GM 100 ML IV SCH ×2 (14:30→22:16)
[2020-09-29] MEDS: NYSTATIN SUSPENSION 5 ML UDC PO SCH ×2 (15:32→21:30)
[2020-09-29] MEDS: METFORMIN HCL 500 MG TAB PO SCH (16:52)
[2020-09-29] MEDS: ATORVASTATIN 40 MG TAB PO SCH (21:30)
[2020-09-30] VITALS (7 sets, daily range): BP systolic 115–134; BP diastolic 49–57
[2020-09-30] MEDS: HOME MEDICATION--PATIENTS OWN PO SCH ×6 (01:39→21:17)
[2020-09-30] MEDS: MEROPENEM 1GM 100 ML IV SCH ×3 (05:29→22:00)
[2020-09-30] MEDS: SODIUM CHLORIDE 0.9% 1000ML 1,000 ML IV SCH (05:29)
[2020-09-30] MEDS: INSULIN LISPRO 100 UNIT/1 ML 3ML VIAL SQ SCH ×4 (07:30→21:00)
[2020-09-30] MEDS: METFORMIN HCL 500 MG TAB PO SCH ×2 (08:00→16:33)
[2020-09-30] MEDS: PIOGLITAZONE HCL 45 MG TAB PO SCH (08:31)
[2020-09-30] MEDS: METOPROLOL TARTRATE 25 MG TAB PO SCH ×2 (09:00→17:00)
[2020-09-30] MEDS: LISINOPRIL 2.5 MG TAB PO SCH (09:00)
[2020-09-30] MEDS ORDERED: LIDOCAINE 4% PATCH TP SCH (09:00)
[2020-09-30] MEDS: NYSTATIN SUSPENSION 5 ML UDC PO SCH ×3 (09:03→21:54)
[2020-09-30] MEDS: AMIODARONE HCL 200 MG TAB PO SCH ×2 (09:03→17:16)
[2020-09-30] MEDS: GABAPENTIN 400 MG CAP PO SCH ×3 (09:03→21:54)
[2020-09-30] MEDS: FLUOXETINE HCL 20 MG CAP PO SCH ×3 (09:03→21:54)
[2020-09-30] MEDS: METHOCARBAMOL 750 MG TAB PO SCH ×3 (09:03→21:54)
[2020-09-30] MEDS: ENOXAPARIN SODIUM INJ 100 MG/ML SYR SC SCH ×2 (10:19→21:54)
[2020-09-30] MEDS: MORPHINE SULFATE INJ 4 MG/ML INJ 1ML IV PRN ×3 (11:10→20:20)
[2020-09-30] MEDS: HYDROCODONE/APAP 10MG-325MG TAB PO SCH ×2 (16:30→21:54)
[2020-09-30] MEDS: ATORVASTATIN 40 MG TAB PO SCH (21:54)
[2020-09-30] MEDS: LIDOCAINE 4% PATCH TP SCH (21:54)
[2020-10-01] VITALS (8 sets, daily range): BP systolic 116–130; BP diastolic 50–60
[2020-10-01] MEDS: HOME MEDICATION--PATIENTS OWN PO SCH ×6 (01:25→21:28)
[2020-10-01] MEDS: MORPHINE SULFATE INJ 4 MG/ML INJ 1ML IV PRN ×5 (04:20→23:18)
[2020-10-01] MEDS: MEROPENEM 1GM 100 ML IV SCH ×3 (06:46→21:27)
[2020-10-01] MEDS: INSULIN LISPRO 100 UNIT/1 ML 3ML VIAL SQ SCH ×4 (07:30→21:00)
[2020-10-01] MEDS: METOPROLOL TARTRATE 25 MG TAB PO SCH ×2 (08:47→16:11)
[2020-10-01] MEDS: PIOGLITAZONE HCL 45 MG TAB PO SCH (08:47)
[2020-10-01] MEDS: AMIODARONE HCL 200 MG TAB PO SCH ×2 (08:47→16:11)
[2020-10-01] MEDS: METFORMIN HCL 500 MG TAB PO SCH ×2 (08:47→16:10)
[2020-10-01] MEDS: ENOXAPARIN SODIUM INJ 100 MG/ML SYR SC SCH ×2 (08:48→21:27)
[2020-10-01] MEDS: GABAPENTIN 400 MG CAP PO SCH ×3 (08:48→21:26)
[2020-10-01] MEDS: METHOCARBAMOL 750 MG TAB PO SCH ×3 (08:48→21:27)
[2020-10-01] MEDS: NYSTATIN SUSPENSION 5 ML UDC PO SCH ×3 (08:48→21:27)
[2020-10-01] MEDS: LISINOPRIL 2.5 MG TAB PO SCH (08:48)
[2020-10-01] MEDS: FLUOXETINE HCL 20 MG CAP PO SCH ×3 (08:48→21:27)
[2020-10-01] MEDS: HYDROCODONE/APAP 10MG-325MG TAB PO SCH ×3 (12:23→21:26)
[2020-10-01] MEDS: ATORVASTATIN 40 MG TAB PO SCH (21:26)
[2020-10-01] MEDS: LIDOCAINE 4% PATCH TP SCH (21:27)
[2020-10-01] MEDS: ONDANSETRON HCL INJ 2MG/ML 2ML 2 MG/ML VIAL IV PRN (21:28)
[2020-10-02] VITALS (8 sets, daily range): BP systolic 97–159; BP diastolic 45–84
[2020-10-02] MEDS: HOME MEDICATION--PATIENTS OWN PO SCH ×6 (01:05→21:17)
[2020-10-02] MEDS: MORPHINE SULFATE INJ 4 MG/ML INJ 1ML IV PRN (04:35)
[2020-10-02] MEDS: MEROPENEM 1GM 100 ML IV SCH ×3 (05:02→21:24)
[2020-10-02] MEDS: INSULIN LISPRO 100 UNIT/1 ML 3ML VIAL SQ SCH ×4 (07:30→21:00)
[2020-10-02] MEDS: PIOGLITAZONE HCL 45 MG TAB PO SCH (09:36)
[2020-10-02] MEDS: AMIODARONE HCL 200 MG TAB PO SCH ×2 (09:36→16:43)
[2020-10-02] MEDS: METFORMIN HCL 500 MG TAB PO SCH ×2 (09:36→16:43)
[2020-10-02] MEDS: METOPROLOL TARTRATE 25 MG TAB PO SCH ×2 (09:37→16:43)
[2020-10-02] MEDS: NYSTATIN SUSPENSION 5 ML UDC PO SCH ×3 (09:38→21:23)
[2020-10-02] MEDS: FLUOXETINE HCL 20 MG CAP PO SCH ×3 (09:38→21:23)
[2020-10-02] MEDS: METHOCARBAMOL 750 MG TAB PO SCH ×3 (09:38→21:23)
[2020-10-02] MEDS: GABAPENTIN 400 MG CAP PO SCH ×3 (09:38→21:23)
[2020-10-02] MEDS: LISINOPRIL 2.5 MG TAB PO SCH (09:38)
[2020-10-02] MEDS: ENOXAPARIN SODIUM INJ 100 MG/ML SYR SC SCH ×2 (09:46→21:30)
[2020-10-02] MEDS: HYDROCODONE/APAP 10MG-325MG TAB PO SCH ×3 (11:00→21:23)
[2020-10-02] MEDS: ATORVASTATIN 40 MG TAB PO SCH (21:23)
[2020-10-02] MEDS: LIDOCAINE 4% PATCH TP SCH (21:23)
[2020-10-03] MEDS: MORPHINE SULFATE INJ 4 MG/ML INJ 1ML IV PRN ×2 (00:33→08:55)
[2020-10-03] MEDS: ONDANSETRON HCL INJ 2MG/ML 2ML 2 MG/ML VIAL IV PRN (00:33)
[2020-10-03] MEDS: HOME MEDICATION--PATIENTS OWN PO SCH ×3 (01:14→10:00)
[2020-10-03 01:42] VITALS: BP 131/55
[2020-10-03 05:14] LABS: BASOPHILS % 0.7 % (0.0-1.0); EOSINOPHILS # (AUTO) 0.1 (0.0-0.4); EOSINOPHILS % 1.5 % (0.0-6.0); HEMATOCRIT 27.7 % (34.2-44.1); HEMOGLOBIN 8.6 g/dL (12.0-16.0); LYMPHOCYTES % 33.9 % (18.0-39.1); MEAN CORPUSCULAR VOLUME 87.1 fL (81-99); MONOCYTES # (AUTO) 0.3 (0.2-0.8); MONOCYTES % 5.4 % (4.4-11.3); NEUTROPHILS # (AUTO) 3.4 (2.1-6.9); NEUTROPHILS % 57.8 % (38.7-80.0); PLATELET COUNT 301 x10e3/uL (140-360); RED BLOOD COUNT 3.18 x10e6/uL (3.6-5.1); RED CELL DISTRIBUTION WIDTH 14.5 % (11.7-14.4)
[2020-10-03] MEDS: MEROPENEM 1GM 100 ML IV SCH (05:25)
[2020-10-03 05:45] LABS: ANION GAP 13.7 mmol/L (8-16); BLOOD UREA NITROGEN 12 mg/dL (7-26); BUN/CREATININE RATIO 20 (6-25); CALCIUM 8.3 mg/dL (8.4-10.2); CARBON DIOXIDE 28 mmol/L (22-29); CHLORIDE 103 mmol/L (98-107); CREATININE, SERUM 0.61 mg/dL (0.57-1.11); EST GLOMERULAR FILTRATION RATE > 60 ML/MIN (60-); GLUCOSE 163 mg/dL (74-118); POTASSIUM 3.7 mmol/L (3.5-5.1); SODIUM 141 mmol/L (136-145)
[2020-10-03 06:35] VITALS: BP 115/57
[2020-10-03] MEDS: INSULIN LISPRO 100 UNIT/1 ML 3ML VIAL SQ SCH (07:30)
[2020-10-03 07:59] VITALS: BP 114/40
[2020-10-03 08:20] VITALS: BP 114/40
[2020-10-03] MEDS: METFORMIN HCL 500 MG TAB PO SCH (08:35)
[2020-10-03] MEDS ORDERED: AMIODARONE HCL200 MG PO (08:59)
[2020-10-03] MEDS ORDERED: LOPRESSOR25 MG PO (08:59)
[2020-10-03] MEDS ORDERED: ELIQUIS5 MG PO (08:59)
[2020-10-03] MEDS: LISINOPRIL 2.5 MG TAB PO SCH (09:00)
[2020-10-03] MEDS: NYSTATIN SUSPENSION 5 ML UDC PO SCH (09:00)
[2020-10-03] MEDS: METOPROLOL TARTRATE 25 MG TAB PO SCH (09:00)
[2020-10-03] MEDS ORDERED: PIOGLITAZONE HC45 MG PO (09:01)
[2020-10-03] MEDS ORDERED: LIPITOR20 MG PO (09:01)
[2020-10-03] MEDS: HYDROCODONE/APAP 10MG-325MG TAB PO SCH (09:30)
[2020-10-03] MEDS: AMIODARONE HCL 200 MG TAB PO SCH (09:46)
[2020-10-03] MEDS: PIOGLITAZONE HCL 45 MG TAB PO SCH (09:46)
[2020-10-03] MEDS: GABAPENTIN 400 MG CAP PO SCH (09:47)
[2020-10-03] MEDS: FLUOXETINE HCL 20 MG CAP PO SCH (09:48)
[2020-10-03] MEDS: ENOXAPARIN SODIUM INJ 100 MG/ML SYR SC SCH (09:48)
[2020-10-03] MEDS: METHOCARBAMOL 750 MG TAB PO SCH (09:48)
== END 2020-10-03 12:11 | disposition home or self-care (01) | DRG 872 ==
LOC: ER 11:45 → ERHOLD 13:16 → MED/SURG3 21:42
PROVIDERS: ADMIT Internal Medicine; ATTEND Internal Medicine
PROC: 02HV33Z Insertion of Infusion Device into Superior Vena Cava, Percutaneous Approach (ICD-10-PCS; principal; 2020-10-02)
DX: A41.9 Sepsis, unspecified organism (principal); I48.92 Unspecified atrial flutter; K50.90 Crohn's disease, unspecified, without complications; N30.00 Acute cystitis without hematuria; Z16.12 Extended spectrum beta lactamase (ESBL) resistance; M06.9 Rheumatoid arthritis, unspecified; I10 Essential (primary) hypertension; K21.9 Gastro-esophageal reflux disease without esophagitis; G89.4 Chronic pain syndrome; E78.5 Hyperlipidemia, unspecified; I48.91 Unspecified atrial fibrillation; Z79.01 Long term (current) use of anticoagulants; I48.0 Paroxysmal atrial fibrillation; E66.01 Morbid (severe) obesity due to excess calories; Z68.32 Body mass index [BMI] 32.0-32.9, adult; Z96.653 Presence of artificial knee joint, bilateral; E11.40 Type 2 diabetes mellitus with diabetic neuropathy, unspecified; Z20.822 Contact with and (suspected) exposure to COVID-19; B96.20 Unspecified Escherichia coli [E. coli] as the cause of diseases classified elsewhere
CPT/HCPCS: 36415; 36569; 71045; 80048; 80053; 81001; 82550; 82553; 82948; 83605; 83880; 84443; 84484; 85025; 85651; 86140; 87040; 87086; 87186; 93005; 93306; 97139; 99285; J1160; J1650; J2185; J2270; J2405; J7030; J7050; U0002